=== PATIENT | female | born 1940 | race Caucasian/White ===

== ENCOUNTER 2022-04-14 14:09 | Outpatient (CLI) | payer MEDICARE, OTHER, SELFPAY ==
[2022-04-14 20:33] LABS: Chloride* 100 mmol/L (96-114)
[2022-04-14 20:34] LABS: Albumin* 4.6 g/dL (3.3-5.0); Potassium* 3.6 mmol/L (3.6-5.1); Sodium* 140 mmol/L (135-149)
[2022-04-14 20:36] LABS: Creatinine* 0.8 mg/dL (0.5-1.5); Estimated Glomerular Filt Rate 73 ml/min
[2022-04-14 20:37] LABS: Alanine Aminotransferase* 60 U/L (4-35); Alkaline Phosphatase* 94 U/L (40-150); Aspartate Amino Transferase* 57 U/L (12-35); Blood Urea Nitrogen* 26 mg/dL (7-30); Carbon Dioxide* 29 mmol/L (20-32); Glucose* 101 mg/dL (60-115); Total Protein* 7.7 g/dL (6.0-8.3)
[2022-04-14 20:56] LABS: Vitamin D 25 Hydroxy* 74 ng/mL (30-80)
== END 2022-04-14 14:10 | disposition home or self-care (01) ==
PROVIDERS: PCP Internal Medicine; Visit Provider Internal Medicine
DX: I10 Essential (primary) hypertension (principal); M85.80 Other specified disorders of bone density and structure, unspecified site; R73.03 Prediabetes; E78.5 Hyperlipidemia, unspecified; K21.9 Gastro-esophageal reflux disease without esophagitis; G57.01 Lesion of sciatic nerve, right lower limb
CPT/HCPCS: 80053; 82306

== ENCOUNTER 2022-04-18 12:50 | Outpatient (RCR) | payer MEDICARE, OTHER, SELFPAY ==
--- NOTE | 2022-04-18 14:36 | PT.OPEX ---
PT [place] [facility] PT [facility] Outpatient Eval Start: 04/18/22 07:46 Freq: Status: Active Protocol: Document 04/18/22 07:46 SPRING (Rec: 04/18/22 07:53 SPRING [id number]) E-Signed By Juli Malloy, PT Physical Therapy Outpatient Evaluation Insurance Information Recert Due Date 07/17/22 Insurance Name [employer],Medicare B Medical Diagnosis Piriformis syndrome R side lesion of sciatic nerve, R LE Treating Diagnosis pain limited ROM posture weakness Referring MD Dr. Paulino Subjective Subjective Marcia presents to PT with diagnosis of R sided piriformis syndrome and lesion of R sciatic nerve. Her pain started approx 3-4 weeks ago. Has not improved since onset . Is located in her R buttock. Can have some soreness in the back (midline). Rates her pain is almost always there and ranges between a 1-2 /10. Pain increases with walking and at time with sitting. Pain does increase the longer she walks. Pt tries to walk 1 -1.5 miles, 6/7 days. Her goal for therapy is pain reduction. Pain Comments 1-210 Date of Last Physician Visit 04/14/22 Current Work Status Retired Preferred Name Marcia Precautions Treatment Precautions/Contraindications Hx/o breast CA - 2 surgeries. Radiation, no chemo -- 2-3 urs ago. Arthritis - hands, fingers, knees. 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 Objective Range of Motion Trunk AROM - flexion: Mod limit; ext: severe limit; SB- R: mod+ limit, L: mild limit, rot- B: mod limit Hip PROM - B WFL with exception of R hip flexion: 100, IR- R: 30, L: 25, SLR - R : 50, L: 65 R knee: -5 deg (lacking extension) FABERS - B: negative FADIRS- R: neg, L: mild limitation in ROM, no pain. Strength LE MMT - WFL Palpation Severe spasm and tenderness noted with palpation of: R buttock including piriformis, G med, G max. Moderate spasms and tenderness of R QL and lumbar paraspinals. Hypomobility with spring testing along L3-L5, R SIJ. Balance & Gait Genu valgus noted with shortened and quick B step/ stride lengths. Hard impact with heel strike. Decreased trunk rotation. Posture Fair posture Flattened lumbar spine. Asymmetry at Iliac crest heights in standing and in supine - R elevated. Assessment Assessment/Impression 82 yo client presents with c/o R buttock pain that worsens with walking. Has a flattened lumbar spine and asymmetry at B iliac crests. Limited R knee extension noted (did have B TKAs). Severe spasms are noted in her R buttock including piriformis, G med, and G max. Hypomobility was present in R SIJ and lower lumbar segment's. Overall LE AROM and strength is WFL with exception of R SLR and L hip IR. Plan is to continue with further PT services including use of ther exs, MT, NMRE for symptom reduction and improvement with walking. Plan of Care Rehabilitation Potential Good Physical Therapy Goals Short-term goals to be completed in 4 weeks: 1. Pt will demonstrate ability to perform pelvic tilts in sitting, standing, and lying down to promote ability to maintain neutral spine in daily activities. 2. Pt will report ability to fitness walk with <2/10 LBP Long-term goals to be completed in 12 weeks: 1. Pt will be independent with HEP for improvement in her function. 2. Pt will report ability to perform all ADLS and fitness routine with 1/10 or less 3. 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 Coordination/Communication With Referral Source Treatment Plan/Direct Interventions Joint Mobilization,Manual Therapy,Neuromuscular Re-ed, Self-Care/Home Management, Therapeutic Activities, Therapeutic Exercises Frequency/Duration 2-6 visits over the next 12 weeks. Patient Will Be Discharged From Therapy Completion of LTG(s),Skills Plateau,Independent w/HEP, Independently Progressing Evaluation Billing Untimed Code Treatment Minutes 30 Complexity Moderate Certification Information Initial Certification Date 04/18/22 Ending Certification Date 07/17/22
== END 2022-07-23 17:21 | disposition home or self-care (01) ==
PROVIDERS: PCP Internal Medicine; Visit Provider Internal Medicine
DX: G57.01 Lesion of sciatic nerve, right lower limb (principal); Z51.89 Encounter for other specified aftercare
CPT/HCPCS: 97110; 97140; 97162

== ENCOUNTER 2022-08-12 15:48 | Outpatient (CLI) | payer MEDICARE, OTHER, SELFPAY | END 2022-08-12 15:49 | disposition home or self-care (01) | LOC: KYNREF 15:51 | PROVIDERS: PCP Internal Medicine; Visit Provider Nurse Practitioner Family | DX: N39.0 Urinary tract infection, site not specified (principal) | CPT/HCPCS: 87086; 87186 ==

== ENCOUNTER 2022-09-14 09:51 | Outpatient (CLI) | payer MEDICARE, OTHER, SELFPAY | END 2022-09-14 09:52 | disposition home or self-care (01) | LOC: NFLDUCREF 09-16 10:10 | PROVIDERS: PCP Internal Medicine; Visit Provider Family Medicine | DX: R30.0 Dysuria (principal); N39.0 Urinary tract infection, site not specified | CPT/HCPCS: 87086 ==

== ENCOUNTER 2023-06-08 15:04 | Outpatient (CLI) | payer MEDICARE, OTHER, SELFPAY ==
--- OUTSIDE RECORDS SUMMARY | 2023-06-08 15:11 | XMS_ITS | Continuity of Care Document ---
Author Name Unknown Organization [facility] Address [address] [place] [address] Phone Care Team Providers Care Extract Mixer Name Role Phone Carline KEY, Onofre Unavailable Unavailable Results Test Name Date and Time Measure Units Reference Range Abnormal Flag Status Commen ts Panel Description: CBC Final WBC 15:52:00 9.3 K/uL 3.5-10.8 Final Lymphocyte% 15:52:00 21.4 % 15.1-43.0 Final Mid% 15:52:00 5.6 % 1.0-18.0 Final Gran% 15:52:00 73.0 % 45.0-76.0 Final Lymphocyte # 15:52:00 2.0 K/uL 0.9-5.2 Final Mid # 15:52:00 0.5 K/uL 0.1-2.0 Final Gran # 15:52:00 6.8 K/uL 1.4-9.1 Final RBC 15:52:00 4.70 M/uL 3.80-5.20 Final Hemoglobin 15:52:00 13.9 g/dL 11.5-16.0 Final Hematocrit 15:52:00 40.7 % 36.0-49.0 Final MCV 15:52:00 87 fL 81-100 Final MCH 15:52:00 30 pg 27-35 Final MCHC 15:52:00 34.2 g/dL 31.0-37.5 Final MPV 15:52:00 11.0 fL 7.0-10.4 H Final Platelet Count 15:52:00 343 K/uL 130-400 Final Panel Description: NSAID Final AST 16:29:00 22 U/L 5-34 Final ALT 16:29:00 13 IU/L 5-35 Final BUN 16:29:00 24 mg/dL 10-37 Final Creatinine 16:29:00 0.8 mg/dL 0.5-1.3 Final B/C Ratio 16:29:00 30.0 Ratio Final Uric Acid 16:29:00 5.0 mg/dL 2.6-6.0 Final Alk Phos 16:29:00 88 U/L 30-103 Final Panel Description: CRP Final CRP 16:29:00 0.86 MG/DL 0.00-0.60 H Final Advance Directives Directive Yes / No Effective Date File Name No Information Encounters Encounter Description Practice Location Reason(s) For Visit Diagnoses Date Provider Providers Copied on Encounter [facility], [address], [place], [address], tel:[phone] No Information 3 Carline Parnell [facility] [address], [place], [address], . tel:[phone] Family History Family Member Type Diagnosis Age At Onset No Information Payers Payer name Insurance type Covered republican ID Authoriza tion(s) No Information Social History Type Description Quantity Date Captured Comments Sex Female Smoking Status No Information Chief Complaint And Reason For Visit No Information Reason For Referral Reason For Referral No Information History Of Present Illness Encounter Date Complaint History Of Prese nt Illness No Information Functional Status Date Functional Assessmen t No Information Instructions Date Instruction Additional Infor mation No Information Assessments Type Assessment Date No Information Patient Care Teams Name Effective Dates (start - stop) Status Members No Information
== END 2023-06-08 15:05 | disposition home or self-care (01) ==
PROVIDERS: PCP Internal Medicine; Visit Provider Internal Medicine
DX: E78.5 Hyperlipidemia, unspecified (principal); I10 Essential (primary) hypertension; R73.03 Prediabetes
CPT/HCPCS: 80053; 80061

== ENCOUNTER 2023-07-01 10:12 | Day surgery (SDC) | payer MEDICARE, OTHER, SELFPAY ==
[2023-07-01 10:28] VITALS: BMI 25.0
[2023-07-01 10:36] VITALS: BP 160/60; PULSE 90; RESP 20; TEMP 36.5; O2SAT 95
[2023-07-01] MEDS: LACTATED RINGERS 1000 ML 1,000 ML 100 ML IV (10:54)
[2023-07-01] MEDS: SODIUM CHLORIDE 0.9 % (FLUSH) 10 ML SYRINGE IVF (10:55)
[2023-07-01] MEDS: BUPIVACAINE 0.5 %/EPI 1:200K 30 ML INJECTION (11:35)
[2023-07-01] MEDS: TETRACAINE 0.5% OPHTH 2 DROP EYE-BOTH (11:35)
--- NOTE | 2023-07-01 11:52 | W.ANESCHARGE ---
Anesthesia Charges Start Date/Time Anesthesia Start Date: 07/01/23 Anesthesia Start Time: 11:29 Stop Date/Time Anesthesia Stop Date: 07/01/23 Anesthesia Stop Time: 12:44 Summary Extremes of Age - Over 70 or under 1: MDA
--- NOTE | 2023-07-01 12:28 | W.ANESCHARGE ---
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
--- NOTE | 2023-07-01 12:30 | P.ANES_ITS ---
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
--- NOTE | 2023-07-01 12:48 | W.PM.OPTPROC ---
Procedure Note Date of procedure: 07/01/23 Will [facility] bill your pro fee for this procedure?: Yes Procedure Description: SURGEON: Winifred Pires MD PREOPERATIVE DIAGNOSIS: Dermatochalasis, bilateral upper eyelids. POSTOPERATIVE DIAGNOSIS: Dermatochalasis, bilateral upper eyelids. NAME OF OPERATION: Bilateral upper eyelid blepharoplasty. ANESTHESIA: Local monitored anesthesia care. ESTIMATED BLOOD LOSS: Less than 2 cc. COMPLICATIONS: None. IMPLANTS: None. INDICATIONS: The patient is seen today for bilateral upper eyelid blepharoplasty. The patient complains of upper eyelids interfering with vision. I reviewed the visual marlow and facial photographs. Surgery was indicated for functional improvement of vision. The risks, benefits and alternatives were discussed pre-operatively. The risks included pain, infection, bleeding, poor cosmetic result, scarring, asymmetry, need for further treatment including surgery, inability to close lids, dry eyes, decreased vision, loss of vision and loss of eye. The benefits included improvement of symptoms. The alternative was observation and no surgery. All questions were answered to the patient's satisfaction, and the patient elected to proceed with the bilateral upper eyelid blepharoplasty. Informed consent was obtained. PROCEDURE: In a sitting position, the upper eyelid crease was marked with a marking pen, and the pinch technique was used to determine the amount of upper eyelid skin to be excised. A calipers was used to measure for symmetry and to confirm an appropriate amount of remaining skin. The patient was taken to the operating room. 4 cc of anesthetic was injected subcutaneously along the full extent of each upper eyelid. This anesthetic was made with 1:1 of 2% lidocaine with epinephrine and 0.5% bupivacaine. Both eyes were prepped and draped in the usual sterile ophthalmic fashion. The following was performed on both the right and left upper eyelid: A #15 blade was used to incise the skin. Bishops and Carlos scissors were used to excise the skin and orbicularis muscle. Handheld cautery was used to achieve hemostasis. The eyelids were examined for symmetry. The skin was closed with a running 6-0 nylon suture. Erythromycin ointment was applied to the wounds. The patient tolerated the procedure well. DISPOSITION: The patient was sent to the recovery room and discharged to home in stable condition. The patient was given my postoperative instructions handout. The patient was told to ice as directed. The patient will apply erythromycin ophthalmic ointment to the eyelids three times a day until the sutures are removed, then for another three days. The patient will follow up in one week for suture removal or sooner as needed. The patient was instructed to call me or go to the emergency department with any sudden change, including dramatic loss of vision, excessive bleeding, redness or discharge from the incisions, or severe pain in the eye.
[2023-07-01 12:49] VITALS: BP 114/72; PULSE 78; RESP 20; TEMP 36.8; O2SAT 95
[2023-07-01 13:00] VITALS: BP 133/70; PULSE 77; RESP 18; O2SAT 95
== END 2023-07-01 13:29 | disposition home or self-care (01) ==
PROVIDERS: PCP Internal Medicine; Visit Provider Ophthalmology
PROC: (CPT 15823; principal; 2023-07-01 10:15)
DX: H02.831 Dermatochalasis of right upper eyelid (principal); H02.834 Dermatochalasis of left upper eyelid; H53.8 Other visual disturbances
CPT/HCPCS: 15823; 00103; 99100; A9270; J2704; J3490; J7120

== ENCOUNTER 2023-07-26 08:35 | Outpatient (CLI) | payer MEDICARE, OTHER, SELFPAY ==
--- OUTSIDE RECORDS SUMMARY | 2023-07-27 11:15 | XMS_ITS | Continuity of Care Document ---
Author Name Unknown Organization [facility] Address [address] [place] [address] Phone Care Team Providers Care Senior Web Architect Name Role Phone Carline KEY, Onofre Unavailable [...] [facility], [address], [place], [address], tel:[phone] No Information 3 Carline Parnell [facility] [address], [place], [address], . tel:[phone] Family History Family Member Type Diagnosis Age At Onset No Information Payers Payer name Insurance type Covered constitution party ID Authoriza tion(s) No Information Social History [...]
== END 2023-07-26 08:36 | disposition home or self-care (01) ==
LOC: NFLDREF 07-27 11:12
PROVIDERS: PCP Internal Medicine; Referring Provider Internal Medicine; Visit Provider Nurse Practitioner Family
DX: R30.0 Dysuria (principal); N30.91 Cystitis, unspecified with hematuria
CPT/HCPCS: 87086; 87186

== ENCOUNTER 2023-07-31 11:23 | Outpatient (CLI) | payer MEDICARE, OTHER, SELFPAY ==
--- OUTSIDE RECORDS SUMMARY | 2023-07-31 11:25 | XMS_ITS | Continuity of Care Document ---
Author Name Unknown Organization [facility] Address [address] [place] [address] Phone Care Team Providers Care Monitor Car Operator Name Role Phone Carline KEY, Onofre Unavailable [...] [facility], [address], [place], [address], tel:[phone] No Information 3 Carline Parnell [facility] [address], [place], [address], . tel:[phone] Family History Family Member Type Diagnosis Age [...]
== END 2023-07-31 11:24 | disposition home or self-care (01) ==
PROVIDERS: PCP Internal Medicine; Visit Provider Family Medicine
DX: N39.0 Urinary tract infection, site not specified (principal)
CPT/HCPCS: 87086

== ENCOUNTER 2023-08-26 12:52 | Outpatient (CLI) | payer MEDICARE, OTHER, SELFPAY ==
--- OUTSIDE RECORDS SUMMARY | 2023-08-26 12:56 | XMS_ITS | Continuity of Care Document ---
Author Name Unknown Organization [facility] Address [address] [place] [address] Phone Care Team Providers Care Locomotive Observer Name Role Phone Carline KEY, Onofre Unavailable [...] [facility], [address], [place], [address], tel:[phone] No Information 3 Carline Parnell [facility] [address], [place], [address], . tel:[phone] Family History Family Member Type Diagnosis Age At Onset No Information Payers Payer name Insurance type Covered libertarian ID Authoriza tion(s) No Information Social History [...]
--- NOTE | 2023-08-26 13:00 | CRLHL7_ITS ---
For Patients: As a result of the Century Cures Act, medical imaging exams and procedure reports are released immediately into your electronic medical record. You may view this report before your referring provider. If you have questions, please contact your health care provider. DXA BONE MINERAL DENSITY STUDY, 08/26/2023 Current height (in): 67.0. Weight (lb): 150.0. Menopause age: 44. Ethnicity: White. 1. Have you had a previous hip or vertebral fracture? No. 2. Have you had any fractures during your adult life which did not result from significant trauma (e.g., auto accident)? No. 3. Did either of your parents have a hip fracture? No. 4. Do you smoke? No. 5. Have you ever taken Glucocorticoids? No. 6. Do you have rheumatoid arthritis? Yes. 7. Do you have secondary osteoporosis? No. 8. Do you drink 3 or more alcoholic drinks per day? No. 9. Are you being treated for osteoporosis? No. 10. Have you ever taken any of the following medications: Actonel, Evista, Fosamax, Miacalcin, Reclast, Boniva, Forteo, HRT (i.e. estrogen/hormone therapy), Protelos, Prolia, Vitamin D, Calcium, other ??? please specify. ANSWER: Yes, Vitamin D, Calcium. 11. Do you have any of the following medical conditions: Anorexia or bulimia, asthma or emphysema, end stage renal disease, hyperparathyroidism, any seizure disorders, cancer, inflammatory bowel diseases, hysterectomy, other ??? please specify. ANSWER: Yes, Cancer, Inflammatory bowel diseases, hysterectomy. 12. What was your maximum height (inches)? 67. 13. Do you perform weight bearing exercise regularly? No. 14. Do you regularly consume dairy products? Yes. 15. Do you drink caffeinated beverages? No. If female: 16. At what age did your period start? 15. 17. Are you premenopausal? No. 18. How many full term pregnancies have you had? 3. 19. Have you ever missed your period for more than 6 months in a row (not including or menopause)? No. TECHNIQUE: Bone mineral density study was performed using the [employer]. FINDINGS: The results of the study expressed as bone mineral density (BMD) are as follows: Lumbar spine L1 to L4: BMD: 0.892 g/cm2. T-score: -1.4. Z-score: 1.4. Neck Left: BMD: 0.631 g/cm2. T-score: -2.0. Z-score: 0.5. Right: BMD: 0.590 g/cm2. T-score: -2.3 . Z-score: 0.2. Total Left: BMD: 0.859 g/cm2. T-score: -0.7. Z-score: 1.6. Right: BMD: 0.809 g/cm2. T-score: -1.1 . Z-score: 1.2. IMPRESSION: Osteopenia. *Comparison exams done prior to 02/2020 were performed on different unit, [place]. COMPARISON: Compared with scan of 09/06/2015, the bone mineral density has decreased by 3.4 percent at the spine and increased by 2.0 percent at the hip. Eligio Ely M.D. Diagnostic Radiologist [email or web address] VELVET/corina JR/Dictated by: Eligio Ely MD @ 08/31/2023 6:35:00 AM (Electronically Signed)
== END 2023-08-26 12:53 | disposition home or self-care (01) ==
LOC: RAD 12:54
PROVIDERS: PCP Internal Medicine; Visit Provider Internal Medicine
DX: M85.88 Other specified disorders of bone density and structure, other site (principal)
CPT/HCPCS: 77080

== ENCOUNTER 2023-09-20 08:58 | Outpatient (CLI) | payer MEDICARE, OTHER, SELFPAY | END 2023-09-20 08:59 | disposition home or self-care (01) | LOC: NFLDREF 09-21 18:50 | PROVIDERS: PCP Internal Medicine; Referring Provider Internal Medicine; Visit Provider Nurse Practitioner | DX: R35.0 Frequency of micturition (principal); N30.01 Acute cystitis with hematuria; B37.9 Candidiasis, unspecified | CPT/HCPCS: 87086 ==

== ENCOUNTER 2024-01-05 10:37 | Outpatient (CLI) | payer MEDICARE, OTHER, SELFPAY ==
--- NOTE | 2024-01-05 12:14 | W.ANESCHARGE ---
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
--- NOTE | 2024-01-05 12:30 | W.ANESCHARGE ---
Anesthesia Charges Start Date/Time Anesthesia Start Date: 01/05/24 Anesthesia Start Time: 11:39 Stop Date/Time Anesthesia Stop Date: 01/05/24 Anesthesia Stop Time: 12:13 Summary Extremes of Age - Over 70 or under 1: MDA
== END 2024-01-05 10:38 | disposition home or self-care (01) ==
LOC: OP CLINIC 10:37
PROVIDERS: PCP Internal Medicine; Visit Provider Surgery
DX: K21.9 Gastro-esophageal reflux disease without esophagitis (principal); K31.89 Other diseases of stomach and duodenum; K31.7 Polyp of stomach and duodenum; K44.9 Diaphragmatic hernia without obstruction or gangrene
CPT/HCPCS: 00731; 43251; 88305; 99100; J2704

== ENCOUNTER 2024-02-25 09:13 | Emergency (ER) | payer MEDICARE, OTHER, SELFPAY ==
[2024-02-25 09:27] VITALS: BP 166/78; PULSE 89; RESP 16; TEMP 36.9; O2SAT 95; BMI 22.6
--- NOTE | 2024-02-25 11:00 | ED_ITS ---
HPI - Nausea/Vomiting/Diarrhea General Chief complaint: Diarrhea Stated complaint: Diarrhea Time Seen by Provider: 02/25/24 10:53 History of Present Illness HPI Narrative: This 83-year-old female comes in reporting diarrhea that began yesterday. She and her ate at a restaurant and both had some diarrhea a but she has had persistent diarrhea over the past day or more. She states that with drinking any kind of water or liquid it seems to push right through and cause diarrhea to occurred rather suddenly. She does not report any nausea or vomiting. She does not have any dysuria. She states that she did measure a temperature yesterday at 100.7 but nothing since then. She does not report any blood in the toilet. She does have some lightheadedness at times. She arrives here with normal vital signs. She has not had any recent travel or use of antibiotic medicines. Related Data Home Medications ?Medication ?Instructions ?Recorded ?Confirmed calcium carbonate (Calcium 600) 600 mg PO BID 04/14/22 12/31/23 cholecalciferol (vitamin D3) 25 25 mcg PO QDAY 08/14/22 12/31/23 mcg (1,000 unit) capsule clobetasol 0.05 % topical ointment 1 applic topical BID 09/20/23 12/31/23 bismuth subsalicylate 262 mg/15 mL 524 mg PO Q30-60M PRN 12/31/23 12/31/23 oral suspension (Pepto-Bismol) diphenhydramine 25 1 tab PO QHS PRN 12/31/23 12/31/23 mg-acetaminophen 500 mg tablet (Tylenol PM Extra Strength) famotidine 20 mg tablet (Pepcid AC 20 mg PO QDAY 12/31/23 12/31/23 Maximum Strength) Previous Rx's ?Medication ?Instructions ?Recorded hydrochlorothiazide 25 mg tablet 25 mg PO DAILY #90 tabs 06/08/23 losartan 25 mg tablet 25 mg PO QDAY #90 tabs 06/08/23 benzonatate 100 mg capsule 100 mg PO BID PRN cough #30 caps 08/10/23 omeprazole 20 mg tablet,delayed 20 mg PO BID #180 tabs 12/16/23 release alprazolam 0.5 mg tablet 0.25 mg (1/2 x 0.5 mg) PO QDAY PRN 12/31/23 anxiety #14 tabs diphenoxylate-atropine 2.5 1 tab PO DAILY #7 tabs 02/25/24 mg-0.025 mg tablet (Lomotil) Allergies Allergy/AdvReac Type Severity Reaction Status Date / Time nitrofurantoin Allergy Mild diarhea Verified 02/25/24 09:30 sulfamethoxazole Allergy Unknown Verified 02/25/24 09:30 [From Bactrim] trimethoprim [From Bactrim] Allergy Unknown Verified 02/25/24 09:30 lansoprazole Allergy Verified 02/25/24 09:30 oxycodone Allergy Verified 02/25/24 09:30 amoxicillin [From Augmentin] AdvReac Unknown Severe Verified 02/25/24 09:30 diarrhea clavulanic acid AdvReac Unknown Severe Verified 02/25/24 09:30 [From Augmentin] diarrhea cefdinir AdvReac Verified 02/25/24 09:30 Review of Systems Status of ROS: Reports: 10 or more systems reviewed and unremarkable except as noted in History and below Narrative: Constitutional: No fevers, no weight gain or loss. Eyes: No discharge. No vision changes. HENT: No congestion, no sore throat, no ear pain. Cardiovascular: No chest pain, no palpitations. Respiratory: No shortness of breath, no wheezes, no cough. Gastrointestinal: No abdominal pain, no vomiting. Diarrhea symptoms as described above. Genitourinary: No dysuria, no hematuria. Musculoskeletal: Normal range of motion. Skin: No rashes, no pruritis. Neurological: No dizziness, weakness, sensory change, speech change. Endo/Heme/Allergies: No bruising or bleeding. No polydipsia. Pysch: no suicidality, no anxiety, no insomnia. All other systems reviewed and are negative. [facility] Medical History (Updated 02/25/24 @ 12:03 by Khang Mayorga MD) History of breast cancer ?Z85.3 - Personal history of malignant neoplasm of breast (ICD-10) History of nephrolithiasis ?Z87.442 - Personal history of urinary calculi (ICD-10) Surgical History (Updated 12/31/23 @ 15:05 by Elaine Paulino MD) History of blepharoplasty ?Z98.890 - Other specified postprocedural states (ICD-10) History of melanoma ?Z85.820 - Personal history of malignant melanoma of skin (ICD-10) History of total bilateral knee replacement (2018) ?Z96.653 - Presence of artificial knee joint, bilateral (ICD-10) History of lumpectomy of both breasts (05/2015) ?Z98.890 - Other specified postprocedural states (ICD-10) History of hysterectomy ?Z90.710 - Acquired absence of both cervix and uterus (ICD-10) History of SCC (squamous cell carcinoma) of skin (04/2021) ?Z85.828 - Personal history of other malignant neoplasm of skin (ICD-10) History of appendectomy ?Z90.49 - Acquired absence of other specified parts of digestive tract (ICD-1 0) History of right cataract surgery (03/2013) ?Z98.41 - Cataract extraction status, right eye (ICD-10) History of carpal tunnel release of both wrists (2012) ?Z98.890 - Other specified postprocedural states (ICD-10) Social History (Updated 06/08/23 @ 16:46 by Deanna Russell ~ [facility]) What is your current living situation?: I presently have a place to live Problems where you live: no known problems In the past 12 months, utilities in danger of being shut off: no In past 12 months, lack of transportation kept you from medical appts, meetings, work, or getting things needed for daily living: no In the past 12 mos, have been you worried that your food would run out before you had money to buy more?: never true In the past 12 mos, the food you bought just didn't last and you didn't have money to buy more?: never true Smoking Status: Former smoker How often do you have a drink containing alcohol: monthly or less How often do you have six or more drinks on one occasion: Never AUDIT-C Alcohol total score: 1 Non-prescribed substance use: denies use How often does anyone, including family, friends and others, physically hurt you : never How often does anyone, including family, friends and others, insult or talk down to you: never How often does anyone, including family, friends and others, threaten you with harm: never How often does anyone, including family, friends and others, scream or curse at you: never Little interest or pleasure in doing things: not at all Feeling down, depressed, or hopeless: not at all Exam Narrative: Exam Narrative: Constitutional: Well-developed, well-nourished, no acute distress. HEENT: Normocephalic, atraumatic. Neck: Normal range of motion. Nontender. Supple. Heart: Regular. No murmurs. Normal rate. Intact distal pulses. Lungs: Clear to auscultation. No chest discomfort. No wheezes, rhonchi, or rales. Abdomen: Normal bowel sounds. Nontender. No rebound tenderness. Genitalia: Deferred. Back: No midline tenderness. Normal range of motion. Extremities: Normal range of motion. No injury. Skin: Intact. No rash. Warm. No erythema or pallor. Neurologic: No altered sensation. No weakness. Alert and oriented. Psychiatric: No suicidality. No anxiety or depression. No insomnia. Nursing notes and vitals signs are reviewed. Const: Vital Signs, click to edit/add: Vital Signs - 24 hr 02/25/24 09:27 Temperature 98.5 F Pulse Rate [Pulse Oximeter] 89 Respiratory Rate 16 Blood Pressure [Ri ght Upper Arm] 166/78 H Pulse Oximetry 95 Oxygen Delivery Me thod Room Air Course Vital Signs Vital signs: Initial Vital Signs Temperature 98.5 F 02/25/24 09:27 Temperature Source Temporal Artery Scan 02/25/24 09:27 Pulse Rate 89 02/25/24 09:27 Respiratory Rate 16 02/25/24 09:27 Blood Pressure 166/78 H 02/25/24 09:27 Blood Pressure Mean 107 H 02/25/24 09:27 Blood Pressure Position Sitting 02/25/24 09:27 Pulse Oximetry 95 02/25/24 09:27 Oxygen Delivery Method Room Air 02/25/24 09:27 Vital Signs Temperature 98.5 F 02/25/24 09:27 Pulse Rate 89 02/25/24 09:27 Respiratory Rate 16 02/25/24 09:27 Blood Pressure 166/78 H 02/25/24 09:27 Pulse Oximetry 95 02/25/24 09:27 Oxygen Delivery Method Room Air 02/25/24 09:27 Temperature 98.5 F 02/25/24 09:27 Pulse Rate 89 02/25/24 09:27 Respiratory Rate 16 02/25/24 09:27 Blood Pressure 166/78 H 02/25/24 09:27 Pulse Oximetry 95 02/25/24 09:27 Oxygen Delivery Method Room Air 02/25/24 09:27 Medications Administered Medications: Discontinued Medications Generic Name Dose Route Start Last Admin Trade Name Zane PRN Reason Stop Dose Admin Sodium Chloride 1,000 mls @ 1,000 mls/hr 02/25/24 11:00 02/25/24 11:15 0.9 % Sodium Chloride 1000 Ml IV 02/25/24 11:59 1,000 mls/hr .Q1H MASON Administration MDM - Nausea/Vomiting/Diarrhea MDM Narrative Medical decision making narrative: This patient reports some persistent diarrhea over the past day or so after taking some food that she states was very taste the but atypical for her. Her also has some diarrhea but this resolved. This patient arrives with normal vital signs. She does report some feelings of lightheadedness related to this. An IV was established where she received a L of normal saline. Labs returned with reassuring findings. Her electrolytes show no sign of abnormaliti es. She is encouraged use Imodium or Kaopectate as needed and directed for ongoing diarrhea. I did provide a few tablets of Lomotil if needed also. Lab Data Labs: Lab Results 02/25/24 Range/Units 11:15 WBC 7.28 (4.50-11.00) K/uL RBC 5.35 H (4.00-5.20) m/uL Hgb 16.1 H (12.0-16.0) gm/dL Hct 48.6 (33.0-51.0) % MCV 91 (80-100) fL MCH 30 (26-34) pg MCHC 33 (32-36) gm/dL RDW Coeff of Jhonathan 12.8 (11.5-15.5) % Plt Count 226 (140-440) K/uL Neut % (Auto) 72.1 H (42.0-72.0) % Lymph % (Auto) 17.0 L (20-44) % [place] % (Auto) 9.1 (0.0-11.0) % Eos % (Auto) 1.4 (0.0-7.0) % Baso % (Auto) 0.1 (0.0-3.0) % Neut # (Auto) 5.20 (1.7-7.0) K/uL Lymph # (Auto) 1.20 (0.90-2.90) K/uL [place] # (Auto) 0.70 (0.00-0.90) K/UL Eos # (Auto) 0.10 (0.00-0.50) K/uL Baso # (Auto) 0.01 (0.00-0.30) K/uL Abs Immat Gran (auto) 0.02 (0.00-0.30) K/uL Imm/Tot Granulo (auto) 0.3 % Sodium 142 (135-149) mmol/L Potassium 3.7 (3.6-5.1) mmol/L Chloride 107 (96-114) mmol/L Carbon Dioxide 26 (20-32) mmol/L Anion Gap 9 (7-15) mEq/L BUN 26 (7-30) mg/dL Creatinine 0.8 (0.5-1.5) mg/dL Estimated Creat Clear 39.20 Estimated GFR 73 ml/min Glucose 109 (60-115) mg/dL Calcium 9.4 (8.4-10.6) mg/dL Discharge Plan Discharge Clinical Impression: Gastroenteritis Patient Disposition: Home, Self-Care Condition: Stable Additional Instructions: Take frequent sips of fluids and increase diet as tolerated use [id number] and prescription medicines as needed and directed also. Follow up with MD return if worsening. Prescriptions: New diphenoxylate-atropine [Lomotil] 2.5-0.025 mg tablet 1 tab PO DAILY Qty: 7 0RF No Action cholecalciferol (vitamin D3) 25 mcg (1,000 unit) capsule 25 mcg PO QDAY losartan 25 mg tablet 25 mg PO QDAY Qty: 90 3RF hydrochlorothiazide 25 mg tablet 25 mg PO DAILY Qty: 90 3RF benzonatate 100 mg capsule 100 mg PO BID PRN (Reason: cough) Qty: 30 3RF calcium carbonate [Calcium 600] 600 mg calcium (1,500 mg) tablet 600 mg PO BID clobetasol 0.05 % ointment 1 applic topical BID diphenhydramine-acetaminophen [Tylenol PM Extra Strength] 25-500 mg tablet 1 tab PO QHS PRN bismuth subsalicylate [Pepto-Bismol] 262 mg/15 mL suspension 524 mg PO Q30-60M PRN Rx Instructions: do not exceed 8 doses in a 24 hour period famotidine [Pepcid AC Maximum Strength] 20 mg tablet 20 mg PO QDAY alprazolam 0.5 mg tablet 0.25 mg PO QDAY PRN (Reason: anxiety) Qty: 14 1RF omeprazole 20 mg tablet,delayed release (DR/EC) 20 mg PO BID Qty: 180 0RF Follow Up/Referrals: Elaine Paulino MD [Primary Care Provider] - Stand Alone Forms: [facility] Info Instructions
[2024-02-25] MEDS: 0.9 % SODIUM CHLORIDE 1000 ml 1,000 ML IV (11:15)
--- OUTSIDE RECORDS SUMMARY | 2024-02-25 11:25 | XMS_ITS | Referral Summary ---
Author Organization [facility] Address [address] [place] [id number] Care Team Providers Care Tariff Compiler Name Role Phone Elaine Paulino MD Primary Care Provider Allergies Active Allergy Reactions Criticality Noted Date Comments Amoxicillin Diarrhea 09/09/2019 Amoxicillin-Pot Clavulanate Diarrhea 08/22/2019 No Clinical Screening - See Comments Nausea and Vomiting 03/16/2020 Narcotic pain medications. Tramadol worked well. Medications Medication Sig Dispensed Refills Start Date End Date Status hydrochlorothiazide (HYDRODIURIL) 25 MG tablet Take 25 mg by mouth daily Active losartan (COZAAR) 25 MG tablet Take 25 mg by mouth daily Active omeprazole (PRILOSEC) [address] capsule Take 20 mg by mouth daily Active letrozole (FEMARA) 2.5 MG tablet Take 2.5 mg by mouth daily Active calcium carbonate 600 mg-vitamin D 400 units (CALTRATE) 600-400 MG-UNIT per tablet Take 1 tablet by mouth 2 times daily Active Cholecalciferol (VITAMIN D3 PO) Take 1,000 Units by mouth 2 times daily Active ALPRAZolam (XANAX) 0.25 MG tablet Take 0.25 mg by mouth as needed for anxiety (takes before flying) Active order for DMEIndications:Statu s post total right knee replacement Equipment being ordered: Walker Wheels ([id number]) and Walker ([id number]) Treatment Diagnosis: Impaired mobility and gait 1 each 09/13/2019 Active aspirin (ASA) 325 MG EC tabletIndications:VT E Prophylaxis Take 1 tablet (325 mg) by mouth daily 30 tablet 03/30/2020 Active hydrOXYzine (ATARAX) 10 MG tabletIndications:St atus post total left knee replacement Take 1 tablet (10 mg) by mouth every 6 hours as needed for other (adjuvant pain) 30 tablet 03/30/2020 Active ondansetron (ZOFRAN-ODT) 4 MG ODT tabIndications:Statu s post total left knee replacement Take 1 tablet (4 mg) by mouth every 6 hours as needed for nausea or vomiting 30 tablet 03/30/2020 Active senna-docusate (SENOKOT-S/PERICOLAC E) 8.6-50 MG tabletIndications:St atus post total left knee replacement Take 2 tablets by mouth 2 times daily 30 tablet 03/30/2020 Active traMADol (ULTRAM) 50 MG tabletIndications:St atus post total left knee replacement Take 1-2 tablets (50-100 mg) by mouth every 6 hours as needed for moderate to severe pain 30 tablet 03/30/2020 Active Active Problems Problem Noted Date Diagnosed Date Total knee replacement status 09/13/2019 Social History Tobacco Use Types Packs/Day Years Used Date Smoking Tobacco: Never Smokeless Tobacco: Never Alcohol Use Standard Drinks/Week Comments Yes 0 (1 standard drink = 0.6 oz pur e alcohol) socially Sex and Gender Information Value Date Recorded Sex Assigned at Not on file Gender Identity Not on file Sexual Orientation Not on file Last Filed Vital Signs Vital Sign Reading Time Taken Comments Blood Pressure 161/70 03/30/2020 3:50 PM CDT Pulse 76 03/29/2020 11:35 AM CDT Temperature 37.9 ??C (100.2 ??F) 03/30/2020 3:50 PM C DT Respiratory Rate 16 03/30/2020 4:45 PM CDT Oxygen Saturation 94% 03/30/2020 3:50 PM CDT Inhaled Oxygen Concentration - - Weight 60.8 kg (134 lb) 03/29/2020 7:06 AM CDT Height 170.2 cm (5' 7) 03/29/2020 7:06 AM CDT Body Mass Index 20.99 03/29/2020 7:06 AM CDT Plan of Treatment Not on file Medical Devices Implanted Type Area Artist Model Device Identifier Shelf Expiration Date Model / Serial / Lot Bone Cement Simplex W/Tobramycin [id number] Implanted:Qty: 1 on 09/13/2019 by Crystal Ortez MD at [facility] Cement, Bone Right: Knee [employer] 03/27/2021 [id number] / / [id number] Bone Cement Simplex Full Dose [id number] Implanted:Qty: 1 on 03/29/2020 by Crystal Ortez MD at [facility] Cement, Bone Left: Knee [employer] 11/25/2021 [id number] / / [id number] Patella Round Dome, 35mm Implanted:Qty: 1 on 09/13/2019 by Crystal Ortez MD at [facility] Total Joint Component /Insert Right: Knee Depuy 02/26/2024 96-0111 / / [id number] Imp Comp Tibtry Sgm 2 Kn Cocr -000 Implanted:Qty: 1 on 09/13/2019 by Crystal Ortez MD at [facility] Total Joint Component /Insert Right: Knee [employer] 06/27/2028 0 / / [id number] Femoral Posterior Stabilized Cemented, Size 2.5 Right Implanted:Qty: 1 on 09/13/2019 by Crystal Ortez MD at [facility] Total Joint Component /Insert Right: Knee Depuy 10/28/2028 0 / / [id number] Pfc Sigma Tibial Insert Fixed Bearing Stabilized 2, 8mm Implanted:Qty: 1 on 09/13/2019 by Crystal Ortez MD at [facility] Total Joint Component /Insert Right: Knee Depuy 01/25/2023 8 / / [id number] Imp Comp Fem Depuy Post Stab Sigma Sz 2.5 Lt 40 Implanted:Qty: 1 on 03/29/2020 by Crystal Ortez MD at [facility] Total Joint Component /Insert Left: Knee J 06/27/2029 0 / / [id number] Imp Comp Tibtry Sgm 2 Kn Cocr [id number] Implanted:Qty: 1 on 03/29/2020 by Crystal Ortez MD at [facility] Total Joint Component /Insert Left: Knee [employer] 08/27/2028 0 / / [id number] [employer] Sigma Tibial Insert Fixed Bearing Stabilized, 2, 10mm Implanted:Qty: 1 on 03/29/2020 by Crystal Ortez MD at [facility] Left: Knee Depuy 07/28/2021 0 / / [id number] Patella Round Dome, 35mm Implanted:Qty: 1 on 03/29/2020 by Crystal Ortez MD at [facility] Left: Knee Depuy 05/28/2024 96-0111 / / [id number] Advance Directives For more information, please contact: [phone] Documents on File Type Date Recorded Patient [employer]her Expl anation Advance Directives and Living Will 04/04/2020 10:47 AM Health Care Directiv e 03/23/2020 Healthcare Agents on File Name Relationship Healthcare Agent Amanda puente Communication Driss Welch Spouse Health Care Agent Sonu Welch Son [employer] te Health Care Agent Mateo Welch Son [employer] te Health Care Agent Care Teams Tariff Compiler Relationship Specialty Start Date End Date Helgen, Elaine, [place] [address] PCP - General Internal Medicine 09/13/19
--- OUTSIDE RECORDS SUMMARY | 2024-02-25 11:25 | XMS_ITS | Clinical Summary ---
Author Organization [facility] Address [address] [place] [address] Care Team Providers Care Hip Hop Dance Instructor Name Role Phone Elsewhere, Pcp Primary Care Provider Unavailabl e Source Comments Patient records contain information from all sites at [facility]. For routine questions regarding patient records, call [phone] during business hours, M-F 8:00 AM - 5:00 PM Central Time. Record requests for emergency care only can be directed to [phone] at any time.[facility] Allergies Active Allergy Reactions Criticality Noted Date Comments Amoxicillin Diarrhea Low 09/09/2019 Amoxicillin-Pot Clavulanate Diarrhea 08/22/20 19 Cefdinir GI intolerance 07/01/2023 Clavulanic Acid GI intolerance 07/01/2023 Lansoprazole Other (see comments) 08/12/2023 Nitrofurantoin GI intolerance Low 08/12/2023 Oxycodone GI intolerance Low 07/01/2023 Sulfacetamide Sodium GI intolerance 09/02/2022 Sulfamethoxazole GI intolerance 07/01/2023 Trimethoprim GI intolerance 07/01/2023 Medications Medication Sig Dispensed Refills Start Date End Date Status hydroCHLOROthiazide (HYDRODIURIL) 25 mg tablet Take 25 mg by mouth daily. 11/14/2020 Active losartan (COZAAR) 25 mg tablet Take 25 mg by mouth daily. 11/14/2020 Active ALPRAZolam (XANAX) 0.25 mg tablet Take 0.25 mg by mouth 2 (two) times a day as needed. Active calcium carbonate-vit D3-min 600 mg calcium- 400 unit tablet Take 1 tablet by mouth daily. Active omeprazole (PriLOSEC OTC) [address] tablet Take 20 mg by mouth every morning before breakfast. 06/08/2023 Active benzonatate (TESSALON PERLES) 100 mg capsule Take 100 mg by mouth every 4 (four) hours as needed for cough. 08/10/2023 Active diphenhydrAMINE-acet aminophen (TYLENOL PM) 25-500 mg per tablet Take 1 tablet by mouth at bedtime as needed for sleep. Active clobetasoL (TEMOVATE) 0.05 % ointment Apply 1 Application topically 2 (two) times a day. Apply to labia. 30 g 3 08/18/2023 Active acetaminophen (TYLENOL) 500 mg tablet 1 tablet. As needed Activ e Active Problems Problem Noted Date Diagnosed Date Lichen Sclerosus 09/17/2023 Prophylactic Use Aromatase Inhibitor 08/18/2023 PreDiabetes 08/18/2023 Other Specified Disorders Of Bone Density And Structure Unspecified Site 08/18/2023 Hypertension Essential Primary 08/18/2023 Hyperlipidemia 08/18/2023 Gastroesophageal Reflux Disease NOS 08/18/2023 Fear Of Flying 08/18/2023 Fatty Liver 08/18/2023 Estrogen Receptor Positive Status 08/18/2023 Diaphragmatic Hernia Without Obstruction Or Gang kevin 08/18/2023 Arthritis 01/17/2021 Irritable Bowel Syndrome Without Diarrhea 2020 Murmur Heart 01/17/2021 Overview: gr. 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 07/10/2015 Intraocular Lens Implant Status Post 05/05/2013 Amblyopia Right Eye 04/25/2013 Resolved Problems Problem Noted Date Diagnosed Date Resolved Date Cataract 07/13/2014 01/17/2021 Immunizations Name Administration Dates Next Due H1N1 All Forms 09/06/2009 Influenza (IM) Preservative Free 013,07/22/2012,08/04/2011,2009 Influenza TIV (IM) 08/04/2006 Influenza high dose QV(65 ye ars or older) (PF) 07/10/2023,07/16/2022,07/17/2021 Influenza, Seasonal, Injectable 08/04/20 06,08/14/2005,07/13/2004,2002 PCV13 04/26/2015 PPSV23 08/14/2010 RZV (SHINGRIX) 08/24/2020,06/05/2020 SARS-COV-2 (COVID-19) - MODE RNA BIVALENT(Discontinued) 06/20/2022 SARS-COV-2 (COVID-19) - MODERNA(Discontinued) 06/20/2022,11/28/2020,10/27/2020 Td (Adult), adsorbed 08/30/2019 influenza high dose (65 year s or older) (PF) 07/26/2019,08/04/2017,07/30/2015,2013 influenza vaccine quad (FLUZONE/FLUARIX) (6 months and older)(PF) 07/26/2019,08/03/2018,08/04/2017,2014,08/03/2014,07/26/2013,07/22/2012,1 10/04/2010,07/24/2010,09/06/2009, 006,08/14/2005,07/13/2004,08/05/2003 Social History Tobacco Use Types Packs/Day Years Used Date Smoking Tobacco: Former Cigarettes Q uit: 02/05/1961 Smokeless Tobacco: Never Tobacco Cessation:Counseling Given: Not Answered Overall Financial Resource Strain (CARDIA) Answe r Date Recorded How hard is it for you to pa y for the very basics like food, housing, medical care, and heating? Not hard at all 08/18/2023 Exercise Vital Sign Answer Date Recorde d On average, how many days pe r week do you engage in moderate to strenuous exercise (like a brisk walk)? 4 days Minutes of Exercise per Session Not on file 08/18/2023 Hunger Vital Sign Answer Date Recorded Within the past 12 months, y ou worried that your food would run out before you got the money to buy more. Never true 08/18/20 23 Within the past 12 months, t he food you bought just didn't last and you didn't have money to get more. Never true 08/18/2023 PRAPARE - Transportation Answer Date Re corded In the past 12 months, has l ack of transportation kept you from medical appointments or from getting medications? No 07/30 In the past 12 months, has l ack of transportation kept you from meetings, work, or from getting things needed for daily living? No 08/18/2023 Nutrition Answer Date Recorded Nutrition: EVOO Fat Source Unknown 08/18 On average, how many serving s of fruits and vegetables do you eat per day (serving size is equal to 1 cup or approximately the size of a tennis ball)? 0-2 08/18/2023 Dental Answer Date Recorded Dental: Regular Dentist Yes 08/18/20 Employment Answer Date Recorded Employment status Retired 08/18/2023 Housing Stability Answer Date Recorded What is your living situation today? I have a [facility] place to live 08/18/2023 Sex and Gender Information Value Date Recorded Sex Assigned at Female 08/18/2023 1:08 PM BUTTER GRADER Gender Identity Female 08/18/2023 1:08 PM BUTTER GRADER Sexual Orientation Straight 08/18/2023 1: 08 PM BUTTER GRADER Last Filed Vital Signs Vital Sign Reading Time Taken Comments Blood Pressure 161/80 02/05/2021 1:28 PM CDT Pulse 86 02/05/2021 1:28 PM CDT Temperature 37.4 ??C (99.3 ??F) 02/05/2021 12:22 PM C DT Respiratory Rate 17 02/05/2021 1:28 PM CDT Oxygen Saturation 96% 02/05/2021 1:28 PM CDT Inhaled Oxygen Concentration - - Weight 68.3 kg (150 lb 9.2 oz) 02/05/2021 12:22 PM CDT Height 168 cm (5' 6.14) 02/05/2021 12:22 PM CDT Body Mass Index 24.2 02/05/2021 12:22 PM CDT Plan of Treatment Health Maintenance Due Date Last Done Comments Creatinine Level (Kidney Function Test) 1940 Office Visit for Blood Pressure Check / Re-check 1940 Potassium Level 1940 Sodium Level 1940 DTaP,Tdap,and Td Vaccines (1 - Tdap) 08/31/2019 08/30/2019 Fasting Glucose for Diabetes Screening 03/30/2021 03/30/2020 COVID-19 Vaccine ( season) 2023 07/10/2023, 06/20/2022, 06/20/2022, Additional history exists Depression Screening (Annual PHQ-2) 09/28/2023 Fall Risk Screen (Annual) 09/28/2023 Pneumococcal vaccine (65+ years) Completed 04/26/2015, 08/14/2010 Zoster Vaccines Completed 08/24/2020, 06/05/2020 Influenza Vaccine Completed 07/10/2023, , 07/17/2021, Additional history exists HPV Vaccines Aged Out No longer eligi ble based on patient's age to complete this topic Medical Devices Implanted Type Area Land Department Head Device Identifier Shelf Expiration Date Model / Serial / Lot Lens Michael Ac 6.0 X 23.00 - [id number] Implanted:Qty: 1 on 05/04/2013 Ocular Lens Right: Other/Legacy - See Implant Description [employer] Description:Device Manufactu rer - Michael Surgical. Body Location - Right. Device Status Text - [id number]. Lens Tcn [id number] Bicnvx +24.0d - [id number] - [id number] Implanted:Qty: 1 on 02/05/2021 by Luis Miguel Issa M.D. at [facility] Ocular Lens Left: Eye [employer] (Previously KIERSTEN) 11/30/2024 [id number] / [id number] / Procedures Procedure Name Priority Date/Time Associated Diagnosis Comments EXTI GLUCOSE, RANDOM, S/P Routine 03/30/2020 7:08 AM CDT from Last 3 Months or Most Recently Relevant to Health Maintenance Care Teams Hip Hop Dance Instructor Relationship Specialty Start Date End Date Elsewhere, Pcp PCP - General Family Medicine 02/05/21
--- OUTSIDE RECORDS SUMMARY | 2024-02-25 11:25 | XMS_ITS | Continuity of Care Document ---
Author Organization [facility] Address [address] [place] [address] Phone Care Team Providers Care Pen And Pencil Repairer Name Role Phone Carline KEY, Onofre Unavailable [...] [facility], [address], [place], [address], tel:[phone] No Information 3 Carline Parnell [facility] [address], [place], [address], . tel:[phone] Family History Family Member Type Diagnosis Age At Onset No Information Payers Payer name Insurance type Covered green party ID Authoriza tion(s) No Information Social [...]
--- OUTSIDE RECORDS SUMMARY | 2024-02-25 11:25 | XMS_ITS | Clinical Summary ---
Author Organization [facility] Address [address] [place] [id number] Care Team Providers Care Cnc Machine Operator Name Role Phone Elaine Paulino MD Primary Care Provider [phone] Allergies Active Allergy Reactions Criticality Noted Date [...] Diagnosed Date Total knee replacement status 09/13/2019 Family History Medical History Relation Comments Breast Cancer Sister Relation Status Comments Sister Social History Tobacco Use Types Packs/Day Years [...] on file Medical Devices Implanted Type Area Lasting Room Machine Operator Device Identifier Shelf Expiration Date Model / Serial / Lot Bone Cement Simplex W/Tobramycin [id number] Implanted:Qty: 1 on 09/13/2019 by Crystal Ortez MD at [facility] Cement, Bone Right: Knee [employer] 03/27/2021 [id number] / / [id number] Bone Cement Simplex Full Dose [id number] Implanted:Qty: 1 on 03/29/2020 by Crystal Ortez MD at [facility] Cement, Bone Left: Knee [employer] 11/25/2021 [id number] / / [id number] Patella Round Dome, 35mm Implanted:Qty: 1 on 09/13/2019 by Crystal Ortez MD at [facility] Total Joint Component /Insert Right: Knee Depuy 02/26/2024 [id number] / / [id number] Imp Comp Tibtry Sgm 2 Kn Cocr [id number] Implanted:Qty: 1 on 09/13/2019 by Crystal Ortez MD at [facility] Total Joint Component /Insert Right: Knee [employer] 06/27/2028 0 / / [id number] Femoral Posterior Stabilized Cemented, Size 2.5 Right Implanted:Qty: 1 on 09/13/2019 by Crystal Ortez MD at [facility] Total Joint Component /Insert Right: Knee Depuy 10/28/2028 0 / / [id number] Pfc Sigma Tibial Insert Fixed Bearing Stabilized 2, 8mm Implanted:Qty: 1 on 09/13/2019 by Crystal Ortez MD at [facility] Total Joint Component /Insert Right: Knee Depuy 01/25/2023 8 / / [id number] Imp Comp Fem Depuy Post Stab Sigma Sz 2.5 Lt 40-250 Implanted:Qty: 1 on 03/29/2020 by Crystal Ortez MD at [facility] Total Joint Component /Insert Left: Knee J 06/27/2029 0 / / [id number] Imp Comp Tibtry Sgm 2 Kn Cocr [id number] Implanted:Qty: 1 on 03/29/2020 by Crystal Ortez MD at [facility] Total Joint Component /Insert Left: Knee [employer] 08/27/2028 0 / / [id number] P.[employer].C. Sigma Tibial Insert Fixed Bearing Stabilized, 2, 10mm Implanted:Qty: 1 on 03/29/2020 by Crystal Ortez MD at [facility] Left: Knee Depuy 07/28/2021 0 / / [id number] Patella Round Dome, 35mm Implanted:Qty: 1 on 03/29/2020 by Crystal Ortez MD at [facility] Left: Knee Depuy 05/28/2024 96-0111 / / [id number] Advance Directives For more information, please contact: [phone] Documents on File Type Date Recorded Patient Senior Credit Officer Expl anation Advance Directives and Living Will 04/04/2020 10:47 AM Health Care Directiv e 03/23/2020 Healthcare Agents on File Name Relationship Healthcare Agent Amanda puente Communication Driss Welch Spouse Health Care Agent Sonu Welch Son Co-First Alterna te Health Care Agent Mateo Welch Son Co-First Alterna te Health Care Agent Care Teams Cnc Machine Operator Relationship Specialty Start Date End [place] [address] PCP - General Internal Medicine 09/13/19
--- OUTSIDE RECORDS SUMMARY | 2024-02-25 11:25 | XMS_ITS | Encounter Summary ---
Author Organization [facility] Address [address] [place] [address] Care Team Providers Care Fine Arts Teacher Name Role Phone No Ref-Primary, Physician Primary Care Provider Elaine Paulino MD Primary Care Provider [phone] Encounter Details Date Type Department Care Team (Late st Contact Info) Description 07/27/2019 Orders Only [facility] [address] [place] [phone] Crystal Ortez MD [facility] [address] [place] [id number] Pre-operative laboratory examination (Primary Dx) Social History Tobacco Use Types Packs/Day Years Used Date Smoking Tobacco: Never Assessed Sex and Gender Information Value Date Recorded Sex Assigned at Not on file Gender Identity Not on file Sexual Orientation Not on file documented as of this encounter Plan of Treatment Not on file documented as of this encounter Results * Methicillin Resist/Sens S. aureus PCR (07/28/2019 12:10 PM CDT) Specimen Description Nares 07/28/2019 1:20 PM CDT [facility] Methicillin Resist/Sens S. aureus PCR Negative NEG^Negat hortencia 07/28/2019 5:55 PM CDT [facility] Comment: MRSA Negative: SA Negative ??MRSA and Staphylococcus aureus target DNA not detected, presumed negative for MRSA and SA colonization or the number of bacteria present may be below the limit of detection for the assay. FDA approved assay performed using Tr[employer] GeneXpert(R) real-time PCR. Nasal structure (body structure) 07/28/2019 12:10 PM CDT 07/28/2019 1:20 PM CDT Crystal Ortez MD LAB - MICRO GENERAL ORDERABLES Performing Organization Address City/State/RUST Co de Phone Number [facility] [address] [place], [place] [phone] [place] [address] [address] [id number] [phone] documented in this encounter Visit Diagnoses Diagnosis Pre-operative laboratory examination- Primary Pre-procedural laboratory examination documented in this encounter Care Teams Fine Arts Teacher Relationship Specialty Start Date End Date No Ref-Primary, Physician PCP - General 07/28/19 09/12/19 Elaine Paulino MD [facility] [address] [place] [address] PCP - General Internal Medicine 09/13/19 documented as of this encounter
--- OUTSIDE RECORDS SUMMARY | 2024-02-25 11:25 | XMS_ITS | Encounter Summary ---
Author Organization [facility] Address [address] [place] [address] Care Team Providers Care Pneumatic Jack Operator Name Role Phone Elsewhere, Pcp Primary Care Provider Unavailabl e Encounter Details Date Type Department Care Team (Late st Contact Info) Description 06/07/2013 Historical Ophthalmology [facility] Luis Miguel Issa M.D. [address] [place] [address] Social History Tobacco Use Types Packs/Day Years Used Date Smoking Tobacco: Never Assessed Sex and Gender Information Value Date Recorded Sex Assigned at Female 08/18/2023 1:08 PM CURING OVEN TENDER Gender Identity Female 08/18/2023 1:08 PM CURING OVEN TENDER Sexual Orientation Straight 08/18/2023 1: 08 PM CURING OVEN TENDER documented as of this encounter Progress Notes * Luis Miguel Issa M.D. - 06/07/2013 1:37 PM CDT Eye General CHIEF COMPLAINT S/P IOL right eye (may 04) HISTORY OF PRESENT ILLNESS Right now she is using the cosopt and the PF 2x day. She was having some issues(dizziness) with theketorolac and was tapered down off of that and has been done for 1 week now. IMPRESSION / REPORT / PLAN #1 s/p removal of retained lens fragment and secondary IOL insertion, right eye. For aphakic corneal edema Doing well.....less corneal edema Prednisolone acetate 1%, 1 drop 2x/day into operative eye for 1 week then 1x/day for 1 week, then stop. Timolol 0.5%/dorzolamide 2%, 1 drop 2x/day into operative eye. Follow-up with Dr. Pires. See me prn, or for CE/IOL OS. #2 Amblyopia, right eye Possibly 20/400 at best #3 Cataract, left eye Not visually significant. Plan: observe. DIAGNOSIS #1 s/p removal of retained lens fragment and secondary IOL insertion, right eye. #2 Amblyopia, right eye #3 Cataract, left eye CDM Reports - EYEGEN Id: [id number] Status: Fnl documented in this encounter Plan of Treatment Not on file documented as of this encounter Visit Diagnoses Not on filedocumented in this encounter Additional Health Concerns Infection Onset Date Last Indicated Resolved Time COVID19 Pending 02/01/2021 02/02/2021 02/03/2021 2 :17 PM CDT documented as of this encounter Care Teams Pneumatic Jack Operator Relationship Specialty Start Date End Date Elsewhere, Pcp PCP - General Family Medicine 02/05/21 documented as of this encounter
--- OUTSIDE RECORDS SUMMARY | 2024-02-25 11:25 | XMS_ITS | Clinical Summary ---
Author Organization [facility] Address [place], [place] [address] Care Team Providers Care Air Conditioning Unit Tester Name Role Phone Elaine Paulino MD Primary Care Provider [phone] Nadya Amador MD Unavailable Unavailable Allergies No known active allergies Medications Medication Sig Dispensed Refills Start Date End Date Status ASPIRIN 81 MG TAB, DELAYED RELEASE 0 03/22/2007 Active PRILOSEC 20 MG CAP 1 po daily 0 03/22/2007 Active hydrochlorothiazide (HCTZ) 25 mg tablet Take 25 mg by mouth once daily. Active losartan (COZAAR) 25 mg tablet Take 25 mg by mouth once daily. Active ALPRAZolam (XANAX) 0.5 mg tablet Take 0.5 mg by mouth at bedtime if needed. Active CALCIUM CARBONATE/VITAMIN D3 (ROBERTH-600 WITH VITAMIN D ORAL) Take 1 tablet by mouth once daily. Active prochlorperazine (COMPAZINE) 5 mg tablet Take 5 mg by mouth every 6 hours if needed for Nausea/Vomiting. Active letrozole (FEMARA) 2.5 mg tablet Take 2.5 mg by mouth once daily. Active METHYLCELLULOSE, WITH SUGAR, (CITRUCEL, SUCROSE, ORAL) Take by mouth. Active Active Problems Problem Noted Date Diagnosed Date Irritable bowel syndrome ARTHRITIS Undiagnosed cardiac murmurs Overview: gr. 10/03 Encounters Date Type Department Care Team Description 01/05/2024 Lab Requisition [facility] [phone] Norma Weaver MD from Last 3 Months Immunizations Name Administration Dates Next Due Influenza, IIV3 (Age >=3 years) 08/04/2006 Family History Medical History Relation Name Comments Cancer-prostate Father dx in his 80 's Heart Disease Father hx CABG Psychiatric illness Mother Alzheime r's Cancer Sister twin sister juan diego h non-Hodgkin's Lymphoma Cancer-breast Sister Cancer-colon No Family History Cancer-ovarian No Family History Relation Name Status Comments Father Maternal Grandfather Maternal Grandmother Mother Paternal Grandfather Paternal Grandmother Sister Son 1 Sterling Alive Son 2 Reji Alive Social History Tobacco Use Types Packs/Day Years Used Date Smoking Tobacco: Never Smokeless Tobacco: Never Comments:per H&P Alcohol Use Standard Drinks/Week Comments Yes 0 (1 standard drink = 0.6 oz pur e alcohol) socially Sex and Gender Information Value Date Recorded Sex Assigned at Not on file Gender Identity Not on file Sexual Orientation Not on file Obstetrics History Para Term AB IAB SAB Ectopic Multiple Livin g Live Births 3 2 Date Outcome GA Total Labor Labor/2nd/3rd Weight Sex Delivery Anes PTL Ludmila A1 A5 Name Cl in Para Para Last Filed Vital Signs Vital Sign Reading Time Taken Comments Blood Pressure 149/88 05/08/2016 9:55 AM CDT Pulse 76 05/08/2016 9:55 AM CDT Temperature 36.4 ??C (97.6 ??F) 05/08/2016 9:55 AM CD T Respiratory Rate 16 07/05/2015 10:12 AM CDT Oxygen Saturation 95% 05/08/2016 9:55 AM CDT Inhaled Oxygen Concentration - - Weight 68.9 kg (152 lb) 05/08/2016 9:55 AM CDT Height 170.2 cm (5' 7.01) 05/08/2016 9:55 AM CD T Body Mass Index 23.8 05/08/2016 9:55 AM CDT Plan of Treatment Health Maintenance Due Date Last Done Comments Tdap 1950 Depression screening for age 12+ 1951 BMI (ht and wt on same day) for age 18+ 1957 Tetanus booster 1959 Zoster (shingles) series for age 50+ (1 of 2) 1989 Medicare Wellness for age 65+ 2004 Pneumococcal series for age 65+ (1 of 1 - PCV) 2004 COVID-19 vaccine series ( season) 2023 01/14/2022, 07/27/2021 Influenza for age 65+ 05/29/2024 08/04/2006 DEXA/DXA scan for age 65+ Completed 2020, 08/18/2019, 08/10/2017, Additional history exists Procedures Procedure Name Priority Date/Time Associated Diagnosis Comments LAB TRACKING EVENT Routine 01/05/2024 12 :05 PM CDT PATH TISSUE EXAM Routine 01/05/2024 12:0 5 PM CDT XR DXA BONE DENSITY 2 SITES AXIAL Routine 07/10/2021 11:30 AM CDT 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 of central portion of left breast in female (HC) nursing home current use of aromatase inhibitor from Last 3 Months or Most Recently Relevant to Health Maintenance Results * LAB TRACKING EVENT (01/05/2024 12:05 PM CDT) Other (Other) Client Collect / Unknown 01/05/2024 12:05 PM CDT 01/05/2024 9:15 PM CDT Norma Weaver MD LAB BILL ONLY [facility] [address] [place] [address], * PATH TISSUE EXAM (01/05/2024 12:05 PM CDT) Case Report Pathology Report ?Case: [id number] ? Authorizing Provider: ??Norma Weaver MD ??Collected: ? 01/05/2024 1205 ? Ordering Location: ? [facility] ?Received: ?01/06/2024 0900 ? Pathologist: ? Melvin Jenkins MD ? Specimens: ?? A) - Pyloric Biopsy, Polyp ? B) - Stomach Biopsy ? C) - Gastric Biopsy ? D) - Distal Esophagus Biopsy ? E) - Esophageal Biopsy ? F) - Stomach, polyp ? 01/07/2024 10:39 AM [facility] ENTRAL LABORATORY Final Diagnosis A) STOMACH, PREPYLORIC, POLYP, BIOPSY: 1. Hyperplastic polyp 2. Negative for dysplasia and malignancy 3. Per the endoscopy report: ?? a. Polyp size(s): 10 mm ?? b. Resection: No removal (biopsy only) ?? c. Retrieval: Not specified 4. Background normal stomach, see part B B) STOMACH, BIOPSY: 1. Gastric antral and body mucosae with no diagnostic abnormalities 2. Negative for Helicobacter C) STOMACH, BODY, BIOPSY: 1. Normal gastric body mucosa 2. Negative for Helicobacter 3. Glandular changes consistent with proton pump inhibitor use present D) ESOPHAGUS, DISTAL, BIOPSY: 1. Normal esophageal squamous mucosa 2. Negative for reflux changes and eosinophilic esophagitis 3. Negative for columnar mucosa E) ESOPHAGUS, MID, BIOPSY: 1. Normal esophageal squamous mucosa 2. Negative for reflux changes and eosinophilic esophagitis 3. Negative for columnar mucosa F) STOMACH, POLYPS, POLYPECTOMIES: 1. Fundic gland polyps 2. Negative for dysplasia and malignancy 3. Negative for gastritis and Helicobacter organisms 01/07/2024 10:39 AM [facility] LAB[facility]ATORY Comment 01/07/2024 10:39 AM [facility] Clinical Information Ms. WELCH is a 83 y.o. with history of lobular carcinoma of the breast in 2015. Now has esophageal reflux symptoms that persist despite appropriate therapy which prompted upper GI endoscopy which showed a medium size hiatal hernia, multiple gastric polyps which were removed, and normal-appearing mucosae from which biopsies were obtained to assess for microscopic disease. 01/07/2024 10:39 AM [facility]AT[facility] Gross Description A) Received in formalin are 3 nelson mucosal fragments averaging 3 mm in greatest dimension, which are entirely submitted in one cassette. It is labeled with the patient's name and designated prepyloric biopsies of polyp. B) Received in formalin are 8 nelson mucosal fragments averaging 2 mm in greatest dimension, which are entirely submitted in one cassette. It is labeled with the patient's name and designated random stomach biopsies. C) Received in formalin are 4 nelson mucosal fragments averaging 3 mm in greatest dimension, which are entirely submitted in one cassette. It is labeled with the patient's name and designated gastric body biopsies. D) Received in formalin are 3 nelson mucosal fragments averaging 3 mm in greatest dimension, which are entirely submitted in one cassette. It is labeled with the patient's name and designated distal esophagus biopsies. E) Received in formalin are 3 nelson mucosal fragments averaging 2 mm in greatest dimension, which are entirely submitted in one cassette. It is labeled with the patient's name and designated mid esophagus BXS. F) Received in formalin are 2 nelson mucosal fragments averaging 2 mm in greatest dimension, which are entirely submitted in one cassette. It is labeled with the patient's name and designated stomach-body, gastric polyp. Ninoska Barrow 01/06/2024 10:11 AM 01/07/2024 10:39 AM CDT [facility] Microscopic Description The final diagnosis is based on microscopic examination of appropriate sections of all specimens. 01/07/2024 10:39 AM CDT [facility] Additional Information Interpreted at [facility], Central Laboratory - [address] [facility] [address], [place] [address] 01/07/2024 10:39 AM CDT [facility] Other SPECIMEN FROM STOMACH / Unknown 01/05/2024 12:05 PM CDT 01/06/2024 9:00 AM CDT Specimen (specimen) (Stomach Biopsy) 01/05/2024 12:05 PM CDT 01/06/2024 9:00 AM CDT Specimen (specimen) GASTRIC BIOPSY SPECIMEN / Unknown 01/05/2024 12:05 PM CDT 01/06/2024 9:00 AM CDT Specimen (specimen) (Distal Esophagus Biopsy) 01/05/2024 12:05 PM CDT 01/06/2024 9:00 AM CDT Specimen (specimen) (Esophageal Biopsy) 01/05/2024 12:05 PM CDT 01/06/2024 9:00 AM CDT Specimen (specimen) SPECIMEN FROM STOMACH / Unknown 01/05/2024 12:05 PM CDT 01/06/2024 9:00 AM CDT Norma Weaver MD PATHOLOGY/CYTOLO GY [facility] [address] [place] [address], * (ABNORMAL) XR DXA BONE DENSITY 2 SITES AXIAL (07/10/2021 11:30 AM CDT) Anatomical Region Laterality Modality Spine, HIPS, HIPL, HIPR Other Impressions 07/16/2021 1:14 PM CDT Osteopenia. RECOMMENDATIONS: The National Osteoporosis Foundation recommends pharmacologic treatment for patients with T-scores of -2.5 or less, patients with prior history of fragility fractures, or patients with 10-year probability of greater than 3% at hips or greater than 20% of suffering major osteoporotic fractures. Recommend continued optimization of calcium and vitamin D intake through dietary means and/or supplementation and regular exercise. It is noted there is a more recent DXA scan done at [facility] in 2019, unable to trend by machine. ??However, the values are consistent with last check showing minimal if any decline in the lumbar spine. ?? Repeat scan recommended in 2-3 years. Mariela Kirkland PA-C [facility] 07/16/2021 Narrative 07/16/2021 1:14 PM CDT For Patients: Results are automatically released to your [facility] account once available, in compliance with federal regulations. This means that you may see your results before your provider has had a chance to review them. Please allow 2-3 business days for your provider to comment on the results. XR DXA Bone Mineral Density (BMD) EXAM LOCATION: [address] [address] PATIENT NAME: ALY WELCH DATE OF : 1940 EXAM DATE: 07/10/2021 REQUESTING PROVIDER: Krystle Beach MD GENDER AT : female HEIGHT: 5' 7.01 (05/08/2016) WEIGHT: ??152 lb (05/08/2016) MENOPAUSAL STATUS: Postmenopausal RACE/ETHNICITY: White RISK FACTORS: Cancer Treatment and White Race CURRENT MEDICATION FOR BONE LOSS: NONE INDICATION: Follow-up of existing osteopenia COMPARISON DATE(S): 2004 DXA scans are compared to prior studies for a patient only when the two (or more) studies were performed on the same scanner. It is not possible to compare data generated on one scanner to data from another because there are not standards in DXA equipment. This applies even if the two scanners are made by the same rustic terrazzo setter. PROCEDURE: Dual-energy x-ray absorptiometry performed with routine technique. Reporting is completed in the form of a T-score. The T-score represents the standard deviation from peak bone mass based on young healthy adult. A Z-score is used for diagnosis in premenopausal women, and for men under the age of 50. FINDINGS: RESULT LUMBAR SPINE L1-L4 BMD: 1.020 g/cm2 T-Score: - 1.3 Z-Score: + 0.4 Change from prior in 2004: ??Increase 5.0%. RESULTS FEMUR Left femoral neck BMD: 0.792 g/cm2 T-Score: - 1.8 Z-Score: + 0.4 Change from prior in 2004: ??Increase 3.9%. Right femoral neck BMD: 0.737 g/cm2 T-Score: - 2.2 Z-Score: + 0.0 Change from prior in 2004: ??Decrease 10.3%. Left hip BMD: 0.884 g/cm2 T-Score: - 1.0 Z-Score: + 1.0 Change from prior in 2004: ??Decrease 3.0%. Right hip BMD: 0.797 g/cm2 T-Score: - 1.7 Z-Score: + 0.4 Change from prior in 2004: ??Decrease 7.6%. WHO criteria: Normal: T-score at or above -1 SD Osteopenia: T-score between -1.1 and -2.4 SD Osteoporosis: T-score at or below -2.5 SD FRAX RISK CALCULATION (USED FOR OSTEOPENIA ONLY): 10-year probability of major osteoporotic fracture: 17.2%. 10-year probability of hip fracture: 5.7%. Krystle Beach MD DEXA from Last 3 Months or Most Recently Relevant to Health Maintenance Advance Directives * Full Code (Latest Code Status on File) Date Activated Date Inactivated Comments 06/14/2015 1:17 PM 06/14/2015 7:50 PM * Full Code Date Activated Date Inactivated Comments 06/08/2015 10:36 AM 06/08/2015 8:31 PM Care Teams Air Conditioning Unit Tester Relationship Specialty Start Date End Date Elaine Paulino MD [address] [place] [address] PCP - General Internal Medicine 05/22/15 Nadya Amador MD [address] [place] [address] General Surgery Surgery - General 05/23/15
--- OUTSIDE RECORDS SUMMARY | 2024-02-25 11:25 | XMS_ITS | Referral Summary ---
Author Organization [facility] Address [address] [place] [address] Care Team Providers Care Kitchen Work Supervisor Name Role Phone Elsewhere, Pcp Primary Care Provider Unavailabl e Source Comments Patient records contain information from all sites at [facility]. For routine questions regarding patient records, call [phone] during business hours, M-F 8:00 AM - 5:00 PM Central Time. Record requests for emergency care only can be directed to [phone] at any time.[facility] Allergies Active Allergy Reactions Criticality Noted Date [...] Overview: Added automatically from request for surgery [id number] Arthroplasty Total Knee Replacement Status Post Bilateral [...] your living situation today? I have a [facility] place to live 08/18/2023 Sex and Gender Information Value Date Recorded Sex Assigned at Female 08/18/2023 1:08 PM LOCOMOTIVE SWITCH OPERATOR Gender Identity Female 08/18/2023 1:08 PM LOCOMOTIVE SWITCH OPERATOR Sexual Orientation Straight 08/18/2023 1: 08 PM LOCOMOTIVE SWITCH OPERATOR Last Filed Vital Signs Vital Sign Reading [...] 02/05/2021 12:22 PM CDT Plan of Treatment Not on file Medical Devices Implanted Type Area Dam Tender Device Identifier Shelf Expiration Date Model / Serial / Lot Lens Michael Ac 6.0 X 23.00 - [id number] Implanted:Qty: 1 on 05/04/2013 Ocular Lens Right: Other/Legacy - See Implant Description Neitui Description:Device Manufactu rer - [employer]. Body Location - Right. Device Status Text - [id number]. Lens Tcn Wut047 Bicnvx +24.0d - [id number] - [id number] Implanted:Qty: 1 on 02/05/2021 by Luis Miguel Issa M.D. at [facility] Ocular Lens Left: Eye [employer] (Previously KIERSTEN) 11/30/2024 [id number] / [id number] / Procedures Procedure Name Priority Date/Time Associated Diagnosis Comments EXTI GLUCOSE, RANDOM, S/P Routine 03/30/2020 7:08 AM CDT from Last 3 Months or Most Recently Relevant to Health Maintenance Care Teams Kitchen Work Supervisor Relationship Specialty Start Date End Date Elsewhere, Pcp PCP - General Family Medicine 02/05/21
--- OUTSIDE RECORDS SUMMARY | 2024-02-25 11:25 | XMS_ITS | Encounter Summary ---
Author Organization [facility] Address [address] [place] [address] Care Team Providers Care Slitter And Cutter Operator Name Role Phone Elsewhere, Pcp Primary Care Provider Unavailabl e Encounter Details Date Type Department Care Team (Late st Contact Info) Description 02/22/2015 Historical Ophthalmology [facility] Luis Miguel Issa M.D. [address] [place] [address] Social History Tobacco Use Types Packs/Day Years Used Date Smoking Tobacco: Never Assessed Sex and Gender Information Value Date Recorded Sex Assigned at Female 08/18/2023 1:08 PM LEATHER REPAIRER Gender Identity Female 08/18/2023 1:08 PM LEATHER REPAIRER Sexual Orientation Straight 08/18/2023 1: 08 PM LEATHER REPAIRER documented as of this encounter Progress Notes * Luis Miguel Issa M.D. - 02/22/2015 9:29 AM CDT Eye General CHIEF COMPLAINT recheck cataract left eye, pseudophakia right eye. HISTORY OF PRESENT ILLNESS Vision unchanged either eye, distance or near, since visit last fall, constant. Stopped timolol after last visit. Patient denies ocular pain. Occasional floaters. Occasional feeling of mild foreign body. IMPRESSION / REPORT / PLAN #1 Cataract, left eye Might have progressed slightly, though vision is still reasonable. Plan: will continue to observe, especially given #3. Recheck next year. #2 s/p secondary IOL insertion, right eye. 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 Still has mild sectoral corneal edema causing intermittent FB sensation. Discussed. #3 Amblyopia, right eye 20/400 at best #4 Ocular hypertension, right eye IOP and discs stable. DIAGNOSIS #1 Cataract, left eye #2 s/p secondary IOL insertion, right eye. #3 Amblyopia, right eye #4 Ocular hypertension, right eye CDM Reports - EYEGEN Id: [id number] Status: Fnl documented in this encounter Plan of Treatment Not on file documented as of this encounter Visit Diagnoses Not on filedocumented in this encounter Additional Health Concerns Infection Onset Date Last Indicated Resolved Time COVID19 Pending 02/01/2021 02/02/2021 02/03/2021 2 :17 PM CDT documented as of this encounter Care Teams Slitter And Cutter Operator Relationship Specialty Start Date End Date Elsewhere, Pcp PCP - General Family Medicine 02/05/21 documented as of this encounter
--- OUTSIDE RECORDS SUMMARY | 2024-02-25 11:25 | XMS_ITS | Encounter Summary ---
Author Organization [facility] Address [address] [place] [address] Care Team Providers Care Plow Mechanic Name Role Phone Elsewhere, Pcp Primary Care Provider Unavailabl e Encounter Details Date Type Department Care Team (Late st Contact Info) Description 07/13/2014 Historical Ophthalmology [facility] Luis Miguel Issa M.D. [address] [place] [address] Social History Tobacco Use Types Packs/Day Years Used Date Smoking Tobacco: Never Assessed Sex and Gender Information Value Date Recorded Sex Assigned at Female 08/18/2023 1:08 PM DOCKMASTER Gender Identity Female 08/18/2023 1:08 PM DOCKMASTER Sexual Orientation Straight 08/18/2023 1: 08 PM DOCKMASTER documented as of this encounter Progress Notes * Luis Miguel Issa M.D. - 07/13/2014 9:13 AM CDT Eye General CHIEF COMPLAINT recheck cataract left eye, pseudophakia right eye. HISTORY OF PRESENT ILLNESS Possible slight decreased in vison left eye over the past year. Vision better in the distance without glasses for the past few months. Patient denies ocular pain. History of floaters. EAA: She was told that she should come back a year to have the left eye checked for cataract. She had a complicated cataract surgery in the right eye and wants to avoid that for the right eye. She isnot having trouble with vision in the left eye. IMPRESSION / REPORT / PLAN #1 Cataract, left eye Not visually significant. Plan: observe, especially given #3. Recheck next summer. #2 s/p secondary IOL insertion, right eye. 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 #3 Amblyopia, right eye 20/400 at best #4 Ocular hypertension, right eye Is on timolol. IOP good today. Consider stopping and then checking IOP at 1 month....she will arrange with Dr. Pires. Letter. DIAGNOSIS #1 Cataract, left eye #2 s/p secondary IOL insertion, right eye. #3 Amblyopia, right eye #4 Ocular hypertension, right eye CDM Reports - EYEGEN Id: [id number] Status: Fnl documented in this encounter Plan of Treatment Not on file documented as of this encounter Visit Diagnoses Not on filedocumented in this encounter Additional Health Concerns Infection Onset Date Last Indicated Resolved Time COVID19 Pending 02/01/2021 02/02/2021 02/03/2021 2 :17 PM CDT documented as of this encounter Care Teams Plow Mechanic Relationship Specialty Start Date End Date Elsewhere, Pcp PCP - General Family Medicine 02/05/21 documented as of this encounter
--- OUTSIDE RECORDS SUMMARY | 2024-02-25 11:25 | XMS_ITS ---
Author Organization [facility] Address [address] [place] [address] Care Team Providers Care Cloth Shearer Name Role Phone Unavailable Unavailable Unavailable Surgery Details Not on file Complications Check Surgery Details section. Procedure Estimated Blood Loss Check Surgery Details section. Procedure Findings Check Surgery Details section. Procedure Specimens Taken Check Surgery Details section.
--- OUTSIDE RECORDS SUMMARY | 2024-02-25 11:26 | XMS_ITS | Encounter Summary ---
Author Organization [facility] Address [address] [place] [address] Care Team Providers Care Sap Bi Architect Name Role Phone Elsewhere, Pcp Primary Care Provider Unavailabl e Encounter Details Date Type Department Care Team (Late st Contact Info) Description 05/05/2013 Historical Ophthalmology [facility] Luis Miguel Issa M.D. [address] [place] [address] Social History Tobacco Use Types Packs/Day Years Used Date Smoking Tobacco: Never Assessed Sex and Gender Information Value Date Recorded Sex Assigned at Female 08/18/2023 1:08 PM STENCIL SPRAYER Gender Identity Female 08/18/2023 1:08 PM STENCIL SPRAYER Sexual Orientation Straight 08/18/2023 1: 08 PM STENCIL SPRAYER documented as of this encounter Progress Notes * Luis Miguel Issa M.D. - 05/05/2013 8:23 AM CDT Eye General CHIEF COMPLAINT s/p aspiration of lens fragment, IOL placement right eye. HISTORY OF PRESENT ILLNESS Patient denies ocular pain. Doing well. IMPRESSION / REPORT / PLAN #1 s/p removal of retained lens fragment and secondary IOL insertion, right eye. For aphakic corneal edema Doing well. Moxifloxacin 0.5%, 1 drop 4x/day into operative eye. Prednisolone acetate 1%, 1 drop 4x/day into operative eye. Timolol 0.5%/dorzolamide 2%, 1 drop 2x/day into operative eye. Wear shield at night and glasses during the day. , Call if decreased vision, increased photophobia,pain, discharge or increased redness occurs., Instruction pamphlet given, Care following cataract surgery ( [id number]) Follow-up in 1 month. #2 Amblyopia, right eye Possibly 20/400 at best #3 Cataract, left eye Not visually significant. Plan: observe. DIAGNOSIS #1 s/p removal of retained lens fragment and secondary IOL insertion, right eye. #2 Amblyopia, right eye #3 Cataract, left eye CDM Reports - EYEGEN Id: [id number] Status: Fnl documented in this encounter Plan of Treatment Not on file documented as of this encounter Visit Diagnoses Not on filedocumented in this encounter Additional Health Concerns Infection Onset Date Last Indicated Resolved Time COVID19 Pending 02/01/2021 02/02/2021 02/03/2021 2 :17 PM CDT documented as of this encounter Care Teams Sap Bi Architect Relationship Specialty Start Date End Date Elsewhere, Pcp PCP - General Family Medicine 02/05/21 documented as of this encounter
--- OUTSIDE RECORDS SUMMARY | 2024-02-25 11:26 | XMS_ITS | Encounter Summary ---
Author Organization [facility] Address [address] [place] [address] Care Team Providers Care Fish Processor Name Role Phone Elsewhere, Pcp Primary Care Provider Unavailabl e Encounter Details Date Type Department Care Team (Late st Contact Info) Description 04/27/2013 Historical Ophthalmology [facility] Luis Miguel Issa M.D. [address] [place] [id number] Social History Tobacco Use Types Packs/Day Years Used Date Smoking Tobacco: Never Assessed Sex and Gender Information Value Date Recorded Sex Assigned at Female 08/18/2023 1:08 PM DINKER Gender Identity Female 08/18/2023 1:08 PM DINKER Sexual Orientation Straight 08/18/2023 1: 08 PM DINKER documented as of this encounter Progress Notes * Luis Miguel Issa M.D. - 04/27/2013 12:37 PM CDT Eye Subsequent Visit HISTORY OF PRESENT ILLNESS Patient here for IOL measurements. CDM Reports - EYESV Id: [id number] Status: Fnl documented in this encounter Plan of Treatment Not on file documented as of this encounter Visit Diagnoses Not on filedocumented in this encounter Additional Health Concerns Infection Onset Date Last Indicated Resolved Time COVID19 Pending 02/01/2021 02/02/2021 02/03/2021 2 :17 PM CDT documented as of this encounter Care Teams Fish Processor Relationship Specialty Start Date End Date Elsewhere, Pcp PCP - General Family Medicine 02/05/21 documented as of this encounter
--- OUTSIDE RECORDS SUMMARY | 2024-02-25 11:26 | XMS_ITS | Encounter Summary ---
Author Organization [facility] Address [address] [place] [address] Care Team Providers Care Head Correction Officer Name Role Phone Elsewhere, Pcp Primary Care Provider Unavailabl e Encounter Details Date Type Department Care Team (Late st Contact Info) Description 04/25/2013 Historical Ophthalmology [facility]ST [facility] Luis Miguel Issa M.D. [address] [place] [address] Social History Tobacco Use Types Packs/Day Years Used Date Smoking Tobacco: Never Assessed Sex and Gender Information Value Date Recorded Sex Assigned at Female 08/18/2023 1:08 PM MERGERS AND ACQUISITIONS CONSULTANT Gender Identity Female 08/18/2023 1:08 PM MERGERS AND ACQUISITIONS CONSULTANT Sexual Orientation Straight 08/18/2023 1: 08 PM MERGERS AND ACQUISITIONS CONSULTANT documented as of this encounter Progress Notes * Luis Miguel Issa M.D. - 04/25/2013 12:32 PM CDT Eye General CHIEF COMPLAINT complications following cataract surgery HISTORY OF PRESENT ILLNESS Retained fragment following cataract surgery right eye. Vision not clear right eye since cataract surgery. History of amblyopia right eye. Patient denies ocular pain. Floaters and occasional flashinglights right eye since surgery. ENVIRONMENTAL COMMUNICATIONS SPECIALIST: Blurred vision right eye since cataract surgery, constant, severe. IMPRESSION / REPORT / PLAN Ultrasound acquired. 25 Apr 2013 right eye: aphakic, minimal vitreous opacities, retina attached. LS #1 Aphakic corneal edema, right eye With #2 Discussed situation Plan: Recommend removal of lens fragment with exploration of sulcus and capsule with possible sulcus pcIOL implantation, right eye Might need DSEK in future and she understands. Discussed risks, goals, alternatives, advance directives, and the necessity of other members of thehealthcare team participating in the procedure with the patient (or legal wholesale representative and otherspresent during the discussion). The patient understands. All questions answered and consent given. Get IOLs #2 Retained lens fragment, right eye See above #3 Amblyopia, right eye Possibly 20/400 at best #4 Cataract, left eye Not visually significant. Plan: observe. DIAGNOSIS #1 Aphakic corneal edema, right eye #2 Retained lens fragment, right eye #3 Amblyopia, right eye #4 Cataract, left eye CDM Reports - EYEGEN Id: [id number] Status: Fnl documented in this encounter Plan of Treatment Not on file documented as of this encounter Visit Diagnoses Not on filedocumented in this encounter Additional Health Concerns Infection Onset Date Last Indicated Resolved Time COVID19 Pending 02/01/2021 02/02/2021 02/03/2021 2 :17 PM CDT documented as of this encounter Care Teams Head Correction Officer Relationship Specialty Start Date End Date Elsewhere, Pcp PCP - General Family Medicine 02/05/21 documented as of this encounter
--- OUTSIDE RECORDS SUMMARY | 2024-02-25 11:26 | XMS_ITS | Encounter Summary ---
Author Organization [facility] Address [address] [place] [address] Care Team Providers Care Nanotechnician Name Role Phone Elsewhere, Pcp Primary Care Provider Unavailabl e Encounter Details Date Type Department Care Team (Late st Contact Info) Description 04/25/2013 Historical Ophthalmology RST OPH Rachelle Rose, C.O.A. Social History Tobacco Use Types Packs/Day Years Used Date Smoking Tobacco: Never Assessed Sex and Gender Information Value Date Recorded Sex Assigned at Female 08/18/2023 1:08 PM MILL FEEDER Gender Identity Female 08/18/2023 1:08 PM MILL FEEDER Sexual Orientation Straight 08/18/2023 1: 08 PM MILL FEEDER documented as of this encounter Progress Notes * Rachelle Rose, C.O.A. - 04/25/2013 2:08 PM CDT Eye Subsequent Visit HISTORY OF PRESENT ILLNESS Preop checklist: preop instructions given, glasses read, sent for IOL measurements, informed consent form given to patient and signed by patient. CDM Reports - EYESV Id: [id number] Status: Fnl documented in this encounter Plan of Treatment Not on file documented as of this encounter Visit Diagnoses Not on filedocumented in this encounter Additional Health Concerns Infection Onset Date Last Indicated Resolved Time COVID19 Pending 02/01/2021 02/02/2021 02/03/2021 2 :17 PM CDT documented as of this encounter Care Teams Nanotechnician Relationship Specialty Start Date End Date Elsewhere, Pcp PCP - General Family Medicine 02/05/21 documented as of this encounter
[2024-02-25 11:27] LABS: Basophils Absolute Auto 0.01 K/uL (0.00-0.30); Basophils Percent Auto 0.1 % (0.0-3.0); Eosinophils Percent Auto 1.4 % (0.0-7.0); Hematocrit 48.6 % (33.0-51.0); Hemoglobin* 16.1 gm/dL (12.0-16.0); Immature Granulocytes Abs Auto 0.02 K/uL (0.00-0.30); Immature Granulocytes Pct Auto 0.3 %; Mean Corpuscular HGB Conc 33 gm/dL (32-36); Mean Corpuscular Hemoglobin 30 pg (26-34); Mean Corpuscular Volume 91 fL (80-100); Monocytes Percent Auto 9.1 % (0.0-11.0); Neutrophils Percent Auto 72.1 % (42.0-72.0); Platelet Count* 226 K/uL (140-440); RDW Coefficient of Variation % 12.8 % (11.5-15.5); Red Blood Count 5.35 m/uL (4.00-5.20); White Blood Count* 7.28 K/uL (4.50-11.00)
[2024-02-25 11:28] LABS: Slide Review Reflex No
[2024-02-25 11:41] LABS: Chloride* 107 mmol/L (96-114); Potassium* 3.7 mmol/L (3.6-5.1); Sodium* 142 mmol/L (135-149)
[2024-02-25 11:44] LABS: Anion Gap 9 mEq/L (7-15); Blood Urea Nitrogen* 26 mg/dL (7-30); Carbon Dioxide* 26 mmol/L (20-32); Creatinine* 0.8 mg/dL (0.5-1.5); Estimated Glomerular Filt Rate 73 ml/min
[2024-02-25 11:45] LABS: Calcium* 9.4 mg/dL (8.4-10.6); Glucose* 109 mg/dL (60-115)
[2024-02-25 12:12] VITALS: BP 161/81; PULSE 76; RESP 16; O2SAT 95
== END 2024-02-25 12:18 | disposition home or self-care (01) ==
PROVIDERS: Emergency Provider Emergency Medicine Emergency Medical Services; PCP Internal Medicine
DX: K52.9 Noninfective gastroenteritis and colitis, unspecified (principal)
CPT/HCPCS: 36415; 80048; 85025; 99283; 99284; J7030

== ENCOUNTER 2024-03-05 12:13 | Emergency (ER) | payer MEDICARE, OTHER, SELFPAY ==
[2024-03-05 12:22] VITALS: BP 173/81; PULSE 79; RESP 18; TEMP 36.9; O2SAT 94; BMI 25.0
--- NOTE | 2024-03-05 12:31 | CRLHL7_ITS ---
For Patients: As a result of the Century Cures Act, medical imaging exams and procedure reports are released immediately into your electronic medical record. You may view this report before your referring provider. If you have questions, please contact your health care provider. INDICATION: Left lower quadrant pain bright red blood per rectum TECHNIQUE: CT abdomen and pelvis with and without contrast. 74 mL Isovue 370 COMPARISON: None. FINDINGS: Lower chest: Unremarkable. Liver: Cyst in the right hepatic dome too small to characterize low-attenuation lesion peripheral right liver. Fatty liver. Gallbladder and bile ducts: No stones or inflammation. No biliary dilatation. Pancreas: Unremarkable. No mass or inflammation. Spleen: Normal in size. No masses. Adrenal glands: Normal in size. No nodules. Kidneys: Nonobstructing left renal calculi. Mild hydronephrosis with a 1 centimeter proximal ureteral stone. Too small to characterize low-attenuation lesions right kidney. GI tract: Diverticulosis. No active hemorrhage is visualized. Vasculature: Abdominal aorta is normal in caliber. Lymph nodes: No lymphadenopathy. Peritoneum/Abdominal Wall: Unremarkable. No sign of mass or infiltration. No free air or significant free fluid. Pelvis: Unremarkable. No pelvic masses. Bones: Unremarkable for age. IMPRESSION: 1. No active hemorrhage visualized. Diverticulosis. No diverticulitis. 2. Left moderate hydronephrosis with a 1 centimeter proximal ureteral stone. Please note that all CT scans at this facility use dose modulation, iterative reconstruction, and/or weight-based dosing when appropriate to reduce radiation dose to as low as reasonably achievable. Dictated by Yanelis Dang MD @ 03/05/2024 2:18:15 PM (Electronically Signed)
--- NOTE | 2024-03-05 12:33 | ED.GENADULT ---
HPI - General Adult General Chief complaint: GI Bleed Stated complaint: Abdominal pain Time Seen by Provider: 03/05/24 12:26 Source: patient, RN notes reviewed and old records reviewed Mode of arrival: ambulatory Limitations: no limitations History of Present Illness HPI narrative: Patient is an 83-year-old here with her for evaluation of GI bleeding and left lower quadrant pain. She was here about 10 days ago with diarrhea which was nonbloody, she says she took a dose of an anti diarrheal and the diarrhea stopped, she has had normal bowel movements since then but the past 2 days has noted at least 2 episodes of feeling that she needed to have a bowel movement, and passing just clots and liquid blood. She has left lower quadrant pain which is mild to moderate. She has had some nausea but no vomiting. She has not had fevers. No chest pain, possibly a little bit short of breath. No lightheadedness or fainting. No history of GI bleeds. She is not anticoagulated. Remote history of appendectomy, breast cancer. Denies other abdominal surgeries. Does not smoke or drink. Related Data Home Medications ?Medication ?Instructions ?Recorded ?Confirmed calcium carbonate (Calcium 600) 600 mg PO BID 04/14/22 03/05/24 cholecalciferol (vitamin D3) 25 25 mcg PO QDAY 08/14/22 03/05/24 mcg (1,000 unit) capsule clobetasol 0.05 % topical ointment 1 applic topical BID 09/20/23 03/05/24 bismuth subsalicylate 262 mg/15 mL 524 mg PO Q30-60M PRN 12/31/23 03/05/24 oral suspension (Pepto-Bismol) diphenhydramine 25 1 tab PO QHS PRN 12/31/23 03/05/24 mg-acetaminophen 500 mg tablet (Tylenol PM Extra Strength) famotidine 20 mg tablet (Pepcid AC 20 mg PO QDAY 12/31/23 03/05/24 Maximum Strength) Previous Rx's ?Medication ?Instructions ?Recorded hydrochlorothiazide 25 mg tablet 25 mg PO DAILY #90 tabs 06/08/23 losartan 25 mg tablet 25 mg PO QDAY #90 tabs 06/08/23 benzonatate 100 mg capsule 100 mg PO BID PRN cough #30 caps 11/13/23 omeprazole 20 mg tablet,delayed 20 mg PO BID #180 tabs 12/16/23 release alprazolam 0.5 mg tablet 0.25 mg (1/2 x 0.5 mg) PO QDAY PRN 12/31/23 anxiety #14 tabs diphenoxylate-atropine 2.5 1 tab PO DAILY #7 tabs 02/25/24 mg-0.025 mg tablet (Lomotil) Allergies Allergy/AdvReac Type Severity Reaction Status Date / Time nitrofurantoin Allergy Mild diarhea Verified 03/05/24 13:32 sulfamethoxazole Allergy Unknown Verified 03/05/24 13:32 [From Bactrim] trimethoprim [From Bactrim] Allergy Unknown Verified 03/05/24 13:32 lansoprazole Allergy Verified 03/05/24 13:32 oxycodone Allergy Verified 03/05/24 13:32 amoxicillin [From Augmentin] AdvReac Unknown Severe Verified 03/05/24 13:32 diarrhea clavulanic acid AdvReac Unknown Severe Verified 03/05/24 13:32 [From Augmentin] diarrhea cefdinir AdvReac Verified 03/05/24 13:32 Review of Systems Status of ROS: Reports: 10 or more systems reviewed and unremarkable except as noted in History and below [facility] Medical History History of breast cancer ?Z85.3 - Personal history of malignant neoplasm of breast (ICD-10) History of nephrolithiasis ?Z87.442 - Personal history of urinary calculi (ICD-10) Surgical History History of blepharoplasty ?Z98.890 - Other specified postprocedural states (ICD-10) History of melanoma ?Z85.820 - Personal history of malignant melanoma of skin (ICD-10) History of total bilateral knee replacement (2018) ?Z96.653 - Presence of artificial knee joint, bilateral (ICD-10) History of lumpectomy of both breasts (05/2015) ?Z98.890 - Other specified postprocedural states (ICD-10) History of hysterectomy ?Z90.710 - Acquired absence of both cervix and uterus (ICD-10) History of SCC (squamous cell carcinoma) of skin (04/2021) ?Z85.828 - Personal history of other malignant neoplasm of skin (ICD-10) History of appendectomy ?Z90.49 - Acquired absence of other specified parts of digestive tract (ICD-10) History of right cataract surgery (03/2013) ?Z98.41 - Cataract extraction status, right eye (ICD-10) History of carpal tunnel release of both wrists (2012) ?Z98.890 - Other specified postprocedural states (ICD-10) Social History What is your current living situation?: I presently have a place to live Problems where you live: no known problems In the past 12 months, utilities in danger of being shut off: no In past 12 months, lack of transportation kept you from medical appts, meetings, work, or getting things needed for daily living: no In the past 12 mos, have been you worried that your food would run out before you had money to buy more?: never true In the past 12 mos, the food you bought just didn't last and you didn't have money to buy more?: never true Smoking Status: Former smoker Do you use any of these nicotine containing products: None How often do you have a drink containing alcohol: monthly or less How often do you have six or more drinks on one occasion: Never AUDIT-C Alcohol total score: 1 Non-prescribed substance use: denies use How often does anyone, including family, friends and others, physically hurt you: never How often does anyone, including family, friends and others, insult or talk down to you: never How often does anyone, including family, friends and others, threaten you with harm: never How often does anyone, including family, friends and others, scream or curse at you: never Little interest or pleasure in doing things: not at all Feeling down, depressed, or hopeless: not at all Exam Narrative: Exam Narrative: Vital signs as noted above. In general, an alert, well-appearing patient. Looks comfortable, breathing easily. Head: Normocephalic, atraumatic. Eyes: Pupils are equal reactive. Extraocular movements are full. Conjunctivae are normal. ENT: Mucous membranes are moist. Throat is normal. Neck: Supple without lymphadenopathy. Heart: Regular rate and rhythm. No murmur or rub. Lungs: Clear bilaterally. No increased work of breathing, crackles or wheezes. Abdomen: Soft and nondistended. Some left lower quadrant tenderness without rebound guarding or rigidity. Remainder the abdomen is nontender. Bowel sounds are present. Extremities: Well perfused. No edema. No calf tenderness. Pulses intact. Neurologic: Patient is alert and oriented to person and place. Speech is fluent. Face is symmetric. Moves all extremities equally. Affect: Normal. Skin: Warm and dry. Well perfused. Const: Vital Signs, click to edit/add: Vital Signs - 24 hr 03/05/24 12:22 Temperature 98.4 F Pulse Rate [Right Pulse Oximeter] 79 Respiratory Rate 18 Blood Pressure [Ri ght Upper Arm] 173/81 H Pulse Oximetry 94 Oxygen Delivery Me thod Room Air Documenting provider has reviewed patient's vital signs: yes Course Course ED Course: Up IV to be established. I have ordered a CT scan, GI bleed protocol, CBC, type and screen, other routine labs. Diagnostic considerations include diverticular bleeding or diverticulitis, hemorrhoidal bleeding, less likely upper GI bleeding such as peptic ulcer disease. Last colonoscopy she estimates was probably at age 69, no significant findings but of course malignancy is a possibility as well. Patient was stable without complaints, no further bleeding while here. She had a hemoglobin of 14.9, normal white blood cell count. Metabolic panel was normal, BUN of 25 creatinine 1.1. LFTs notable for mild elevations in her transaminases with an AST of 50 and an ALT of 52, CRP was less than 0.5. Point of care troponin was 0.01, EKG by my review showed a sinus rhythm, ventricular rate of 89, no acute ST segment changes, unremarkable T-waves. Point of care troponin was 0.01. She had a CT scan of the abdomen, GI bleed protocol, read as follows by Radiology:FINDINGS: Lower chest: Unremarkable. Liver: Cyst in the right hepatic dome too small to characterize low-attenuation lesion peripheral right liver. Fatty liver. Gallbladder and bile ducts: No stones or inflammation. No biliary dilatation. Pancreas: Unremarkable. No mass or inflammation. Spleen: Normal in size. No masses. Adrenal glands: Normal in size. No nodules. Kidneys: Nonobstructing left renal calculi. Mild hydronephrosis with a 1 centimeter proximal ureteral stone. Too small to characterize low-attenuation lesions right kidney. GI tract: Diverticulosis. No active hemorrhage is visualized. Vasculature: Abdominal aorta is normal in caliber. Lymph nodes: No lymphadenopathy. Peritoneum/Abdominal Wall: Unremarkable. No sign of mass or infiltration. No free air or significant free fluid. Pelvis: Unremarkable. No pelvic masses. Bones: Unremarkable for age. IMPRESSION: 1. No active hemorrhage visualized. Diverticulosis. No diverticulitis. 2. Left moderate hydronephrosis with a 1 centimeter proximal ureteral stone. Left ureteral stone was unsuspected, but likely is the source of her left-sided she pain. This is mild and well controlled at this time. Stone is large and will require instrumentation. With regard to the GI bleed, no obvious findings on CT, no further bleeding, normal hemoglobin and vital signs. Discussed options with her of staying in the hospital versus going home, she seen here on Thursday so likely would not get a colonoscopy tomorrow. She would prefer to go home. I think all things considered this is reasonable she has had a normal bowel movement since her episodes of bleeding. Discussed with her if she has with recurrent bouts of bleeding at home I would want her to come back. Otherwise, if stable, she can call clinic on Thursday to arrange for an outpatient colonoscopy. I gave her that phone number for Urology so that she can follow-up with them. Reasons to return discussed including severe uncontrolled pain, fever, chills, lightheadedness or fainting, vomiting, or recurrent bleeding. Vital Signs Vital signs: Initial Vital Signs Temperature 98.4 F 03/05/24 12:22 Temperature Source Temporal Artery Scan 03/05/24 12:22 Pulse Rate 79 03/05/24 12:22 Respiratory Rate 18 03/05/24 12:22 Blood Pressure 173/81 H 03/05/24 12:22 Blood Pressure Mean 111 H 03/05/24 12:22 Blood Pressure Position Sitting 03/05/24 12:22 Pulse Oximetry 94 03/05/24 12:22 Oxygen Delivery Method Room Air 03/05/24 12:22 Vital Signs Temperature 98.4 F 03/05/24 12:22 Pulse Rate 79 03/05/24 12:22 Respiratory Rate 18 03/05/24 12:22 Blood Pressure 173/81 H 03/05/24 12:22 Pulse Oximetry 94 03/05/24 12:22 Oxygen Delivery Method Room Air 03/05/24 12:22 Temperature 98.4 F 03/05/24 12:22 Pulse Rate 79 03/05/24 12:22 Respiratory Rate 18 03/05/24 12:22 Blood Pressure 173/81 H 03/05/24 12:22 Pulse Oximetry 94 03/05/24 12:22 Oxygen Delivery Method Room Air 03/05/24 12:22 Medical Decision Making Lab Data Labs: Lab Results 03/05/24 03/05/24 Range/Units 12:32 13:00 WBC 9.83 (4.50-11.00) K/uL RBC 4.99 (4.00-5.20) m/uL Hgb 14.9 (12.0-16.0) gm/dL Hct 45.4 (33.0-51.0) % MCV 91 (80-100) fL MCH 30 (26-34) pg MCHC 33 (32-36) gm/dL RDW Coeff of Jhonathan 12.7 (11.5-15.5) % Plt Count 240 (140-440) K/uL Neut % (Auto) 77.9 H (42.0-72.0) % Lymph % (Auto) 11.3 L (20-44) % [place] % (Auto) 8.1 (0.0-11.0) % Eos % (Auto) 1.8 (0.0-7.0) % Baso % (Auto) 0.3 (0.0-3.0) % Neut # (Auto) 7.70 H (1.7-7.0) K/uL Lymph # (Auto) 1.10 (0.90-2.90) K/uL [place] # (Auto) 0.80 (0.00-0.90) K/UL Eos # (Auto) 0.18 (0.00-0.50) K/uL Baso # (Auto) 0.03 (0.00-0.30) K/uL Abs Immat Gran (auto) 0.06 (0.00-0.30) K/uL Imm/Tot Granulo (auto) 0.6 % INR 0.89 L (0.91-1.10) Sodium 142 (135-149) mmol/L Potassium 3.9 (3.6-5.1) mmol/L Chloride 104 (96-114) mmol/L Carbon Dioxide 29 (20-32) mmol/L Anion Gap 9 (7-15) mEq/L BUN 25 (7-30) mg/dL Creatinine 1.1 (0.5-1.5) mg/dL Estimated Creat Clear 34.26 Estimated GFR 50 ml/min Glucose 121 H (60-115) mg/dL Lactate 1.4 (0.5-1.9) mmol/L Calcium 9.4 (8.4-10.6) mg/dL Magnesium 2.0 (1.5-2.6) mg/dL Total Bilirubin 0.8 (0.1-1.5) mg/dL Direct Bilirubin 0.5 (0.0-0.5) mg/dL AST 50 H (12-35) U/L ALT 52 H (4-35) U/L Alkaline Phosphatase 101 (40-150) U/L C-Reactive Protein < 0.5 L (0.5-1.0) mg/dL Total Protein 8.2 (6.0-8.3) g/dL Albumin 4.8 (3.3-5.0) g/dL POC Troponin I 0.01 (0.01-0.04) ng/ml Blood Type O Positive Antibody Screen NEGATIVE Discharge Plan Discharge Clinical Impression: BRBPR (bright red blood per rectum), Calculus of proximal left ureter Patient Disposition: Home, Self-Care Condition: Stable Instructions: Gastrointestinal Bleeding (ED), Ureteral Stones (ED) Additional Instructions: There are 2 issues today that will need to be followed up. 1) GI bleeding. Your hemoglobin is stable, and your CT scan does not show any obvious abnormalities as it pertains to GI bleeding. If you have persistent GI bleeding at home, you should come back to the emergency department. If things stabilize, please call Dr. Rooney saw office on Thursday, or use the portal, to arrange for outpatient colonoscopy. Phone number [phone]. 2) you have a 1 cm stone in the left ureter. This is causing a little bit of swelling of your left kidney, and I suspect is the source of your left side pain. This stone is too big to past without help, and you will need to follow-up with urology, to schedule. If at any time you have recurrent bleeding, severe uncontrolled pain, new symptoms such as fever, vomiting, chills, weakness, lightheadedness or fainting, return to the emergency department right away. Tylenol if needed for pain. Prescriptions: No Action cholecalciferol (vitamin D3) 25 mcg (1,000 unit) capsule 25 mcg PO QDAY losartan 25 mg tablet 25 mg PO QDAY Qty: 90 3RF hydrochlorothiazide 25 mg tablet 25 mg PO DAILY Qty: 90 3RF benzonatate 100 mg capsule 100 mg PO BID PRN (Reason: cough) Qty: 30 3RF calcium carbonate [Calcium 600] 600 mg calcium (1,500 mg) tablet 600 mg PO BID clobetasol 0.05 % ointment 1 applic topical BID diphenhydramine-acetaminophen [Tylenol PM Extra Strength] 25-500 mg tablet 1 tab PO QHS PRN bismuth subsalicylate [Pepto-Bismol] 262 mg/15 mL suspension 524 mg PO Q30-60M PRN Rx Instructions: do not exceed 8 doses in a 24 hour period famotidine [Pepcid AC Maximum Strength] 20 mg tablet 20 mg PO QDAY alprazolam 0.5 mg tablet 0.25 mg PO QDAY PRN (Reason: anxiety) Qty: 14 1RF diphenoxylate-atropine [Lomotil] 2.5-0.025 mg tablet 1 tab PO DAILY Qty: 7 0RF omeprazole 20 mg tablet,delayed release (DR/EC) 20 mg PO BID Qty: 180 0RF Follow Up/Referrals: Elaine Paulino MD [Primary Care Provider] - Stand Alone Forms: [facility] Info Instructions
--- OUTSIDE RECORDS SUMMARY | 2024-03-05 12:42 | XMS_ITS | Encounter Summary ---
Author Organization [facility] Address [address] [place] [address] Care Team Providers Care Librarian Specialist Name Role Phone Elsewhere, Pcp Primary Care Provider Unavailabl e Encounter Details Date Type Department Care Team (Late st Contact Info) Description 06/07/2013 Historical Ophthalmology RST OPH Luis Miguel Issa M.D. [address] [place] [address] Social History Tobacco Use Types Packs/Day Years Used Date Smoking Tobacco: Never Assessed Sex and Gender Information Value Date Recorded Sex Assigned at Female 08/18/2023 1:08 PM PUBLISHING AGENT Gender Identity Female 08/18/2023 1:08 PM PUBLISHING AGENT Sexual Orientation Straight 08/18/2023 1: 08 PM PUBLISHING AGENT documented as of this encounter Progress Notes [...] left eye CDM Reports - EYEGEN Id: [id number] Status: Fnl documented in this encounter Plan of Treatment Not on file documented as of this encounter Visit Diagnoses Not on filedocumented in this encounter Additional Health Concerns Infection Onset Date Last Indicated Resolved Time COVID19 Pending 02/01/2021 02/02/2021 02/03/2021 2 :17 PM CDT documented as of this encounter Care Teams Librarian Specialist Relationship Specialty Start Date End Date Elsewhere, Pcp PCP - General Family Medicine 02/05/21 documented as of this encounter
--- OUTSIDE RECORDS SUMMARY | 2024-03-05 12:42 | XMS_ITS | Clinical Summary ---
Author Organization [place] Address [address] [place] [address] Care Team Providers Care Distribution Center Administrator Name Role Phone Elaine Paulino MD Primary [...] on file Medical Devices Implanted Type Area Energy Auditor Device Identifier Shelf Expiration Date Model / Serial / Lot Bone Cement Simplex W/Tobramycin 6197-9-001 Implanted:Qty: 1 on 09/13/2019 by Crystal Ortez MD at [facility] Cement, Bone Right: Knee [employer] 03/27/2021 6197-9-001 / / [id number] Bone Cement Simplex Full Dose 6191-1-001 Implanted:Qty: 1 on 03/29/2020 by Crystal Ortez MD at [facility] Cement, Bone Left: Knee [employer] 11/25/2021 6191-1-001 / / [id number] Patella Round Dome, 35mm Implanted:Qty: 1 on 09/13/2019 by Crystal Ortez MD at [facility] Total Joint Component /Insert Right: Knee Depuy 02/26/2024 96-0111 / / [id number] Imp Comp Tibtry Sgm 2 Kn Cocr 1581-20-000 Implanted:Qty: 1 on 09/13/2019 by Crystal Ortez MD at [facility] Total Joint Component /Insert Right: Knee [employer]- 06/27/2028 0 / / [id number] Femoral Posterior Stabilized Cemented, Size 2.5 Right Implanted:Qty: 1 on 09/13/2019 by Crystal Ortez MD at [facility] Total Joint Component /Insert Right: Knee Depuy 10/28/2028 0 / / [id number] Pfc Sigma Tibial Insert Fixed Bearing Stabilized 2, 8mm Implanted:Qty: 1 on 09/13/2019 by Crystal Ortez MD at [facility] Total Joint Component /Insert Right: Knee Depuy 01/25/2023 8 / / [id number] Imp Comp Fem Depuy Post Stab Sigma Sz 2.5 Lt 40-250 Implanted:Qty: 1 on 03/29/2020 by Crystal Ortez MD at [facility] Total Joint Component /Insert Left: Knee J 06/27/2029 0 / / [id number] Imp Comp Tibtry Sgm 2 Kn Cocr 1581-20-000 Implanted:Qty: 1 on 03/29/2020 by Crystal Ortez MD at [facility] Total Joint Component /Insert Left: Knee [employer] 08/27/2028 0 / / [id number] P.F.C. Sigma Tibial Insert Fixed Bearing Stabilized, 2, 10mm Implanted:Qty: 1 on 03/29/2020 by Crystal Ortez MD at [facility] Left: Knee Depuy 07/28/2021 0 / / [id number] Patella Round Dome, 35mm Implanted:Qty: 1 on 03/29/2020 by Crystal Ortez MD at [facility] Left: Knee Depuy 05/28/2024 96-0111 / / [id number] Advance Directives For more information, please contact: [phone] Documents on File Type Date Recorded Patient Tactical Air Control Party Manager Expl anation Advance Directives and Living Will 04/04/2020 10:47 AM Health Care Directiv e 03/23/2020 Healthcare Agents on File Name Relationship Healthcare Agent Amanda puente Communication Driss Welch Spouse Health Care Agent Sonu Welch Son Co-First Alterna te Health Care Agent Mateo Welch Son Co-First Alterna te Health Care Agent Care Teams Distribution Center Administrator Relationship Specialty Start Date End [place] [address] PCP - General Internal Medicine 09/13/19
--- OUTSIDE RECORDS SUMMARY | 2024-03-05 12:42 | XMS_ITS | Encounter Summary ---
Author Organization [place] Address [address] [place] [address] Care Team Providers Care Nurse Transition Name Role Phone No Ref-Primary, Physician Primary Care Provider Elaine Paulino MD Primary Care Provider Encounter Details Date Type Department Care Team (Late st Contact Info) Description 07/27/2019 Orders Only [facility] [address] [place] [phone] Crystal Ortez MD [facility] [address] [place] [address] [phone] Pre-operative laboratory examination (Primary Dx) Social History [...] Specimen Description Nares 07/28/2019 1:20 PM CDT [facility] Methicillin Resist/Sens S. aureus PCR Negative NEG^Negat hortencia 07/28/2019 5:55 PM CDT [facility] Comment: MRSA Negative: SA Negative ??MRSA and Staphylococcus aureus target DNA not detected, presumed negative for MRSA and SA colonization or the number of bacteria present may be below the limit of detection for the assay. FDA approved assay performed using [employer] GeneXpert(R) real-time PCR. Nasal structure (body structure) 07/28/2019 12:10 PM CDT 07/28/2019 1:20 PM CDT Crystal Ortez MD LAB - MICRO GENERAL ORDERABLES Performing Organization Address City/State/[facility] Co de Phone Number [facility] [address] [place], [place] [address] [place] [address] [address] [id number] [phone] documented in this encounter Visit Diagnoses Diagnosis Pre-operative laboratory examination- Primary Pre-procedural laboratory examination documented in this encounter Care Teams Nurse Transition Relationship Specialty Start Date End Date No Ref-Primary, Physician PCP - General 07/28/19 09/12/19 Elaine Paulino MD [facility] [address] [place] [address] PCP - General Internal Medicine 09/13/19 documented as of this encounter
--- OUTSIDE RECORDS SUMMARY | 2024-03-05 12:42 | XMS_ITS | Encounter Summary ---
Author Organization [facility] Address [address] [place] [address] Care Team Providers Care Sales Enablement Manager Name Role Phone Elsewhere, Pcp Primary Care Provider Unavailabl e Encounter Details Date Type Department Care Team (Late st Contact Info) Description 04/25/2013 Historical Ophthalmology RST OPH Rachelle Rose, C.O.A. Social History Tobacco Use Types Packs/Day Years Used Date Smoking Tobacco: Never Assessed Sex and Gender Information Value Date Recorded Sex Assigned at Female 08/18/2023 1:08 PM SENIOR WEB APPLICATIONS DEVELOPER Gender Identity Female 08/18/2023 1:08 PM SENIOR WEB APPLICATIONS DEVELOPER Sexual Orientation Straight 08/18/2023 1: 08 PM SENIOR WEB APPLICATIONS DEVELOPER documented as of this encounter Progress Notes * Rachelle Rose, C.O.A. - 04/25/2013 2:08 PM CDT Eye Subsequent Visit HISTORY OF PRESENT ILLNESS Preop checklist: preop instructions given, glasses read, sent for IOL measurements, informed consent form given to patient and signed by patient. CDM Reports - EYESV Id: [id number] Status: Fnl documented in this encounter Plan of Treatment Not on file documented as of this encounter Visit Diagnoses Not on filedocumented in this encounter Additional Health Concerns Infection Onset Date Last Indicated Resolved Time COVID19 Pending 02/01/2021 02/02/2021 02/03/2021 2 :17 PM CDT documented as of this encounter Care Teams Sales Enablement Manager Relationship Specialty Start Date End Date Elsewhere, Pcp PCP - General Family Medicine 02/05/21 documented as of this encounter
--- OUTSIDE RECORDS SUMMARY | 2024-03-05 12:42 | XMS_ITS | Continuity of Care Document ---
Author Organization [facility] Address [address] [place] [address] Phone Care Team Providers Care Inspector Watch Parts Name Role Phone Carline KEY, Onofre Unavailable [...] [facility], [address], [place], [address], tel:[phone] No Information 3 Carline Parnell [facility] [address], [place], [address], . tel:[phone] Family History Family Member Type Diagnosis Age [...]
--- OUTSIDE RECORDS SUMMARY | 2024-03-05 12:42 | XMS_ITS | Encounter Summary ---
Author Organization [facility] Address [address] [place] [address] Care Team Providers Care Bilingual Patient Support Caseworker Name Role Phone Elsewhere, Pcp Primary Care Provider Unavailabl e Encounter Details Date Type Department Care Team (Late st Contact Info) Description 07/13/2014 Historical Ophthalmology RST OPH Luis Miguel Issa M.D. [address] [place] [address] Social History Tobacco Use Types Packs/Day Years Used Date Smoking Tobacco: Never Assessed Sex and Gender Information Value Date Recorded Sex Assigned at Female 08/18/2023 1:08 PM RN TRAVELING Gender Identity Female 08/18/2023 1:08 PM RN TRAVELING Sexual Orientation Straight 08/18/2023 1: 08 PM RN TRAVELING documented as of this encounter Progress Notes [...] right eye CDM Reports - EYEGEN Id: [id number] Status: Fnl documented in this encounter Plan of Treatment Not on file documented as of this encounter Visit Diagnoses Not on filedocumented in this encounter Additional Health Concerns Infection Onset Date Last Indicated Resolved Time COVID19 Pending 02/01/2021 02/02/2021 02/03/2021 2 :17 PM CDT documented as of this encounter Care Teams Bilingual Patient Support Caseworker Relationship Specialty Start Date End Date Elsewhere, Pcp PCP - General Family Medicine 02/05/21 documented as of this encounter
--- OUTSIDE RECORDS SUMMARY | 2024-03-05 12:42 | XMS_ITS | Encounter Summary ---
Author Organization [facility] Address [address] [place] [address] Care Team Providers Care Palliative Nurse Name Role Phone Elsewhere, Pcp Primary Care Provider Unavailabl e Encounter Details Date Type Department Care Team (Late st Contact Info) Description 05/05/2013 Historical Ophthalmology RST OPH Luis Miguel Issa M.D. [address] [place] [address] Social History Tobacco Use Types Packs/Day Years Used Date Smoking Tobacco: Never Assessed Sex and Gender Information Value Date Recorded Sex Assigned at Female 08/18/2023 1:08 PM STATE PATROL OFFICER Gender Identity Female 08/18/2023 1:08 PM STATE PATROL OFFICER Sexual Orientation Straight 08/18/2023 1: 08 PM STATE PATROL OFFICER documented as of this encounter Progress Notes * Lui sMiguel Issa M.D. - 05/05/2013 8:23 AM CDT [...] left eye CDM Reports - EYEGEN Id: [id number] Status: Fnl documented in this encounter Plan of Treatment Not on file documented as of this encounter Visit Diagnoses Not on filedocumented in this encounter Additional Health Concerns Infection Onset Date Last Indicated Resolved Time COVID19 Pending 02/01/2021 02/02/2021 02/03/2021 2 :17 PM CDT documented as of this encounter Care Teams Palliative Nurse Relationship Specialty Start Date End Date Elsewhere, Pcp PCP - General Family Medicine 02/05/21 documented as of this encounter
--- OUTSIDE RECORDS SUMMARY | 2024-03-05 12:42 | XMS_ITS | Clinical Summary ---
Author Organization [facility] Address [address] [place] [address] Care Team Providers Care Quality Engineering Manager Name Role Phone Elsewhere, Pcp Primary Care Provider Unavailabl e Source Comments Patient records contain information from all sites at [facility]. For routine questions regarding patient records, call [phone] during business hours, M-F 8:00 AM - 5:00 PM Central Time. 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 I have a [facility] place to live 08/18/2023 Sex and Gender Information Value Date Recorded Sex Assigned at Female 08/18/2023 1:08 PM DIESEL MOTOR MECHANIC Gender Identity Female 08/18/2023 1:08 PM DIESEL MOTOR MECHANIC Sexual Orientation Straight 08/18/2023 1: 08 PM DIESEL MOTOR MECHANIC Last Filed Vital Signs Vital Sign Reading [...] this topic Medical Devices Implanted Type Area Video Game Script Writer Device Identifier Shelf Expiration Date Model / Serial / Lot Lens Michael Ac 6.0 X 23.00 - [id number] Implanted:Qty: 1 on 05/04/2013 Ocular Lens Right: Other/Legacy - See Implant Description Michael Fuzmo Description:Device Manufactu rer - Michael [employer]. Body Location - Right. Device Status Text - [id number]. Lens Tcn [id number] Bicnvx +24.0d - [id number] - [id number] Implanted:Qty: 1 on 02/05/2021 by Luis Miguel Issa M.D. at [facility] Ocular Lens Left: Eye [employer] J Opt[employer] (Previously KIERSTEN) 11/30/2024 [id number] / [id number] / Procedures Procedure Name Priority Date/Time Associated Diagnosis Comments EXTI GLUCOSE, RANDOM, S/P Routine 03/30/2020 7:08 AM CDT from Last 3 Months or Most Recently Relevant to Health Maintenance Care Teams Quality Engineering Manager Relationship Specialty Start Date End Date Elsewhere, Pcp PCP - General Family Medicine 02/05/21
--- OUTSIDE RECORDS SUMMARY | 2024-03-05 12:42 | XMS_ITS ---
Author Organization [facility] Address [address] [place] [address] Care Team Providers Care Shaker Plate Operator Name Role Phone Unavailable Unavailable Unavailable Surgery Details Not on file Complications Check Surgery Details section. Procedure Estimated Blood Loss Check Surgery Details section. Procedure Findings Check Surgery Details section. Procedure Specimens Taken Check Surgery Details section.
--- OUTSIDE RECORDS SUMMARY | 2024-03-05 12:42 | XMS_ITS | Encounter Summary ---
Author Organization [facility] Address [address] [place] [address] Care Team Providers Care Pourer Name Role Phone Elsewhere, Pcp Primary Care Provider Unavailabl e Encounter Details Date Type Department Care Team (Late st Contact Info) Description 02/22/2015 Historical Ophthalmology RST OPH Luis Miguel Issa M.D. [address] [place] [address] Social History Tobacco Use Types Packs/Day Years Used Date Smoking Tobacco: Never Assessed Sex and Gender Information Value Date Recorded Sex Assigned at Female 08/18/2023 1:08 PM SCIENTIST/ENGINEER Gender Identity Female 08/18/2023 1:08 PM SCIENTIST/ENGINEER Sexual Orientation Straight 08/18/2023 1: 08 PM SCIENTIST/ENGINEER documented as of this encounter Progress Notes [...] right eye CDM Reports - EYEGEN Id: [id number] Status: Fnl documented in this encounter Plan of Treatment Not on file documented as of this encounter Visit Diagnoses Not on filedocumented in this encounter Additional Health Concerns Infection Onset Date Last Indicated Resolved Time COVID19 Pending 02/01/2021 02/02/2021 02/03/2021 2 :17 PM CDT documented as of this encounter Care Teams Pourer Relationship Specialty Start Date End Date Elsewhere, Pcp PCP - General Family Medicine 02/05/21 documented as of this encounter
--- OUTSIDE RECORDS SUMMARY | 2024-03-05 12:42 | XMS_ITS | Referral Summary ---
Author Organization [place] Address [address] [place] [address] Care Team Providers Care Senior Net Developer Name Role Phone Elaine Paulino MD Primary [...] on file Medical Devices Implanted Type Area Machine Preservative Filler Device Identifier Shelf Expiration Date Model / Serial / Lot Bone Cement Simplex W/Tobramycin 6197-9-001 Implanted:Qty: 1 on 09/13/2019 by Crystal Ortez MD at [facility] Cement, Bone Right: Knee [employer] 03/27/2021 6197-9-001 / / [id number] Bone Cement Simplex Full Dose 6191-1-001 Implanted:Qty: 1 on 03/29/2020 by Crystal Ortez MD at [facility] Cement, Bone Left: Knee [employer] 11/25/2021 6191-1-001 / / [id number] Patella Round Dome, 35mm Implanted:Qty: 1 on 09/13/2019 by Crystal Ortez MD at [facility] Total Joint Component /Insert Right: Knee Depuy 02/26/2024 96-0111 / / [id number] Imp Comp Tibtry Sgm 2 Kn Cocr -000 Implanted:Qty: 1 on 09/13/2019 by Crystal Ortez MD at [facility] Total Joint Component /Insert Right: Knee [employer]- 06/27/2028 0 / / [id number] Femoral Posterior Stabilized Cemented, Size 2.5 Right Implanted:Qty: 1 on 09/13/2019 by Crystal Ortez MD at [facility] Total Joint Component /Insert Right: Knee Depuy 10/28/2028 0 / / [id number] Pfc Sigma Tibial Insert Fixed Bearing Stabilized 2, 8mm Implanted:Qty: 1 on 09/13/2019 by Crystal Ortez MD at [facility] Total Joint Component /Insert Right: Knee Depuy 01/25/2023 8 / / [id number] Imp Comp Fem Depuy Post Stab Sigma Sz 2.5 Lt 40 Implanted:Qty: 1 on 03/29/2020 by Crystal Ortez MD at [facility] Total Joint Component /Insert Left: Knee J 06/27/2029 0 / / [id number] Imp Comp Tibtry Sgm 2 Kn Cocr 1581-20-000 Implanted:Qty: 1 on 03/29/2020 by Crystal Ortez MD at [facility] Total Joint Component /Insert Left: Knee [employer]- 08/27/2028 0 / / [id number] P.F.C. Sigma Tibial Insert Fixed Bearing Stabilized, 2, 10mm Implanted:Qty: 1 on 03/29/2020 by Crystal Ortez MD at [facility] Left: Knee Depuy 07/28/2021 0 / / [id number] Patella Round Dome, 35mm Implanted:Qty: 1 on 03/29/2020 by Crystal Ortez MD at [facility] Left: Knee Depuy 05/28/2024 96-0111 / / [id number] Advance Directives For more information, please contact: [phone] Documents on File Type Date Recorded Patient Animal Shelter Supervisor Expl anation Advance Directives and Living Will 04/04/2020 10:47 AM Health Care Directiv e 03/23/2020 Healthcare Agents on File Name Relationship Healthcare Agent Amanda puente Communication Driss Welch Spouse Health Care Agent Sonu Welch Son Co-First Alterna te Health Care Agent Mateo Welch Son Co-First Alterna te Health Care Agent Care Teams Senior Net Developer Relationship Specialty Start Date End Date Helgen, Elaine, [place] [address] PCP - General Internal Medicine 09/13/19
--- OUTSIDE RECORDS SUMMARY | 2024-03-05 12:42 | XMS_ITS | Encounter Summary ---
Author Organization [facility] Address [address] [place] [address] Care Team Providers Care Head Trimmer Name Role Phone Elsewhere, Pcp Primary Care Provider Unavailabl e Encounter Details Date Type Department Care Team (Late st Contact Info) Description 04/27/2013 Historical Ophthalmology RST OPH Luis Miguel Issa M.D. [address] [place] [phone] Social History Tobacco Use Types Packs/Day Years Used Date Smoking Tobacco: Never Assessed Sex and Gender Information Value Date Recorded Sex Assigned at Female 08/18/2023 1:08 PM MANAGER REPORTING Gender Identity Female 08/18/2023 1:08 PM MANAGER REPORTING Sexual Orientation Straight 08/18/2023 1: 08 PM MANAGER REPORTING documented as of this encounter Progress Notes * Luis Miguel Issa M.D. - 04/27/2013 12:37 PM CDT Eye Subsequent Visit HISTORY OF PRESENT ILLNESS Patient here for IOL measurements. CDM Reports - EYESV Id: [id number] Status: Fnl documented in this encounter Plan of Treatment Not on file documented as of this encounter Visit Diagnoses Not on filedocumented in this encounter Additional Health Concerns Infection Onset Date Last Indicated Resolved Time COVID19 Pending 02/01/2021 02/02/2021 02/03/2021 2 :17 PM CDT documented as of this encounter Care Teams Head Trimmer Relationship Specialty Start Date End Date Elsewhere, Pcp PCP - General Family Medicine 02/05/21 documented as of this encounter
--- OUTSIDE RECORDS SUMMARY | 2024-03-05 12:42 | XMS_ITS | Referral Summary ---
Author Organization [facility] Address [address] [place] [address] Care Team Providers Care Student Teaching Coordinator Name Role Phone Elsewhere, Pcp Primary Care Provider Unavailabl e Source Comments Patient records contain information from all sites at [facility]. For routine questions regarding patient records, call [phone] during business hours, M-F 8:00 AM - 5:00 PM Central Time. 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 I have a [facility] place to live 08/18/2023 Sex and Gender Information Value Date Recorded Sex Assigned at Female 08/18/2023 1:08 PM ADMINISTRATIVE OFFICE SPECIALIST Gender Identity Female 08/18/2023 1:08 PM ADMINISTRATIVE OFFICE SPECIALIST Sexual Orientation Straight 08/18/2023 1: 08 PM ADMINISTRATIVE OFFICE SPECIALIST Last Filed Vital Signs Vital Sign Reading [...] on file Medical Devices Implanted Type Area Authorization Rep Device Identifier Shelf Expiration Date Model / Serial / Lot Lens Michael Ac 6.0 X 23.00 - Kaur [id number] Implanted:Qty: 1 on 05/04/2013 Ocular Lens Right: Other/Legacy - See Implant Description [email or web address] Description:Device Manufactu rer - Michael [employer]. Body Location - Right. Device Status Text - [id number]. Lens Tcn [id number] Bicnvx +24.0d - [id number] - [id number] Implanted:Qty: 1 on 02/05/2021 by Luis Miguel Issa M.D. at [facility] Ocular Lens Left: Eye [employer] (Previously KIERSTEN) 11/30/2024 [id number] / [id number] / Procedures Procedure Name Priority Date/Time Associated Diagnosis Comments EXTI GLUCOSE, RANDOM, S/P Routine 03/30/2020 7:08 AM CDT from Last 3 Months or Most Recently Relevant to Health Maintenance Care Teams Student Teaching Coordinator Relationship Specialty Start Date End Date Elsewhere, Pcp PCP - General Family Medicine 02/05/21
--- OUTSIDE RECORDS SUMMARY | 2024-03-05 12:42 | XMS_ITS | Encounter Summary ---
Author Organization [facility] Address [address] [place] [address] Care Team Providers Care Boiler Erector Name Role Phone Elsewhere, Pcp Primary Care Provider Unavailabl e Encounter Details Date Type Department Care Team (Late st Contact Info) Description 04/25/2013 Historical Ophthalmology RST OPH Luis Miguel Issa M.D. [address] [place] [address] Social History Tobacco Use Types Packs/Day Years Used Date Smoking Tobacco: Never Assessed Sex and Gender Information Value Date Recorded Sex Assigned at Female 08/18/2023 1:08 PM CARDIOLOGY TECHNOLOGIST Gender Identity Female 08/18/2023 1:08 PM CARDIOLOGY TECHNOLOGIST Sexual Orientation Straight 08/18/2023 1: 08 PM CARDIOLOGY TECHNOLOGIST documented as of this encounter Progress Notes * Luis Miguel Issa M.D. - 04/25/2013 12:32 PM CDT Eye General CHIEF COMPLAINT complications following cataract surgery HISTORY OF PRESENT ILLNESS Retained fragment following cataract surgery right eye. Vision not clear right eye since cataract surgery. History of amblyopia right eye. Patient denies ocular pain. Floaters and occasional flashinglights right eye since surgery. PRINTED CIRCUIT BOARD PREASSEMBLER: Blurred vision right eye since cataract surgery, [...] the procedure with the patient (or legal factory representative and otherspresent during the discussion). The [...] left eye CDM Reports - EYEGEN Id: [id number] Status: Fnl documented in this encounter Plan of Treatment Not on file documented as of this encounter Visit Diagnoses Not on filedocumented in this encounter Additional Health Concerns Infection Onset Date Last Indicated Resolved Time COVID19 Pending 02/01/2021 02/02/2021 02/03/2021 2 :17 PM CDT documented as of this encounter Care Teams Boiler Erector Relationship Specialty Start Date End Date Elsewhere, Pcp PCP - General Family Medicine 02/05/21 documented as of this encounter
--- OUTSIDE RECORDS SUMMARY | 2024-03-05 12:42 | XMS_ITS | Clinical Summary ---
Author Organization [employer] [facility] [employer] [facility] Address [place], [place] [address] Care Team Providers Care Funeral Service Practitioner/Embalmer Name Role Phone Elaine Paulino MD Primary Care Provider [phone] Nadya Amador MD Unavailable Unavailable Allergies No [...] Department Care Team Description 01/05/2024 Lab Requisition [facility] [phone] Norma Weaver MD from Last 3 Months Immunizations Name Administration Dates Next Due Influenza, IIV3 (Age >=3 years) 08/04/2006 Family History Medical History Relation Name Comments Cancer-prostate Father dx in his 80 's Heart Disease Father hx CABG Psychiatric illness Mother Alzheimgerardo r's Cancer Sister twin sister juan diego [...] 3 2 Date Outcome GA Total Labor Labor//3rd Weight Sex Type Anes PTL Ludmila A1 A5 Name Clin Para Para Last Filed Vital Signs Vital [...] portion of left breast in female (HC) long term acute care registered nurse current use of aromatase inhibitor from Last 3 Months or Most Recently Relevant to Health Maintenance Results * LAB TRACKING EVENT (01/05/2024 12:05 PM CDT) Other (Other) Client Collect / Unknown 01/05/2024 12:05 PM CDT 01/05/2024 9:15 PM CDT Norma Weaver MD LAB BILL ONLY [facility] [address] [place] [id number], * PATH TISSUE EXAM (01/05/2024 12:05 PM CDT) Case Report Pathology Report ?Case: [id number] ? Authorizing Provider: ??Norma Weaver MD ??Collected: ? 01/05/2024 1205 ? Ordering Location: ? [facility] ?Received: ?01/06/2024 0900 ? Pathologist: ? Melvin Jenkins MD ? Specimens: ?? A) - Pyloric Biopsy, Polyp ? B) - Stomach Biopsy ? C) - Gastric Biopsy ? D) - Distal Esophagus Biopsy ? E) - Esophageal Biopsy ? F) - Stomach, polyp ? 01/07/2024 10:39 AM [facility] [employer] LABORATORY-C ENTRAL LABORATORY Final Diagnosis A) STOMACH, [...] organisms 01/07/2024 10:39 AM [facility] [employer] LABORATORY-C ENTRAL LABORATORY Comment 01/07/2024 10:39 AM [facility] Clinical Information Ms. WELCH is [...] disease. 01/07/2024 10:39 AM [facility] [employer] LABORATORY-C ENTRAL LABORATORY Gross Description A) Received [...] 01/06/2024 10:11 AM 01/07/2024 10:39 AM CDT [facility] Microscopic Description The final diagnosis is based on microscopic examination of appropriate sections of all specimens. 01/07/2024 10:39 AM CDT [facility] Additional Information Interpreted at [facility], Central Laboratory - [address] [place] [address] [address] 01/07/2024 10:39 AM CDT [facility]- ENTRAL LABORATORY Other SPECIMEN FROM STOMACH / Unknown [...] AM CDT Norma Weaver MD PATHOLOGY/CYTOLO GY [facility] LAB[facility]ORY [address] [place] [address], * (ABNORMAL) XR DXA BONE DENSITY 2 [...] a more recent DXA scan done at [facility] in 2019, unable to trend by machine. ??However, the values are consistent with last check showing minimal if any decline in the lumbar spine. ?? Repeat scan recommended in 2-3 years. Mariela Kirkland PA-C [facility] 07/16/2021 Narrative 07/16/2021 1:14 PM CDT For Patients: Results are automatically released to your [facility] ([facility]) account once available, in compliance with federal regulations. This means that you may see your results before your provider has had a chance to review them. Please allow 2-3 business days for your provider to comment on the results. XR DXA Bone Mineral Density (BMD) EXAM LOCATION: [address] [address] PATIENT NAME: ALY WELCH DATE OF : [...] two scanners are made by the same ship construction teacher. PROCEDURE: Dual-energy x-ray absorptiometry performed with routine [...] 10:36 AM 06/08/2015 8:31 PM Care Teams Funeral Service Practitioner/Embalmer Relationship Specialty Start Date End Date Elaine Paulino MD [address] [place] [address] PCP - General Internal Medicine 05/22/15 Nadya Amador MD [address] [place] [address] General Surgery Surgery - General 05/23/15
[2024-03-05 13:13] LABS: Lactate Sepsis w/Reflex* 1.4 mmol/L (0.5-1.9)
[2024-03-05 13:14] LABS: Basophils Absolute Auto 0.03 K/uL (0.00-0.30); Basophils Percent Auto 0.3 % (0.0-3.0); Eosinophils Absolute Auto 0.18 K/uL (0.00-0.50); Eosinophils Percent Auto 1.8 % (0.0-7.0); Hematocrit 45.4 % (33.0-51.0); Hemoglobin* 14.9 gm/dL (12.0-16.0); Immature Granulocytes Abs Auto 0.06 K/uL (0.00-0.30); Immature Granulocytes Pct Auto 0.6 %; Lymphocytes Percent Auto 11.3 % (20-44); Mean Corpuscular HGB Conc 33 gm/dL (32-36); Mean Corpuscular Hemoglobin 30 pg (26-34); Mean Corpuscular Volume 91 fL (80-100); Monocytes Percent Auto 8.1 % (0.0-11.0); Neutrophils Percent Auto 77.9 % (42.0-72.0); Platelet Count* 240 K/uL (140-440); RDW Coefficient of Variation % 12.7 % (11.5-15.5); Red Blood Count 4.99 m/uL (4.00-5.20); White Blood Count* 9.83 K/uL (4.50-11.00)
[2024-03-05 13:18] LABS: Slide Review Reflex No
[2024-03-05 13:26] LABS: Troponin, Point-of-Care* 0.01 ng/ml (0.01-0.04)
[2024-03-05 13:34] LABS: INR 0.89 (0.91-1.10); Prothrombin Time 12.6 Seconds
[2024-03-05 13:36] LABS: Albumin* 4.8 g/dL (3.3-5.0); Chloride* 104 mmol/L (96-114); Sodium* 142 mmol/L (135-149)
[2024-03-05 13:37] LABS: Potassium* 3.9 mmol/L (3.6-5.1)
[2024-03-05 13:39] LABS: Anion Gap 9 mEq/L (7-15); Carbon Dioxide* 29 mmol/L (20-32); Creatinine* 1.1 mg/dL (0.5-1.5); Est. Creatinine Clearance* 34.26; Estimated Glomerular Filt Rate 50 ml/min
[2024-03-05 13:40] LABS: Alanine Aminotransferase* 52 U/L (4-35); Alkaline Phosphatase* 101 U/L (40-150); Aspartate Amino Transferase* 50 U/L (12-35); Bilirubin Direct* 0.5 mg/dL (0.0-0.5); Bilirubin Total* 0.8 mg/dL (0.1-1.5); Blood Urea Nitrogen* 25 mg/dL (7-30); Calcium* 9.4 mg/dL (8.4-10.6); Glucose* 121 mg/dL (60-115); Total Protein* 8.2 g/dL (6.0-8.3)
[2024-03-05 13:48] LABS: C Reactive Protein* < 0.5 mg/dL (0.5-1.0)
== END 2024-03-05 14:57 | disposition home or self-care (01) ==
PROVIDERS: Emergency Provider Emergency Medicine; PCP Internal Medicine
DX: N20.1 Calculus of ureter (principal); K62.5 Hemorrhage of anus and rectum
CPT/HCPCS: 36415; 74174; 80048; 80076; 83605; 83735; 84484; 85025; 85610; 86140; 86850; 86900; 86901; 93005; 99284; 99285; Q9967

== ENCOUNTER 2024-03-10 07:51 | Outpatient (CLI) | payer MEDICARE, OTHER, SELFPAY ==
--- OUTSIDE RECORDS SUMMARY | 2024-03-10 07:53 | XMS_ITS | Referral Summary ---
Author Organization [facility] Address [address] [place] [address] Care Team Providers Care Ground Control Approach Technician Name Role Phone Elaine Paulino MD Primary Care Provider [phone] Allergies Active Allergy Reactions Criticality Noted Date [...] on file Medical Devices Implanted Type Area Spring Winder Device Identifier Shelf Expiration Date Model / Serial / Lot Bone Cement Simplex W/Tobramycin 6197-9-001 Implanted:Qty: 1 on 09/13/2019 by Crystal Ortez MD at [facility] Cement, Bone Right: Knee [employer] 03/27/2021 6197-9-001 / / [id number] Bone Cement Simplex Full Dose 6191-1-001 Implanted:Qty: 1 on 03/29/2020 by Crystal Ortez MD at [facility] Cement, Bone Left: Knee [employer] 11/25/2021 6191-1-001 / / [id number] Patella Round Dome, 35mm Implanted:Qty: 1 on 09/13/2019 by Crystal Ortez MD at [facility] Total Joint Component /Insert Right: Knee Depuy 02/26/2024 96-0111 / / [id number] Imp Comp Tibtry Sgm 2 Kn Cocr -000 Implanted:Qty: 1 on 09/13/2019 by Crystal Ortez MD at [facility] Total Joint Component /Insert Right: Knee [employer]- 06/27/2028 0 / / [id number] Femoral Posterior Stabilized Cemented, Size 2.5 Right Implanted:Qty: 1 on 09/13/2019 by Crystal Ortez MD at [facility] Total Joint Component /Insert Right: Knee Depuy 10/28/2028 0 / / [id number] Pfc Sigma Tibial Insert Fixed Bearing Stabilized 2, 8mm Implanted:Qty: 1 on 09/13/2019 by Crystal Ortez MD at [facility] Total Joint Component /Insert Right: Knee Depuy 01/25/2023 8 / / [id number] Imp Comp Fem Depuy Post Stab Sigma Sz 2.5 Lt 40 Implanted:Qty: 1 on 03/29/2020 by Crystal Ortez MD at [facility] Total Joint Component /Insert Left: Knee J 06/27/2029 0 / / [id number] Imp Comp Tibtry Sgm 2 Kn Cocr 1581-20-000 Implanted:Qty: 1 on 03/29/2020 by Crystal Ortez MD at [facility] Total Joint Component /Insert Left: Knee [employer] 08/27/2028 0 / / [id number] P.F.C. Sigma Tibial Insert Fixed Bearing Stabilized, 2, 10mm Implanted:Qty: 1 on 03/29/2020 by Crystal Ortez MD at [facility] Left: Knee Depuy 07/28/2021 0 / / [id number] Patella Round Dome, 35mm Implanted:Qty: 1 on 03/29/2020 by Crystal Ortez MD at [facility] Left: Knee Depuy 05/28/2024 96-0111 / / [id number] Advance Directives For more information, please contact: [phone] Documents on File Type Date Recorded Patient Sheet Ironworker Expl anation Advance Directives and Living Will 04/04/2020 10:47 AM Health Care Directiv e 03/23/2020 Healthcare Agents on File Name Relationship Healthcare Agent Amanda puente Communication Driss Welch Spouse Health Care Agent Sonu Welch Son Co-First Alterna te Health Care Agent Mateo Welch Son Co-First Alterna te Health Care Agent Care Teams Ground Control Approach Technician Relationship Specialty Start Date End Date Helgen, Elaine, [place] [address] PCP - General Internal Medicine 09/13/19
--- OUTSIDE RECORDS SUMMARY | 2024-03-10 07:53 | XMS_ITS | Clinical Summary ---
Author Organization [facility] Address [address] [place] [address] Care Team Providers Care Enroute Controller Name Role Phone Elsewhere, Pcp Primary Care Provider Unavailabl e Source Comments Patient records contain information from all sites at [facility]. For routine questions regarding patient records, call [phone] during business hours, M-F 8:00 AM - 5:00 PM Central Time. 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 I [facility] place to live 08/18/2023 Sex and Gender Information Value Date Recorded Sex Assigned at Female 08/18/2023 1:08 PM REAGENT TENDER HELPER Gender Identity Female 08/18/2023 1:08 PM REAGENT TENDER HELPER Sexual Orientation Straight 08/18/2023 1: 08 PM REAGENT TENDER HELPER Last Filed Vital Signs Vital Sign Reading [...] this topic Medical Devices Implanted Type Area Training Consultant Device Identifier Shelf Expiration Date Model / Serial / Lot Lens Michael Ac 6.0 X 23.00 - [id number] Implanted:Qty: 1 on 05/04/2013 Ocular Lens Right: Other/Legacy - See Implant Description Michael [employer] Description:Device Manufactu rer - Michael Surgical. Body Location - Right. Device Status Text - [id number]. Lens Tcn [id number] Bicnvx +24.0d - [id number] - [id number] Implanted:Qty: 1 on 02/05/2021 by Luis Miguel Issa M.D. at [facility] Ocular Lens Left: Eye [employer] (Previously KIERSTEN) 11/30/2024 [id number] / [id number] / Procedures Procedure Name Priority Date/Time Associated Diagnosis Comments EXTI GLUCOSE, RANDOM, S/P Routine 03/30/2020 7:08 AM CDT from Last 3 Months or Most Recently Relevant to Health Maintenance Care Teams Enroute Controller Relationship Specialty Start Date End Date Elsewhere, Pcp PCP - General Family Medicine 02/05/21
--- OUTSIDE RECORDS SUMMARY | 2024-03-10 07:53 | XMS_ITS | Encounter Summary ---
Author Organization [facility] Address [address] [place] [address] Care Team Providers Care Real Estate Coordinator Name Role Phone Elsewhere, Pcp Primary Care Provider Unavailabl e Encounter Details Date Type Department Care Team (Late st Contact Info) Description 02/22/2015 Historical Ophthalmology [facility] Luis Miguel Issa M.D. [address] [place] [address] Social History Tobacco Use Types Packs/Day Years Used Date Smoking Tobacco: Never Assessed Sex and Gender Information Value Date Recorded Sex Assigned at Female 08/18/2023 1:08 PM CHILI MAKER Gender Identity Female 08/18/2023 1:08 PM CHILI MAKER Sexual Orientation Straight 08/18/2023 1: 08 PM CHILI MAKER documented as of this encounter Progress Notes [...] right eye CDM Reports - EYEGEN Id: [id number] Status: Fnl documented in this encounter Plan of Treatment Not on file documented as of this encounter Visit Diagnoses Not on filedocumented in this encounter Additional Health Concerns Infection Onset Date Last Indicated Resolved Time COVID19 Pending 02/01/2021 02/02/2021 02/03/2021 2 :17 PM CDT documented as of this encounter Care Teams Real Estate Coordinator Relationship Specialty Start Date End Date Elsewhere, Pcp PCP - General Family Medicine 02/05/21 documented as of this encounter
--- OUTSIDE RECORDS SUMMARY | 2024-03-10 07:53 | XMS_ITS | Clinical Summary ---
Author Organization [facility] Address [address] [place] [address] Care Team Providers Care Individualized Education Plan Aide Name Role Phone Elaine Paluino MD Primary Care Provider Allergies Active Allergy [...] on file Medical Devices Implanted Type Area Server Cashier Device Identifier Shelf Expiration Date Model / Serial / Lot Bone Cement Simplex W/Tobramycin 6197-9-001 Implanted:Qty: 1 on 09/13/2019 by Crystal Ortez MD at [facility] Cement, Bone Right: Knee [employer] 03/27/2021 6197-9-001 / / [id number] Bone Cement Simplex Full Dose 6191-1-001 Implanted:Qty: 1 on 03/29/2020 by Crystal Ortez MD at [facility] Cement, Bone Left: Knee [employer] 11/25/2021 6191-1-001 / / [id number] Patella Round Dome, 35mm Implanted:Qty: 1 on 09/13/2019 by Crystal Ortez MD at [facility] Total Joint Component /Insert Right: Knee Depuy 02/26/2024 96-0111 / / [id number] Imp Comp Tibtry Sgm 2 Kn Cocr 1581-20-000 Implanted:Qty: 1 on 09/13/2019 by Crystal Ortez MD at [facility] Total Joint Component /Insert Right: Knee [employer]- 06/27/2028 0 / / [id number] Femoral Posterior Stabilized Cemented, Size 2.5 Right Implanted:Qty: 1 on 09/13/2019 by Crystal Ortez MD at [facility] Total Joint Component /Insert Right: Knee Depuy 10/28/2028 0 / / [id number] Pfc Sigma Tibial Insert Fixed Bearing Stabilized 2, 8mm Implanted:Qty: 1 on 09/13/2019 by Crystal Ortez MD at [facility] Total Joint Component /Insert Right: Knee Depuy 01/25/2023 8 / / [id number] Imp Comp Fem Depuy Post Stab Sigma Sz 2.5 Lt 40-250 Implanted:Qty: 1 on 03/29/2020 by Crystal Ortez MD at [facility] Total Joint Component /Insert Left: Knee J 06/27/2029 0 / / [id number] Imp Comp Tibtry Sgm 2 Kn Cocr 1581-20-000 Implanted:Qty: 1 on 03/29/2020 by Crystal Ortez MD at [facility] Total Joint Component /Insert Left: Knee [employer]- 08/27/2028 0 / / [id number] P.F.C. Sigma Tibial Insert Fixed Bearing Stabilized, 2, 10mm Implanted:Qty: 1 on 03/29/2020 by Crystal Ortez MD at [facility] Left: Knee Depuy 07/28/2021 0 / / [id number] Patella Round Dome, 35mm Implanted:Qty: 1 on 03/29/2020 by Crystal Ortez MD at [facility] Left: Knee Depuy 05/28/2024 96-0111 / / [id number] Advance Directives For more information, please contact: [phone] Documents on File Type Date Recorded Patient Director Social Service Expl anation Advance Directives and Living Will 04/04/2020 10:47 AM Health Care Directiv e 03/23/2020 Healthcare Agents on File Name Relationship Healthcare Agent Amanda puente Communication Driss Welch Spouse Health Care Agent Sonu Welch Son Co-First Alterna te Health Care Agent Mateo Welch Son Co-First Alterna te Health Care Agent Care Teams Individualized Education Plan Aide Relationship Specialty Start Date [place] [address] PCP - General Internal Medicine 09/13/19
--- OUTSIDE RECORDS SUMMARY | 2024-03-10 07:53 | XMS_ITS | Referral Summary ---
Author Organization [facility] Address [address] [place] [address] Care Team Providers Care Computer Science Instructor Name Role Phone Elsewhere, Pcp Primary Care Provider Unavailabl e Source Comments Patient records contain information from all sites at [facility]. For routine questions regarding patient records, call [phone] during business hours, M-F 8:00 AM - 5:00 PM Central Time. 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 I have a [facility] place to live 08/18/2023 Sex and Gender Information Value Date Recorded Sex Assigned at Female 08/18/2023 1:[address] RADIO INSTALLER Gender Identity Female 08/18/2023 1:[address] RADIO INSTALLER Sexual Orientation Straight 08/18/2023 1: [address] RADIO INSTALLER Last Filed Vital Signs Vital Sign Reading [...] on file Medical Devices Implanted Type Area Edge Beader Device Identifier Shelf Expiration Date Model / Serial / Lot Lens Michael Ac 6.0 X 23.00 - Kaur [id number] Implanted:Qty: 1 on 05/04/2013 Ocular Lens Right: Other/Legacy - See Implant Description [place] SPARK Description:Device Manufactu rer - Michael Surgical. Body Location - Right. Device Status Text - [id number]. Lens Tcn [id number] Bicnvx +24.0d - [id number] - [id number] Implanted:Qty: 1 on 02/05/2021 by Luis Miguel Issa M.D. at [facility] Ocular Lens Left: Eye [employer] (Previously KIERSTEN) 11/30/2024 [id number] / [id number] / Procedures Procedure Name Priority Date/Time Associated Diagnosis Comments EXTI GLUCOSE, RANDOM, S/P Routine 03/30/2020 7:08 AM CDT from Last 3 Months or Most Recently Relevant to Health Maintenance Care Teams Computer Science Instructor Relationship Specialty Start Date End Date Elsewhere, Pcp PCP - General Family Medicine 02/05/21
--- OUTSIDE RECORDS SUMMARY | 2024-03-10 07:53 | XMS_ITS ---
Author Organization [facility] Address [address] [place] [address] Care Team Providers Care Financial Recruiter Name Role Phone Unavailable Unavailable Unavailable Surgery Details Not on file Complications Check Surgery Details section. Procedure Estimated Blood Loss Check Surgery Details section. Procedure Findings Check Surgery Details section. Procedure Specimens Taken Check Surgery Details section.
--- OUTSIDE RECORDS SUMMARY | 2024-03-10 07:53 | XMS_ITS | Clinical Summary ---
Author Organization [employer] [facility] [employer] Address [place], [place] [address] Care Team Providers Care Uniform Designer Name Role Phone Elaine Paulino MD Primary Care Provider [phone] Nadya Amador MD Unavailable Unavailable Allergies No [...] Department Care Team Description 01/05/2024 Lab Requisition [facility] [phone] Norma Weaver MD from Last 3 Months [...] CDT Norma Weaver MD LAB BILL ONLY [facility] LABORATORY [address] [place] [id number], * PATH TISSUE EXAM (01/05/2024 12:05 PM CDT) Case Report Pathology Report ?Case: [id number] ? Authorizing Provider: ??Norma Weaver MD ??Collected: ? 01/05/2024 1205 ? Ordering Location: ? [facility] ?Received: ?01/06/2024 0900 ? Pathologist: ? Melvin Jenkins MD ? Specimens: ?? A) - Pyloric Biopsy, Polyp ? B) - Stomach Biopsy ? C) - Gastric Biopsy ? D) - Distal Esophagus Biopsy ? E) - Esophageal Biopsy ? F) - Stomach, polyp ? 01/07/2024 10:39 AM [facility] LABORATORY-C ENTRAL LABORATORY Final Diagnosis A) STOMACH, [...] and Helicobacter organisms 01/07/2024 10:39 AM [facility] LABORATORY-C ENTRAL LABORATORY Comment 01/07/2024 10:39 AM [facility] Clinical Information Ms. WELCH is [...] for microscopic disease. 01/07/2024 10:39 AM [facility] LABORAT[facility]-C ENTRAL LABORATORY Gross Description A) Received [...] 01/06/2024 10:11 AM 01/07/2024 10:39 AM CDT [facility] Microscopic Description The final diagnosis is based on microscopic examination of appropriate sections of all specimens. 01/07/2024 10:39 AM CDT [facility] Additional Information Interpreted at [facility], Central Laboratory - [address] [place] [address] [address] 01/07/2024 10:39 AM CDT [facility] ENTRAL LABORATORY Other SPECIMEN FROM STOMACH / [...] AM CDT Norma Weaver MD PATHOLOGY/CYTOLO GY [facility] [address] [place] [address], * (ABNORMAL) XR DXA BONE DENSITY 2 [...] a more recent DXA scan done at [facility] in 2019, unable to trend by machine. ??However, the values are consistent with last check showing minimal if any decline in the lumbar spine. ?? Repeat scan recommended in 2-3 years. Mariela Kirkland PA-C [facility] 07/16/2021 Narrative 07/16/2021 1:14 PM CDT For Patients: Results are automatically released to your [facility] ([facility]) account once available, in compliance with federal regulations. This means that you may see your results before your provider has had a chance to review them. Please allow 2-3 business days for your provider to comment on the results. XR DXA Bone Mineral Density (BMD) EXAM LOCATION: [address] [address] PATIENT NAME: ALY WELCH DATE OF : [...] two scanners are made by the same cook mayonnaise. PROCEDURE: Dual-energy x-ray absorptiometry performed with routine [...] 10:36 AM 06/08/2015 8:31 PM Care Teams Uniform Designer Relationship Specialty Start Date End Date Elaine Paulino MD [address] [place] [address] PCP - General Internal Medicine 05/22/15 Nadya Amador MD [address] [place] [address] General Surgery Surgery - General 05/23/15
--- OUTSIDE RECORDS SUMMARY | 2024-03-10 07:53 | XMS_ITS | Continuity of Care Document ---
Author Organization [facility] Address [address] [place] [address] Phone Care Team Providers Care Communications Field Technician Name Role Phone Carline KEY, Onofre Unavailable [...] [facility], [address], [place], [address], tel:[phone] No Information 3 Carline Parnell [facility] [address], [place], [address], . tel:[phone] Family History Family Member Type Diagnosis Age [...]
--- OUTSIDE RECORDS SUMMARY | 2024-03-10 07:53 | XMS_ITS | Encounter Summary ---
Author Organization [facility] Address [address] [place] [address] Care Team Providers Care Real Estate Closing Coordinator Name Role Phone No Ref-Primary, Physician Primary Care Provider Elaine Paulino MD Primary Care Provider [phone] Encounter Details Date Type Department Care Team (Late st Contact Info) Description 07/27/2019 Orders Only [facility] Laboratory [address] [place] [phone] Crystal Ortez MD [facility] [address] [place] [id number] Pre-operative laboratory examination (Primary Dx) Social History [...] Specimen Description Nares 07/28/2019 1:20 PM CDT [facility] Methicillin Resist/Sens S. aureus PCR Negative NEG^Negat hortencia 07/28/2019 5:55 PM CDT [facility] Comment: MRSA Negative: SA Negative ??MRSA and Staphylococcus aureus target DNA not detected, presumed negative for MRSA and SA colonization or the number of bacteria present may be below the limit of detection for the assay. FDA approved assay performed using [employer] GeneXpert(R) real-time PCR. Nasal structure (body structure) 07/28/2019 12:10 PM CDT 07/28/2019 1:20 PM CDT Crystal Ortez MD LAB - MICRO GENERAL ORDERABLES Performing Organization Address City/State/[facility] Co de Phone Number [facility] [address] [place], [place] [id number] [place] [address] [address] [place] [id number] [phone] documented in this encounter Visit Diagnoses Diagnosis Pre-operative laboratory examination- Primary Pre-procedural laboratory examination documented in this encounter Care Teams Real Estate Closing Coordinator Relationship Specialty Start Date End Date No Ref-Primary, Physician PCP - General 07/28/19 09/12/19 Elaine Paulino MD [facility] [address] [place] [address] PCP - General Internal Medicine 09/13/19 documented as of this encounter
--- OUTSIDE RECORDS SUMMARY | 2024-03-10 07:54 | XMS_ITS | Encounter Summary ---
Author Organization [facility] Address [address] [place] [address] Care Team Providers Care Kindergarten Tutor Name Role Phone Elsewhere, Pcp Primary Care Provider Unavailabl e Encounter Details Date Type Department Care Team (Late st Contact Info) Description 04/25/2013 Historical Ophthalmology RST OPH Luis Miguel Issa M.D. [address] [place] [address] Social History Tobacco Use Types Packs/Day Years Used Date Smoking Tobacco: Never Assessed Sex and Gender Information Value Date Recorded Sex Assigned at Female 08/18/2023 1:08 PM STEREO EQUIPMENT SALESPERSON Gender Identity Female 08/18/2023 1:08 PM STEREO EQUIPMENT SALESPERSON Sexual Orientation Straight 08/18/2023 1: 08 PM STEREO EQUIPMENT SALESPERSON documented as of this encounter Progress Notes * Luis Miguel Issa M.D. - 04/25/2013 12:32 PM CDT Eye General CHIEF COMPLAINT complications following cataract surgery HISTORY OF PRESENT ILLNESS Retained fragment following cataract surgery right eye. Vision not clear right eye since cataract surgery. History of amblyopia right eye. Patient denies ocular pain. Floaters and occasional flashinglights right eye since surgery. DUST COLLECTOR: Blurred vision right eye since cataract surgery, [...] the procedure with the patient (or legal member service representative and otherspresent during the discussion). The [...] left eye CDM Reports - EYEGEN Id: [id number] Status: Fnl documented in this encounter Plan of Treatment Not on file documented as of this encounter Visit Diagnoses Not on filedocumented in this encounter Additional Health Concerns Infection Onset Date Last Indicated Resolved Time COVID19 Pending 02/01/2021 02/02/2021 02/03/2021 2 :17 PM CDT documented as of this encounter Care Teams Kindergarten Tutor Relationship Specialty Start Date End Date Elsewhere, Pcp PCP - General Family Medicine 02/05/21 documented as of this encounter
--- OUTSIDE RECORDS SUMMARY | 2024-03-10 07:54 | XMS_ITS | Encounter Summary ---
Author Organization [facility] Address [address] [place] [address] Care Team Providers Care Nuclear Physics Teacher Name Role Phone Elsewhere, Pcp Primary Care Provider Unavailabl e Encounter Details Date Type Department Care Team (Late st Contact Info) Description 04/25/2013 Historical Ophthalmology RST OPH Rachelle Rose, C.O.A. Social History Tobacco Use Types Packs/Day Years Used Date Smoking Tobacco: Never Assessed Sex and Gender Information Value Date Recorded Sex Assigned at Female 08/18/2023 1:08 PM EDUCATION TRAINER Gender Identity Female 08/18/2023 1:08 PM EDUCATION TRAINER Sexual Orientation Straight 08/18/2023 1: 08 PM EDUCATION TRAINER documented as of this encounter Progress Notes * Rachelle Rose, C.O.A. - 04/25/2013 2:08 PM CDT Eye Subsequent Visit HISTORY OF PRESENT ILLNESS Preop checklist: preop instructions given, glasses read, sent for IOL measurements, informed consent form given to patient and signed by patient. CDM Reports - EYESV Id: [id number] Status: Fnl documented in this encounter Plan of Treatment Not on file documented as of this encounter Visit Diagnoses Not on filedocumented in this encounter Additional Health Concerns Infection Onset Date Last Indicated Resolved Time COVID19 Pending 02/01/2021 02/02/2021 02/03/2021 2 :17 PM CDT documented as of this encounter Care Teams Nuclear Physics Teacher Relationship Specialty Start Date End Date Elsewhere, Pcp PCP - General Family Medicine 02/05/21 documented as of this encounter
--- OUTSIDE RECORDS SUMMARY | 2024-03-10 07:54 | XMS_ITS | Encounter Summary ---
Author Organization [facility] Address [address] [place] [address] Care Team Providers Care Dialysis Tech Name Role Phone Elsewhere, Pcp Primary Care Provider Unavailabl e Encounter Details Date Type Department Care Team (Late st Contact Info) Description 06/07/2013 Historical Ophthalmology RST OPH Luis Miguel Issa M.D. [address] [place] [address] Social History Tobacco Use Types Packs/Day Years Used Date Smoking Tobacco: Never Assessed Sex and Gender Information Value Date Recorded Sex Assigned at Female 08/18/2023 1:08 PM PLANT WRAPPER Gender Identity Female 08/18/2023 1:08 PM PLANT WRAPPER Sexual Orientation Straight 08/18/2023 1: 08 PM PLANT WRAPPER documented as of this encounter Progress Notes [...] left eye CDM Reports - EYEGEN Id: [id number] Status: Fnl documented in this encounter Plan of Treatment Not on file documented as of this encounter Visit Diagnoses Not on filedocumented in this encounter Additional Health Concerns Infection Onset Date Last Indicated Resolved Time COVID19 Pending 02/01/2021 02/02/2021 02/03/2021 2 :17 PM CDT documented as of this encounter Care Teams Dialysis Tech Relationship Specialty Start Date End Date Elsewhere, Pcp PCP - General Family Medicine 02/05/21 documented as of this encounter
--- OUTSIDE RECORDS SUMMARY | 2024-03-10 07:54 | XMS_ITS | Encounter Summary ---
Author Organization [facility] Address [address] [place] [address] Care Team Providers Care Miscellaneous Machine Operator Name Role Phone Elsewhere, Pcp Primary Care Provider Unavailabl e Encounter Details Date Type Department Care Team (Late st Contact Info) Description 07/13/2014 Historical Ophthalmology RST OPH Luis Miguel Issa M.D. [address] [place] [address] Social History Tobacco Use Types Packs/Day Years Used Date Smoking Tobacco: Never Assessed Sex and Gender Information Value Date Recorded Sex Assigned at Female 08/18/2023 1:08 PM GAS CONTROLLER Gender Identity Female 08/18/2023 1:08 PM GAS CONTROLLER Sexual Orientation Straight 08/18/2023 1: 08 PM GAS CONTROLLER documented as of this encounter Progress Notes [...] right eye CDM Reports - EYEGEN Id: [id number] Status: Fnl documented in this encounter Plan of Treatment Not on file documented as of this encounter Visit Diagnoses Not on filedocumented in this encounter Additional Health Concerns Infection Onset Date Last Indicated Resolved Time COVID19 Pending 02/01/2021 02/02/2021 02/03/2021 2 :17 PM CDT documented as of this encounter Care Teams Miscellaneous Machine Operator Relationship Specialty Start Date End Date Elsewhere, Pcp PCP - General Family Medicine 02/05/21 documented as of this encounter
--- OUTSIDE RECORDS SUMMARY | 2024-03-10 07:54 | XMS_ITS | Encounter Summary ---
Author Organization [facility] Address [address] [place] [address] Care Team Providers Care Validation Specialist Name Role Phone Elsewhere, Pcp Primary Care Provider Unavailabl e Encounter Details Date Type Department Care Team (Late st Contact Info) Description 04/27/2013 Historical Ophthalmology RST OPH Luis Miguel Issa M.D. [address] [place] [phone] Social History Tobacco Use Types Packs/Day Years Used Date Smoking Tobacco: Never Assessed Sex and Gender Information Value Date Recorded Sex Assigned at Female 08/18/2023 1:08 PM SIDEROGRAPHER Gender Identity Female 08/18/2023 1:08 PM SIDEROGRAPHER Sexual Orientation Straight 08/18/2023 1: 08 PM SIDEROGRAPHER documented as of this encounter Progress Notes * Luis Miguel Issa M.D. - 04/27/2013 12:37 PM CDT Eye Subsequent Visit HISTORY OF PRESENT ILLNESS Patient here for IOL measurements. CDM Reports - EYESV Id: [id number] Status: Fnl documented in this encounter Plan of Treatment Not on file documented as of this encounter Visit Diagnoses Not on filedocumented in this encounter Additional Health Concerns Infection Onset Date Last Indicated Resolved Time COVID19 Pending 02/01/2021 02/02/2021 02/03/2021 2 :17 PM CDT documented as of this encounter Care Teams Validation Specialist Relationship Specialty Start Date End Date Elsewhere, Pcp PCP - General Family Medicine 02/05/21 documented as of this encounter
--- OUTSIDE RECORDS SUMMARY | 2024-03-10 07:54 | XMS_ITS | Encounter Summary ---
Author Organization [facility] Address [address] [place] [address] Care Team Providers Care Picture Framer Name Role Phone Elsewhere, Pcp Primary Care Provider Unavailabl e Encounter Details Date Type Department Care Team (Late st Contact Info) Description 05/05/2013 Historical Ophthalmology RST OPH Luis Miguel Issa M.D. [address] [place] [address] Social History Tobacco Use Types Packs/Day Years Used Date Smoking Tobacco: Never Assessed Sex and Gender Information Value Date Recorded Sex Assigned at Female 08/18/2023 1:08 PM TREE TRIMMING SUPERVISOR Gender Identity Female 08/18/2023 1:08 PM TREE TRIMMING SUPERVISOR Sexual Orientation Straight 08/18/2023 1: 08 PM TREE TRIMMING SUPERVISOR documented as of this encounter Progress Notes [...] left eye CDM Reports - EYEGEN Id: [id number] Status: Fnl documented in this encounter Plan of Treatment Not on file documented as of this encounter Visit Diagnoses Not on filedocumented in this encounter Additional Health Concerns Infection Onset Date Last Indicated Resolved Time COVID19 Pending 02/01/2021 02/02/2021 02/03/2021 2 :17 PM CDT documented as of this encounter Care Teams Picture Framer Relationship Specialty Start Date End Date Elsewhere, Pcp PCP - General Family Medicine 02/05/21 documented as of this encounter
--- NOTE | 2024-03-10 09:18 | W.ANESCHARGE ---
Anesthesia Charges Start Date/Time Anesthesia Start Date: 03/10/24 Anesthesia Start Time: 08:35 Stop Date/Time Anesthesia Stop Date: 03/10/24 Anesthesia Stop Time: 09:15
--- NOTE | 2024-03-10 09:50 | W.ANESCHARGE ---
Anesthesia Charges Start Date/Time Anesthesia Start Date: 03/10/24 Anesthesia Start Time: 08:35 Stop Date/Time Anesthesia Stop Date: 03/10/24 Anesthesia Stop Time: 09:15 Summary Extremes of Age - Over 70 or under 1: MDA
== END 2024-03-10 07:52 | disposition home or self-care (01) ==
LOC: OP CLINIC 07:52
PROVIDERS: PCP Internal Medicine; Visit Provider Surgery
DX: K62.5 Hemorrhage of anus and rectum (principal); K64.8 Other hemorrhoids; K63.5 Polyp of colon; K57.30 Diverticulosis of large intestine without perforation or abscess without bleeding
CPT/HCPCS: 00811; 45385; 88305; 99100; J2704

== ENCOUNTER 2024-05-02 13:52 | Outpatient (CLI) | payer MEDICARE, OTHER, SELFPAY ==
--- OUTSIDE RECORDS SUMMARY | 2024-05-02 13:59 | XMS_ITS | Continuity of Care Document ---
Author Organization [facility] Address [address] [place] [address] Care Team Providers Care Linoleum Floor Layer Name Role Phone ANAID GILMORE Primary Care Provider [phone] Assessment No assessment recorded. Plan of Treatment Reminders Order Date Submit Date Provider Last Modified By Organization Details Last Modified Time Details Appointments HOSPITAL 90 2023 03:30P M Reg burns MD Not available Not available Not available Lab urinalysi s, dipstick 2023 024 [email or web address] r2 [facility], [address], [place], [address], 04/05/2024 11:42:20 Referral None recorded. Procedures None recorded. Surgeries percutane ous nephrolit hotomy (SURG) 2023 024 [email or web address] 0 Not available 04/22/2024 11:58:31 percutane ous nephrosto my tube placement w/ intervent ional radiologi st (SURG) 2023 024 [email or web address] 0 Not available 04/22/2024 11:58:32 Imaging None recorded. Medication Orders None recorded. Patient TargetsNo targets recorded. Patient Instructions Encounter Date Encounter Id Patient Instructions Last Modified By Organization Details Last Modified Time 04/05/2024 [id number] We reviewed the available history, physical exam, lab and imaging findings from today's visit. The patient has nearly 3cm of left lower pole and left UPJ stone. Options for stone management include observation, symptom management, MET, and interventions such as ESWL, URS and PCNL. We discussed the goals, risks and limitations of each approach. She wishes to proceed with left PCNL. Not available 04/05/2024 11:45:11 Reason for Referral None Reported. Results Created Date Observation Date Name Description Value Unit Range Abnormal Flag LastModifiedBy Organization Detail LastModifiedTime 04/05/20 24 04/05/2024 urina lysis , dipst ick BLOOD Large (250 RBC/uL ) Not Available [facility] [address], [place], [address], 04/05/2024 10:59:18 04/05/20 24 04/05/2024 urina lysis , dipst ick BILIRUBIN Negati ve Not Available [facility] [address], [place], [address], 04/05/2024 10:59:18 04/05/20 24 04/05/2024 urina lysis , dipst ick UROBILINOGEN 0.2 mg/dL (Norm) Not Available [facility] [address], [place], [address], 04/05/2024 10:59:18 04/05/20 24 04/05/2024 urina lysis , dipst ick KETONES Negati ve Not Available [facility] [address], [place], [address], 04/05/2024 10:59:18 04/05/20 24 04/05/2024 urina lysis , dipst ick PROTEIN Negati ve Not Available [facility] [address], [place], [address], 04/05/2024 10:59:18 04/05/20 24 04/05/2024 urina lysis , dipst ick NITRITES Negati ve Not Available [facility] [address], [place], [address], 04/05/2024 10:59:18 04/05/20 24 04/05/2024 urina lysis , dipst ick GLUCOSE Negati ve Not Available [facility] [address], [place], [address], 04/05/2024 10:59:18 04/05/20 24 04/05/2024 urina lysis , dipst ick p.H. 5.5 Not Available [facility] [address], [place], [address], 04/05/2024 10:59:18 04/05/20 24 04/05/2024 urina lysis , dipst ick S.G. (Specific [place]) 1.020 Not Available [facility] [address], [place], [address], 04/05/2024 10:59:18 04/05/20 24 04/05/2024 urina lysis , dipst ick LEUKOCYTES Trace (10 WBC/uL ) Not Available [facility] [address], [place], [address], 04/05/2024 10:59:18 Result Notes None recorded. Problems Name Status Onset Date Resolution Date Notes Provider Name and Address Organization Details Recorded Time Ureteric stone Active 4 Deborah Holliday PA-C [address] [place] [address],[address], [address], [facility] 03/30/2024 18:05:03 Kidney stone Active 4 Deborah Holliday PA-C [address] [place] [address],[address] [place] [address], [address], [facility] 03/30/2024 18:05:08 Problem Notes None recorded. Procedures Surgical History Date Name Laterality Status Provider Name and Address Organization Details Recorded Time 5 excision of breast completed Bouchra bruce [facility] 03/30/2024 15:52:30 Imaging Results None recorded. Procedure Notes None recorded. Medical Equipment None Reported. Allergies Allergen ID Allergen Name Allergen Category Reaction Reaction Severity Criticality Documentation Date Start Date Code Code System Note Provider Name and Address Organization Details Recorded Time 734723 Augmentin medicatio n Not available Not available Not available 03/30/2024 37945 2 [facility] 15:48:34 468094 Substance with sulfonami de structure and antibacte rial mechanism of action (substanc e) medicatio n Not available Not available Not available 03/30/2024 28609 8003 [facility]ED [facility] 15:48:42 312040 oxycodone medicatio n Not available Not available Not available 03/30/2024 7804 [facility] 15:48:49 721196 cefdinir medicatio n Not available Not available Not available 03/30/2024 73489 [facility] 15:48:56 492680 lansopraz ole medicatio n Not available Not available Not available 03/30/2024 10827 [facility] 15:49:02 Medications Name Sig Start Date Stop Date Status Note LastModified by Organization Details LastModified Time fluconazole 150 mg tablet TAKE 1 TABLET BY MOUTH EVERY 3 DAYS FOR 2 DOSES. MAY REPEAT SECOND DOSE 72 HOURS AFTER FOR 1 DOSE IF SYMPTOMS PERSIST 03/30 completed Not Available Not Available Not Available diphenoxyla te-atropine 2.5 mg-0.025 mg tablet TAKE 1 TABLET BY MOUTH DAILY 03/30 completed Not Available Not Available Not Available ciprofloxac in 250 mg tablet TAKE 1 TABLET BY MOUTH TWICE DAILY 03/30 completed Not Available Not Available Not Available alprazolam 0.5 mg tablet TAKE 1/2 TABLET BY MOUTH DAILY NEEDED FOR ANXIETY 03/30 completed Not Available Not Available Not Available calcium 600 mg (as calcium carbonate 1,500 mg) tablet Take by oral route. active Not Available Not Available No t Available benzonatate 100 mg capsule TAKE 1 CAPSULE BY MOUTH TWICE DAILY NEEDED FOR COUGH 03/30 completed Not Available Not Available Not Available cephalexin 500 mg capsule TAKE 1 CAPSULE BY MOUTH TWICE DAILY FOR 5 DAYS 03/30 completed Not Available Not Available Not Available nitrofurant oin macrocrysta l 100 mg capsule TAKE 1 CAPSULE BY MOUTH TWICE DAILY FOR 5 DAYS 03/30 completed Not Available Not Available Not Available losartan 25 mg tablet TAKE 1 TABLET BY MOUTH EVERY DAY active Not Available Not Available No t Available omeprazole 20 mg capsule,del ayed release TAKE 1 CAPSULE BY MOUTH TWICE DAILY active Not Available Not Available No t Available hydrochloro thiazide 25 mg tablet TAKE 1 TABLET BY MOUTH DAILY active Not Available Not Available No t Available clobetasol 0.05 % topical ointment APPLY TOPICALLY TO LABIA TWICE DAILY 03/30 completed Not Available Not Available Not Available cefdinir 300 mg capsule TAKE ONE CAPSULE BY MOUTH TWICE DAILY UNTIL GONE 03/30 completed Not Available Not Available Not Available Vitamin D active Not Available Not Britt ilable Not Available Xanax active Not Available Not Availa ble Not Available Tylenol PM active Not Available Not Av ailable Not Available Gavilyte-C 240 gram-22.72 gram-6.72 gram-5.84 gram oral solution 240ML BY MOUTH EVERY 10 MINUTES UNTIL FECAL EFFLUENT IS CLEAR 03/30 completed Not Available Not Available Not Available Vitals Date Recorded Body height Body mass index (BMI) Body weight Provider Name and Address Organization Details Last Updated DateTime 04/05/2024 167.64 cm 24.2 kg/m2 80923.86 g Chanda Messina [facility] 04/05/2024 10:56:32 Social History Question Answer Notes LastModified by Organizat ion Details LastModified Time Tobacco Smoking Status Former Smoker Bouchra bruce [facility] 03/30/2024 15:51:31 What Is Your Level Of Alcohol Consumption? Occasional Information not available 03/30/2024 What Is Your Level Of Caffeine Consumption? None Information not available 03/30/2024 When Did You Quit Smoking? 16+yearsblossom delgado Information not available 03/30/2024 Race White [email or web address] Information not available 04/05/2024 Ethnicity Not / [email or web address] Information not available 04/05/2024 Preferred Language Setswana [email or web address] Information not available 04/05/2024 What Was The Date Of Your Most Recent Tobacco Screening? 04/05/2024 [email or web address] Information not available 04/05/2024 Sex: Unknown Functional Status None recorded. Mental Status None recorded. Family History Relationship Description Onset Age of this Age Resolved Age Notes Sister Family history of br east cancer Medical History Condition Response Sexually Transmitted Infection N Diabetes N Bleeding Disorder N High Blood Pressure Y Kidney Stones Y Cancer Y Lung Disease N Depression N High Cholesterol N GERD/Acid Reflux Y Heart Disease N Gynecological HistoryNo gynecological history recorded. Obstetrics History GPAL:G 0 P 0 0 0 0 Past Encounters Encounter ID Performer Location Encounter Start Date Encounter Closed Date Diagnosis/Indication Diagnosis SNOMED-CT Code [id number] Deborah Holliday PA-C [facility] [address] [id number] 03/30/2024 15:36:49 04/20/2024 09:56:50 Ureteric stone 87061474 Kidney stone [id number] Reg Garrett MD [facility] [address] [place] [id number] 04/05/2024 10:42:49 04/11/2024 20:43:04 Kidney stone 05092402 Health Concerns Section Related Observation LastModified by Organization Detai ls LastModified Time None Recorded Concern Status LastModified by Organization Details LastModified Time None Recorded Payers Encounter Date Sequence Insurance Name Policy Number Policy Alejo Covered Member ID Alejo Member ID Guarantor Name 04/05/2024 2 Xan[employer] [id number] Melanie Welch [id number] Melanie Welch 04/05/2024 1 MEDICARE [place]: [employer] Melanie A Welch [id number] 2 Melanie A Rebekah Notes Date Note Type Note Provider Name and Address Organization Details Recorded Time 04/05/2024 text/html HPI Notes: 84F (quite healthy and robust for age) presents for large volume left kidney stones, including a 1cm left UPJ stone, recently seen by urgent care and here in clinic with JERI ASTORGA). Pain is present but minimal, first time stone event. Denies fevers/chills/dys uria/nausea/vomit ing. CT scan Feb 2024 shows 1cm left UPJ stone, 3 additional stones in left lower pole all 6mm, thus nearly 3cm total worth of stone. Mild left hydro noted. Normal right kidney, no stones on right. Reg Garrett MD [address] [facility],[address], [place], [address], [facility] 04/05/2024 11:45:21 OBGyn Episode No OBEpisode recorded.
--- OUTSIDE RECORDS SUMMARY | 2024-05-02 14:00 | XMS_ITS | Clinical Summary ---
Author Organization [facility] Address [address] [place] [address] Care Team Providers Care Search Engine Optimization Specialist Name Role Phone Elsewhere, Pcp Primary Care Provider Unavailabl e Source Comments Patient records contain information from all sites at [facility]. For routine questions regarding patient records, call [phone] during business hours, M-F 8:00 AM - 5:00 PM Central Time. 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 [facility] 08/18/2023 Sex and Gender Information Value Date Recorded Sex Assigned at Female 08/18/2023 1:08 PM POLICE CAPTAIN Gender Identity Female 08/18/2023 1:08 PM POLICE CAPTAIN Sexual Orientation Straight 08/18/2023 1: 08 PM POLICE CAPTAIN Last Filed Vital Signs Vital Sign Reading [...] for Diabetes Screening 03/30/2021 03/30/2020 COVID-19 Vaccine (2022-24 season) 2023 07/10/2023, 06/20/2022, 06/20/2022, Additional history exists Depression Screening (Annual PHQ-2) 09/28/2023 Fall Risk Screen (Annual) 09/28/2023 Influenza Vaccine (#1) 2024 3, 07/16/2022, 07/17/2021, Additional history exists Pneumococcal vaccine (65+ years) Completed 04/26/2015, 08/14/2010 Zoster Vaccines Completed 08/24/2020, 06/05/2020 HPV Vaccines Aged Out No longer eligi ble based on patient's age to complete this topic Medical Devices Implanted Type Area Finisher Fib[employer]lass [employer] Device Identifier Shelf Expiration Date Model / Serial / Lot Lens Michael Ac 6.0 X 23.00 - [id number] Implanted:Qty: 1 on 05/04/2013 Ocular Lens Right: Other/Legacy - See Implant Description [email or web address] Description:Device Manufactu rer - [employer]. Body Location - Right. Device Status Text - [id number]. Lens Tcn [id number] Bicnvx +24.0d - [id number] - [id number] Implanted:Qty: 1 on 02/05/2021 by Luis Miguel Issa M.D. at [facility] Ocular Lens Left: Eye [employer] (Previously KIERSTEN) 11/30/2024 [id number] / [id number] / Care Teams Search Engine Optimization Specialist Relationship Specialty Start Date End Date Elsewhere, Pcp PCP - General Family Medicine 02/05/21
--- OUTSIDE RECORDS SUMMARY | 2024-05-02 14:00 | XMS_ITS | Encounter Summary ---
Author Organization [facility] Address [address] [place] [address] Care Team Providers Care Burr Picker Name Role Phone Elsewhere, Pcp Primary Care Provider Unavailabl e Encounter Details Date Type Department Care Team (Late st Contact Info) Description 04/25/2013 Historical Ophthalmology RST OPH Rachelle Rose, C.O.A. Social History Tobacco Use Types Packs/Day Years Used Date Smoking Tobacco: Never Assessed Sex and Gender Information Value Date Recorded Sex Assigned at Female 08/18/2023 1:08 PM DYED RAW STOCK BLOWER FEEDER Gender Identity Female 08/18/2023 1:08 PM DYED RAW STOCK BLOWER FEEDER Sexual Orientation Straight 08/18/2023 1: 08 PM DYED RAW STOCK BLOWER FEEDER documented as of this encounter Progress Notes * Rachelle Rose, C.O.A. - 04/25/2013 2:08 PM CDT Eye Subsequent Visit HISTORY OF PRESENT ILLNESS Preop checklist: preop instructions given, glasses read, sent for IOL measurements, informed consent form given to patient and signed by patient. CDM Reports - EYESV Id: [id number] Status: Fnl documented in this encounter Plan of Treatment Not on file documented as of this encounter Visit Diagnoses Not on filedocumented in this encounter Additional Health Concerns Infection Onset Date Last Indicated Resolved Time COVID19 Pending 02/01/2021 02/02/2021 02/03/2021 2 :17 PM CDT documented as of this encounter Care Teams Burr Picker Relationship Specialty Start Date End Date Elsewhere, Pcp PCP - General Family Medicine 02/05/21 documented as of this encounter
--- OUTSIDE RECORDS SUMMARY | 2024-05-02 14:00 | XMS_ITS | Encounter Summary ---
Author Organization [facility] Address [address] [place] [address] Care Team Providers Care Slitter Helper Name Role Phone Elsewhere, Pcp Primary Care Provider Unavailabl e Encounter Details Date Type Department Care Team (Late st Contact Info) Description 04/25/2013 Historical Ophthalmology RST OPH Luis Miguel Issa M.D. [address] [place] [address] Social History Tobacco Use Types Packs/Day Years Used Date Smoking Tobacco: Never Assessed Sex and Gender Information Value Date Recorded Sex Assigned at Female 08/18/2023 1:08 PM PERSONAL INJURY LAW SPECIALIST Gender Identity Female 08/18/2023 1:08 PM PERSONAL INJURY LAW SPECIALIST Sexual Orientation Straight 08/18/2023 1: 08 PM PERSONAL INJURY LAW SPECIALIST documented as of this encounter Progress Notes * Luis Miguel Issa M.D. - 04/25/2013 12:32 PM CDT Eye General CHIEF COMPLAINT complications following cataract surgery HISTORY OF PRESENT ILLNESS Retained fragment following cataract surgery right eye. Vision not clear right eye since cataract surgery. History of amblyopia right eye. Patient denies ocular pain. Floaters and occasional flashinglights right eye since surgery. CREPE MACHINE OPERATOR: Blurred vision right eye since cataract surgery, [...] the procedure with the patient (or legal special service representative and otherspresent during the discussion). [...] left eye CDM Reports - EYEGEN Id: [id number] Status: Fnl documented in this encounter Plan of Treatment Not on file documented as of this encounter Visit Diagnoses Not on filedocumented in this encounter Additional Health Concerns Infection Onset Date Last Indicated Resolved Time COVID19 Pending 02/01/2021 02/02/2021 02/03/2021 2 :17 PM CDT documented as of this encounter Care Teams Slitter Helper Relationship Specialty Start Date End Date Elsewhere, Pcp PCP - General Family Medicine 02/05/21 documented as of this encounter
--- OUTSIDE RECORDS SUMMARY | 2024-05-02 14:00 | XMS_ITS | Clinical Summary ---
Author Organization [employer] [facility] Address [place], [place] [address] Care Team Providers Care Screen Vent Binder Name Role Phone Elaine Paulino MD Primary Care Provider [phone] Nadya Amador MD Unavailable Unavailable Allergies No [...] Encounters Date Type Department Care Team Description 03/10/2024 Lab Requisition [facility] [phone] Nancie Leone MD from Last 3 Months Immunizations Name Administration Dates Next Due Influenza, IIV3 (Age >=3 years) 08/04/2006 Family History Medical History Relation Name Comments Cancer-prostate Father dx in his 80 's Heart Disease Father hx CABG Psychiatric illness Mother Alzheime r's Cancer Sister twin sister wit h non-Hodgkin's Lymphoma Cancer-breast Sister Cancer-colon No [...] Outcome GA Total Labor Labor/2nd/3rd Weight Sex Type Anes PTL Ludmila A1 [...] 05/08/2016 9:55 AM CDT Plan of Treatment Upcoming Encounters Date Type Department Care Team (Latest Contact Info) Description 05/11/2024 11:00 AM CDT Appointment [facility] [address] [place] [address] 05/11/2024 3:46 PM CDT Hospital Encounter [facility] [address] [place] [address] Reg Garrett MD [address] [place] [address] 05/11/2024 3:46 PM CDT - 05/11/2024 6:17 PM CDT Surgery [facility] [address] [place] [address] Reg Garrett MD [address] [place] [address] PERCUTANEOUS NEPHROLITHOTOMY Scheduled Procedures Name Priority Associated Diagnoses Date/Ti me REMOVAL PERCUTANEOUS KIDNEY STONE Elective KIDNEY STONE 05/11/2024 3:46 PM CDT Health Maintenance Due Date Last Done Comments Tdap 1950 Depression screening for age 12+ 1951 BMI (ht and wt on same day) for age 18+ 1957 Tetanus booster 1959 Zoster (shingles) series for age 50+ (1 of 2) 1989 Medicare Wellness for age 65+ 2004 Pneumococcal series for age 65+ (1 of 1 - PCV) 2004 COVID-19 vaccine series (2022-24 season) 2023 07/10/2023, 01/14/2022, 07/27/2021 Influenza for age 65+ 05/29/2024 08/04/2006 DEXA/DXA scan for age 65+ Completed 2020, 08/18/2019, 08/10/2017, Additional history exists Procedures Procedure Name Priority Date/Time Associated Diagnosis Comments LAB TRACKING EVENT Routine 03/10/2024 9: 00 AM CDT PATH TISSUE EXAM Routine 03/10/2024 8:24 AM CDT XR DXA BONE DENSITY 2 SITES AXIAL Routine 07/10/2021 11:30 AM CDT 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 of central portion of left breast in female (HC) senior living current use of aromatase inhibitor from Last 3 Months or Most Recently Relevant to Health Maintenance Results * LAB TRACKING EVENT (03/10/2024 9:00 AM CDT) Other (Other) Client Collect / Unknown 03/10/2024 9:00 AM CDT 03/10/2024 10:16 PM CDT Nancie Leone MD LAB BILL ONLY [facility] [address] [place] [address], * PATH TISSUE EXAM (03/10/2024 8:24 AM CDT) Case Report Pathology Report ?Case: [id number] ? Authorizing Provider: ??Nancie Leone MD ?Collected: ? 03/10/2024 0824 ? Ordering Location: ? [facility] ?Received: ?03/11/2024 1120 ? Pathologist: ? Gavino Vela MD ? Specimen: ?Colon Biopsy ? 2024 11:36 AM CDT [facility] Final Diagnosis A) COLON, CECUM, POLYPECTOMY: 1. Tubular adenoma 2. Negative for high grade dysplasia 3. Per the colonoscopy report: ?? a. Polyp size: 2 mm ?? b. Resection: Complete ?? c. Retrieval: Complete 2024 11:36 AM CDT [facility] [employer] [facility] Clinical Information Rectal bleeding Colonoscopy findings: Nonbleeding internal hemorrhoids. Cecal polyp. Diverticulosis in the descending and sigmoid colon. 2024 11:36 AM CDT [facility] [employer] [facility] Gross Description A) Received in formalin are 2 nelson mucosal fragments averaging 3 mm in greatest dimension, which are entirely submitted in one cassette. It is labeled with the patient's name and designated colon-cecum polyp. Oliva Ye Parker 03/11/2024 1:22 PM 2024 11:36 AM CDT [facility] Microscopic Description The final diagnosis is based on microscopic examination of appropriate sections of all specimens. 2024 11:36 AM CDT [facility] [employer] [facility] Additional Information Interpreted at [facility] [employer] [facility] - [address] [place] [address]. [place] [address] 2024 11:36 AM CDT [facility] Other (Colon Biopsy) 03/10/2024 8:24 AM CDT 03/11/2024 11:20 AM CDT Nancie Leone MD PATHOLOGY/CYTOLOGY [facility] [address] [place] [address], * (ABNORMAL) XR DXA BONE DENSITY 2 [...] a more recent DXA scan done at [facility] in 2019, unable to trend by machine. ??However, the values are consistent with last check showing minimal if any decline in the lumbar spine. ?? Repeat scan recommended in 2-3 years. Mariela Kirkland PA-C [facility] 07/16/2021 Narrative 07/16/2021 1:14 PM CDT For Patients: Results are automatically released to your [facility] ([facility]) account once available, in compliance with federal regulations. This means that you may see your results before your provider has had a chance to review them. Please allow 2-3 business days for your provider to comment on the results. XR DXA Bone Mineral Density (BMD) EXAM LOCATION: [address] [address] PATIENT NAME: MELANIE WELCH DATE OF : 1940 EXAM DATE: [...] two scanners are made by the same welfare service aide. PROCEDURE: Dual-energy x-ray absorptiometry performed with routine [...] 10:36 AM 06/08/2015 8:31 PM Care Teams Screen Vent Binder Relationship Specialty Start Date End Date Elaine Paulino MD [address] [place] [address] PCP - General Internal Medicine 05/22/15 Nadya Amador MD [address] [place] [address] General Surgery Surgery - General 05/23/15
--- OUTSIDE RECORDS SUMMARY | 2024-05-02 14:00 | XMS_ITS | Continuity of Care Document ---
Author Organization [facility] Address [address] [place] [address] Phone Care Team Providers Care Elementary Assistant Teacher Name Role Phone Carline KEY, Onofre Unavailable [...] [facility], [address], [place], [address], tel:[phone] No Information 3 Carline Parnell [facility] [address], [place], [address], . tel:[phone] Family History Family Member Type Diagnosis Age [...]
--- OUTSIDE RECORDS SUMMARY | 2024-05-02 14:00 | XMS_ITS | Clinical Summary ---
Author Organization [facility] Address [address] [place] [address] Care Team Providers Care Timber Feller Name Role Phone Elaine Paulino MD Primary Care Provider [phone] Allergies Active Allergy Reactions Criticality Noted Date [...] on file Medical Devices Implanted Type Area Head Scorer Device Identifier Shelf Expiration Date Model / Serial / Lot Bone Cement Simplex W/Tobramycin 6197-9-001 Implanted:Qty: 1 on 09/13/2019 by Crystal Ortez MD at [facility] Cement, Bone Right: Knee [employer] 03/27/2021 6197-9-001 / / [id number] Bone Cement Simplex Full Dose 6191-1-001 Implanted:Qty: 1 on 03/29/2020 by Crystal Ortez MD at [facility] Cement, Bone Left: Knee [employer] 11/25/2021 6191-1-001 / / [id number] Patella Round Dome, 35mm Implanted:Qty: 1 on 09/13/2019 by Crystal Ortez MD at [facility] Total Joint Component /Insert Right: Knee Depuy 02/26/2024 96-0111 / / [id number] Imp Comp Tibtry Sgm 2 Kn Cocr 1581-20-000 Implanted:Qty: 1 on 09/13/2019 by Crystal Ortez MD at [facility] Total Joint Component /Insert Right: Knee [employer] 06/27/2028 0 / / [id number] Femoral Posterior Stabilized Cemented, Size 2.5 Right Implanted:Qty: 1 on 09/13/2019 by Crystal Ortez MD at [facility] Total Joint Component /Insert Right: Knee Depuy 10/28/2028 0 / / [id number] Pfc Sigma Tibial Insert Fixed Bearing Stabilized 2, 8mm Implanted:Qty: 1 on 09/13/2019 by Crystal Ortez MD at [facility] Total Joint Component /Insert Right: Knee Depuy 01/25/2023 8 / / [id number] Imp Comp Fem Depuy Post Stab Sigma Sz 2.5 Lt 40-250 Implanted:Qty: 1 on 03/29/2020 by Crystal Ortez MD at [facility] Total Joint Component /Insert Left: Knee J 06/27/2029 0 / / [id number] Imp Comp Tibtry Sgm 2 Kn Cocr 1581-20-000 Implanted:Qty: 1 on 03/29/2020 by Crystal Ortez MD at [facility] Total Joint Component /Insert Left: Knee [employer] 08/27/2028 0 / / [id number] P.F.C. Sigma Tibial Insert Fixed Bearing Stabilized, 2, 10mm Implanted:Qty: 1 on 03/29/2020 by Crystal Ortez MD at [facility] Left: Knee Depuy 07/28/2021 0 / / [id number] Patella Round Dome, 35mm Implanted:Qty: 1 on 03/29/2020 by Crystal Ortez MD at [facility] Left: Knee Depuy 05/28/2024 96-0111 / / [id number] Advance Directives For more information, please contact: [phone] Documents on File Type Date Recorded Patient Medical Radiation Therapist Expl anation Advance Directives and Living Will 04/04/2020 10:47 AM Health Care Directiv e 03/23/2020 Healthcare Agents on File Name Relationship Healthcare Agent Amanda puente Communication Driss Welch Spouse Health Care Agent Sonu Welch Son Co-First Alterna te Health Care Agent Mateo Welch Son Co-First Alterna te Health Care Agent Care Teams Timber Feller Relationship Specialty Start Date End Date [place] [address] PCP - General Internal Medicine 09/13/19
--- OUTSIDE RECORDS SUMMARY | 2024-05-02 14:00 | XMS_ITS | Encounter Summary ---
Author Organization [facility] Address [address] [place] [address] Care Team Providers Care Business Services Officer Name Role Phone Elsewhere, Pcp Primary Care Provider Unavailabl e Encounter Details Date Type Department Care Team (Late st Contact Info) Description 04/27/2013 Historical Ophthalmology RST OPH Luis Miguel Issa M.D. [address] [place] [id number] Social History Tobacco Use Types Packs/Day Years Used Date Smoking Tobacco: Never Assessed Sex and Gender Information Value Date Recorded Sex Assigned at Female 08/18/2023 1:08 PM FIELD CROP FARM WORKER Gender Identity Female 08/18/2023 1:08 PM FIELD CROP FARM WORKER Sexual Orientation Straight 08/18/2023 1: 08 PM FIELD CROP FARM WORKER documented as of this encounter Progress Notes * Luis Miguel Issa M.D. - 04/27/2013 12:37 PM CDT Eye Subsequent Visit HISTORY OF PRESENT ILLNESS Patient here for IOL measurements. CDM Reports - EYESV Id: [id number] Status: Fnl documented in this encounter Plan of Treatment Not on file documented as of this encounter Visit Diagnoses Not on filedocumented in this encounter Additional Health Concerns Infection Onset Date Last Indicated Resolved Time COVID19 Pending 02/01/2021 02/02/2021 02/03/2021 2 :17 PM CDT documented as of this encounter Care Teams Business Services Officer Relationship Specialty Start Date End Date Elsewhere, Pcp PCP - General Family Medicine 02/05/21 documented as of this encounter
--- OUTSIDE RECORDS SUMMARY | 2024-05-02 14:00 | XMS_ITS | Encounter Summary ---
Author Organization [facility] Address [address] [place] [address] Care Team Providers Care International Trade Teacher Name Role Phone Elsewhere, Pcp Primary Care Provider Unavailabl e Encounter Details Date Type Department Care Team (Late st Contact Info) Description 02/22/2015 Historical Ophthalmology RST OPH Luis Miguel Issa M.D. [address] [place] [address] Social History Tobacco Use Types Packs/Day Years Used Date Smoking Tobacco: Never Assessed Sex and Gender Information Value Date Recorded Sex Assigned at Female 08/18/2023 1:08 PM EQUIPMENT SUPERINTENDENT Gender Identity Female 08/18/2023 1:08 PM EQUIPMENT SUPERINTENDENT Sexual Orientation Straight 08/18/2023 1: 08 PM EQUIPMENT SUPERINTENDENT documented as of this encounter Progress Notes [...] right eye CDM Reports - EYEGEN Id: [id number] Status: Fnl documented in this encounter Plan of Treatment Not on file documented as of this encounter Visit Diagnoses Not on filedocumented in this encounter Additional Health Concerns Infection Onset Date Last Indicated Resolved Time COVID19 Pending 02/01/2021 02/02/2021 02/03/2021 2 :17 PM CDT documented as of this encounter Care Teams International Trade Teacher Relationship Specialty Start Date End Date Elsewhere, Pcp PCP - General Family Medicine 02/05/21 documented as of this encounter
--- OUTSIDE RECORDS SUMMARY | 2024-05-02 14:00 | XMS_ITS | Encounter Summary ---
Author Organization [facility] Address [address] [place] [address] Care Team Providers Care Airport Skilled Maintenance Supervisor Name Role Phone Elsewhere, Pcp Primary Care Provider Unavailabl e Encounter Details Date Type Department Care Team (Late st Contact Info) Description 06/07/2013 Historical Ophthalmology RST OPH Luis Miguel Issa M.D. [address] [place] [address] Social History Tobacco Use Types Packs/Day Years Used Date Smoking Tobacco: Never Assessed Sex and Gender Information Value Date Recorded Sex Assigned at Female 08/18/2023 1:08 PM DRUM SEALER Gender Identity Female 08/18/2023 1:08 PM DRUM SEALER Sexual Orientation Straight 08/18/2023 1: 08 PM DRUM SEALER documented as of this encounter Progress Notes [...] left eye CDM Reports - EYEGEN Id: [id number] Status: Fnl documented in this encounter Plan of Treatment Not on file documented as of this encounter Visit Diagnoses Not on filedocumented in this encounter Additional Health Concerns Infection Onset Date Last Indicated Resolved Time COVID19 Pending 02/01/2021 02/02/2021 02/03/2021 2 :17 PM CDT documented as of this encounter Care Teams Airport Skilled Maintenance Supervisor Relationship Specialty Start Date End Date Elsewhere, Pcp PCP - General Family Medicine 02/05/21 documented as of this encounter
--- OUTSIDE RECORDS SUMMARY | 2024-05-02 14:00 | XMS_ITS ---
Author Organization [facility] Address [address] [place] [address] Care Team Providers Care Record Clerk Salesperson Name Role Phone Unavailable Unavailable Unavailable Surgery Details Not on file Complications Check Surgery Details section. Procedure Estimated Blood Loss Check Surgery Details section. Procedure Findings Check Surgery Details section. Procedure Specimens Taken Check Surgery Details section.
--- OUTSIDE RECORDS SUMMARY | 2024-05-02 14:00 | XMS_ITS | Encounter Summary ---
Author Organization [facility] Address [address] [place] [address] Care Team Providers Care Kst Operator Name Role Phone No Ref-Primary, Physician Primary Care Provider Elaine Paulino MD Primary Care Provider Encounter Details Date Type Department Care Team (Late st Contact Info) Description 07/27/2019 Orders Only [facility] [address] [place] [phone] Crystal Ortez MD [facility] [address] [place] [phone] Pre-operative laboratory examination (Primary Dx) Social History [...] Specimen Description Nares 07/28/2019 1:20 PM CDT [facility] Methicillin Resist/Sens S. aureus PCR Negative NEG^Negat hortencia 07/28/2019 5:55 PM CDT [facility] Comment: MRSA Negative: SA Negative ??MRSA and Staphylococcus aureus target DNA not detected, presumed negative for MRSA and SA colonization or the number of bacteria present may be below the limit of detection for the assay. FDA approved assay performed using [employer] GeneXpert(R) real-time PCR. Nasal structure (body structure) 07/28/2019 12:10 PM CDT 07/28/2019 1:20 PM CDT Crystal Ortez MD LAB - MICRO GENERAL ORDERABLES Performing Organization Address City/State/[facility] Co de Phone Number [facility] [address] [place], [place] [phone] [place] [address] [address] [id number] [phone] documented in this encounter Visit Diagnoses Diagnosis Pre-operative laboratory examination- Primary Pre-procedural laboratory examination documented in this encounter Care Teams Kst Operator Relationship Specialty Start Date End Date No Ref-Primary, Physician PCP - General 07/28/19 09/12/19 Elaine Paulino MD [facility] [address] [place] [address] PCP - General Internal Medicine 09/13/19 documented as of this encounter
--- OUTSIDE RECORDS SUMMARY | 2024-05-02 14:00 | XMS_ITS | Referral Summary ---
Author Organization [facility] Address [address] [place] [address] Care Team Providers Care Geometry Professor Name Role Phone Elaine Paulino MD Primary [...] on file Medical Devices Implanted Type Area Manager Forms Device Identifier Shelf Expiration Date Model / Serial / Lot Bone Cement Simplex W/Tobramycin 6197-9-001 Implanted:Qty: 1 on 09/13/2019 by Crystal Ortez MD at [facility] Cement, Bone Right: Knee [employer] 03/27/2021 6197-9-001 / / [id number] Bone Cement Simplex Full Dose 6191-1-001 Implanted:Qty: 1 on 03/29/2020 by Crystal Ortez MD at [facility] Cement, Bone Left: Knee [employer] 11/25/2021 6191-1-001 / / [id number] Patella Round Dome, 35mm Implanted:Qty: 1 on 09/13/2019 by Crystal Ortez MD at [facility] Total Joint Component /Insert Right: Knee Depuy 02/26/2024 96-0111 / / [id number] Imp Comp Tibtry Sgm 2 Kn Cocr -000 Implanted:Qty: 1 on 09/13/2019 by Crystal Ortez MD at [facility] Total Joint Component /Insert Right: Knee [employer] 06/27/2028 0 / / [id number] Femoral Posterior Stabilized Cemented, Size 2.5 Right Implanted:Qty: 1 on 09/13/2019 by Crystal Ortez MD at [facility] Total Joint Component /Insert Right: Knee Depuy 10/28/2028 0 / / [id number] Pfc Sigma Tibial Insert Fixed Bearing Stabilized 2, 8mm Implanted:Qty: 1 on 09/13/2019 by Crystal Ortez MD at [facility] Total Joint Component /Insert Right: Knee Depuy 01/25/2023 8 / / [id number] Imp Comp Fem Depuy Post Stab Sigma Sz 2.5 Lt 40 Implanted:Qty: 1 on 03/29/2020 by Crystal Ortez MD at [facility] Total Joint Component /Insert Left: Knee J 06/27/2029 0 / / [id number] Imp Comp Tibtry Sgm 2 Kn Cocr 1581-20-000 Implanted:Qty: 1 on 03/29/2020 by Crystal Ortez MD at [facility] Total Joint Component /Insert Left: Knee [employer] 08/27/2028 0 / / [id number] P.F.C. Sigma Tibial Insert Fixed Bearing Stabilized, 2, 10mm Implanted:Qty: 1 on 03/29/2020 by Crystal Ortez MD at [facility] Left: Knee Depuy 07/28/2021 0 / / [id number] Patella Round Dome, 35mm Implanted:Qty: 1 on 03/29/2020 by Crystal Ortez MD at [facility] Left: Knee Depuy 05/28/2024 96-0111 / / [id number] Advance Directives For more information, please contact: [phone] Documents on File Type Date Recorded Patient Newspaper Deliverer Expl anation Advance Directives and Living Will 04/04/2020 10:47 AM Health Care Directiv e 03/23/2020 Healthcare Agents on File Name Relationship Healthcare Agent Amanda puente Communication Driss Welch Spouse Health Care Agent Sonu Welch Son Co-First Alterna te Health Care Agent Mateo Welch Son Co-First Alterna te Health Care Agent Care Teams Geometry Professor Relationship Specialty Start Date End Date Helgen, Elaine, [place] [address] PCP - General Internal Medicine 09/13/19
--- OUTSIDE RECORDS SUMMARY | 2024-05-02 14:00 | XMS_ITS | Referral Summary ---
Author Organization [facility] Address [address] [place] [address] Care Team Providers Care Fisher Trammel Net Name Role Phone Elsewhere, Pcp Primary Care Provider Unavailabl e Source Comments Patient records contain information from all sites at [facility]. For routine questions regarding patient records, call [phone] during business hours, M-F 8:00 AM - 5:00 PM Central Time. Record requests for emergency care only can be directed to [phone] at any time.[facility] Allergies Active Allergy Reactions Criticality [...] (01/17/2021): Added automatically from request for surgery [id number] Arthroplasty Total Knee Replacement Status Post Bilateral [...] Sex Assigned at Female 08/18/2023 1:08 PM DEPARTMENT COORDINATOR Gender Identity Female 08/18/2023 1:08 PM DEPARTMENT COORDINATOR Sexual Orientation Straight 08/18/2023 1: 08 PM DEPARTMENT COORDINATOR Last Filed Vital Signs Vital Sign Reading [...] on file Medical Devices Implanted Type Area Computer Language Coder Device Identifier Shelf Expiration Date Model / Serial / Lot Lens Michael Ac 6.0 X 23.00 - Kaur [id number] Implanted:Qty: 1 on 05/04/2013 Ocular Lens Right: Other/Legacy - See Implant Description [employer] Description:Device Manufactu rer - [employer]. Body Location - Right. Device Status Text - [id number]. Lens Tcn [id number] Bicnvx +24.0d - [id number] - [id number] Implanted:Qty: 1 on 02/05/2021 by Luis Miguel Issa M.D. at [facility] Ocular Lens Left: Eye [employer] (Previously KIERSTEN) 11/30/2024 [id number] / [id number] / Care Teams Fisher Trammel Net Relationship Specialty Start Date End Date Elsewhere, Pcp PCP - General Family Medicine 02/05/21
--- OUTSIDE RECORDS SUMMARY | 2024-05-02 14:00 | XMS_ITS | Encounter Summary ---
Author Organization [facility] Address [address] [place] [address] Care Team Providers Care Indian Nanny Name Role Phone Elsewhere, Pcp Primary Care Provider Unavailabl e Encounter Details Date Type Department Care Team (Late st Contact Info) Description 05/05/2013 Historical Ophthalmology RST OPH Luis Miguel Issa M.D. [address] [place] [address] Social History Tobacco Use Types Packs/Day Years Used Date Smoking Tobacco: Never Assessed Sex and Gender Information Value Date Recorded Sex Assigned at Female 08/18/2023 1:08 PM COOLER DELIVERER Gender Identity Female 08/18/2023 1:08 PM COOLER DELIVERER Sexual Orientation Straight 08/18/2023 1: 08 PM COOLER DELIVERER documented as of this encounter Progress Notes [...] left eye CDM Reports - EYEGEN Id: [id number] Status: Fnl documented in this encounter Plan of Treatment Not on file documented as of this encounter Visit Diagnoses Not on filedocumented in this encounter Additional Health Concerns Infection Onset Date Last Indicated Resolved Time COVID19 Pending 02/01/2021 02/02/2021 02/03/2021 2 :17 PM CDT documented as of this encounter Care Teams Indian Nanny Relationship Specialty Start Date End Date Elsewhere, Pcp PCP - General Family Medicine 02/05/21 documented as of this encounter
--- OUTSIDE RECORDS SUMMARY | 2024-05-02 14:00 | XMS_ITS | Encounter Summary ---
Author Organization [facility] Address [address] [place] [address] Care Team Providers Care Case Reviewer Name Role Phone Elsewhere, Pcp Primary Care Provider Unavailabl e Encounter Details Date Type Department Care Team (Late st Contact Info) Description 07/13/2014 Historical Ophthalmology RST OPH Luis Miguel Issa M.D. [address] [place] [address] Social History Tobacco Use Types Packs/Day Years Used Date Smoking Tobacco: Never Assessed Sex and Gender Information Value Date Recorded Sex Assigned at Female 08/18/2023 1:08 PM POULTRY INSPECTOR Gender Identity Female 08/18/2023 1:08 PM POULTRY INSPECTOR Sexual Orientation Straight 08/18/2023 1: 08 PM POULTRY INSPECTOR documented as of this encounter Progress Notes [...] right eye CDM Reports - EYEGEN Id: [id number] Status: Fnl documented in this encounter Plan of Treatment Not on file documented as of this encounter Visit Diagnoses Not on filedocumented in this encounter Additional Health Concerns Infection Onset Date Last Indicated Resolved Time COVID19 Pending 02/01/2021 02/02/2021 02/03/2021 2 :17 PM CDT documented as of this encounter Care Teams Case Reviewer Relationship Specialty Start Date End Date Elsewhere, Pcp PCP - General Family Medicine 02/05/21 documented as of this encounter
== END 2024-05-02 13:53 | disposition home or self-care (01) ==
LOC: NFLDREF 13:57
PROVIDERS: PCP Internal Medicine; Visit Provider Internal Medicine
DX: I10 Essential (primary) hypertension (principal)
CPT/HCPCS: 80048

== ENCOUNTER 2024-05-26 16:00 | Outpatient (CLI) | payer MEDICARE, OTHER, SELFPAY ==
--- OUTSIDE RECORDS SUMMARY | 2024-05-28 23:58 | XMS_ITS | Encounter Summary ---
Author Organization [facility] Address [address] [place] [address] Care Team Providers Care Seam Steamer Name Role Phone Elsewhere, Pcp Primary Care Provider Unavailabl e Encounter Details Date Type Department Care Team (Late st Contact Info) Description 05/05/2013 Historical Ophthalmology RST OPH Luis Miguel Issa M.D. [address] [place] [address] Social History Tobacco Use Types Packs/Day Years Used Date Smoking Tobacco: Never Assessed Sex and Gender Information Value Date Recorded Sex Assigned at Female 08/18/2023 1:08 PM CLINICAL ALLERGIST Gender Identity Female 08/18/2023 1:08 PM CLINICAL ALLERGIST Sexual Orientation Straight 08/18/2023 1: 08 PM CLINICAL ALLERGIST documented as of this encounter Progress Notes [...] left eye CDM Reports - EYEGEN Id: [id number] Status: Fnl documented in this encounter Plan of Treatment Not on file documented as of this encounter Visit Diagnoses Not on filedocumented in this encounter Additional Health Concerns Infection Onset Date Last Indicated Resolved Time COVID19 Pending 02/01/2021 02/02/2021 02/03/2021 2 :17 PM CDT documented as of this encounter Care Teams Seam Steamer Relationship Specialty Start Date End Date Elsewhere, Pcp PCP - General Family Medicine 02/05/21 documented as of this encounter
--- OUTSIDE RECORDS SUMMARY | 2024-05-28 23:58 | XMS_ITS | Clinical Summary ---
Author Organization [facility] Address [address] [place] [address] Care Team Providers Care Street Light Servicer Supervisor Name Role Phone Elaine Paulino MD Primary [...] on file Medical Devices Implanted Type Area Alarm Security Or Surveillance Monitor Device Identifier Shelf Expiration Date Model / Serial / Lot Bone Cement Simplex W/Tobramycin 6197-9-001 Implanted:Qty: 1 on 09/13/2019 by Crystal Ortez MD at [facility] Cement, Bone Right: Knee [employer] 03/27/2021 6197-9-001 / / [id number] Bone Cement Simplex Full Dose 6191-1-001 Implanted:Qty: 1 on 03/29/2020 by Crystal Ortez MD at [facility] Cement, Bone Left: Knee [employer] 11/25/2021 6191-1-001 / / [id number] Patella Round Dome, 35mm Implanted:Qty: 1 on 09/13/2019 by Crystal Ortez MD at [facility] Total Joint Component /Insert Right: Knee Depuy 02/26/2024 96-0111 / / [id number] Imp Comp Tibtry Sgm 2 Kn Cocr 1581-20-000 Implanted:Qty: 1 on 09/13/2019 by Crysatl Ortez MD at [facility] Total Joint Component /Insert Right: Knee [employer]- 06/27/2028 0 / / [id number] Femoral Posterior Stabilized Cemented, Size 2.5 Right Implanted:Qty: 1 on 09/13/2019 by Crystal Ortez MD at [facility] Total Joint Component /Insert Right: Knee Depuy 10/28/2028 0 / / [id number] Pfc Sigma Tibial Insert Fixed Bearing Stabilized 2, 8mm Implanted:Qty: 1 on 09/13/2019 by Crystal Ortez MD at [facility] Total Joint Component /Insert Right: Knee Depuy 01/25/2023 8 / / [id number] Imp Comp Fem Depuy Post Stab Sigma Sz 2.5 Lt 40-250 Implanted:Qty: 1 on 03/29/2020 by Crystal Ortez MD at [facility] Total Joint Component /Insert Left: Knee J 06/27/2029 0 / / [id number] Imp Comp Tibtry Sgm 2 Kn Cocr 1581-20-000 Implanted:Qty: 1 on 03/29/2020 by Crystal Ortez MD at [facility] Total Joint Component /Insert Left: Knee [employer]- 08/27/2028 0 / / [id number] P.F.C. Sigma Tibial Insert Fixed Bearing Stabilized, 2, 10mm Implanted:Qty: 1 on 03/29/2020 by Crystal Ortez MD at [facility] Left: Knee Depuy 07/28/2021 0 / / [id number] Patella Round Dome, 35mm Implanted:Qty: 1 on 03/29/2020 by Crystal Ortez MD at [facility] Left: Knee Depuy 05/28/2024 96-0111 / / [id number] Advance Directives For more information, please contact: [phone] Documents on File Type Date Recorded Patient Networking Administrator Expl anation Advance Directives and Living Will 04/04/2020 10:47 AM Health Care Directiv e 03/23/2020 Healthcare Agents on File Name Relationship Healthcare Agent Amanda puente Communication Driss Welch Spouse Health Care Agent Sonu Welch Son Co-First Alterna te Health Care Agent Mateo Welch Son Co-First Alterna te Health Care Agent Care Teams Street Light Servicer Supervisor Relationship Specialty Start Date [place] [address] PCP - General Internal Medicine 09/13/19
--- OUTSIDE RECORDS SUMMARY | 2024-05-28 23:58 | XMS_ITS ---
Author Organization [facility] Address [address] [place] [address] Care Team Providers Care Senior Solutions Workflow Consultant Name Role Phone Unavailable Unavailable Unavailable Surgery Details Not on file Complications Check Surgery Details section. Procedure Estimated Blood Loss Check Surgery Details section. Procedure Findings Check Surgery Details section. Procedure Specimens Taken Check Surgery Details section.
--- OUTSIDE RECORDS SUMMARY | 2024-05-28 23:58 | XMS_ITS | Continuity of Care Document ---
Author Organization [facility] Address [address] [place] [address] Care Team Providers Care Home And School Visitor Name Role Phone ANAID GILMORE Primary Care Provider Assessment No assessment recorded. Plan of Treatment Reminders Order Date Submit Date Provider Last Modified By Organization Details Last Modified Time Details Appointments POST OP 10 2023 01:50P M Not available Not available Not available Lab urinalysi s, dipstick 2023 024 soverholse r2 [facility], [address], [place], [address], 04/05/2024 11:42:20 Referral None recorded. Procedures None [...] By Organization Details Last Modified Time 04/05/2024 [id number] We reviewed the available history, physical exam, [...] Name Description Value Unit Range Abnormal Flag Note LastModifiedBy Organization Detail LastModifiedTime 04/05/20 24 04/05/2024 urina lysis , dipst ick BLOOD Large (250 RBC/uL ) Not Available [facility] [address], [place], [address], 04/05/2024 10:59:18 04/05/20 24 04/05/2024 urina lysis , dipst ick BILIRUBIN Negati ve Not Available [facility] [address], [place], [address], 04/05/2024 10:59:18 04/05/20 24 04/05/2024 urina lysis , dipst ick UROBILINOGEN 0.2 mg/dL (Norm) Not Available [facility] [address], [place], [address], 04/05/2024 10:59:18 04/05/20 24 04/05/2024 urina lysis , dipst ick KETONES Negati ve Not Available [facility] [address], [place], [address], 04/05/2024 10:59:18 04/05/20 24 04/05/2024 urina lysis , dipst ick PROTEIN Negati ve Not Available [facility] [address], [place], [address], 04/05/2024 10:59:18 04/05/20 24 04/05/2024 urina lysis , dipst ick NITRITES Negati ve Not Available [facility] [address], [place], [address], 04/05/2024 10:59:18 04/05/20 24 04/05/2024 urina lysis , dipst ick GLUCOSE Negati ve Not Available [facility] [address], [place], [address], 04/05/2024 10:59:18 04/05/20 24 04/05/2024 urina lysis , dipst ick p.H. 5.5 Not Available [facility] [address], [place], [address], 04/05/2024 10:59:18 04/05/20 24 04/05/2024 urina lysis , dipst ick S.G. (Specific [place]) 1.020 Not Available [facility] [address], [place], [address], 04/05/2024 10:59:18 04/05/20 24 04/05/2024 urina lysis , dipst ick LEUKOCYTES Trace (10 WBC/uL ) Not Available [facility] [address], [place], [address], 04/05/2024 10:59:18 05/11/20 24 05/11/2024 fluor oscop y (PROC ) No observ ation record ed. [facility] [address], [place], [address], 05/11/2024 16:41:15 05/12/20 24 05/12/2024 XR, urogr am, retro grade No observ ation record ed. [email or web address] [facility] [address], [place], [address], 05/13/2024 14:57:45 05/12/20 24 05/11/2024 imagi ng/di agnos tic resul t No observ ation record ed. [email or web address] [facility] [address], [place], [address], 05/13/2024 14:57:29 Result Notes None recorded. Problems Name Problem SNOMED Code Status Onset Date Resolution Date Notes Provider Name and Address Organization Details Recorded Time Ureteric stone 94865181 Active 024 Deborah Holliday PA-C [address] [place] [address],[address] [place] [address], [address] , [facility] 4 18:05:03 Kidney stone 17767260 Active 024 Deborah Holliday PA-C [address] [place] [address],[address], [address] , [facility] 4 18:05:08 Problem Notes None recorded. Procedures Surgical History Date Name Laterality Status Provider Name and Address Organization Details Recorded Time 5 [facility]30[facility] 15:52:30 Imaging Results None recorded. Procedure Notes None recorded. Medical Equipment None Reported. Allergies Allergen ID Allergen Name Allergen Category Reaction Reaction Severity Criticality Documentation Date Start Date Code Code System Note Provider Name and Address Organization Details Recorded Time 970279 Augmentin medicatio n Not available Not available Not available 03/30/2024 53031 2 RxNorm [facility] 4 15:48:34 149063 Substance with sulfonami de structure and antibacte rial mechanism of action (substanc e) medicatio n Not available Not available Not available 03/30/2024 32969 8003 SNOMED Bouchra bruce [facility] 4 15:48:42 458365 oxycodone medicatio n Not available Not available Not available 03/30/2024 7804 RxNorm [facility] 4 15:48:49 010360 cefdinir medicatio n Not available Not available Not available 03/30/2024 41426 RxNorm [facility] 4 15:48:56 527333 lansopraz ole medicatio n Not available Not available Not available 03/30/2024 57768 RxNorm Bouchra bruce [facility] 4 15:49:02 Medications Name Sig Start Date [...] Updated DateTime 04/05/2024 167.64 cm 24.2 kg/m2 16707.86 g Chanda Messina [facility] 04/05/2024 10:56:32 Social History Question Answer Notes LastModified by Organizat ion Details LastModified Time Tobacco Smoking Status Former Smoker Bouchra bruce [facility] 03/30/2024 15:51:31 What Is Your Level Of Alcohol Consumption? Occasional Information not available 03/30/2024 What Is Your Level Of Caffeine Consumption? None Information not available 03/30/2024 When Did You Quit Smoking? 15+yearssinpeyton delgado Information not available 03/30/2024 Race White Information not available 04/05/2024 Ethnicity Not / [email or web address] Information not available 04/05/2024 Preferred Language Maltese [email or web address] Information not available 04/05/2024 What Was The Date Of Your Most Recent Tobacco Screening? 04/05/2024 [email or web address] Information not available 04/05/2024 Sex: Unknown Functional Status None recorded. Mental Status None recorded. Family History Relationship Description Onset Age of this Age Resolved Age Notes Sister Family history of br east cancer Medical History Condition Response Sexually Transmitted Infection N Diabetes N Bleeding Disorder N High Blood Pressure Y Kidney Stones Y Cancer Y Depression N Lung Disease N High Cholesterol N GERD/Acid Reflux Y Heart Disease N Gynecological HistoryNo gynecological history recorded. Obstetrics History GPAL:G 0 P 0 0 0 0 Past Encounters Encounter ID Performer Location Encounter Start Date Encounter Closed Date Diagnosis/Indication Diagnosis SNOMED-CT Code Diagnosis ICD10 Code [id number] [facility] [address] [place] [address] 03/30/2024 15:36:49 04/20/2024 09:56:50 Ureteric stone 73620583 N20.1 Kidney stone 10739150 N2 0.0 [id number] Reg Garrett MD [facility] [address] [place] [address] 04/05/2024 10:42:49 04/11/2024 20:43:04 Kidney stone 41723184 N20.0 Health Concerns Section Related Observation LastModified by Organization Detai ls LastModified Time None Recorded Concern Status LastModified by Organization Details LastModified Time None Recorded Payers Encounter Date Sequence Insurance Name Policy Number Policy Alejo Covered Member ID Alejo Member ID Guarantor Name 04/05/2024 2 [facility] [id number] Melanie Velazquez Welch [id number] Melanie Velazquez Welch 04/05/2024 1 MEDICARE [place]: [employer] SERVICES [facility] Melanie Velazquez Welch [id number] 2 Melanie A Welch Notes Date Note Type Note Provider Name [...] stones on right. Reg Garrett MD [address], [place], [address], [facility] 04/05/2024 11:45:21 OBGyn Episode No OBEpisode recorded.
--- OUTSIDE RECORDS SUMMARY | 2024-05-28 23:58 | XMS_ITS | Referral Summary ---
Author Organization [facility] Address [address] [place] [address] Care Team Providers Care Board Saw Runner Name Role Phone Elaine Paulino MD Primary [...] on file Medical Devices Implanted Type Area Drop Press Hand Device Identifier Shelf Expiration Date Model / Serial / Lot Bone Cement Simplex W/Tobramycin 6197-9-001 Implanted:Qty: 1 on 09/13/2019 by Crystal Ortez MD at [facility] Cement, Bone Right: Knee [employer] 03/27/2021 6197-9-001 / / [id number] Bone Cement Simplex Full Dose 6191-1-001 Implanted:Qty: 1 on 03/29/2020 by Crystal Ortez MD at [facility] Cement, Bone Left: Knee [employer] 11/25/2021 6191-1-001 / / [id number] Patella Round Dome, 35mm Implanted:Qty: 1 on 09/13/2019 by Crystal Ortez MD at [facility] Total Joint Component /Insert Right: Knee Depuy 02/26/2024 96-0111 / / [id number] Imp Comp Tibtry Sgm 2 Kn Cocr -000 Implanted:Qty: 1 on 09/13/2019 by Crystal Ortez MD at [facility] Total Joint Component /Insert Right: Knee [employer]- 06/27/2028 0 / / [id number] Femoral Posterior Stabilized Cemented, Size 2.5 Right Implanted:Qty: 1 on 09/13/2019 by Crystal Ortez MD at [facility] Total Joint Component /Insert Right: Knee Depuy 10/28/2028 0 / / [id number] Pfc Sigma Tibial Insert Fixed Bearing Stabilized 2, 8mm Implanted:Qty: 1 on 09/13/2019 by Crystal Ortez MD at [facility] Total Joint Component /Insert Right: Knee Depuy 01/25/2023 8 / / [id number] Imp Comp Fem Depuy Post Stab Sigma Sz 2.5 Lt 40 Implanted:Qty: 1 on 03/29/2020 by Crystal Ortez MD at [facility] Total Joint Component /Insert Left: Knee J 06/27/2029 0 / / [id number] Imp Comp Tibtry Sgm 2 Kn Cocr 1581-20-000 Implanted:Qty: 1 on 03/29/2020 by Crystal Ortez MD at [facility] Total Joint Component /Insert Left: Knee [employer] 08/27/2028 0 / / [id number] P.F.C. Sigma Tibial Insert Fixed Bearing Stabilized, 2, 10mm Implanted:Qty: 1 on 03/29/2020 by Crystal Ortez MD at [facility] Left: Knee Depuy 07/28/2021 0 / / [id number] Patella Round Dome, 35mm Implanted:Qty: 1 on 03/29/2020 by Crystal Ortez MD at [facility] Left: Knee Depuy 05/28/2024 96-0111 / / [id number] Advance Directives For more information, please contact: [phone] Documents on File Type Date Recorded Patient Truck Loader Expl anation Advance Directives and Living Will 04/04/2020 10:47 AM Health Care Directiv e 03/23/2020 Healthcare Agents on File Name Relationship Healthcare Agent Amanda puente Communication Driss Welch Spouse Health Care Agent Sonu Welch Son Co-First Alterna te Health Care Agent Mateo Welch Son Co-First Alterna te Health Care Agent Care Teams Board Saw Runner Relationship Specialty Start Date End Date Helgen, Elaine, [place] [address] PCP - General Internal Medicine 09/13/19
--- OUTSIDE RECORDS SUMMARY | 2024-05-28 23:58 | XMS_ITS | Encounter Summary ---
Author Organization [facility] Address [address] [place] [address] Care Team Providers Care Concession Attendant Name Role Phone No Ref-Primary, Physician Primary Care Provider Elaine Paulino MD Primary Care Provider Encounter Details Date Type Department Care Team (Late st Contact Info) Description 07/27/2019 Orders Only [facility] [address] [place] [phone] Crystal Ortez MD [facility] [address] [place] [phone] Pre-operative laboratory examination (Primary Dx) Social History [...] Specimen Description Nares 07/28/2019 1:20 PM CDT [facility] Methicillin Resist/Sens S. aureus PCR Negative NEG^Negat hortencia 07/28/2019 5:55 PM CDT [facility] Comment: MRSA Negative: SA Negative ??MRSA and Staphylococcus aureus target DNA not detected, presumed negative for MRSA and SA colonization or the number of bacteria present may be below the limit of detection for the assay. FDA approved assay performed using [employer] GeneXpert(R) real-time PCR. Nasal structure (body structure) 07/28/2019 12:10 PM CDT 07/28/2019 1:20 PM CDT Crystal Ortez MD LAB - MICRO GENERAL ORDERABLES Performing Organization Address City/State/[facility] Co de Phone Number [facility] [address] [place], [place] [phone] [place] [address] [address] [id number] [phone] documented in this encounter Visit Diagnoses Diagnosis Pre-operative laboratory examination- Primary Pre-procedural laboratory examination documented in this encounter Care Teams Concession Attendant Relationship Specialty Start Date End Date No Ref-Primary, Physician PCP - General 07/28/19 09/12/19 Elaine Paulino MD [facility] [address] [place] [address] PCP - General Internal Medicine 09/13/19 documented as of this encounter
--- OUTSIDE RECORDS SUMMARY | 2024-05-28 23:58 | XMS_ITS | Continuity of Care Document ---
Author Organization [facility], [facility] Address [address] [place] [address] Care Team Providers Care County Manager Name Role Phone VIJAYA GILMOREHERINE Primary Care Provider Assessment Encounter Date Assessment Date Assessment LastModified by Organization Details LastModified Time 03/30/2024 03/30/2024 84F with 1 cm left ureteral stone and left renal stones. Discussed medical expulsive therapy versus surgical intervention and their respective risks/complicati ons including but not limited to post-procedure pain or stent pain, infection/UTI/se psis, hematuria, anesthesia reaction, injury to adjacent structures, and possible need for additional/stage d procedure. We discussed unlikely to spontaneously pass 1 cm ureteral stone. Given her age and overall left sided stone burden, would like her to have a visit with one of the surgeons first prior to surgery to finalize surgical plan. 1. Left ureteral stone - reviewed outside CT scan, labs, ED notes - anticipate stone of this size and location unlikely to pass spontaneously and likely to require surgical intervention - we briefly reviewed URS/HLL surgery today including possible risks, though defer to MD on final surgical plan - continue PRN pain meds - return precautions for ER discussed-- worsening pain, fever/chills, N/V, other concerns - given stone size and overall stone burden, ideally would have her see one of the surgeons next week to discuss surgical plan in greater detail; may need staged procedure 2. Left renal stones - hopefully be addressed at same time as above, but may require staged procedure [email or web address] Not available 03/30/2024 18:06:44 Plan of Treatment Reminders Order Date Submit Date Provider Last Modified By Organization Details Last Modified Time Details Appointments POST OP 10 2023 01:50P M Not available Not available Not available Lab urinalysi s, dipstick 2023 07 024 [email or web address] [facility], [address], [place], [address], 03/30/2024 18:06:47 Referral None recorded. Procedures None recorded. Surgeries None recorded. Imaging None recorded. Medication Orders None recorded. Patient TargetsNo targets recorded. Patient InstructionsNo instructions recorded. Reason for Referral None Reported. Results Created Date Observation Date Name Description Value Unit Range Abnormal Flag Note LastModifiedBy Organization Detail LastModifiedTime 03/30/20 24 03/30/2024 urina lysis , dipst ick p.H. 5.5 Not Available [facility] [address], [place], [address], 03/30/2024 15:45:10 03/30/20 24 03/30/2024 urina lysis , dipst ick S.G. (Specific [place]) 1.020 Not Available [facility] [address], [place], [address], 03/30/2024 15:45:10 03/30/20 24 03/30/2024 urina lysis , dipst ick LEUKOCYTES Trace (10 WBC/uL ) Not Available [facility] [address], [place], [address], 03/30/2024 15:45:10 05/11/20 24 05/11/2024 fluor oscop y (PROC ) No observ ation record ed. [facility] [address], [place], [address], 05/11/2024 16:41:15 05/12/20 24 05/12/2024 XR, urogr am, retro grade No observ ation record ed. [email or web address] [facility] [address], [place], [address], 05/13/2024 14:57:45 0805/11/2024 imagi ng/di agnos tic resul t No observ ation record ed. [email or web address] [facility] [address], [place], [address], 05/13/2024 14:57:29 Result Notes None recorded. Problems Name Problem SNOMED Code Status Onset Date Resolution Date Notes Provider Name and Address Organization Details Recorded Time Ureteric stone 42801240 Active 024 Deborah Holliday PA-C [address] [place] [address],[address], [address] , [facility] 4 18:05:03 Kidney stone 97521316 Active 024 Deborah Holliday PA-C [address] [place] [address],[address], [address] , [facility] 4 18:05:08 Problem Notes None recorded. Procedures Surgical History Date Name Laterality Status Provider Name and Address Organization Details Recorded Time 5 excision of breast completed Bouchra bruce [facility] 03/30/2024 15:52:30 Imaging Results None recorded. Procedure Notes None recorded. Medical Equipment None Reported. Allergies Allergen ID Allergen Name Allergen Category Reaction Reaction Severity Criticality Documentation Date Start Date Code Code System Note Provider Name and Address Organization Details Recorded Time 200197 Augmentin medicatio n Not available Not available Not available 03/30/2024 90299 2 RxNorm Bouchramadison bruce [facility] 4 15:48:34 560804 Substance with sulfonami de structure and antibacte rial mechanism of action (substanc e) medicatio n Not available Not available Not available 03/30/2024 67356 8003 SNOMED Bouchra bruce [facility] 4 15:48:42 540956 oxycodone medicatio n Not available Not available Not available 03/30/2024 7804 RxNorm Bouchra bruce [facility] 4 15:48:49 026679 cefdinir medicatio n Not available Not available Not available 03/30/2024 22158 RxNorm Bouchra bruce [facility] 4 15:48:56 963999 lansoprapaola limon medicatio n Not available Not available Not available 03/30/2024 85256 RxNorm Bouchra bruce [facility] 4 15:49:02 Medications Name Sig Start Date [...] Available Not Available Vitals Date Recorded Body weight Body mass index (BMI) Body height Provider Name and Address Organization Details Last Updated DateTime 03/30/2024 36250.86 g 24.2 kg/m2 167.64 cm Bouchra Lentz [facility] 03/30/2024 15:47:49 Social History Question Answer Notes LastModified by Organizat ion Details LastModified Time Tobacco Smoking Status Former Smoker Bouchra Lentz teo [facility] 03/30/2024 15:51:31 What Is Your Level Of Alcohol Consumption? Occasional Information not available 03/30/2024 What Is Your Level Of Caffeine Consumption? None Information not available 03/30/2024 When Did You Quit Smoking? 15+yearssinpeyton delgado Information not available 03/30/2024 Race White Information not available 04/05/2024 Ethnicity Not / [email or web address] Information not available 04/05/2024 Preferred Language Estonian [email or web address] Information not available 04/05/2024 What Was The Date Of Your Most Recent Tobacco Screening? 04/05/2024 [email or web address] Information not available 04/05/2024 Sex: Unknown Functional Status None recorded. Mental Status None recorded. Family History Relationship Description Onset Age of this Age Resolved Age Notes Sister Family history of br east cancer Medical History Condition Response High Blood Pressure Y Kidney Stones Y Depression N Lung Disease N GERD/Acid Reflux Y Diabetes N Sexually Transmitted Infection N Bleeding Disorder N Cancer Y High Cholesterol N Heart Disease N Gynecological HistoryNo gynecological history recorded. Obstetrics History GPAL:G 0 P 0 0 0 0 Past Encounters Encounter ID Performer Location Encounter Start Date Encounter Closed Date Diagnosis/Indication Diagnosis SNOMED-CT Code Diagnosis ICD10 Code [id number] J[facility] [address] [place] [address] 03/30/2024 15:36:49 04/20/2024 09:56:50 Ureteric stone 69981127 N20.1 Kidney stone 77316455 N2 0.0 Health Concerns Section Related Observation LastModified by Organization Detai ls LastModified Time None Recorded Concern Status LastModified by Organization Details LastModified Time None Recorded Payers Encounter Date Sequence Insurance Name Policy Number Policy Alejo Covered Member ID Alejo Member ID Guarantor Name 03/30/2024 2 [id number] Melanie Welch [id number] Melanie Welch 03/30/2024 1 MEDICARE [place]: [employer] [facility] Melanie Welch [id number] Melanie Welch Notes Date Note Type Note Provider Name and Address Organization Details Recorded Time 03/30/2024 text/html HPI Notes: 84F with left ureteral stone and left renal stones. Here with Driss who also provides some of the history. Seen at [place] on 03/05 for left abdominal pain. CT demonstrated 1 cm proximal left ureteral stone and 3 additional left lower pole renal stones. Today, she reports occasional left abdominal ache but denies severe abdominal or flank pain. Uses OTC pain medication rarely. Denies dysuria, gross hematuria, fever, or chills. Reports she had stones in the past and required stone surgery (possibly at [place]?), but states this was 25 years ago. Labs: Imaging: (reviewed in [facility]) 03/05/24 CT A/P: 1 cm proximal left ureteral stone; additional 3 left lower pole renal stones up to 6-7 mm in size; no right renal stones PMH: PSH: Deborah Holliday PA-C [address] [place] [address],[address], [place], [address], [facility] 03/30/2024 18:06:56 OBGyn Episode No OBEpisode recorded.
--- OUTSIDE RECORDS SUMMARY | 2024-05-28 23:58 | XMS_ITS | Clinical Summary ---
Author Organization [employer] Address [place], [place] [address] Care Team Providers Care Order Entry Clerk Name Role Phone Elaine Paulino MD Primary Care Provider [phone] Nadya Amador MD Unavailable Unavailable Allergies Active Allergy Reactions Criticality Noted Date Comments Amoxicillin Diarrhea 05/10/2024 Amoxicillin-Pot Clavulanate Diarrhea 05/10/20 24 Sulfamethoxazole-Trimethoprim *Unknown 2023 Cefdinir *Unknown 05/10/2024 Clavulanic Acid Diarrhea 05/10/2024 From Augmentin Lansoprazole *Unknown 05/10/2024 Nitrofurantoin Diarrhea 05/10/2024 Oxycodone *Unknown 05/10/2024 Sulfamethoxazole *Unknown 05/10/2024 Trimethoprim *Unknown 05/10/2024 Medications Medication Sig Dispensed Refills Start Date End Date Status hydrochlorothiazi de (HCTZ) 25 mg tablet Take 25 mg by mouth once daily. Active losartan (COZAAR) 25 mg tablet Take 25 mg by mouth once daily. Active ALPRAZolam (XANAX) 0.5 mg tablet Take 0.25 mg by mouth once daily if needed. Active CALCIUM CARBONATE/VITAMIN D3 (ROBERTH-600 WITH VITAMIN D ORAL) Take 1 tablet by mouth once daily. Active benzonatate (TESSALON) 100 mg capsule Take 100 mg by mouth 2 times daily if needed for Cough. Active bismuth subsalicylate 524 mg/30 mL sppk Take by mouth. Pepto-Bismol Active cholecalciferol (Vitamin D) 1,000 unit capsule Take 1,000 units by mouth once daily. Active clobetasol (TEMOVATE) 0.05 % cream Apply topically to affected area(s) 2 times daily if needed. Active diphenhydrAMINE-a cetaminophen 25-500 mg (Tylenol PM Extra Strength) 25-500 mg tablet Take 1 Tablet by mouth at bedtime if needed. Max acetaminophen dose: 4000mg in 24 hrs. Active famotidine (Pepcid AC Maximum Strength) 20 mg tablet Take 20 mg by mouth once daily if needed. Active omeprazole (PRILOSEC) 20 mg Delayed-Release capsule Take 20 mg by mouth two times daily before meals. Active acetaminophen (TYLENOL ORAL) Take by mouth. As needed Active docusate (COLACE) 100 mg capsuleIndication s:Calculus of kidney Take 1 Capsule (100 mg) by mouth 2 times daily if needed for Constipation. 30 Capsule 4 Active oxyCODONE (ROXICODONE) 5 mg immediate release tabletIndications :Calculus of kidney Take 2 Tablets (10 mg) by mouth every 6 hours if needed for Pain. 10 Tablet 4 Active ASPIRIN 81 MG TAB, DELAYED RELEASE 0 7 05/11/20 24 Discontinued( Pharmacist change per medication history (E-cancel not sent)) PRILOSEC 20 MG CAP 1 po daily 0 7 05/11/20 24 Discontinued( Pharmacist change per medication history (E-cancel not sent)) prochlorperazine (COMPAZINE) 5 mg tablet Take 5 mg by mouth every 6 hours if needed for Nausea/Vomiting. 05/11/20 24 Discontinued( Pharmacist change per medication history (E-cancel not sent)) letrozole (FEMARA) 2.5 mg tablet Take 2.5 mg by mouth once daily. 05/11/20 24 Discontinued( Pharmacist change per medication history (E-cancel not sent)) METHYLCELLULOSE, WITH SUGAR, (CITRUCEL, SUCROSE, ORAL) Take by mouth. 05/11/20 24 Discontinued( Pharmacist change per medication history (E-cancel not sent)) diphenoxylate-atr opine, 2.5-0.025 mg, (LOMOTIL) 2.5-0.025 mg tablet Take 1 Tablet by mouth once daily if needed for Diarrhea. 05/11/20 24 Discontinued( Pharmacist change per medication history (E-cancel not sent)) ciprofloxacin (CIPRO) 500 mg tabletIndications :Complicated UTI (urinary tract infection) Take 1 Tablet (500 mg) by mouth two times daily before meals for 5 days. 10 Tablet 4 05/27/20 24 Active Problems Problem Noted Date Diagnosed Date Kidney stone on left side 05/25/2024 Irritable bowel syndrome ARTHRITIS Undiagnosed cardiac murmurs Overview: gr. 10/03 Encounters Date Type Department Care Team Description 05/22/2024 1:05 PM CDT Office Visit [facility] [address] [place] [phone] Katie Greenwood NP Urinary Problem (Frequency and irritation) 05/22/2024 Travel 05/12/2024 11:26 AM CDT Anesthesia Event [facility] [address] [place] [address] Danial Gaytan MD Shea, Caroline Victoria, CRNA 05/12/2024 11:07 AM CDT - 05/12/2024 12:10 PM CDT Surgery [facility] [address] [place] [address] Reg Garrett MD CYSTOSCOPY, LEFT STENT REPOSITIONING, LEFT NEPHROSTOMY TUBE REMOVAL left ureteroscopy 05/11/2024 3:50 PM CDT Anesthesia Event [facility] [address] [place] [address] Krystle Helm MD Milshteyn, Mark L, MD 05/11/2024 2:56 PM CDT - 05/11/2024 5:27 PM CDT Surgery [facility] [address] [place] [address] Reg Garrett MD LEFT PERCUTANEOUS NEPHROLITHOTOMY AND URETEROSCOPY WITH LASER 05/11/2024 10:58 AM CDT - 05/12/2024 6:15 PM CDT Hospital Encounter [facility] [address] [place] [address] Reg Garrett MD Calculus of kidney Discharge Disposition: Home Self Care 05/10/2024 Travel 03/10/2024 Lab Requisition [facility] [phone] Nancie Leone MD from Last 3 Months [...] Years Used Date Smoking Tobacco: Former Cigarettes Smokeless Tobacco: Never Tobacco Cessation:Counseling Given: Not Answered Comments:Smoked a few years in college only Alcohol Use Standard Drinks/Week Comments Yes 0 (1 standard drink = 0.6 oz pur e alcohol) 2-3 drinks/week Sex and Gender Information Value Date Recorded [...] Sign Reading Time Taken Comments Blood Pressure 138/68 05/22/2024 1:55 PM CDT Pulse 78 05/22/2024 1:13 PM CDT Temperature 36.9 ??C (98.4 ??F) 05/22/2024 1:13 PM CD T Respiratory Rate 16 05/22/2024 1:13 PM CDT Oxygen Saturation 96% 05/22/2024 1:13 PM CDT Inhaled Oxygen Concentration - - Weight 67.9 kg (149 lb 11.2 oz) 05/22/2024 1:13 PM CDT Height 165.1 cm (5' 5) 05/11/2024 12:0 6 PM CDT Body Mass Index 24.91 05/11/2024 12:06 PM CDT Plan of Treatment Health Maintenance [...] Completed 2020, 08/18/2019, 08/10/2017, Additional history exists Medical Devices Implanted Type Area Superintendent Local Device Identifier Shelf Expiration Date Model / Serial / Lot Stent Uret [id number] Contour - [id number] Implanted:Qty: 1 on 05/11/2024 by Reg Garrett MD at [facility] Left: Ureter [facility] 12/13/2026 [id number] / / [id number] Procedures Procedure Name Priority Date/Time Associated Diagnosis Comments URINALYSIS MICROSCOPIC STAT 05/22/2024 1:05 PM CDT Urinary tract infection symptoms URINE CULTURE STAT 05/22/2024 1:05 PM CDT Urinary tract infection symptoms UA W/ SEDIMENT EXAM REFLEXED PER CRITERIA STAT 05/22/2024 1:05 PM CDT Urinary tract infection symptoms XR RETROGRADE PYELOGRAM W/WO KUB Routine 05/12/2024 12:18 PM CDT SUPRAGLOTTIC-LMA Routine 05/12/2024 11:5 1 AM CDT CYSTOSCOPY URETEROSCOPY Class D Urgent 05/12/2024 11:09 AM CDT CBC W PLT NO DIFF Early AM 05/12/2024 5:0 8 AM CDT BASIC METABOLIC PANEL Early AM 05/12/2024 5:08 AM CDT XR C-ARM GREATER 1 HR Routine 05/11/2024 7:25 PM CDT STONE ANALYSIS Today 05/11/2024 6:11 PM CDT ENDOTRACHEAL TUBE Routine 05/11/2024 4:2 1 PM CDT ENDOTRACHEAL TUBE Routine 05/11/2024 4:2 1 PM CDT URETEROSCOPY LASER Elective 05/11/2024 3: 34 PM CDT LEFT KIDNEY STONE Case Notes C-ARM, TUBE IS BEING PLACED IN RADIOLOGY AT 11:00 ON 05/11.DARIAN PATEL NOTIFIED ON 05/11/2024 VIA EMAIL REMOVAL PERCUTANEOUS KIDNEY STONE Elective 05/11/2024 3:34 PM CDT LEFT KIDNEY STONE Case Notes C-ARM, TUBE IS BEING PLACED IN RADIOLOGY AT 11:00 ON 05/11.DARIAN PATEL NOTIFIED ON 05/11/2024 VIA EMAIL IR NEPHROSTOMY TUBE LEFT Routine 05/11/2024 2:04 PM CDT Calculus of kidney TYPE & SCREEN Today 05/11/2024 12:34 PM CDT CREATININE STAT 05/11/2024 12:34 PM CDT PROTIME-INR STAT 05/11/2024 12:34 PM CDT PLATELET COUNT STAT 05/11/2024 12:34 PM CDT HEMOGLOBIN STAT 05/11/2024 12:34 PM CDT SCAN-CARDIAC STRIP 05/11/2024 12 :00 AM CDT SCAN-CARDIAC STRIP 05/11/2024 12 :00 AM CDT SCAN CORRESP-EKG RESULTS 05/03/2024 11:54 AM CDT SCAN CORRESP-LABORATORY RESULTS 05/03/2024 11:54 AM CDT LAB TRACKING EVENT Routine 03/10/2024 9: 00 AM CDT PATH TISSUE EXAM Routine 03/10/2024 8:24 AM CDT XR DXA BONE DENSITY 2 SITES AXIAL Routine 07/10/2021 11:30 AM CDT 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 of central portion of left 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 from Last 3 Months or Most Recently Relevant to Health Maintenance Results * (ABNORMAL) URINALYSIS MICROSCOPIC (05/22/2024 1:05 PM CDT) RBC 26-50(A) 0-2, None Seen /HPF 05/22/2024 1:26 PM CDT [facility] WBC 6-10(A) 0-2, 3-5, None Seen /HPF 05/22/2024 1:26 PM CDT [facility] BACTERIA Few None Seen, Rare, Few Bacteria/H PF 05/22/2024 1:26 PM CDT [facility] EPITHELIAL CELLS Few None Seen, Few Epi/HPF 05/22/2024 1:26 PM CDT [facility] Urine URINE SPECIMEN / Unknown Non-Blood / Unknown 05/22/2024 1:05 PM CDT 05/22/2024 1:13 PM CDT Elizabeth Koch NP URINE [facility] [address] [place] [address] * URINE CULTURE [92914.2] (05/22/2024 1:05 PM CDT) CULTURE <10,000 CFU/mL multiple organisms 05/24/2024 11:22 AM CDT [facility] Urine URINE SPECIMEN / Unknown Non-Blood / Unknown 05/22/2024 1:05 PM CDT 05/22/2024 1:13 PM CDT Elizabeth Koch NP MICROBIOLOGY [facility] [address] [place] [address], * (ABNORMAL) UA W/ SEDIMENT EXAM REFLEXED PER CRITERIA (UA w/ reflex micro if positive) [96288.2] (05/22/2024 1:05 PM CDT) COLOR Yellow Yellow Color 05/22/2024 1:24 PM CDT [facility] CLARITY Clear Clear Clarity 05/22/2024 1:24 PM T [facility] SPECIFIC GRAVITY,URINE 1.015 1.010, 1.015, 1.020, 1.025 05/22/2024 1:24 PM [facility] PH,URINE 6.5 6.0, 7.0, 8.0, 5.5, 6.5, 7.5, 8.5 05/22/2024 1:24 PM [facility] UROBILINOGEN, QUALITATIVE Normal Normal EU/dl 05/22/2024 1:24 PM [facility] PROTEIN, URINE Trace(A) Negative mg/dL 05/22/2024 1:24 PM [facility] GLUCOSE, URINE Negative Negative mg/dL 05/22/2024 1:24 PM [facility] KETONES,URINE Negative Negative mg/dL 05/22/2024 1:24 PM [facility] BILIRUBIN,URI NE Negative Negative 05/22/2024 1:24 PM [facility] OCCULT BLOOD,URINE Large(A) Negative 05/22/2024 1:24 PM [facility] NITRITE Negative Negative 05/22/2024 1:24 PM [facility] LEUKOCYTE ESTERASE Moderate(A) Negative 05/22/2024 1:24 PM [facility] Urine URINE SPECIMEN / Unknown Non-Blood / Unknown 05/22/2024 1:05 PM CDT 05/22/2024 1:13 PM CDT Elizabeth Koch [employer] URINE [facility] [address] [place] [address] * XR RETROGRADE PYELOGRAM W/WO KUB (05/12/2024 12:18 PM CDT) Anatomical Region Laterality Modality KIDNEYS, Abdomen Digital Radiogr aphy Narrative 05/12/2024 11:35 AM CDT 12 seconds fluoroscopy time was provided. ??See operative/procedure report for further information. Reg Garrett MD GENERAL IM AGING * HCHG MASK PR5 (05/12/2024 11:51 AM CDT) Narrative Caprice Stroud CRNA - 05/12/2024 11:51 AM CDT Caprice Stroud CRNA ? 05/12/2024 11:51 AM Procedure: Supraglottic Patient location during procedure: OR Supraglottic Airway Properties Mask Ventilation: not attempted Type: unique Tube Size: 4 Insertion Attempts: 1 Placement Verification: CO2 detection Assessment Assessment: atraumatic and dentition unchanged Danial Gaytan MD ANESTHESIA PX NOTE ORDERABLES * (ABNORMAL) CBC with Platelets No Differential (05/12/2024 5:08 AM CDT) WHITE BLOOD COUNT 11.0 4.5 - 11.0 thou/cu mm 05/12/2024 6:22 AM CDT [facility] RED BLOOD COUNT 4.44 4.00 - 5.20 mil/cu mm 05/12/2024 6:22 AM CDT [facility] HEMOGLOBIN 13.5 12.0 - 16.0 g/dL 05/12/2024 6:22 AM CDT [facility] HEMATOCRIT 40.8 33.0 - 51.0 % 05/12/2024 6:22 AM CDT [facility] MCV 92 80 - 100 fL 05/12/2024 6:22 AM CDT [facility] MCH 30.4 26.0 - 34.0 pg 05/12/2024 6:22 AM CDT [facility] MCHC 33.1 32.0 - 36.0 g/dL 05/12/2024 6:22 AM CDT [facility] RDW 12.9 11.5 - 15.5 % 05/12/2024 6:22 AM CDT [facility] PLATELET COUNT 222 140 - 440 thou/cu mm 05/12/2024 6:22 AM CDT [facility] MPV 11.4(H) 6.5 - 11.0 fL 05/12/2024 6:22 AM CDT [facility] NRBC 0.0 % 05/12/2024 6:22 AM CDT [facility] ABS NRBC 0.0 thou /cu mm 05/12/2024 6:22 AM CDT [facility] Blood BLOOD SPECIMEN / Unknown Venipuncture / Unknown 05/12/2024 5:08 AM CDT 05/12/2024 6:17 AM CDT Reg Garrett MD HEMATOLOGY [facility] [address] [place] [address], * (ABNORMAL) Basic Metabolic Panel (05/12/2024 5:08 AM CDT) SODIUM 142 136 - 145 mmol/L 05/12/2024 6:52 AM CDT [facility] POTASSIUM 4.2 3.5 - 5.1 mmol/L 05/12/2024 6:52 AM CDT [facility] CHLORIDE 104 98 - 107 mmol/L 05/12/2024 6:52 AM CDT [facility] CO2,TOTAL 27 22 - 29 mmol/L 05/12/2024 6:52 AM CDT [facility] ANION GAP 11 5 - 18 05/12/2024 6:52 AM T [facility] GLUCOSE 134(H) 70 - 99 mg/dL 05/12/2024 6:52 AM CDT [facility] CALCIUM 8.7(L) 8.8 - 10.2 mg/dL 05/12/2024 6:52 AM CDT [facility] BUN 23 8 - 23 mg/dL 05/12/2024 6:52 AM CDT [facility] CREATININE 0.97(H) 0.50 - 0.90 mg/dL 05/12/2024 6:52 AM CDT [facility] BUN/CREAT RATIO 24(H) 10 - 20 6:52 AM CDT [facility] eGFR 57(L) >90 mL/min/1.7 3m2 05/12/2024 6:52 AM CDT [facility] Comment:As of 2021, eG FR is calculated by the CKD-EPI creatinine equation without race adjustment. ??eGFR can be influenced by muscle mass, exercise, and diet. ??The reported eGFR is an estimation only and is only applicable if the renal function is stable. Blood BLOOD SPECIMEN / Unknown Venipuncture / Unknown 05/12/2024 5:08 AM CDT 05/12/2024 6:23 AM CDT Reg Garrett MD [facility] [address] [place] [id number], [place] * XR C-ARM GREATER 1 HR (05/11/2024 7:25 PM CDT) Anatomical Region Laterality Modality Other Narrative 05/11/2024 4:05 PM CDT 1 minute 49 seconds fluoroscopy time was provided. ??See operative/procedure report for further information. Reg Garrett MD FLUOROSCOP Y * STONE ANALYSIS (05/11/2024 6:11 PM CDT) Source Comment 05/21/2024 3:08 PM T [facility] Comment:Not provided Color Nelson 05/21/2024 3:08 PM T [facility] ([facility]) Size 4x3 mm 05/21/2024 3:08 PM [facility] ([facility]) Comment: Multiple pieces received. ??Dimensions of the largest piece reported. Weight 21 mg 05/21/2024 3:08 PM T [facility]) Composition Comment 05/21/2024 3:08 PM [facility] Comment:Percentage (Represen ts the % composition) Calcium Oxalate Monoh 60 % 05/21/2024 3:08 PM T [facility]) Calcium Oxalate Dihyd 40 % 05/21/2024 3:08 PM T [facility]) Comment Comment 05/21/2024 3:08 PM [facility] Comment: Calculus received wet. Wet calculi must be dried before analysis, which delays reporting of results. Leaving calculi wet (such as water, saline, blood, urine) may lead to changes in composition. Photo Comment 05/21/2024 3:08 PM T [facility] Comment:Photograph will foll ow under a separate cover Comment: Comment 05/21/2024 3:08 PM [facility] ([facility]) Comment: Physician questions regarding Calculi Analysis contact [facility] at: [phone]. Please note: Comment 05/21/2024 3:08 PM T [facility] ([facility]) Comment: Calculi report will follow via computer, mail or clinical case manager delivery. Disclaimer: Comment 05/21/2024 3:08 PM T [facility] Comment: This test was developed and its performance characteristics determined by [employer]. ??It has not been cleared or approved by the Food and Drug Administration. Calculi (stone) (Left Ureter Stone) Non-Blood / Unknown 05/11/2024 6:11 PM CDT 05/12/2024 9:43 AM CDT Narrative [facility] - 05/21/2024 3:08 PM CDT Performed at: ??[address] ??[id number] Casting Tester: Paris Miramontes PhD, Phone: ??[phone] Reg Garrett MD SEND OUTS [facility] ([facility]) [address] [place] [address], * HCHG TUBE PR1, HCHG STYLET PR1 (05/11/2024 4:21 PM CDT) Narrative Nancy Temple CRNA - 05/11/2024 4:21 PM CDT Nancy Temple CRNA ? 05/11/2024 ??4:22 PM Procedure: ETT Patient location during procedure: OR ETT Properties Mask Ventilation: easy Final Technique: direct laryngoscopy Type: straight Location: oral Cuffed: yes Tube Size: 7.0 mm Stylet: yes Laryngoscope Blade: Giles Blade Size: 2 Cormack-Lehane Grade View: 1 Insertion Attempts: 1 Placement Verification: auscultation, end tidal CO2, symmetrical chest wall movement and cuff palpation Assessment: dentition unchanged, atraumatic and pharynx clear Secured at: 22 Measured From: lips Bite Block: soft Difficulty: 0 (not difficult) Krystle Helm MD ANESTHESIA PX NOT E ORDERABLES * IR NEPHROSTOMY TUBE LEFT (05/11/2024 2:04 PM CDT) Anatomical Region Laterality Modality KIDNEY L X-Ray Angiograph y, Other Narrative 05/11/2024 2:54 PM CDT Procedure: 1. Percutaneous left nephrostomy access under sonographic and fluoroscopic guidance. 2. Antegrade nephrostogram. Indication: Hydronephrosis due to an obstructing renal calculi in the ureter. Comparison: N/A Interventionalist: Ward Randall MD Fluoroscopy time: 6 minutes. Reference air kerma: 112 mGy. Contrast: 30 mL Estimated Blood Loss: <10 mL Medications: midazolam 1.5 mg IV, fentanyl 75 mcg IV, Rocephin 1 gm IV, 1% lidocaine 10 mL subcutaneous. Sedation: Moderate Conscious sedation: 30 minutes of intraservice time. The sedation was supervised by myself and the patient's vital signs were actively monitored by an independent registered nurse. Complications: None immediate. Technique: The procedure, risks, and alternative therapies were discussed in detail, and written informed consent was obtained. A time out was performed to verify correct patient and procedure. ??Moderate sedation was administered as above. The patient's pulse oximetry, EKG, and blood pressure were monitored by the interventional radiology nurse at all times. The left flank was prepped and draped in the usual sterile fashion. All elements of maximum sterile barrier technique were used. Initial ultrasound scanning demonstrated a dilated left collecting system. ??Under ultrasound guidance, a posterior calyx was targeted and an 22 gauge trocar needle was advanced into the collecting system. An ultrasound image was saved and sent to PACS. ?? Appropriate position within the collecting system was confirmed with the reflux of urine. The access was dilated with an AccuStick set and an guidewire was advanced and ultimately positioned in the urinary bladder. We then placed an 8F long sheath and positioned it in the distal ureter which was past the renal stone in the mid ureter. ??Repeat contrast injection confirmed satisfactory positioning of her sheath which is to be used as best for the second portion of of this procedure to be performed in the operating room under the care of the urologist. ??The sheath was then sutured to the skin. The patient tolerated the procedure well without immediate post procedural complication. Findings: Initial diagnostic ultrasound demonstrated moderate hydronephrosis of the left kidney. Antegrade nephrostogram confirmed multiple filling defects within a lower pole calyx as well as a larger filling defect within the mid ureter. After successfully traversing the obstruction within the mid ureter repeat antegrade nephrostogram demonstrated satisfactory draining into the urinary bladder. Impression: Successful percutaneous left kidney antegrade nephrostogram with placement of a 8 Sudanese sheath with tip position distal to the obstruction within the mid ureter. Please contact me with any questions. Ward Randall MD Vascular & Interventional Radiology [facility] [phone] [email or web address] Reg Garrett MD IR * TYPE & SCREEN (05/11/2024 12:34 PM CDT) ABORH O Rh Positive 05/11/2024 1:52 PM CDT [facility] BLOOD BANK ANTIBODY SCREEN Negative Negative 05/11/2024 1:52 PM CDT [facility] B[facility]OD B[facility] SPECIMEN EXPIRATION DATE/TIME 05/14/24 23:59 05/11/2024 1:52 PM CDT [facility] Blood BLOOD SPECIMEN / Unknown Venipuncture / Unknown 05/11/2024 12:34 PM CDT 05/11/2024 12:56 PM CDT [facility] BANK [address] [place] [address], * (ABNORMAL) Platelet Count (05/11/2024 12:34 PM CDT) PLATELET COUNT 239 140 - 440 thou/cu mm 05/11/2024 1:[address] [facility] MPV 11.2(H) 6.5 - 11.0 fL 05/11/2024 1:[address] [facility] [employer] Blood BLOOD SPECIMEN / Unknown Venipuncture / Unknown 05/11/2024 12:34 PM CDT 05/11/2024 12:56 PM CDT Danial Velazquez MD HEMATOLOGY [facility] [address] [place] [address], * Hemoglobin (05/11/2024 12:34 PM CDT) HEMOGLOBIN 14.3 12.0 - 16.0 g/dL 05/11/2024 1:10 PM CDT [facility] MCV 91 80 - 100 fL 05/11/2024 1:10 PM CDT [facility] Blood BLOOD SPECIMEN / Unknown Venipuncture / Unknown 05/11/2024 12:34 PM CDT 05/11/2024 12:56 PM CDT Danial Velazquez MD HEMATOLOGY Performing Organization Address City/[facility] Co de Phone Number [facility] [address] [place] [address], * (ABNORMAL) Creatinine (05/11/2024 12:34 PM CDT) eGFR 70(L) >90 mL/min/1.7 3m2 05/11/2024 1:22 PM CDT [facility] Comment:As of 2021, eG FR is calculated by the CKD-EPI creatinine equation without race adjustment. ??eGFR can be influenced by muscle mass, exercise, and diet. ??The reported eGFR is an estimation only and is only applicable if the renal function is stable. CREATININE 0.82 0.50 - 0.90 mg/dL 05/11/2024 1:22 PM CDT [facility] Blood BLOOD SPECIMEN / Unknown Venipuncture / Unknown 05/11/2024 12:34 PM CDT 05/11/2024 12:56 PM CDT Danial Velazquez MD CHEMISTRY Performing Organization Address City/[facility]/ZIP Co de Phone Number [facility] [address] [place] [address] [id number], [place] * Protime-INR (05/11/2024 12:34 PM CDT) INR 1.1 <1.3 05/11/2024 1:10 PM CDT [facility] PROTIME 12.2 10.3 - 12.3 sec 05/11/2024 1:10 PM CDT [facility] Blood BLOOD SPECIMEN / Unknown Venipuncture / Unknown 05/11/2024 12:34 PM CDT 05/11/2024 12:56 PM CDT Narrative [facility] - 05/11/2024 1:10 PM CDT ?Therapeutic Range 2.0-3.0 for most anticoagulated patients 2.5-3.5 or 4.0 for high risk patients The INR is only used for patients on stable oral anticoagulant therapy. It makes no significant contribution to the diagnosis or treatment of patients whose Protime is prolonged for other reasons. INR results are increased when heparin levels exceed 1.0 U/mL, which corresponds to an aPTT >125 seconds if the patient is on UFH. Danial Velazquez MD HEMATOLOGY [facility] [address] [place] [address] * SCAN-CARDIAC STRIP (05/11/2024 12:00 AM CDT) Narrative 05/11/2024 12:00 AM CDT Ordered by an unspecified provider. Other Clinical Staff OTHER * SCAN-CARDIAC STRIP (05/11/2024 12:00 AM CDT) Narrative 05/11/2024 12:00 AM CDT Ordered by an unspecified provider. Other Clinical Staff OTHER * SCAN CORRESP-LABORATORY RESULTS (05/03/2024 11:54 AM CDT) Narrative 05/03/2024 11:54 AM CDT Ordered by an unspecified provider. Other Clinical Staff OTHER * SCAN CORRESP-EKG RESULTS (05/03/2024 11:54 AM CDT) Narrative 05/03/2024 11:54 AM CDT Ordered by an unspecified provider. Other Clinical Staff OTHER * LAB TRACKING EVENT (03/10/2024 9:00 AM CDT) Other (Other) Client Collect / Unknown 03/10/2024 9:00 AM CDT 03/10/2024 10:16 PM CDT Nancie Leone MD LAB BILL ONLY [facility] [address] [place] [address], * PATH TISSUE EXAM (03/10/2024 8:24 AM CDT) Case Report Pathology Report ?Case: [id number] ? Authorizing Provider: ??Nancie Leone MD ?Collected: ? 03/10/2024 0824 ? Ordering Location: ? [facility] ?Received: ?03/11/2024 1120 ? Pathologist: ? Gavino Vela MD ? Specimen: ?Colon Biopsy ? 2024 11:36 AM CDT [facility] Final Diagnosis A) COLON, CECUM, POLYPECTOMY: 1. Tubular adenoma 2. Negative for high grade dysplasia 3. Per the colonoscopy report: ?? a. Polyp size: 2 mm ?? b. Resection: Complete ?? c. Retrieval: Complete 2024 11:36 AM CDT [facility] Clinical Information Rectal bleeding Colonoscopy findings: Nonbleeding internal hemorrhoids. Cecal polyp. Diverticulosis in the descending and sigmoid colon. 2024 11:36 AM CDT [facility] ENTRAL LABORATORY Gross Description A) Received in formalin are 2 nelson mucosal fragments averaging 3 mm in greatest dimension, which are entirely submitted in one cassette. It is labeled with the patient's name and designated colon-cecum polyp. Oliva Belcher Elena 03/11/2024 1:22 PM 2024 11:36 AM CDT [facility] Microscopic Description The final diagnosis is based on microscopic examination of appropriate sections of all specimens. 2024 11:36 AM CDT [facility] Additional Information Interpreted at [email or web address] - [address] [place] [address] 20[address] 11:[address] [facility] Other (Colon Biopsy) 03/10/2024 8:24 AM CDT 03/11/2024 11:20 AM CDT Nancie Leone MD PATHOLOGY/CYTOLOGY [facility] [address] [place] [address], * (ABNORMAL) XR DXA BONE DENSITY 2 [...] a more recent DXA scan done at [facility] in 2019, unable to trend by machine. ??However, the values are consistent with last check showing minimal if any decline in the lumbar spine. ?? Repeat scan recommended in 2-3 years. Mariela Kirkland PA-C [facility] 07/16/2021 Narrative 07/16/2021 1:14 PM CDT For Patients: Results are automatically released to your [facility] account once available, in compliance with federal regulations. This means that you may see your results before your provider has had a chance to review them. Please allow 2-3 business days for your provider to comment on the results. XR DXA Bone Mineral Density (BMD) EXAM LOCATION: [address] [address] PATIENT NAME: MELANIE WELCH DATE OF : [...] two scanners are made by the same hog pusher. PROCEDURE: Dual-energy x-ray absorptiometry performed with routine [...] on File) Date Activated Date Inactivated Comments 05/11/2024 11:44 AM 05/12/2024 8:21 PM Question Answer Comments Code Status Discussion: Unable to Assess Preferences, Provider to review later * Full Code Date Activated Date Inactivated Comments 06/14/2015 1:17 PM 06/14/2015 7:50 PM * Full Code Date Activated Date Inactivated Comments 06/08/2015 10:36 AM 06/08/2015 8:31 PM Care Teams Order Entry Clerk Relationship Specialty Start Date End Date Elaine Paulino MD [address] [place] [address] PCP - General Internal Medicine 05/22/15 Nadya Amador MD [address] [place] [address] General Surgery Surgery - General 05/23/15
--- OUTSIDE RECORDS SUMMARY | 2024-05-28 23:58 | XMS_ITS | Clinical Summary ---
Author Organization [facility] Address [address] [place] [address] Care Team Providers Care Window Framer Name Role Phone Elsewhere, Pcp Primary Care Provider Unavailabl e Source Comments Patient records contain information from all sites at [facility]. For routine questions regarding patient records, call [phone] during business hours, M-F 8:00 AM - 5:00 PM Central Time. 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 I [facility] to live 08/18/2023 Sex and Gender Information Value Date Recorded Sex Assigned at Female 08/18/2023 1:08 PM SHIPPER AND RECEIVING Gender Identity Female 08/18/2023 1:08 PM SHIPPER AND RECEIVING Sexual Orientation Straight 08/18/2023 1: 08 PM SHIPPER AND RECEIVING Last Filed Vital Signs Vital Sign Reading [...] this topic Medical Devices Implanted Type Area Photographic Printer Device Identifier Shelf Expiration Date Model / Serial / Lot Lens Michael Ac 6.0 X 23.00 - [id number] Implanted:Qty: 1 on 05/04/2013 Ocular Lens Right: Other/Legacy - See Implant Description [employer] Description:Device Manufactu rer - [employer]. Body Location - Right. Device Status Text - [id number]. Lens Tcn [id number] Bicnvx +24.0d - [id number] - [id number] Implanted:Qty: 1 on 02/05/2021 by Luis Miguel Issa M.D. at [facility] Ocular Lens Left: Eye [employer] (Previously KIERSTEN) 11/30/2024 [id number] / [id number] / Care Teams Window Framer Relationship Specialty Start Date End Date Elsewhere, Pcp PCP - General Family Medicine 02/05/21
--- OUTSIDE RECORDS SUMMARY | 2024-05-28 23:58 | XMS_ITS | Encounter Summary ---
Author Organization [facility] Address [address] [place] [address] Care Team Providers Care Bedspread Folder Name Role Phone Elsewhere, Pcp Primary Care Provider Unavailabl e Encounter Details Date Type Department Care Team (Late st Contact Info) Description 07/13/2014 Historical Ophthalmology RST OPH Luis Miguel Issa M.D. [address] [place] [address] Social History Tobacco Use Types Packs/Day Years Used Date Smoking Tobacco: Never Assessed Sex and Gender Information Value Date Recorded Sex Assigned at Female 08/18/2023 1:08 PM DRAWING SUPERVISOR Gender Identity Female 08/18/2023 1:08 PM DRAWING SUPERVISOR Sexual Orientation Straight 08/18/2023 1: 08 PM DRAWING SUPERVISOR documented as of this encounter Progress [...] right eye CDM Reports - EYEGEN Id: [id number] Status: Fnl documented in this encounter Plan of Treatment Not on file documented as of this encounter Visit Diagnoses Not on filedocumented in this encounter Additional Health Concerns Infection Onset Date Last Indicated Resolved Time COVID19 Pending 02/01/2021 02/02/2021 02/03/2021 2 :17 PM CDT documented as of this encounter Care Teams Bedspread Folder Relationship Specialty Start Date End Date Elsewhere, Pcp PCP - General Family Medicine 02/05/21 documented as of this encounter
--- OUTSIDE RECORDS SUMMARY | 2024-05-28 23:58 | XMS_ITS | Continuity of Care Document ---
Author Organization [facility] Address [address] [place]ki JOSLYN [address] Phone Care Team Providers Care Caustic Purification Operator Name Role Phone Carline KEY, Onofre [...] [facility], [address], [place], [address], tel:[phone] No Information 3 Carline Parnell [facility] [address], [place], [address], . tel:[phone] Family History Family Member Type Diagnosis Age [...]
--- OUTSIDE RECORDS SUMMARY | 2024-05-28 23:58 | XMS_ITS | Data Portability ---
Author Organization [place] [facility] Address [address] [place] [address] Care Team Providers Care Scrubber System Attendant Name Role Phone DEIRDRE ANAID Primary Care Provider [phone] Assessment Encounter Date Assessment Date Assessment LastModified [...] as above, but may require staged procedure [email or web address] Not available 03/30/2024 18:06:44 Plan of Treatment Reminders Order Date Submit Date Provider Last Modified By Organization Details Last Modified Time Details Appointments POST OP 10 2023 01:50P M Not available Not available Not available Lab urinalysi s, dipstick 2023 024 [email or web address] [facility], [address], [place], [address], 03/30/2024 18:06:47 urinalysi s, dipstick 2023 024 [email or web address] [facility], [address], [place], [address], 04/05/2024 11:42:20 Referral None recorded. Procedures None [...] By Organization Details Last Modified Time 04/05/2024 [id number] We reviewed the available history, physical exam, [...] Abnormal Flag Note LastModifiedBy Organization Detail LastModifiedTime 03/30/2003/30/2024 urina lysis , dipst ick p.H. 5.5 Not Available [facility] [address], [place], [address], 03/30/2024 15:45:10 07/03/20 24 03/30/2024 urina lysis , dipst ick S.G. (Specific Dixie) 1.020 Not Available [facility] [address], [place], [address], 03/30/2024 15:45:10 03/30/20 24 03/30/2024 urina lysis , dipst ick LEUKOCYTES Trace (10 WBC/uL ) Not Available [facility] [address], [place], [address], 03/30/2024 15:45:10 04/05/20 24 04/05/2024 urina lysis , dipst ick BLOOD Large (250 RBC/uL ) Not Available [facility] [address], [place], [address], 04/05/2024 10:59:18 04/05/20 24 04/05/2024 urina lysis , dipst ick BILIRUBIN Negati ve Not Available [facility] [address], [place], [address], 04/05/2024 10:59:18 04/05/20 24 04/05/2024 urina lysis , dipst ick UROBILINOGEN 0.2 mg/dL (Norm) Not Available [facility] [address], [place], [address], 04/05/2024 10:59:18 04/05/20 24 04/05/2024 urina lysis , dipst ick KETONES Negati ve Not Available [facility] [address], [place], [address], 04/05/2024 10:59:18 04/05/20 24 04/05/2024 urina lysis , dipst ick PROTEIN Negati ve Not Available [facility] [address], [place], [address], 04/05/2024 10:59:18 04/05/20 24 04/05/2024 urina lysis , dipst ick NITRITES Negati ve Not Available [facility] [address], [place], [address], 04/05/2024 10:59:18 04/05/20 24 04/05/2024 urina lysis , dipst ick GLUCOSE Negati ve Not Available [facility] [address], [place], [address], 04/05/2024 10:59:18 04/05/20 24 04/05/2024 urina lysis , dipst ick p.H. 5.5 Not Available [facility] [address], [place], [address], 04/05/2024 10:59:18 04/05/20 24 04/05/2024 urina lysis , dipst ick S.G. (Specific Dixie) 1.020 Not Available [facility] [address], [place], [address], 04/05/2024 10:59:18 04/05/20 24 04/05/2024 urina lysis , dipst ick LEUKOCYTES Trace (10 WBC/uL ) Not Available [facility] [address], [place], [address], 04/05/2024 10:59:18 05/11/20 24 05/11/2024 fluor oscop y (PROC ) No observ ation record ed. [facility] [address], [place], [address], 05/11/2024 16:41:15 05/12/20 24 05/12/2024 XR, urogr am, retro grade No observ ation record ed. [email or web address] [facility] [address], [place], [address], 05/13/2024 14:57:45 05/12/20 24 05/11/2024 imagi ng/di agnos tic resul t No observ ation record ed. [email or web address] [facility] [address] [place], [address], 05/13/2024 14:57:29 Result Notes None recorded. Problems Name Problem SNOMED Code Status Onset Date Resolution Date Notes Provider Name and Address Organization Details Recorded Time Ureteric stone 29280710 Active 024 Deborah Holliday PA-C [address] [place] [address],[facility] [address], [place], [address] , [facility] 4 18:05:03 Kidney stone 56876485 Active 024 Deborah Holliday PA-C [address] [place] [address],[facility] [address], [place], [address] , [facility] 4 18:05:08 Problem Notes None recorded. Procedures Surgical History Date Name Laterality Status Provider Name and Address Organization Details Recorded Time [facility] of breast [facility] 03/30/2024 15:52:30 Imaging Results Imaging Date Name Status LastModified by Organiz ation Details LastModified Time 05/11/2024 fluoroscopy (PROC) completed [facility] [address] [place], [address], 05/11/2024 16:41:15 05/12/2024 XR, urogram, retrograde completed [email or web address] [facility] [address] [place], [address], 05/13/2024 14:57:45 05/11/2024 imaging/diagnos tic result completed [email or web address] [facility] [address] [place], [address], 05/13/2024 14:57:29 Procedure Notes None recorded. Medical Equipment None Reported. Allergies Allergen ID Allergen Name Allergen Category Reaction Reaction Severity Criticality Documentation Date Start Date Code Code System Note Provider Name and Address Organization Details Recorded Time 536884 Augmentin medicatio n Not available Not available Not available 03/30/2024 28814 2 RxNorm [facility] 4 15:48:34 141919 Substance with sulfonami de structure and antibacte rial mechanism of action (substanc e) medicatio n Not available Not available Not available 03/30/2024 08520 8003 SNOMED [facility] 4 15:48:42 485024 oxycodone medicatio n Not available Not available Not available 03/30/2024 7804 RxNorm [facility] 4 15:48:49 881919 cefdinir medicatio n Not available Not available Not available 03/30/2024 82492 RxNorm [facility] 4 15:48:56 352375 lansopraz ole medicatio n Not available Not available Not available 03/30/2024 60271 [facility] 4 15:49:02 Medications Name Sig Start [...] Address Organization Details Last Updated DateTime 03/30/2024 01142.86 g 24.2 kg/m2 167.64 cm Bouchra Lentz [facility] 03/30/2024 15:47:49 Date Recorded Body height Body mass index (BMI) Body weight Provider Name and Address Organization Details Last Updated DateTime 04/05/2024 167.64 cm 24.2 kg/m2 06773.86 g Chanda Messina [facility] 04/05/2024 10:56:32 Social History Question Answer Notes LastModified by Organizat ion Details LastModified Time Tobacco Smoking Status Former [facility] 03/30/2024 15:51:31 What Is Your Level Of Alcohol Consumption? Occasional Information not available 03/30/2024 What Is Your Level Of Caffeine Consumption? None Information not available 03/30/2024 When Did You Quit Smoking? 16+yearsblossom delgado Information not available 03/30/2024 Race White [email or web address] Information not available 04/05/2024 Ethnicity Not / [email or web address] Information not available 04/05/2024 Preferred Language Turkish [email or web address] Information not available 04/05/2024 What Was The Date Of Your Most Recent Tobacco Screening? 04/05/2024 [email or web address] Information not available 04/05/2024 Sex: Unknown Functional [...] Diagnosis/Indication Diagnosis SNOMED-CT Code Diagnosis ICD10 Code 324361 Deborah Holliday PA-C [facility] [address] [place] [address] 03/30/2024 15:36:49 04/20/2024 09:56:50 Ureteric stone 84880282 N20.1 Kidney stone 15874144 N2 0.0 015225 Reg Garrett MD [facility] [address] [place] [address] 04/05/2024 10:42:49 04/11/2024 20:43:04 Kidney stone 06517296 N20.0 Health Concerns Section Related Observation LastModified by Organization Detai ls LastModified Time None Recorded Concern Status LastModified by Organization Details LastModified Time None Recorded Advance Directives Directive None Recorded Payers Encounter Date Sequence Insurance Name Policy Number Policy Alejo Covered Member ID Alejo Member ID Guarantor Name 03/30/2024 2 mPura [id number] Melanie A Welch [id number] Melanie A Welch 03/30/2024 1 [place] [employer] [facility] Melanie A Welch [id number] Melanie A Welch 04/05/2024 2 mPura [id number] Melanie A Welch [id number] Melanie A Welch 04/05/2024 1 [place] [employer] [facility] Melanie A Welch [id number] 2 Melanie A Welch Notes Date Note Type Note Provider Name and Address Organization Details Recorded Time 03/30/2024 text/html HPI Notes: 84F with left ureteral stone and left renal stones. Here with Driss who also provides some of the history. Seen at [facility] on 03/05 for left abdominal pain. CT demonstrated 1 cm proximal left ureteral stone and 3 additional left lower pole renal stones. Today, she reports occasional left abdominal ache but denies severe abdominal or flank pain. Uses OTC pain medication rarely. Denies dysuria, gross hematuria, fever, or chills. Reports she had stones in the past and required stone surgery (possibly at [facility]?), but states this was 25 years ago. Labs: Imaging: (reviewed in [facility]) 03/05/24 CT A/P: 1 cm proximal left ureteral stone; additional 3 left lower pole renal stones up to 6-7 mm in size; no right renal stones PMH: PSH: Deborah Holliday PA-C [address], [place], [address], [facility] 03/30/2024 18:06:56 04/05/2024 text/html HPI Notes: 84F (quite healthy and robust for age) presents for large volume left kidney stones, including a 1cm left UPJ stone, recently seen by urgent care and here in clinic with JERI ASTORGA). Pain is present but minimal, first time stone event. Denies fevers/chills/dysu pat/nausea/vomitin g. CT scan Feb 2024 shows 1cm left UPJ stone, 3 additional stones in left lower pole all 6mm, thus nearly 3cm total worth of stone. Mild left hydro noted. Normal right kidney, no stones on right. Reg Garrett MD [address], [place], [address], [facility] 04/05/2024 11:45:21 OBGyn Episode No OBEpisode recorded.
--- OUTSIDE RECORDS SUMMARY | 2024-05-28 23:58 | XMS_ITS | Encounter Summary ---
Author Organization [facility] Address [address] [place] [address] Care Team Providers Care Clerical Assigner Name Role Phone Elsewhere, Pcp Primary Care Provider Unavailabl e Encounter Details Date Type Department Care Team (Late st Contact Info) Description 02/22/2015 Historical Ophthalmology RST OPH Luis Miguel Issa M.D. [address] [place] [address] Social History Tobacco Use Types Packs/Day Years Used Date Smoking Tobacco: Never Assessed Sex and Gender Information Value Date Recorded Sex Assigned at Female 08/18/2023 1:08 PM QUILL COLLECTOR Gender Identity Female 08/18/2023 1:08 PM QUILL COLLECTOR Sexual Orientation Straight 08/18/2023 1: 08 PM QUILL COLLECTOR documented as of this encounter Progress Notes [...] right eye CDM Reports - EYEGEN Id: [id number] Status: Fnl documented in this encounter Plan of Treatment Not on file documented as of this encounter Visit Diagnoses Not on filedocumented in this encounter Additional Health Concerns Infection Onset Date Last Indicated Resolved Time COVID19 Pending 02/01/2021 02/02/2021 02/03/2021 2 :17 PM CDT documented as of this encounter Care Teams Clerical Assigner Relationship Specialty Start Date End Date Elsewhere, Pcp PCP - General Family Medicine 02/05/21 documented as of this encounter
--- OUTSIDE RECORDS SUMMARY | 2024-05-28 23:58 | XMS_ITS | Referral Summary ---
Author Organization [facility] Address [address] [place] [address] Care Team Providers Care Shipping And Receiving Supervisor Name Role Phone Elsewhere, Pcp Primary Care Provider Unavailabl e Source Comments Patient records contain information from all sites at [facility]. For routine questions regarding patient records, call [phone] during business hours, M-F 8:00 AM - 5:00 PM Central Time. 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 [facility] live 08/18/2023 Sex and Gender Information Value Date Recorded Sex Assigned at Female 08/18/2023 1:08 PM MECHANICAL SYSTEMS DESIGNER Gender Identity Female 08/18/2023 1:08 PM MECHANICAL SYSTEMS DESIGNER Sexual Orientation Straight 08/18/2023 1: 08 PM MECHANICAL SYSTEMS DESIGNER Last Filed Vital Signs Vital Sign Reading [...] on file Medical Devices Implanted Type Area Sales Support Technician Device Identifier Shelf Expiration Date Model / Serial / Lot Lens Michael Ac 6.0 X 23.00 - [id number] [id number] Implanted:Qty: 1 on 05/04/2013 Ocular Lens Right: Other/Legacy - See Implant Description [employer] Description:Device Manufactu rer - [employer]. Body Location - Right. Device Status Text - [id number]. Lens Tcn [id number] Bicnvx +24.0d - [id number] - [id number] Implanted:Qty: 1 on 02/05/2021 by Luis Miguel Issa M.D. at [facility] Ocular Lens Left: Eye [employer] (Previously KIERSTEN) 11/30/2024 [id number] / [id number] / Care Teams Shipping And Receiving Supervisor Relationship Specialty Start Date End Date Elsewhere, Pcp PCP - General Family Medicine 02/05/21
--- OUTSIDE RECORDS SUMMARY | 2024-05-28 23:58 | XMS_ITS | Encounter Summary ---
Author Organization [facility] Address [address] [place] [address] Care Team Providers Care Irrigation Teacher Name Role Phone Elsewhere, Pcp Primary Care Provider Unavailabl e Encounter Details Date Type Department Care Team (Late st Contact Info) Description 06/07/2013 Historical Ophthalmology RST OPH Luis Miguel Issa M.D. [address] [place] [address] Social History Tobacco Use Types Packs/Day Years Used Date Smoking Tobacco: Never Assessed Sex and Gender Information Value Date Recorded Sex Assigned at Female 08/18/2023 1:08 PM AUDIT MGR Gender Identity Female 08/18/2023 1:08 PM AUDIT MGR Sexual Orientation Straight 08/18/2023 1: 08 PM AUDIT MGR documented as of this encounter Progress Notes [...] left eye CDM Reports - EYEGEN Id: [id number] Status: Fnl documented in this encounter Plan of Treatment Not on file documented as of this encounter Visit Diagnoses Not on filedocumented in this encounter Additional Health Concerns Infection Onset Date Last Indicated Resolved Time COVID19 Pending 02/01/2021 02/02/2021 02/03/2021 2 :17 PM CDT documented as of this encounter Care Teams Irrigation Teacher Relationship Specialty Start Date End Date Elsewhere, Pcp PCP - General Family Medicine 02/05/21 documented as of this encounter
--- OUTSIDE RECORDS SUMMARY | 2024-05-28 23:59 | XMS_ITS | Encounter Summary ---
Author Organization [facility] Address [address] [place] [address] Care Team Providers Care Senior Recruitment Consultant Name Role Phone Elsewhere, Pcp Primary Care Provider Unavailabl e Encounter Details Date Type Department Care Team (Late st Contact Info) Description 04/25/2013 Historical Ophthalmology RST OPH Luis Miguel Issa M.D. [address] [place] [address] Social History Tobacco Use Types Packs/Day Years Used Date Smoking Tobacco: Never Assessed Sex and Gender Information Value Date Recorded Sex Assigned at Female 08/18/2023 1:08 PM SUPERVISOR ADVERTISING DISPATCH CLERKS Gender Identity Female 08/18/2023 1:08 PM SUPERVISOR ADVERTISING DISPATCH CLERKS Sexual Orientation Straight 08/18/2023 1: 08 PM SUPERVISOR ADVERTISING DISPATCH CLERKS documented as of this encounter Progress Notes * Luis Miguel Issa M.D. - 04/25/2013 12:32 PM CDT Eye General CHIEF COMPLAINT complications following cataract surgery HISTORY OF PRESENT ILLNESS Retained fragment following cataract surgery right eye. Vision not clear right eye since cataract surgery. History of amblyopia right eye. Patient denies ocular pain. Floaters and occasional flashinglights right eye since surgery. BIOINFORMATICS DEVELOPER: Blurred vision right eye since cataract surgery, [...] the procedure with the patient (or legal telephone sales representative and otherspresent during the discussion). The [...] left eye CDM Reports - EYEGEN Id: [id number] Status: Fnl documented in this encounter Plan of Treatment Not on file documented as of this encounter Visit Diagnoses Not on filedocumented in this encounter Additional Health Concerns Infection Onset Date Last Indicated Resolved Time COVID19 Pending 02/01/2021 02/02/2021 02/03/2021 2 :17 PM CDT documented as of this encounter Care Teams Senior Recruitment Consultant Relationship Specialty Start Date End Date Elsewhere, Pcp PCP - General Family Medicine 02/05/21 documented as of this encounter
--- OUTSIDE RECORDS SUMMARY | 2024-05-28 23:59 | XMS_ITS | Encounter Summary ---
Author Organization [facility] Address [address] [place] [address] Care Team Providers Care Stone Banker Name Role Phone Elsewhere, Pcp Primary Care Provider Unavailabl e Encounter Details Date Type Department Care Team (Late st Contact Info) Description 04/25/2013 Historical Ophthalmology RST OPH Rachelle Rose, C.O.A. Social History Tobacco Use Types Packs/Day Years Used Date Smoking Tobacco: Never Assessed Sex and Gender Information Value Date Recorded Sex Assigned at Female 08/18/2023 1:08 PM SENIOR REPORT DEVELOPER Gender Identity Female 08/18/2023 1:08 PM SENIOR REPORT DEVELOPER Sexual Orientation Straight 08/18/2023 1: 08 PM SENIOR REPORT DEVELOPER documented as of this encounter Progress Notes * Rachelle Rose, C.O.A. - 04/25/2013 2:08 PM CDT Eye Subsequent Visit HISTORY OF PRESENT ILLNESS Preop checklist: preop instructions given, glasses read, sent for IOL measurements, informed consent form given to patient and signed by patient. CDM Reports - EYESV Id: [id number] Status: Fnl documented in this encounter Plan of Treatment Not on file documented as of this encounter Visit Diagnoses Not on filedocumented in this encounter Additional Health Concerns Infection Onset Date Last Indicated Resolved Time COVID19 Pending 02/01/2021 02/02/2021 02/03/2021 2 :17 PM CDT documented as of this encounter Care Teams Stone Banker Relationship Specialty Start Date End Date Elsewhere, Pcp PCP - General Family Medicine 02/05/21 documented as of this encounter
--- OUTSIDE RECORDS SUMMARY | 2024-05-28 23:59 | XMS_ITS | Encounter Summary ---
Author Organization [facility] Address [address] [place] [address] Care Team Providers Care Pricing Lead Name Role Phone Elsewhere, Pcp Primary Care Provider Unavailabl e Encounter Details Date Type Department Care Team (Late st Contact Info) Description 04/27/2013 Historical Ophthalmology RST OPH Luis Miguel Issa M.D. [address] [place] [address] Social History Tobacco Use Types Packs/Day Years Used Date Smoking Tobacco: Never Assessed Sex and Gender Information Value Date Recorded Sex Assigned at Female 08/18/2023 1:08 PM BOX TURNER Gender Identity Female 08/18/2023 1:08 PM BOX TURNER Sexual Orientation Straight 08/18/2023 1: 08 PM BOX TURNER documented as of this encounter Progress Notes * Luis Miguel Issa M.D. - 04/27/2013 12:37 PM CDT Eye Subsequent Visit HISTORY OF PRESENT ILLNESS Patient here for IOL measurements. CDM Reports - EYESV Id: [id number] Status: Fnl documented in this encounter Plan of Treatment Not on file documented as of this encounter Visit Diagnoses Not on filedocumented in this encounter Additional Health Concerns Infection Onset Date Last Indicated Resolved Time COVID19 Pending 02/01/2021 02/02/2021 02/03/2021 2 :17 PM CDT documented as of this encounter Care Teams Pricing Lead Relationship Specialty Start Date End Date Elsewhere, Pcp PCP - General Family Medicine 02/05/21 documented as of this encounter
== END 2024-05-26 16:01 | disposition home or self-care (01) ==
LOC: NFLDREF 05-28 23:56
PROVIDERS: PCP Internal Medicine; Referring Provider Internal Medicine; Visit Provider Internal Medicine
DX: R35.0 Frequency of micturition (principal)
CPT/HCPCS: 87086

== ENCOUNTER 2024-06-09 15:55 | Outpatient (CLI) | payer MEDICARE, OTHER, SELFPAY ==
--- OUTSIDE RECORDS SUMMARY | 2024-06-14 06:24 | XMS_ITS | Continuity of Care Document ---
Author Organization [facility] Address [address] [facility] [place] [address] Care Team Providers Care Motion Picture Set Up Worker Name Role Phone VIJAYA GILMOREHERINE Primary Care Provider [phone] Assessment Encounter Date Assessment Date Assessment LastModified [...] as above, but may require staged procedure [email or web address] Not available 03/30/2024 18:06:44 Plan of Treatment Reminders Order Date Submit Date Provider Last Modified By Organization Details Last Modified Time Details Appointments POST OP 10 2023 01:50P M Not available Not available Not available Lab urinalysi s, dipstick 2023 07 024 [email or web address] [facility], [address], [place], [address], 03/30/2024 18:06:47 Referral None recorded. Procedures None [...] Not Available [facility] [address], [place], [address], 03/30/2024 15:45:10 03/30/20 24 03/30/2024 urina lysis , dipst ick S.G. (Specific [place]) 1.020 Not Available [facility] [address], [place], [address], 03/30/2024 15:45:10 03/30/20 24 03/30/2024 urina lysis , dipst ick LEUKOCYTES Trace (10 WBC/uL ) Not Available [facility] [address], [place], [address], 03/30/2024 15:45:10 05/11/20 24 05/11/2024 fluor oscop y (PROC ) No observ ation record ed. [facility] [address], [place], [address], 05/11/2024 16:41:15 05/12/20 24 05/12/2024 XR, urogr am, retro grade No observ ation record ed. [email or web address] [facility] [address], [place], [address], 05/13/2024 14:57:45 0805/11/2024 imagi ng/di agnos tic resul t No observ ation record ed. [email or web address] [facility] [address], [place], [address], 05/13/2024 14:57:29 Result Notes None recorded. Problems Name Problem SNOMED Code Status Onset Date Resolution Date Notes Provider Name and Address Organization Details Recorded Time Ureteric stone 45292876 Active 024 Deborah Holliday PA-C [address] [place] [address],[address], [address] , [facility] 4 18:05:03 Kidney stone 39482929 Active 024 Deborah Holliday PA-C [address] [place] [address],[address], [address] , [facility] 4 18:05:08 Problem Notes None recorded. Procedures Surgical History Date Name Laterality Status Provider Name and Address Organization Details Recorded Time 5 excision of breast completed Bouchra Lentz [facility] 03/30/2024 15:52:30 Imaging Results None recorded. Procedure Notes None recorded. Medical Equipment None Reported. Allergies Allergen ID Allergen Name Allergen Category Reaction Reaction Severity Criticality Documentation Date Start Date Code Code System Note Provider Name and Address Organization Details Recorded Time 474242 Augmentin medicatio n Not available Not available Not available 03/30/2024 22754 2 RxNorm Bouchramadison bruce [facility] 4 15:48:34 419073 Substance with sulfonami de structure and antibacte rial mechanism of action (substanc e) medicatio n Not available Not available Not available 03/30/2024 94418 8003 SNOMED [facility] 4 15:48:42 740023 oxycodone medicatio n Not available Not available Not available 03/30/2024 7804 RxNorm Bouchra Lentz te[facility] 4 15:48:49 283256 cefdinir medicatio n Not available Not available Not available 03/30/2024 25203 RxNorm Bouchramadison bruce [facility] 4 15:48:56 690422 lansoprapaola limon medicatio n Not available Not available Not available 03/30/2024 25472 RxNorm Bouchra bruce[place], [place] [facility] 4 15:49:02 Medications Name [...] Address Organization Details Last Updated DateTime 03/30/2024 44518.86 g 24.2 kg/m2 167.64 cm Bouchramadison Lentz [facility] 03/30/2024 15:47:49 Social History Question Answer Notes LastModified by Organizat ion Details LastModified Time Tobacco Smoking Status Former Smoker Bouchra Lentz [facility] 03/30/2024 15:51:31 What Is Your Level Of Alcohol Consumption? Occasional Information not available 03/30/2024 What Is Your Level Of Caffeine Consumption? None Information not available 03/30/2024 When Did You Quit Smoking? 16+yearssincela sandy Information not available 03/30/2024 Race White [email or web address] Information not available 04/05/2024 Ethnicity Not / [email or web address] Information not available 04/05/2024 Preferred Language Citizen Of [place] [email or web address] Information not available 04/05/2024 What Was The Date Of Your Most Recent Tobacco Screening? 04/05/2024 [email or web address] Information not available 04/05/2024 Sex: Unknown Functional Status None recorded. Mental Status None recorded. Family History Relationship Description Onset Age of this Age Resolved Age Notes LastModified by Organization Details LastModified Time Sister Family history of breast cancer Not available 2023 15:50:46 Medical History Condition Response High Blood Pressure Y Kidney Stones Y Depression N Lung Disease N GERD/Acid Reflux Y Sexually Transmitted Infection N Cancer Y High Cholesterol N Diabetes N Bleeding Disorder N Heart Disease N Gynecological HistoryNo gynecological history recorded. Obstetrics History GPAL:G 0 P 0 0 0 0 Past Encounters Encounter ID Performer Location Encounter Start Date Encounter Closed Date Diagnosis/Indication Diagnosis SNOMED-CT Code Diagnosis ICD10 Code [id number] Deborah Holliday PA-C [facility] [address] [place] [address] 03/30/2024 15:36:49 04/20/2024 09:56:50 Ureteric stone 25990426 N20.1 Kidney stone 20869676 N2 0.0 Health Concerns Section Related Observation LastModified by Organization Detai ls LastModified Time None Recorded Concern Status LastModified by Organization Details LastModified Time None Recorded Payers Encounter Date Sequence Insurance Name Policy Number Policy Alejo Covered Member ID Alejo Member ID Guarantor Name 03/30/2024 2 [id number] Melanie A Welch [id number] Melanie A Welch 03/30/2024 1 MEDICARE [place]: [employer] [facility] Melanie A Welch [id number] 2 Melanie A Welch Notes Date Note Type Note Provider Name and Address Organization Details Recorded Time 03/30/2024 text/html HPI Notes: 84F with left ureteral stone and left renal stones. Here with Driss who also provides some of the history. Seen at [facility] on 03/05 for left abdominal pain. CT demonstrated 1 cm proximal left ureteral stone and 3 additional left lower pole renal stones. Today, she reports occasional left abdominal ache but denies severe abdominal or flank pain. Uses OTC pain medication rarely. Denies dysuria, gross hematuria, fever, or chills. Reports she had stones in the past and required stone surgery (possibly at [place]?), but states this was 25 years ago. Labs: Imaging: (reviewed in [facility]) 03/05/24 CT A/P: 1 cm proximal left ureteral stone; additional 3 left lower pole renal stones up to 6-7 mm in size; no right renal stones PMH: PSH: Deborah Holliday PA-C [address] [place] [address],[address], [place], [address], [facility] 03/30/2024 18:06:56 OBGyn Episode No OBEpisode recorded.
--- OUTSIDE RECORDS SUMMARY | 2024-06-14 06:24 | XMS_ITS | Data Portability ---
Author Organization [place] [facility] Address [address] [place] [address] Care Team Providers Care Whizzer Name Role Phone MASON ANAID Primary Care Provider [phone] Assessment Encounter Date Assessment Date Assessment LastModified [...] as above, but may require staged procedure [email or web address] Not available 03/30/2024 18:06:44 Plan of Treatment Reminders Order Date Submit Date Provider Last Modified By Organization Details Last Modified Time Details Appointments POST OP 10 2023 01:50P M Not available Not available Not available Lab urinalysi s, dipstick 2023 024 [email or web address] [facility], [address], [place], [address], 03/30/2024 18:06:47 urinalysi s, dipstick 2023 024 [email or web address] [facility], [address], [place], [address], 04/05/2024 11:42:20 Referral None recorded. Procedures None [...] By Organization Details Last Modified Time 04/05/2024 [id number] We reviewed the available history, physical exam, [...] Not Available [facility] [address], [place], [address], 03/30/2024 15:45:10 07/03/20 24 03/30/2024 urina lysis , dipst ick S.G. (Specific [place]) 1.020 Not Available [facility] [address], [place], [address], 03/30/2024 15:45:10 03/30/20 24 03/30/2024 urina lysis , dipst ick LEUKOCYTES Trace (10 WBC/uL ) Not Available [facility] [address], [place], [address], 03/30/2024 15:45:10 04/05/20 24 04/05/2024 urina lysis , dipst ick BLOOD Large (250 RBC/uL ) Not Available [facility] [address], [place], [address], 04/05/2024 10:59:18 04/05/20 24 04/05/2024 urina lysis , dipst ick BILIRUBIN Negati ve Not Available [facility] [address], [place], [address], 04/05/2024 10:59:18 04/05/20 24 04/05/2024 urina lysis , dipst ick UROBILINOGEN 0.2 mg/dL (Norm) Not Available [facility] [address], [place], [address], 04/05/2024 10:59:18 04/05/20 24 04/05/2024 urina lysis , dipst ick KETONES Negati ve Not Available [facility] [address], [place], [address], 04/05/2024 10:59:18 04/05/20 24 04/05/2024 urina lysis , dipst ick PROTEIN Negati ve Not Available [facility] [address], [place], [address], 04/05/2024 10:59:18 04/05/20 24 04/05/2024 urina lysis , dipst ick NITRITES Negati ve Not Available [facility] [address], [place], [address], 04/05/2024 10:59:18 04/05/20 24 04/05/2024 urina lysis , dipst ick GLUCOSE Negati ve Not Available [facility] [address], [place], [address], 04/05/2024 10:59:18 04/05/20 24 04/05/2024 urina lysis , dipst ick p.H. 5.5 Not Available [facility] [address], [place], [address], 04/05/2024 10:59:18 04/05/20 24 04/05/2024 urina lysis , dipst ick S.G. (Specific [place]) 1.020 Not Available [facility] [address], [place], [address], 04/05/2024 10:59:18 04/05/20 24 04/05/2024 urina lysis , dipst ick LEUKOCYTES Trace (10 WBC/uL ) Not Available [facility] [address], [place], [address], 04/05/2024 10:59:18 05/11/20 24 05/11/2024 fluor oscop y (PROC ) No observ ation record ed. [facility] [address], [place], [address], 05/11/2024 16:41:15 05/12/20 24 05/12/2024 XR, urogr am, retro grade No observ ation record ed. [email or web address] [facility] [address], [place], [address], 05/13/2024 14:57:45 05/12/20 24 05/11/2024 imagi ng/di agnos tic resul t No observ ation record ed. [email or web address] [facility] [address] [place], [address], 05/13/2024 14:57:29 Result Notes None recorded. Problems Name Problem SNOMED Code Status Onset Date Resolution Date Notes Provider Name and Address Organization Details Recorded Time Ureteric stone 64528044 Active 024 Deborah Holliday PA-C [address] [place] [address],[address], [address] , [facility] 4 18:05:03 Kidney stone 71921170 Active 024 Deborah Holliday PA-C [address] [place] [address],[facility] [address], [place], [address] , [facility] 4 18:05:08 Problem Notes None recorded. Procedures Surgical History Date Name Laterality Status Provider Name and Address Organization Details Recorded Time 5 excision of breast completed Bouchra Lentz [facility] 03/30/2024 15:52:30 Imaging Results Imaging Date Name Status LastModified by Organiz ation Details LastModified Time 05/11/2024 fluoroscopy (PROC) completed [facility] [address] [place] [address] [place], [address], 05/11/2024 16:41:15 05/12/2024 XR, urogram, retrograde completed [email or web address] [facility] [address] [place] [address] [place], [address], 05/13/2024 14:57:45 05/11/2024 imaging/diagnos tic result completed [email or web address] [place] [address] [place], [address], 05/13/2024 14:57:29 Procedure Notes None recorded. Medical Equipment None Reported. Allergies Allergen ID Allergen Name Allergen Category Reaction Reaction Severity Criticality Documentation Date Start Date Code Code System Note Provider Name and Address Organization Details Recorded Time 402544 Augmentin medicatio n Not available Not available Not available 03/30/2024 82026 2 RxNorm Bouchra bruce, [facility] 4 15:48:34 929505 Substance with sulfonami de structure and antibacte rial mechanism of action (substanc e) medicatio n Not available Not available Not available 03/30/2024 26653 8003 [facility]ED [facility] 4 15:48:42 345591 oxycodone medicatio n Not available Not available Not available 03/30/2024 7804 RxNorm [facility] 4 15:48:49 381400 cefdinir medicatio n Not available Not available Not available 03/30/2024 12367 RxNorm [facility] 4 15:48:56 732134 lansopraz ole medicatio n Not available Not available Not available 03/30/2024 00518 [facility] 4 15:49:02 Medications Name Sig [...] Address Organization Details Last Updated DateTime 03/30/2024 48354.86 g 24.2 kg/m2 167.64 cm Bouchra Lentz [facility] 03/30/2024 15:47:49 Date Recorded Body height Body mass index (BMI) Body weight Provider Name and Address Organization Details Last Updated DateTime 04/05/2024 167.64 cm 24.2 kg/m2 92384.86 g Chanda Messina [facility] 04/05/2024 10:56:32 Social History Question Answer Notes LastModified by Organizat ion Details LastModified Time Tobacco Smoking Status [facility] 03/30/2024 15:51:31 What Is Your Level Of Alcohol Consumption? Occasional Information not available 03/30/2024 What Is Your Level Of Caffeine Consumption? None Information not available 03/30/2024 When Did You Quit Smoking? 16+yearsblossom delgado Information not available 03/30/2024 Race White [email or web address] Information not available 04/05/2024 Ethnicity Not / Information not available 04/05/2024 Preferred Language Arabic [email or web address] Information not available 04/05/2024 What Was The Date Of Your Most Recent Tobacco Screening? 04/05/2024 [email or web address] Information not available 04/05/2024 Sex: Unknown Functional Status None recorded. Mental Status None recorded. Family History Relationship Description Onset Age of this Age Resolved Age Notes LastModified by Organization Details LastModified Time Sister Family history of breast cancer Not available 2023 15:50:46 Medical History Condition Response Sexually Transmitted Infection [...] Diagnosis/Indication Diagnosis SNOMED-CT Code Diagnosis ICD10 Code [id number] Deborah Holliday PA-C [facility] [address] [place] [address] 03/30/2024 15:36:49 04/20/2024 09:56:50 Ureteric stone 08676323 N20.1 Kidney stone 45631912 N2 0.0 [id number] Reg Garrett MD [facility] [address] [place] [address] 04/05/2024 10:42:49 04/11/2024 20:43:04 Kidney stone 67603595 N20.0 Health Concerns Section Related Observation LastModified by Organization Detai ls LastModified Time None Recorded Concern Status LastModified by Organization Details LastModified Time None Recorded Advance Directives Directive None Recorded Payers Encounter Date Sequence Insurance Name Policy Number Policy Alejo Covered Member ID Alejo Member ID Guarantor Name 03/30/2024 2 [employer] [id number] Melanie A Welch [id number] Melanie A Welch 03/30/2024 1 MEDICARE [facility]: [email or web address] [facility] Melanie A Welch [id number] 2 Melanie A Welch 04/05/2024 2 [employer] [id number] Melanie A Welch [id number] Melanie A Welch 04/05/2024 1 [place] [email or web address] [facility] Melanie Welch [id number] 2 Melanie Welch Notes Date Note Type Note Provider Name and Address Organization Details Recorded Time 03/30/2024 text/html HPI Notes: 84F with left ureteral stone and left renal stones. Here with Driss who also provides some of the history. Seen at [facility] on 03/05 for left abdominal pain. CT demonstrated 1 cm proximal left ureteral stone and 3 additional left lower pole renal stones. Today, she reports occasional left abdominal ache but denies severe abdominal or flank pain. Uses OTC pain medication rarely. Denies dysuria, gross hematuria, fever, or chills. Reports she had stones in the past and required stone surgery (possibly at [place]?), but states this was 25 years ago. Labs: Imaging: (reviewed in [facility]) 03/05/24 CT A/P: 1 cm proximal left ureteral stone; additional 3 left lower pole renal stones up to 6-7 mm in size; no right renal stones PMH: PSH: Deborah Holliday PA-C [address], [place], [address], [facility] 03/30/2024 18:06:56 04/05/2024 text/html HPI Notes: [...] on right. Reg Garrett MD [address], [place], [address], [facility] 04/05/2024 11:45:21 OBGyn Episode No OBEpisode recorded.
--- OUTSIDE RECORDS SUMMARY | 2024-06-14 06:24 | XMS_ITS | Continuity of Care Document ---
Author Organization [facility], [facility] Address [address] [place] [address] Care Team Providers Care Stencil Cutter Machine Name Role Phone ANAID GILMORE Primary Care Provider Assessment No assessment recorded. Plan of Treatment Reminders Order Date Submit Date Provider Last Modified By Organization Details Last Modified Time Details Appointments POST OP 10 2023 01:50P M Not available Not available Not available Lab urinalysi s, dipstick 2023 024 [email or web address] [email or web address] [facility], [address], [place], [address], 04/05/2024 11:42:20 Referral None recorded. Procedures None [...] By Organization Details Last Modified Time 04/05/2024 [id number] We reviewed the available history, physical exam, [...] Not Available [facility] [address], [place], [address], 04/05/2024 10:59:18 04/05/20 24 04/05/2024 urina lysis , dipst ick BILIRUBIN Negati ve Not Available [facility] [address], [place], [address], 04/05/2024 10:59:18 04/05/20 24 04/05/2024 urina lysis , dipst ick UROBILINOGEN 0.2 mg/dL (Norm) Not Available [facility] [address], [place], [address], 04/05/2024 10:59:18 04/05/20 24 04/05/2024 urina lysis , dipst ick KETONES Negati ve Not Available [facility] [address], [place], [address], 04/05/2024 10:59:18 04/05/20 24 04/05/2024 urina lysis , dipst ick PROTEIN Negati ve Not Available [facility] [address], [place], [address], 04/05/2024 10:59:18 04/05/20 24 04/05/2024 urina lysis , dipst ick NITRITES Negati ve Not Available [facility] [address], [place], [address], 04/05/2024 10:59:18 04/05/20 24 04/05/2024 urina lysis , dipst ick GLUCOSE Negati ve Not Available [facility] [address], [place], [address], 04/05/2024 10:59:18 04/05/20 24 04/05/2024 urina lysis , dipst ick p.H. 5.5 Not Available [facility] [address], [place], [address], 04/05/2024 10:59:18 04/05/20 24 04/05/2024 urina lysis , dipst ick S.G. (Specific Hitchcock) 1.020 Not Available [facility] [address], [place], [address], 04/05/2024 10:59:18 04/05/20 24 04/05/2024 urina lysis , dipst ick LEUKOCYTES Trace (10 WBC/uL ) Not Available [facility] [address], [place], [address], 04/05/2024 10:59:18 05/11/20 24 05/11/2024 fluor oscop y (PROC ) No observ ation record ed. [facility] [address], [place], [address], 05/11/2024 16:41:15 05/12/20 24 05/12/2024 XR, urogr am, retro grade No observ ation record ed. [email or web address] [facility] [address], [place], [address], 05/13/2024 14:57:45 05/12/20 24 05/11/2024 imagi ng/di agnos tic resul t No observ ation record ed. [email or web address] [facility] [address], [place], [address], 05/13/2024 14:57:29 Result Notes None recorded. Problems Name Problem SNOMED Code Status Onset Date Resolution Date Notes Provider Name and Address Organization Details Recorded Time Ureteric stone 41837834 Active 024 Deborah Holliday PA-C [address] [place] [address],[address], [address] , [facility] 4 18:05:03 Kidney stone 85992488 Active 024 Deborah Holliday PA-C [address] [place] [address],[address], [place], [address] , [facility] 4 18:05:08 Problem Notes None recorded. Procedures Surgical History Date Name Laterality Status Provider Name and Address Organization Details Recorded Time 5 excision of breast completed Bouchra Lentz [facility] 03/30/2024 15:52:30 Imaging Results None recorded. Procedure Notes None recorded. Medical Equipment None Reported. Allergies Allergen ID Allergen Name Allergen Category Reaction Reaction Severity Criticality Documentation Date Start Date Code Code System Note Provider Name and Address Organization Details Recorded Time 927874 Augmentin medicatio n Not available Not available Not available 03/30/2024 48655 2 [facility] 15:48[facility]34 691214 Substance with sulfonami de structure and antibacte rial mechanism of action (substanc e) medicatio n Not available Not available Not available 03/30/2024 39810 8003 [facility] 4 15:48:42 378913 oxycodone medicatio n Not available Not available Not available 03/30/2024 7804 [facility] 4 15:48:49 086753 cefdinir medicatio n Not available Not available Not available 03/30/2024 42324 RxNorm [address] [facility] 4 15:48:56 011342 lansopraz ole medicatio n Not available Not available Not available 03/30/[address] [facility] 4 15:49:02 Medications Name Sig Start Date [...] Updated DateTime 04/05/2024 167.64 cm 24.2 kg/m2 14337.86 g Chanda Messina [facility] 04/05/2024 10:56:32 Social History Question Answer Notes LastModified by Organizat ion Details LastModified Time Tobacco Smoking Status Former Smoker Bouchra rbuce [facility] 03/30/2024 15:51:31 What Is Your Level Of Alcohol Consumption? Occasional Information not available 03/30/2024 What Is Your Level Of Caffeine Consumption? None Information not available 03/30/2024 When Did You Quit Smoking? 15+yearssinpeyton delgado Information not available 03/30/2024 Race White [email or web address] Information not available 04/05/2024 Ethnicity Not / [email or web address] Information not available 04/05/2024 Preferred Language Portuguese [email or web address] Information not available 04/05/2024 What Was The Date Of Your Most Recent Tobacco Screening? 04/05/2024 [email or web address] Information not available 04/05/2024 Sex: Unknown Functional Status None recorded. Mental Status None recorded. Family History Relationship Description Onset Age of this Age Resolved Age Notes LastModified by Organization Details LastModified Time Sister Family history of breast cancer [email or web address] Not available 2023 15:50:46 Medical History Condition [...] Diagnosis/Indication Diagnosis SNOMED-CT Code Diagnosis ICD10 Code [id number] Deborah Holliday PA-C [facility] [address] [place] [address] 03/30/2024 15:36:49 04/20/2024 09:56:50 Ureteric stone 56127386 N20.1 Kidney stone 34964673 N2 0.0 [id number] Reg Garrett MD [facility] [address] [place] [address] 04/05/2024 10:42:49 04/11/2024 20:43:04 Kidney stone 05121458 N20.0 Health Concerns Section Related Observation LastModified by Organization Detai ls LastModified Time None Recorded Concern Status LastModified by Organization Details LastModified Time None Recorded Payers Encounter Date Sequence Insurance Name Policy Number Policy Alejo Covered Member ID Alejo Member ID Guarantor Name 04/05/2024 2 [employer] [id number] Melanie A Welch [id number] Melanie A Welch 04/05/2024 1 MEDICARE [place] [facility] Melanie A Welch [id number] Melanie A Welch Notes Date Note Type Note Provider Name and Address Organization Details Recorded Time 04/05/2024 text/html HPI Notes: 84F (quite healthy and robust for age) presents for large volume left kidney stones, including a 1cm left UPJ stone, recently seen by urgent care and here in clinic with JERI (TC). Pain is present but minimal, first time stone event. Denies fevers/chills/dys uria/nausea/vomit ing. CT scan Feb 2024 shows 1cm left UPJ stone, 3 additional stones in left lower pole all 6mm, thus nearly 3cm total worth of stone. Mild left hydro noted. Normal right kidney, no stones on right. Reg Garrett MD [address] [facility],[address], [place], [address], [facility] 04/05/2024 11:45:21 OBGyn Episode No OBEpisode recorded.
--- OUTSIDE RECORDS SUMMARY | 2024-06-14 06:25 | XMS_ITS | Clinical Summary ---
Author Organization [employer] [facility] Address [place], [place] [address] Care Team Providers Care Dog License Officer Supervisor Name Role Phone Elaine Paulino MD Primary Care Provider [phone] Nadya Amador MD Unavailable Unavailable Allergies Active Allergy Reactions Criticality Noted Date Comments Amoxicillin Diarrhea 05/10/2024 Amoxicillin-Pot Clavulanate Diarrhea 05/10/20 24 Sulfamethoxazole-Trimethoprim *Unknown 2023 Cefdinir *Unknown 05/10/2024 Clavulanic Acid Diarrhea 05/10/2024 From Augmentin Lansoprazole *Unknown 05/10/2024 Nitrofurantoin Diarrhea 05/10/2024 Oxycodone *Unknown 05/10/2024 Sulfamethoxazole *Unknown 05/10/2024 Trimethoprim *Unknown 05/10/2024 Medications Medication Sig Dispensed Refills Start Date End Date Status hydrochlorothiazide (HCTZ) 25 mg tablet Take 25 [...] area(s) 2 times daily if needed. Active diphenhydrAMINE-viviana taminophen 25-500 mg (Tylenol PM Extra Strength) 25-500 [...] As needed Active docusate (COLACE) 100 mg capsuleIndications: Calculus of kidney Take 1 Capsule (100 mg) by mouth 2 times daily if needed for Constipation. 30 Capsule 05/12/2024 Active oxyCODONE (ROXICODONE) 5 mg immediate release tabletIndications:C alculus of kidney Take 2 Tablets (10 mg) by mouth every 6 hours if needed for Pain. 10 Tablet 05/12/2024 Active ciprofloxacin (CIPRO) 500 mg tabletIndications:C omplicated UTI (urinary tract infection) Take 1 Tablet (500 mg) by mouth two times daily before meals for 5 days. 10 Tablet 05/22/2024 Active Problems Problem Noted Date Diagnosed Date Kidney stone on left side 05/25/2024 Irritable bowel syndrome ARTHRITIS Undiagnosed cardiac murmurs Overview (03/22/2007): gr. 10/03 Encounters Date Type Department Care Team Description 05/22/2024 1:05 PM CDT Office Visit [facility] [address] [place] [address] Katie Greenwood NP Urinary Problem (Frequency and irritation) 05/22/2024 Travel 05/12/2024 11:26 AM CDT Anesthesia Event [facility] [address] [place], [place] [id number] Danial Gaytan MD Shea, Caroline Victoria, NADIA 05/12/2024 11:07 AM CDT - 05/12/2024 12:10 PM CDT Surgery [facility] [address] [place] [address] Reg Garrett MD CYSTOSCOPY, LEFT STENT REPOSITIONING, LEFT NEPHROSTOMY TUBE REMOVAL left ureteroscopy 05/11/2024 3:50 PM CDT Anesthesia Event [facility] [address] [place] [address] Krystle Helm MD Milshteyn, Mark L, MD 05/11/2024 2:56 PM CDT - 05/11/2024 5:27 PM CDT Surgery [facility] [address] [place] [address] Reg Garrett MD LEFT PERCUTANEOUS NEPHROLITHOTOMY AND URETEROSCOPY WITH LASER 05/11/2024 10:58 AM CDT - 05/12/2024 6:15 PM CDT Hospital Encounter [facility] [address] [place] [address] eRg Garrett MD Calculus of kidney Discharge Disposition: Home Self Care 05/10/2024 Travel from Last 3 Months Immunizations Name Administration [...] for age 50+ (1 of 2) 1989 RSV vaccine for adults or (1 - 1-dose 60+ series) 1999 Medicare Wellness for age 65+ 2004 Pneumococcal series for age 65+ (1 of 1 - PCV) 2004 COVID-19 vaccine series ( - season) 2024 07/10/2023, 01/14/2022, 07/27/2021 Influenza for age 65+ 05/29/2024 08/04/2006 DEXA/DXA scan for age 65+ Completed 2020, 08/18/2019, 08/10/2017, Additional history exists Medical Devices Implanted Type Area Microbiology Teacher Device Identifier Shelf Expiration Date Model / Serial / Lot Stent Uret [id number] Contour - [id number] Implanted:Qty: 1 on 05/11/2024 by Reg Garrett MD at [facility] Left: Ureter [facility] 12/13/2026 [id number] / / [id number] Procedures Procedure Name Priority Date/Time Associated Diagnosis [...] SCAN CORRESP-LABORATORY RESULTS 05/03/2024 11:54 AM CDT XR DXA BONE DENSITY 2 SITES AXIAL Routine 07/10/2021 11:30 AM CDT 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 of central portion of left breast in female (HC) 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 current use of aromatase inhibitor from Last 3 Months or Most Recently Relevant to Health Maintenance Results * (ABNORMAL) URINALYSIS MICROSCOPIC (05/22/2024 1:05 PM CDT) RBC 26-50(A) 0-2, None Seen /HPF 05/22/2024 1:26 PM CDT [facility] WBC 6-10(A) 0-2, 3-5, None Seen /HPF 05/22/2024 1:26 PM CDT [facility] BACTERIA Few None Seen, Rare, Few Bacteria/H PF 05/22/2024 1:26 PM CDT [facility] EPITHELIAL CELLS Few None Seen, Few Epi/HPF 05/22/2024 1:26 PM CDT [facility] Urine URINE SPECIMEN / Unknown Non-Blood / Unknown 05/22/2024 1:05 PM CDT 05/22/2024 1:13 PM CDT Elizabeth Koch SALAD COUNTER ATTENDANT URINE [facility] [address] [place] [address] * URINE CULTURE [13588.2] (05/22/2024 1:05 PM CDT) CULTURE <10,000 CFU/mL multiple organisms 05/24/2024 11:22 AM CDT [facility] Urine URINE SPECIMEN / Unknown Non-Blood / Unknown 05/22/2024 1:05 PM CDT 05/22/2024 1:13 PM CDT Elizabeth Koch NP MICROBIOLOGY Performing Organization Address City/[facility]/ZIP Co de Phone Number [facility] [address] [place] [address], * (ABNORMAL) UA W/ SEDIMENT EXAM REFLEXED PER CRITERIA (UA w/ reflex micro if positive) [04956.2] (05/22/2024 1:05 PM CDT) COLOR Yellow Yellow Color 05/22/2024 1:24 PM T [facility] CLARITY Clear Clear Clarity 05/22/2024 1:24 PM T [facility] SPECIFIC GRAVITY,URINE 1.015 1.010, 1.015, 1.020, 1.025 05/22/2024 1:24 PM [facility] PH,URINE 6.5 6.0, 7.0, 8.0, 5.5, 6.5, 7.5, 8.5 05/22/2024 1:24 PM [facility] UROBILINOGEN, QUALITATIVE Normal Normal EU/dl 05/22/2024 1:24 PM [facility] PROTEIN, URINE Trace(A) Negative mg/dL 05/22/2024 1:24 PM [facility] GLUCOSE, URINE Negative Negative mg/dL 05/22/2024 1:24 PM [facility] KETONES,URINE Negative Negative mg/dL 05/22/2024 1:24 PM CDT [facility] BILIRUBIN,URI NE Negative Negative 05/22/2024 1:24 PM CDT [facility] OCCULT BLOOD,URINE Large(A) Negative 05/22/2024 1:24 PM CDT [facility] NITRITE Negative Negative 05/22/2024 1:24 PM CDT [facility] LEUKOCYTE ESTERASE Moderate(A) Negative 05/22/2024 1:24 PM CDT [facility] Urine URINE SPECIMEN / Unknown Non-Blood / Unknown 05/22/2024 1:05 PM CDT 05/22/2024 1:13 PM CDT Elizabeth Koch SALAD COUNTER ATTENDANT URINE [facility] [address] [place] [address] * XR RETROGRADE PYELOGRAM W/WO [...] 11.0 thou/cu mm 05/12/2024 6:22 AM CDT [facility] RED BLOOD COUNT 4.44 4.00 - 5.20 mil/cu mm 05/12/2024 6:22 AM CDT [facility] HEMOGLOBIN 13.5 12.0 - 16.0 g/dL 05/12/2024 6:22 AM T [facility] HEMATOCRIT 40.8 33.0 - 51.0 % 05/12/2024 6:22 AM CDT [facility] MCV 92 80 - 100 fL 05/12/2024 6:22 AM T [facility] MCH 30.4 26.0 - 34.0 pg 05/12/2024 6:22 AM T [facility] MCHC 33.1 32.0 - 36.0 g/dL 05/12/2024 6:22 AM T [facility] RDW 12.9 11.5 - 15.5 % 05/12/2024 6:22 AM CDT [facility] PLATELET COUNT 222 140 - 440 thou/cu mm 05/12/2024 6:22 AM T [facility] MPV 11.4(H) 6.5 - 11.0 fL 05/12/2024 6:22 AM [facility] NRBC 0.0 % 05/12/2024 6:22 AM T [facility] ABS NRBC 0.0 thou /cu mm 05/12/2024 6:22 AM T [facility] Blood BLOOD SPECIMEN / Unknown Venipuncture / Unknown 05/12/2024 5:08 AM CDT 05/12/2024 6:17 AM CDT Reg Garrett MD HEMATOLOGY [facility] [address] [place] [address], [place] * (ABNORMAL) Basic Metabolic Panel (05/12/2024 5:08 AM CDT) SODIUM 142 136 - 145 mmol/L 05/12/2024 6:52 AM CDT [facility] POTASSIUM 4.2 3.5 - 5.1 mmol/L 05/12/2024 6:52 AM T [facility] CHLORIDE 104 98 - 107 mmol/L 05/12/2024 6:52 AM T [facility] CO2,TOTAL 27 22 - 29 mmol/L 05/12/2024 6:52 AM T [facility] ANION GAP 11 5 - 18 05/12/2024 6:52 AM T [facility] GLUCOSE 134(H) 70 - 99 mg/dL 05/12/2024 6:52 AM T [facility] CALCIUM 8.7(L) 8.8 - 10.2 mg/dL 05/12/2024 6:52 AM T [facility] BUN 23 8 - 23 mg/dL 05/12/2024 6:52 AM T [facility] CREATININE 0.97(H) 0.50 - 0.90 mg/dL 05/12/2024 6:52 AM T [facility] BUN/CREAT RATIO 24(H) 10 - 20 6:52 AM T [facility] eGFR 57(L) >90 mL/min/1.7 3m2 05/12/2024 6:52 AM T [facility] Comment:As of 2021, eG FR [...] 6:23 AM CDT Reg Garrett MD CHEMISTRY [facility] [address] [place] [address], [place] * XR C-ARM GREATER 1 HR (05/11/2024 7:25 PM CDT) Anatomical Region Laterality Modality Other Narrative 05/11/2024 4:05 PM CDT 1 minute 49 seconds fluoroscopy time was provided. ??See operative/procedure report for further information. Reg Garrett MD FLUOROSCOP Y * STONE ANALYSIS (05/11/2024 6:11 PM CDT) Source Comment 05/21/2024 3:08 PM CDT [facility] Comment:Not provided Color Bah 05/21/2024 3:08 PM CDT [facility] Size 4x3 mm 05/21/2024 3:08 PM CDT [facility] ([facility]) Comment: Multiple pieces received. ??Dimensions of the largest piece reported. Weight 21 mg 05/21/2024 3:08 PM CDT [facility] Composition Comment 05/21/2024 3:08 PM CDT [facility] ([facility] Comment:Percentage (Represen ts the % composition) Calcium Oxalate Monoh 60 % 05/21/2024 3:08 PM CDT [facility] Calcium Oxalate Dihyd 40 % 05/21/2024 3:08 PM CDT [facility] Comment Comment 05/21/2024 3:08 PM T [facility] ([facility]) Comment: Calculus received wet. Wet calculi must be dried before analysis, which delays reporting of results. Leaving calculi wet (such as water, saline, blood, urine) may lead to changes in composition. Photo Comment 05/21/2024 3:08 PM CDT [facility] ([facility]) Comment:Photograph will foll ow under a separate cover Comment: Comment 05/21/2024 3:08 PM CDT [facility] ([facility]) Comment: Physician questions regarding Calculi Analysis contact [facility] at: [phone]. Please note: Comment 05/21/2024 3:08 PM CDT [facility] ([facility]) Comment: Calculi report will follow via computer, mail or can vacuum tester delivery. Disclaimer: Comment 05/21/2024 3:08 PM CDT [facility] ([facility]) Comment: This test was developed and its performance characteristics determined by [facility]. ??It has not been cleared or approved by the Food and Drug Administration. Calculi (stone) (Left Ureter Stone) Non-Blood / Unknown 05/11/2024 6:11 PM CDT 05/12/2024 9:43 AM CDT Narrative [facility] ([facility]) - 05/21/2024 3:08 PM CDT Performed at: ??[address] ??[id number] Buildings And Grounds Superintendent: Paris Miramontes PhD, Phone: ??[phone] Reg Garrett MD SEND OUTS [facility] ([facility]) [address] [place] [address], * HCHG TUBE PR1, HCHG STYLET PR1 [...] antegrade nephrostogram with placement of a 8 Honduran sheath with tip position distal to the obstruction within the mid ureter. Please contact me with any questions. Ward Randall MD Vascular & Interventional Radiology [facility] [phone] [email or web address] Reg Garrett MD IR * TYPE & SCREEN (05/11/2024 12:34 PM CDT) ABORH O Rh Positive 05/11/2024 1:52 PM CDT [facility] B[facility]OD BANK ANTIBODY SCREEN Negative Negative 05/11/2024 1:52 PM CDT [facility] B[facility] SPECIMEN EXPIRATION DATE/TIME 05/14/24 23:59 05/11/2024 1:52 PM CDT [facility] Blood BLOOD SPECIMEN / Unknown Venipuncture / Unknown 05/11/2024 12:34 PM CDT 05/11/2024 12:56 PM CDT [facility] [address] [place] [address], * (ABNORMAL) Platelet Count (05/11/2024 12:34 PM CDT) [facility] PLATELET COUNT 239 140 - 440 thou/cu mm 05/11/2024 1:10 PM CDT [facility] MPV 11.2(H) 6.5 - 11.0 fL 05/11/2024 1:10 PM CDT [facility] Blood BLOOD SPECIMEN / Unknown Venipuncture / Unknown 05/11/2024 12:34 PM CDT 05/11/2024 12:56 PM CDT Danial Velazquez MD HEMATOLOGY [facility] [address] [place] [address], * Hemoglobin (05/11/2024 12:34 PM CDT) [facility] HEMOGLOBIN 14.3 12.0 - 16.0 g/dL 05/11/2024 1:10 PM CDT [facility] MCV 91 80 - 100 fL 05/11/2024 1:10 PM CDT [facility] Blood BLOOD SPECIMEN / Unknown Venipuncture / Unknown 05/11/2024 12:34 PM CDT 05/11/2024 12:56 PM CDT Danial Velazquez MD HEMATOLOGY [facility] [address] [place] [address], * (ABNORMAL) Creatinine (05/11/2024 12:34 PM CDT) Pathologist [facility] eGFR 70(L) >90 mL/min/1.7 3m2 05/11/2024 1:22 PM CDT [facility] Comment:As of 2021, eG FR is calculated by the CKD-EPI creatinine equation without race adjustment. ??eGFR can be influenced by muscle mass, exercise, and diet. ??The reported eGFR is an estimation only and is only applicable if the renal function is stable. CREATININE 0.82 0.50 - 0.90 mg/dL 05/11/2024 1:22 PM CDT [facility] Blood BLOOD SPECIMEN / Unknown Venipuncture / Unknown 05/11/2024 12:34 PM CDT 05/11/2024 12:56 PM CDT Danial Velazquez MD CHEMISTRY Performing Organization Address City/[facility] Co de Phone Number [facility] [address] [place] [address], * Protime-INR (05/11/2024 12:34 PM CDT) INR 1.1 <1.3 05/11/2024 1:10 PM CDT [facility] PROTIME 12.2 10.3 - 12.3 sec 05/11/2024 1:10 PM CDT [facility] Blood BLOOD SPECIMEN / Unknown Venipuncture / Unknown 05/11/2024 12:34 PM CDT 05/11/2024 12:56 PM CDT Narrative [facility] - 05/11/2024 1:10 PM CDT ?Therapeutic [...] is on UFH. Danial Velazquez MD HEMATOLOGY Performing Organization Address City/[facility] Co de Phone Number [facility] [address] [place] [address], * SCAN-CARDIAC STRIP (05/11/2024 12:00 AM CDT) [...] unspecified provider. Other Clinical Staff OTHER * (ABNORMAL) XR DXA BONE DENSITY 2 [...] a more recent DXA scan done at [facility] in 2019, unable to trend by machine. ??However, the values are consistent with last check showing minimal if any decline in the lumbar spine. ?? Repeat scan recommended in 2-3 years. Mariela Kirkland PA-C [facility] 07/16/2021 Narrative 07/16/2021 1:14 PM CDT For Patients: Results are automatically released to your [employer] account once available, in compliance with federal regulations. This means that you may see your results before your provider has had a chance to review them. Please allow 2-3 business days for your provider to comment on the results. XR DXA Bone Mineral Density (BMD) EXAM LOCATION: [address] [id number] PATIENT NAME: MELANEI WELCH DATE OF : 1940 EXAM DATE: [...] two scanners are made by the same galley cook. PROCEDURE: Dual-energy x-ray absorptiometry performed with routine [...] 10:36 AM 06/08/2015 8:31 PM Care Teams Dog License Officer Supervisor Relationship Specialty Start Date End Date Elaine Paulino MD [address] [place] [address] PCP - General Internal Medicine 05/22/15 Nadya Amador MD [address] [place] [address] General Surgery Surgery - General 05/23/15
--- OUTSIDE RECORDS SUMMARY | 2024-06-14 06:25 | XMS_ITS | Clinical Summary ---
Author Organization [facility] Address [address] [place] [address] Care Team Providers Care Contract Coordinator Name Role Phone Elaine Paulino MD Primary [...] file Medical Devices Implanted Type Area Manager Group Home Device Identifier Shelf Expiration Date Model / Serial / Lot Bone Cement Simplex W/Tobramycin [id number] Implanted:Qty: 1 on 09/13/2019 by Crystal Ortez MD at [facility] Cement, Bone Right: Knee [employer] 03/27/2021 [id number] / / [id number] Bone Cement Simplex Full Dose [id number] Implanted:Qty: 1 on 03/29/2020 by Crystal Ortez MD at [facility] Cement, Bone Left: Knee [employer] 11/25/2021 [id number] / / [id number] Patella Round Dome, 35mm Implanted:Qty: 1 on 09/13/2019 by Crystal Ortez MD at [facility] Total Joint Component /Insert Right: Knee Depuy 02/26/2024 [id number] / / [id number] Imp Comp Tibtry Sgm 2 Kn Cocr [id number] Implanted:Qty: 1 on 09/13/2019 by Crystal Ortez MD at [facility] Total Joint Component /Insert Right: Knee [employer] 06/27/2028 0 / / [id number] Femoral Posterior Stabilized Cemented, Size 2.5 Right Implanted:Qty: 1 on 09/13/2019 by Crystal Ortez MD at [facility] Total Joint Component /Insert Right: Knee Depuy 10/28/2028 0 / / [id number] [id number] Sigma Tibial Insert Fixed Bearing Stabilized 2, 8mm Implanted:Qty: 1 on 09/13/2019 by Crystal Ortez MD at [facility] Total Joint Component /Insert Right: Knee Depuy 01/25/2023 8 / / [id number] Imp Comp Fem Depuy Post Stab Sigma Sz 2.5 Lt 40-250 Implanted:Qty: 1 on 03/29/2020 by Crystal Ortez MD at [facility] Total Joint Component /Insert Left: Knee J 06/27/2029 0 / / [id number] Imp Comp Tibtry Sgm 2 Kn Cocr [id number] Implanted:Qty: 1 on 03/29/2020 by Crystal Ortez MD at [facility] Total Joint Component /Insert Left: Knee [employer] 08/27/2028 0 / / [id number] P.F.C. Sigma Tibial Insert Fixed Bearing Stabilized, 2, 10mm Implanted:Qty: 1 on 03/29/2020 by Crystal Ortez MD at [facility] Left: Knee Depuy 07/28/2021 0 / / [id number] Patella Round Dome, 35mm Implanted:Qty: 1 on 03/29/2020 by Crystal Ortez MD at [facility] Left: Knee Depuy 05/28/2024 [id number] / / [id number] Advance Directives For more information, please contact: [phone] Documents on File Type Date Recorded Patient English Instructor Expl anation Advance Directives and Living Will 04/04/2020 10:47 AM Health Care Directiv e 03/23/2020 Healthcare Agents on File Name Relationship Healthcare Agent Amanda puente Communication Driss Welch Spouse Health Care Agent Sonu Welch Son Co-First Alterna te Health Care Agent Mateo Welch Son Co-First Alterna te Health Care Agent Care Teams Contract Coordinator Relationship Specialty Start Date [place] [address] PCP - General Internal Medicine 09/13/19
--- OUTSIDE RECORDS SUMMARY | 2024-06-14 06:25 | XMS_ITS | Clinical Summary ---
Author Organization [facility] Address [address] [place] [address] Care Team Providers Care Gin Inspector Name Role Phone Elsewhere, Pcp Primary Care Provider Unavailabl e Source Comments Patient records contain information from all sites at [facility]. For routine questions regarding patient records, call [phone] during business hours, M-F 8:00 AM - 5:00 PM Central Time. 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 Resolved Problems Problem Noted Date Diagnosed Date Resolved Date Cataract 07/13/2014 01/17/2021 Immunizations Name Administration Dates Next Due H1N1 All Forms 09/06/2009 Influenza TIV (IM) 08/04/2006 Influenza high dose QV(65 ye ars or older) (PF) 07/10/2023,07/16/2022,07/17/2021 Influenza, Seasonal, Injectable 08/04/20 06,08/14/2005,07/13/2004, 003 PCV13 04/26/2015 PPSV23 08/14/2010 RZV (SHINGRIX) 08/24/2020,06/05/2020 SARS-COV-2 (COVID-19) - MODE RNA BIVALENT(Discontinued) 06/20/2022 SARS-COV-2 (COVID-19) - MODERNA(Discontinued) 06/20/2022,11/28/2020,10/27/2020 Td (Adult), adsorbed 08/30/2019 influenza trivalent high dos e (HD)(PF) 07/26/2019,08/04/2017,07/30/2015, 014 influenza trivalent vaccine (6 months and older)(PF) 07/26/2013,07/22/2012,08/04/2011, 010 influenza vaccine quad (FLUZONE/FLUARIX) (6 months and older)(PF) 07/26/2019,08/03/2018,08/04/2017, 015,08/03/2014,07/26/2013,07/22/2012,03/2011,07/24/2010,09/06/2009,08/04/2006 ,08/14/2005,07/13/2004,08/05/2003 Social History Tobacco Use Types Packs/Day Years [...] your living situation today? I have a [facility] place to live 08/18/2023 Sex and Gender Information Value Date Recorded Sex Assigned at Female 08/18/2023 1:08 PM VENTILATED RIB FITTER Gender Identity Female 08/18/2023 1:08 PM VENTILATED RIB FITTER Sexual Orientation Straight 08/18/2023 1: 08 PM VENTILATED RIB FITTER Last Filed Vital Signs Vital Sign Reading [...] Fasting Glucose for Diabetes Screening 03/30/2021 03/30/2020 Depression Screening (Annual PHQ-2) 09/28/2023 Fall Risk Screen (Annual) 09/28/2023 COVID-19 Vaccine (24 season) 2024 07/10/2023, 06/20/2022, 06/20/2022, Additional history exists Influenza Vaccine (#1) 2024 , 07/16/2022, 07/17/2021, Additional history exists Pneumococcal vaccine (65+ years) Completed 04/26/2015, 08/14/2010 Zoster Vaccines Completed 08/24/2020, 06/05/2020 HPV Vaccines Aged Out No longer eligi ble based on patient's age to complete this topic Medical Devices Implanted Type Area Cold Roll Packer Sheet Iron Device Identifier Shelf Expiration Date Model / Serial / Lot Lens Michael Ac 6.0 X 23.00 - Kaur [id number] Implanted:Qty: 1 on 05/04/2013 Ocular Lens Right: Other/Legacy - See Implant Description [employer] Description:Device Manufactu rer - [employer]. Body Location - Right. Device Status Text - [id number]. Lens Tcn [id number] +24.0d - [id number] - [id number] Implanted:Qty: 1 on 02/05/2021 by Luis Miguel Issa M.D. at [facility] Ocular Lens Left: Eye [employer] (Previously KIERSTEN) 11/30/2024 [id number] / [id number] / Care Teams Gin Inspector Relationship Specialty Start Date End Date Elsewhere, Pcp PCP - General Family Medicine 02/05/21
--- OUTSIDE RECORDS SUMMARY | 2024-06-14 06:25 | XMS_ITS | Encounter Summary ---
Author Organization [facility] Address [address] [place] [address] Care Team Providers Care Surveillance Sensor Operator Name Role Phone No Ref-Primary, Physician Primary Care Provider Elaine Paulino MD Primary Care Provider [phone] Encounter Details Date Type Department Care Team (Late st Contact Info) Description 07/27/2019 Orders Only [facility] [address] [place] [phone] Crystal Ortez MD [facility] [address] [place] [address] [id number] Pre-operative laboratory examination (Primary Dx) Social History [...] Specimen Description Nares 07/28/2019 1:20 PM CDT [facility] Methicillin Resist/Sens S. aureus PCR Negative NEG^Negat hortencia 07/28/2019 5:55 PM CDT [facility] Comment: MRSA Negative: SA Negative ??MRSA and Staphylococcus aureus target DNA not detected, presumed negative for MRSA and SA colonization or the number of bacteria present may be below the limit of detection for the assay. FDA approved assay performed using [employer] GeneXpert(R) real-time PCR. Nasal structure (body structure) 07/28/2019 12:10 PM CDT 07/28/2019 1:20 PM CDT Crystal Ortez MD LAB - MICRO GENERAL ORDERABLES Performing Organization Address City/State/[facility] Co de Phone Number [facility] [address] [place], [place] [id number] [place] [address] [address] [id number] [phone] documented in this encounter Visit Diagnoses Diagnosis Pre-operative laboratory examination- Primary Pre-procedural laboratory examination documented in this encounter Care Teams Surveillance Sensor Operator Relationship Specialty Start Date End Date No Ref-Primary, Physician PCP - General 07/28/19 09/12/19 Elaine Paulino MD [facility] [address] [place] [address] PCP - General Internal Medicine 09/13/19 documented as of this encounter
--- OUTSIDE RECORDS SUMMARY | 2024-06-14 06:25 | XMS_ITS ---
Author Organization [facility] Address [address] [place] [address] Care Team Providers Care Sports Team Manager Name Role Phone Unavailable Unavailable Unavailable Surgery Details Not on file Complications Check Surgery Details section. Procedure Estimated Blood Loss Check Surgery Details section. Procedure Findings Check Surgery Details section. Procedure Specimens Taken Check Surgery Details section.
--- OUTSIDE RECORDS SUMMARY | 2024-06-14 06:25 | XMS_ITS | Encounter Summary ---
Author Organization [facility] Address [address] [place] [address] Care Team Providers Care Field Merchandiser Name Role Phone Elsewhere, Pcp Primary Care Provider Unavailabl e Encounter Details Date Type Department Care Team (Late st Contact Info) Description 02/22/2015 Historical Ophthalmology [facility] Luis Miguel Issa M.D. [address] [place] [address] Social History Tobacco Use Types Packs/Day Years Used Date Smoking Tobacco: Never Assessed Sex and Gender Information Value Date Recorded Sex Assigned at Female 08/18/2023 1:08 PM EDUCATION FACULTY MEMBER Gender Identity Female 08/18/2023 1:08 PM EDUCATION FACULTY MEMBER Sexual Orientation Straight 08/18/2023 1: 08 PM EDUCATION FACULTY MEMBER documented as of this encounter Progress Notes [...] right eye CDM Reports - EYEGEN Id: [id number] Status: Fnl documented in this encounter Plan of Treatment Not on file documented as of this encounter Visit Diagnoses Not on filedocumented in this encounter Additional Health Concerns Infection Onset Date Last Indicated Resolved Time COVID19 Pending 02/01/2021 02/02/2021 02/03/2021 2 :17 PM CDT documented as of this encounter Care Teams Field Merchandiser Relationship Specialty Start Date End Date Elsewhere, Pcp PCP - General Family Medicine 02/05/21 documented as of this encounter
--- OUTSIDE RECORDS SUMMARY | 2024-06-14 06:25 | XMS_ITS | Continuity of Care Document ---
Author Organization [facility] Address [address] [place] [address] Phone Care Team Providers Care Collections Associate Name Role Phone Carline KEY, Onofre Unavailable [...] [facility], [address], [place], [address], tel:[phone] No Information 3 Carline Parnell [facility] [address], [place], [address], . tel:[phone] Family History Family Member Type Diagnosis Age At Onset No Information Payers Payer name Insurance type Covered alliance party ID Authoriza tion(s) No Information Social [...]
--- OUTSIDE RECORDS SUMMARY | 2024-06-14 06:25 | XMS_ITS | Encounter Summary ---
Author Organization [facility] Address [address] [place] [address] Care Team Providers Care Maintenance Data Analyst Name Role Phone Elsewhere, Pcp Primary Care Provider Unavailabl e Encounter Details Date Type Department Care Team (Late st Contact Info) Description 06/07/2013 Historical Ophthalmology [facility] Luis Miguel Issa M.D. [address] [place] [address] Social History Tobacco Use Types Packs/Day Years Used Date Smoking Tobacco: Never Assessed Sex and Gender Information Value Date Recorded Sex Assigned at Female 08/18/2023 1:08 PM BUILDING SERVICES SUPERVISOR Gender Identity Female 08/18/2023 1:08 PM BUILDING SERVICES SUPERVISOR Sexual Orientation Straight 08/18/2023 1: 08 PM BUILDING SERVICES SUPERVISOR documented as of this encounter Progress [...] left eye CDM Reports - EYEGEN Id: [id number] Status: Fnl documented in this encounter Plan of Treatment Not on file documented as of this encounter Visit Diagnoses Not on filedocumented in this encounter Additional Health Concerns Infection Onset Date Last Indicated Resolved Time COVID19 Pending 02/01/2021 02/02/2021 02/03/2021 2 :17 PM CDT documented as of this encounter Care Teams Maintenance Data Analyst Relationship Specialty Start Date End Date Elsewhere, Pcp PCP - General Family Medicine 02/05/21 documented as of this encounter
--- OUTSIDE RECORDS SUMMARY | 2024-06-14 06:25 | XMS_ITS | Encounter Summary ---
Author Organization [facility] Address [address] [place] [address] Care Team Providers Care Industrial Relations Commissioner Name Role Phone Elsewhere, Pcp Primary Care Provider Unavailabl e Encounter Details Date Type Department Care Team (Late st Contact Info) Description 04/27/2013 Historical Ophthalmology [facility] Luis Miguel Issa M.D. [address] [place] [phone] Social History Tobacco Use Types Packs/Day Years Used Date Smoking Tobacco: Never Assessed Sex and Gender Information Value Date Recorded Sex Assigned at Female 08/18/2023 1:08 PM DIESEL TRUCK MECHANIC Gender Identity Female 08/18/2023 1:08 PM DIESEL TRUCK MECHANIC Sexual Orientation Straight 08/18/2023 1: 08 PM DIESEL TRUCK MECHANIC documented as of this encounter Progress Notes * Luis Miguel Issa M.D. - 04/27/2013 12:37 PM CDT Eye Subsequent Visit HISTORY OF PRESENT ILLNESS Patient here for IOL measurements. CDM Reports - EYESV Id: [id number] Status: Fnl documented in this encounter Plan of Treatment Not on file documented as of this encounter Visit Diagnoses Not on filedocumented in this encounter Additional Health Concerns Infection Onset Date Last Indicated Resolved Time COVID19 Pending 02/01/2021 02/02/2021 02/03/2021 2 :17 PM CDT documented as of this encounter Care Teams Industrial Relations Commissioner Relationship Specialty Start Date End Date Elsewhere, Pcp PCP - General Family Medicine 02/05/21 documented as of this encounter
--- OUTSIDE RECORDS SUMMARY | 2024-06-14 06:25 | XMS_ITS | Referral Summary ---
Author Organization [facility] Address [address] [place] [address] Care Team Providers Care All Source Intelligence Technician Name Role Phone Elsewhere, Pcp Primary Care Provider Unavailabl e Source Comments Patient records contain information from all sites at [facility]. For routine questions regarding patient records, call [phone] during business hours, M-F 8:00 AM - 5:00 PM Central Time. Record requests for emergency care only can be directed to [phone] at any time.[facility] Allergies Active Allergy Reactions Criticality Noted Date [...] (01/17/2021): Added automatically from request for surgery [id number] Arthroplasty Total Knee Replacement Status Post Bilateral [...] your living situation today? [facility] have a [facility] place to live 08/18/2023 Sex and Gender Information Value Date Recorded Sex Assigned at Female 08/18/2023 1:08 PM STOCK HANGER Gender Identity Female 08/18/2023 1:08 PM STOCK HANGER Sexual Orientation Straight 08/18/2023 1: 08 PM STOCK HANGER Last Filed Vital Signs Vital Sign Reading [...] on file Medical Devices Implanted Type Area Topography Technician Device Identifier Shelf Expiration Date Model / Serial / Lot Lens Michael Ac 6.0 X 23.00 - [id number] Implanted:Qty: 1 on 05/04/2013 Ocular Lens Right: Other/Legacy - See Implant Description [employer] Description:Device Manufactu rer - [employer]. Body Location - Right. Device Status Text - [id number]. Lens Tcn [id number] Bicnvx +24.0d - [id number] - [id number] Implanted:Qty: 1 on 02/05/2021 by Luis Miguel Issa M.D. at [facility] Ocular Lens Left: Eye [employer] (Previously KIERSTEN) 11/30/2024 [id number] / [id number] / Care Teams All Source Intelligence Technician Relationship Specialty Start Date End Date Elsewhere, Pcp PCP - General Family Medicine 02/05/21
--- OUTSIDE RECORDS SUMMARY | 2024-06-14 06:25 | XMS_ITS | Encounter Summary ---
Author Organization [facility] Address [address] [place] [address] Care Team Providers Care Data Communications Engineer Name Role Phone Elsewhere, Pcp Primary Care Provider Unavailabl e Encounter Details Date Type Department Care Team (Late st Contact Info) Description 04/25/2013 Historical Ophthalmology [facility] Luis Miguel Issa M.D. [address] [place] [address] Social History Tobacco Use Types Packs/Day Years Used Date Smoking Tobacco: Never Assessed Sex and Gender Information Value Date Recorded Sex Assigned at Female 08/18/2023 1:08 PM RETORT LOADER Gender Identity Female 08/18/2023 1:08 PM RETORT LOADER Sexual Orientation Straight 08/18/2023 1: 08 PM RETORT LOADER documented as of this encounter Progress Notes * Luis Miguel Issa M.D. - 04/25/2013 12:32 PM CDT Eye General CHIEF COMPLAINT complications following cataract surgery HISTORY OF PRESENT ILLNESS Retained fragment following cataract surgery right eye. Vision not clear right eye since cataract surgery. History of amblyopia right eye. Patient denies ocular pain. Floaters and occasional flashinglights right eye since surgery. PASTE PLANT SUPERVISOR: Blurred vision right eye since cataract surgery, [...] the procedure with the patient (or legal contact representative and otherspresent during the discussion). The [...] left eye CDM Reports - EYEGEN Id: [id number] Status: Fnl documented in this encounter Plan of Treatment Not on file documented as of this encounter Visit Diagnoses Not on filedocumented in this encounter Additional Health Concerns Infection Onset Date Last Indicated Resolved Time COVID19 Pending 02/01/2021 02/02/2021 02/03/2021 2 :17 PM CDT documented as of this encounter Care Teams Data Communications Engineer Relationship Specialty Start Date End Date Elsewhere, Pcp PCP - General Family Medicine 02/05/21 documented as of this encounter
--- OUTSIDE RECORDS SUMMARY | 2024-06-14 06:25 | XMS_ITS | Encounter Summary ---
Author Organization [facility] Address [address] [place] [address] Care Team Providers Care Patient Registration Supervisor Name Role Phone Elsewhere, Pcp Primary Care Provider Unavailabl e Encounter Details Date Type Department Care Team (Late st Contact Info) Description 04/25/2013 Historical Ophthalmology [facility] Rachelle Rose, C.O.A. Social History Tobacco Use Types Packs/Day Years Used Date Smoking Tobacco: Never Assessed Sex and Gender Information Value Date Recorded Sex Assigned at Female 08/18/2023 1:08 PM BONER MEAT Gender Identity Female 08/18/2023 1:08 PM BONER MEAT Sexual Orientation Straight 08/18/2023 1: 08 PM BONER MEAT documented as of this encounter Progress Notes * Rachelle Rose, C.O.A. - 04/25/2013 2:08 PM CDT Eye Subsequent Visit HISTORY OF PRESENT ILLNESS Preop checklist: preop instructions given, glasses read, sent for IOL measurements, informed consent form given to patient and signed by patient. CDM Reports - EYESV Id: [id number] Status: Fnl documented in this encounter Plan of Treatment Not on file documented as of this encounter Visit Diagnoses Not on filedocumented in this encounter Additional Health Concerns Infection Onset Date Last Indicated Resolved Time COVID19 Pending 02/01/2021 02/02/2021 02/03/2021 2 :17 PM CDT documented as of this encounter Care Teams Patient Registration Supervisor Relationship Specialty Start Date End Date Elsewhere, Pcp PCP - General Family Medicine 02/05/21 documented as of this encounter
--- OUTSIDE RECORDS SUMMARY | 2024-06-14 06:25 | XMS_ITS | Encounter Summary ---
Author Organization [facility] Address [address] [place] [address] Care Team Providers Care Director Clinical Pharmacology Name Role Phone Elsewhere, Pcp Primary Care Provider Unavailabl e Encounter Details Date Type Department Care Team (Late st Contact Info) Description 07/13/2014 Historical Ophthalmology [facility] Luis Miguel Issa M.D. [address] [place] [address] Social History Tobacco Use Types Packs/Day Years Used Date Smoking Tobacco: Never Assessed Sex and Gender Information Value Date Recorded Sex Assigned at Female 08/18/2023 1:08 PM RAMP BOSS Gender Identity Female 08/18/2023 1:08 PM RAMP BOSS Sexual Orientation Straight 08/18/2023 1: 08 PM RAMP BOSS documented as of this encounter Progress Notes [...] right eye CDM Reports - EYEGEN Id: [id number] Status: Fnl documented in this encounter Plan of Treatment Not on file documented as of this encounter Visit Diagnoses Not on filedocumented in this encounter Additional Health Concerns Infection Onset Date Last Indicated Resolved Time COVID19 Pending 02/01/2021 02/02/2021 02/03/2021 2 :17 PM CDT documented as of this encounter Care Teams Director Clinical Pharmacology Relationship Specialty Start Date End Date Elsewhere, Pcp PCP - General Family Medicine 02/05/21 documented as of this encounter
--- OUTSIDE RECORDS SUMMARY | 2024-06-14 06:25 | XMS_ITS | Referral Summary ---
Author Organization [facility] Address [address] [place] [address] Care Team Providers Care Drug And Alcohol Treatment Specialist Name Role Phone Elaine Paulino MD Primary [...] on file Medical Devices Implanted Type Area Order Checker Packer Processer Device Identifier Shelf Expiration Date Model / Serial / Lot Bone Cement Simplex W/Tobramycin [id number] Implanted:Qty: 1 on 09/13/2019 by Crystal Ortez MD at [facility] Cement, Bone Right: Knee [employer] 03/27/2021 [id number] / / [id number] Bone Cement Simplex Full Dose [id number] Implanted:Qty: 1 on 03/29/2020 by Crystal Ortez MD at [facility] Cement, Bone Left: Knee [employer] 11/25/2021 [id number] / / [id number] Patella Round Dome, 35mm Implanted:Qty: 1 on 09/13/2019 by Crystal Ortez MD at [facility] Total Joint Component /Insert Right: Knee Depuy 02/26/2024 96-0111 / / [id number] Imp Comp Tibtry Sgm 2 Kn Cocr -000 Implanted:Qty: 1 on 09/13/2019 by Crystal Ortez MD at [facility] Total Joint Component /Insert Right: Knee [employer]- 06/27/2028 0 / / [id number] Femoral Posterior Stabilized Cemented, Size 2.5 Right Implanted:Qty: 1 on 09/13/2019 by Crystal Ortez MD at [facility] Total Joint Component /Insert Right: Knee Depuy 10/28/2028 0 / / [id number] Pfc Sigma Tibial Insert Fixed Bearing Stabilized 2, 8mm Implanted:Qty: 1 on 09/13/2019 by Crystal Ortez MD at [facility] Total Joint Component /Insert Right: Knee Depuy 01/25/2023 8 / / [id number] Imp Comp Fem Depuy Post Stab Sigma Sz 2.5 Lt 40 Implanted:Qty: 1 on 03/29/2020 by Crystal Ortez MD at [facility] Total Joint Component /Insert Left: Knee J 06/27/2029 0 / / [id number] Imp Comp Tibtry Sgm 2 Kn Cocr [id number] Implanted:Qty: 1 on 03/29/2020 by rCystal Ortez MD at [facility] Total Joint Component /Insert Left: Knee [employer] 08/27/2028 0 / / [id number] P.F.C. Sigma Tibial Insert Fixed Bearing Stabilized, 2, 10mm Implanted:Qty: 1 on 03/29/2020 by Crystal Ortez MD at [facility] Left: Knee Depuy 07/28/2021 0 / / [id number] Patella Round Dome, 35mm Implanted:Qty: 1 on 03/29/2020 by Crystal Ortez MD at [facility] Left: Knee Depuy 05/28/2024 96-0111 / / [id number] Advance Directives For more information, please contact: [phone] Documents on File Type Date Recorded Patient Outside Salesman Expl anation Advance Directives and Living Will 04/04/2020 10:47 AM Health Care Directiv e 03/23/2020 Healthcare Agents on File Name Relationship Healthcare Agent Amanda puente Communication Driss Welch Spouse Health Care Agent Sonu Welch Son Co-First Alterna te Health Care Agent Mateo Welch Son Co-First Alterna te Health Care Agent Care Teams Drug And Alcohol Treatment Specialist Relationship Specialty Start Date End Date Helgen, Elaine, [place] [address] PCP - General Internal Medicine 09/13/19
--- OUTSIDE RECORDS SUMMARY | 2024-06-14 06:25 | XMS_ITS | Encounter Summary ---
Author Organization [facility] Address [address] [place] [address] Care Team Providers Care Linen Sorter Name Role Phone Elsewhere, Pcp Primary Care Provider Unavailabl e Encounter Details Date Type Department Care Team (Late st Contact Info) Description 05/05/2013 Historical Ophthalmology [facility] Luis Miguel Issa M.D. [address] [place] [address] Social History Tobacco Use Types Packs/Day Years Used Date Smoking Tobacco: Never Assessed Sex and Gender Information Value Date Recorded Sex Assigned at Female 08/18/2023 1:08 PM PROJECT DEVELOPMENT ENGINEER Gender Identity Female 08/18/2023 1:08 PM PROJECT DEVELOPMENT ENGINEER Sexual Orientation Straight 08/18/2023 1: 08 PM PROJECT DEVELOPMENT ENGINEER documented as of this encounter Progress Notes [...] left eye CDM Reports - EYEGEN Id: [id number] Status: Fnl documented in this encounter Plan of Treatment Not on file documented as of this encounter Visit Diagnoses Not on filedocumented in this encounter Additional Health Concerns Infection Onset Date Last Indicated Resolved Time COVID19 Pending 02/01/2021 02/02/2021 02/03/2021 2 :17 PM CDT documented as of this encounter Care Teams Linen Sorter Relationship Specialty Start Date End Date Elsewhere, Pcp PCP - General Family Medicine 02/05/21 documented as of this encounter
== END 2024-06-09 15:56 | disposition home or self-care (01) ==
LOC: NFLDREF 06-14 06:22
PROVIDERS: PCP Internal Medicine; Referring Provider Internal Medicine; Visit Provider Registered Nurse
DX: R30.0 Dysuria (principal)
CPT/HCPCS: 87086

== ENCOUNTER 2024-08-31 12:46 | Outpatient (CLI) | payer MEDICARE, OTHER, SELFPAY ==
--- OUTSIDE RECORDS SUMMARY | 2024-08-31 12:49 | XMS_ITS | Continuity of Care Document ---
Author Organization [place] [facility] Address [address] [facility] [address] [place] [address] Care Team Providers Care Erisa Attorney Name Role Phone VIJAYA GILMOREHERINE Primary Care Provider Assessment No assessment recorded. Plan of Treatment Reminders Order Date Submit Date Provider Last Modified By Organization Details Last Modified Time Details Appointments ESTABLISH ED 10 2024 11:30A M Reg burns MD Not available Not available Not available Lab None recorded. Referral None recorded. Procedures None recorded. Surgeries None recorded. Imaging None recorded. Medication Orders None recorded. Patient TargetsNo targets recorded. Patient Instructions Encounter Date Encounter Id Patient Instructions Last Modified By Organization Details Last Modified Time 08/11/2024 [id number] Reviewed imaging - I recommend observation and recheck of KUB or CT January 2025. We also reviewed the fundamentals of calcium oxalate stone prevention today, which apply in the patient's case as well. More water, less salt, adding citrate in the diet, ensuring multi-vitamin use is timed with large meals, and watching for high oxalate loads in their diets are all beneficial to (most) stone formers. With me in January 2025. Not available 08/11/2024 13:38:44 Reason for Referral None Reported. Results Created Date Observation Date Name Description Value Unit Range Abnormal Flag Note LastModifiedBy Organization Detail LastModifiedTime 08/04/20 24 08/03/2024 ayleen RUSSELL No observ ation record ed. NICKIE [facility] [address], [place], [address], 08/09/2024 13:53:50 Result Notes None recorded. Problems Name Problem SNOMED Code Status Onset Date Resolution Date Notes Provider Name and Address Organization Details Recorded Time Ureteric stone 40645323 Active 024 Deborah Holliday PA-C [address] [place] [address],[address], [address] , [facility] 4 18:05:03 Kidney stone 59369847 Active 024 Deborah Holliday PA-C [address] [place] [address],[address] , [facility] 4 18:05:08 Problem Notes None recorded. Procedures Surgical History Date Name Laterality Status Provider Name and Address Organization Details Recorded Time 4 CECIL Stent Removal completed Reg Garrett MD [address] [place] [address], [address], [facility] 06/21/2024 15:28:45 5 excision of breast completed Bouchra Lentz [facility] 03/30/2024 15:52:30 Imaging Results None recorded. Procedure Notes None recorded. Medical Equipment None Reported. Allergies Allergen ID Allergen Name Allergen Category Reaction Reaction Severity Criticality Documentation Date Start Date Code Code System Note Provider Name and Address Organization Details Recorded Time 727044 Augmentin medicatio n Not available Not available Not available 03/30/2024 20339 2 [facility] 4 15:48:34 318779 Substance with sulfonami de structure and antibacte rial mechanism of action (substanc e) medicatio n Not available Not available Not available 03/30/2024 43857 8003 SNOMED [facility] 4 15:48:42 258903 oxycodone medicatio n Not available Not available Not available 03/30/2024 7804 RxNorm Bouchra Lentz te[facility] 4 15:48:49 805704 cefdinir medicatio n Not available Not available Not available 03/30/2024 09222 RxNorm Bouchra Lentz teo [facility] 4 15:48:56 237047 lansopraz ole medicatio n Not available Not available Not available 03/30/2024 40515 RxNorm Bouchra Lentz [facility] 4 15:49:02 Medications Name Sig Start [...] TAKE 1 TABLET BY MOUTH TWICE DAILY 08/11 completed Not Available Not Available Not Available ciprofloxac in 500 mg tablet TAKE ONE TABLET BY MOUTH TWICE A DAY FOR 5 DAYS; TAKE BEFORE MEALS 08/11 completed Not Available Not Available Not Available alprazolam 0.5 mg tablet TAKE 1/2 TABLET BY MOUTH EVERY DAY NEEDED FOR ANXIETY active Not Available Not Available No t Available calcium 600 mg (as calcium carbonate [...] completed Not Available Not Available Not Available oxycodone 5 mg tablet active Not Available Not Available No t Available Vitamin D active Not Available Not [...] and Address Organization Details Last Updated DateTime 08/11/2024 167.64 cm 24.2 kg/m2 [address]177.[address] [facility] 08/11/2024 12:29:52 Social History Question Answer Notes LastModified by Organizat ion Details LastModified Time Tobacco Smoking Status Former Smoker Bouchra bruce [facility] 03/30/2024 15:51:31 What Is Your Level Of Alcohol Consumption? Occasional Information not available 03/30/2024 What Is Your Level Of Caffeine Consumption? None Information not available 03/30/2024 When Did You Quit Smoking? 15+yearssinpeyton delgado Information not available 03/30/2024 Race White [email or web address] Information not available 04/05/2024 Ethnicity Not / [email or web address] Information not available 04/05/2024 Preferred Language Frisian [email or web address] Information not available 04/05/2024 What Was The Date Of Your Most Recent Tobacco Screening? 08/11/2024 [email or web address] Information not available 08/11/2024 Sex: Unknown Functional Status None recorded. Mental [...] Diagnosis/Indication Diagnosis SNOMED-CT Code Diagnosis ICD10 Code [id number] Reg Garrett MD [facility] [address] [facility] [address] [facility] [address] [place] [address] 08/11/2024 12:26:06 08/15/2024 16:05:21 Kidney stone 78297401 N20.0 Health Concerns Section Related Observation LastModified by Organization Detai ls LastModified Time None Recorded Concern Status LastModified by Organization Details LastModified Time None Recorded Payers Encounter Date Sequence Insurance Name Policy Number Policy Alejo Covered Member ID Alejo Member ID Guarantor Name 08/11/2024 2 [employer] [id number] Melanie A Welch [id number] Melanie A Welch 08/11/2024 1 MEDICARE [place] [employer] Melanie A Welch [id number] 2 Melanie A Welch Notes Date Note Type Note Provider Name and Address Organization Details Recorded Time 08/11/2024 text/html 84F presents for kidney stone follow up. She is s/p left PCNL Apr 2024 approximately of 3 cm of stone treated, including an obstructing ureteral stone, stent since removed. Has done well since. No complaints, well healed up. Stone type calcium oxalate. Renal US showed well healed, 4mm debris, vs stone, vs intraparenchymal calcification in interpolar calyx. Reg Garrett MD [address] [facility],[address], [place], [address], [facility] 08/11/2024 13:38:55 OBGyn Episode No OBEpisode recorded.
--- OUTSIDE RECORDS SUMMARY | 2024-08-31 12:49 | XMS_ITS | Data Portability ---
Author Organization [place] [facility], [facility] Address [address] [place] [address] Care Team Providers Care Senior Strategy Analyst Name Role Phone DEIRDRE ANAID Primary Care Provider Assessment Encounter Date Assessment [...] as above, but may require staged procedure [email or web address] Not available 03/30/2024 18:06:44 Plan of Treatment Reminders Order Date Submit Date Provider Last Modified By Organization Details Last Modified Time Details Appointments ESTABLISH ED 10 2024 11:30A M Reg burns MD Not available Not available Not available Lab urinalysi s, dipstick 2023 024 [email or web address] [facility], [address], [place], [address], 03/30/2024 18:06:47 urinalysi s, dipstick 2023 024 [email or web address] [facility], [address], [place], [address], 04/05/2024 11:42:20 Referral None recorded. Procedures None recorded. Surgeries percutane ous nephrolit hotomy (SURG) 2023 024 [email or web address] 0 Not available 04/22/2024 11:58:31 percutane ous nephrosto my tube placement w/ intervent ional radiologi st (SURG) 2023 024 [email or web address] 0 Not available 04/22/2024 11:58:32 Imaging US, kidney - Please call pt to schedule; Needed in July 20242023 024 alem Cid [facility], [address] [facility], [place], [address], 07/28/2024 16:50:53 Medication Orders None recorded. Patient TargetsNo targets recorded. Patient Instructions Encounter Date Encounter Id Patient Instructions Last Modified By Organization Details Last Modified Time 04/05/2024 [id number] We reviewed the available history, physical exam, [...] with left PCNL. Not available 04/05/2024 11:45:11 06/21/2024 [id number] Stent removed, tolerated well, renal US in 6-8 weeks, can telemed results if that works for Marcia. Not available 06/21/2024 15:30:29 08/11/2024 [id number] Reviewed imaging - I recommend observation and [...] Not Available [facility] [address], [place], [address], 03/30/2024 15:45:10 03/30/20 24 03/30/2024 urina lysis , dipst ick S.G. (Specific [place]) 1.020 Not Available [facility] [address], [place], [address], 03/30/2024 15:45:10 03/30/20 24 03/30/2024 urina lysis , dipst ick LEUKOCYTES Trace (10 WBC/uL ) Not Available [facility] [address], [place], [address], 03/30/2024 15:45:10 04/05/20 24 04/05/2024 urina lysis , dipst ick BLOOD Large (250 RBC/uL ) Not Available [facility] [address], [place], [address], 04/05/2024 10:59:18 04/05/20 24 04/05/2024 urina lysis , dipst ick BILIRUBIN Negati ve Not Available [facility] [address], [place], [address], 04/05/2024 10:59:18 04/05/20 24 04/05/2024 urina lysis , dipst ick UROBILINOGEN 0.2 mg/dL (Norm) Not Available [facility] [address], [place], [address], 04/05/2024 10:59:18 04/05/20 24 04/05/2024 urina lysis , dipst ick KETONES Negati ve Not Available [facility] [address], [place], [address], 04/05/2024 10:59:18 04/05/20 24 04/05/2024 urina lysis , dipst ick PROTEIN Negati ve Not Available [facility] [address], [place], [address], 04/05/2024 10:59:18 04/05/20 24 04/05/2024 urina lysis , dipst ick NITRITES Negati ve Not Available [facility] [address], [place], [address], 04/05/2024 10:59:18 04/05/20 24 04/05/2024 urina lysis , dipst ick GLUCOSE Negati ve Not Available [facility] [address], [place], [address], 04/05/2024 10:59:18 04/05/20 24 04/05/2024 urina lysis , dipst ick p.H. 5.5 Not Available [facility] [address], [place], [address], 04/05/2024 10:59:18 04/05/20 24 04/05/2024 urina lysis , dipst ick S.G. (Specific [place]) 1.020 Not Available [facility] [address], [place], [address], 04/05/2024 10:59:18 04/05/20 24 04/05/2024 urina lysis , dipst ick LEUKOCYTES Trace (10 WBC/uL ) Not Available [facility] [address], [place], [address], 04/05/2024 10:59:18 05/11/20 24 05/11/2024 fluor oscop y (PROC ) No observ ation record ed. [address], [place], [address], 06/21/2024 15:27:42 05/12/20 24 05/12/2024 XR, urogr am, retro grade No observ ation record ed. [facility] [address], [place], [address], 06/21/2024 15:27:41 05/12/20 24 05/11/2024 imagi ng/di agnos tic resul t No observ ation record ed. [facility] [address], [place], [address], 06/21/2024 15:27:42 08/04/20 24 08/03/2024 US, kidne y No observ ation record ed. NICKIE [facility] [address] [facility], [place], [address], 08/09/2024 13:53:50 Result Notes None recorded. Problems Name Problem SNOMED Code Status Onset Date Resolution Date Notes Provider Name and Address Organization Details Recorded Time Ureteric stone 07919116 Active 024 Deborah Holliday PA-C [address] [place] [address],[address], [place], [address] , [place] [facility] 18:05:03 Kidney stone 85279876 Active 024 Deborah Holliday PA-C [address] [place] [address],[address], [place], [address] , [place] [facility] 4 18:05:08 Problem Notes None recorded. Procedures Surgical History Date Name Laterality Status Provider Name and Address Organization Details Recorded Time 4 CECIL Stent Removal completed Reg Garrett MD [address] [facility],[address], [place], [address], [place] [facility] 06/21/2024 15:28:45 5 excision of breast completed Bouchra Lentz [facility] 03/30/2024 15:52:30 Imaging Results Imaging Date Name Status LastModified by Organiz ation Details LastModified Time 05/11/2024 fluor[facility] (PROC) [email or web address] [address] [place], [address], 06/21/2024 15:27:42 05/12/2024 XR, urogram, retrograde completed [facility] [address] [place], [address], 06/21/2024 15:27:41 05/11/2024 imaging/diagnos tic result completed [facility] [address] [place] [address] [place], [address], 06/21/2024 15:27:42 08/03/2024 US, kidney completed [facility] [address] [facility], [place], [address], 08/09/2024 13:53:50 Procedure Notes None recorded. Medical Equipment None Reported. Allergies Allergen ID Allergen Name Allergen Category Reaction Reaction Severity Criticality Documentation Date Start Date Code Code System Note Provider Name and Address Organization Details Recorded Time 093521 Augmentin medicatio n Not available Not available Not available 03/30/2024 43184 2 RxNorm Bouchra bruce [facility] 15:48:34 999552 Substance with sulfonami de structure and antibacte rial mechanism of action (substanc e) medicatio n Not available Not available Not available 03/30/2024 75108 8003 SNOMED Bouchra bruce [facility] 4 15:48:42 007726 oxycodone medicatio n Not available Not available Not available 03/30/2024 7804 RxNorm Bouchra bruce [facility] 4 15:48:49 447784 cefdinir medicatio n Not available Not available Not available 03/30/2024 64332 RxNorm Bouchra bruce [facility] 4 15:48:56 596225 lansopraz ole medicatio n Not available Not available Not available 03/30/2024 98454 RxNorm Bouchra bruce [facility] 4 15:49:02 Medications Name Sig Start [...] Address Organization Details Last Updated DateTime 03/30/2024 24469.86 g 24.2 kg/m2 167.64 cm Bouchra Lentz [facility] 03/30/2024 15:47:49 Date Recorded Body height Body mass index (BMI) Body weight Provider Name and Address Organization Details Last Updated DateTime 04/05/2024 167.64 cm 24.2 kg/m2 69634.86 g Chanda Messina [facility] 04/05/2024 10:56:32 Date Recorded Body height Body mass index (BMI) Body weight Provider Name and Address Organization Details Last Updated DateTime 06/21/2024 167.64 cm 24.2 kg/m2 06026.86 g Reg Garrett MD [address] [facility],[address], [place], [address], [facility] 06/21/2024 14:55:50 Date Recorded Body height Body mass index (BMI) Body weight Provider Name and Address Organization Details Last Updated DateTime 08/11/2024 167.64 cm 24.2 kg/m2 32632.86 g Amanda Turcios [facility] 08/11/2024 12:29:52 Social History Question Answer Notes LastModified by Organizat ion Details LastModified Time Tobacco Smoking Status Former Smoker [facility] 03/30/2024 15:51:31 What Is Your Level Of Alcohol Consumption? Occasional Information not available 03/30/2024 What Is Your Level Of Caffeine Consumption? None Information not available 03/30/2024 When Did You Quit Smoking? 16+yearssinpeyton delgado Information not available 03/30/2024 Race White [email or web address] Information not available 04/05/2024 Ethnicity Not / [email or web address] Information not available 04/05/2024 Preferred Language Scottish [email or web address] Information not available 04/05/2024 What Was The Date Of Your Most Recent Tobacco Screening? 08/11/2024 [email or web address] Information not available 08/11/2024 Sex: Unknown Functional Status None recorded. Mental Status None recorded. Family History Relationship Description Onset Age of this Age Resolved Age Notes LastModified by Organization Details LastModified Time Sister Family history of breast cancer [email or web address] Not available 2023 15:50:46 Medical History Condition Response Diabetes N Sexually Transmitted Infection N Bleeding Disorder N High Blood Pressure Y Kidney Stones Y Cancer Y Lung Disease N Depression N High Cholesterol N GERD/Acid Reflux Y Heart Disease N Gynecological HistoryNo gynecological history recorded. Obstetrics History GPAL:G 0 P 0 0 0 0 Past Encounters Encounter ID Performer Location Encounter Start Date Encounter Closed Date Diagnosis/Indication Diagnosis SNOMED-CT Code Diagnosis ICD10 Code [id number] Deborah Holliday PA-C [facility] [address] [place] [address] 03/30/2024 15:36:49 04/20/2024 09:56:50 Ureteric stone 37501761 N20.1 Kidney stone 48053672 N2 0.0 [id number] Reg Garrett MD [facility] [address] [place] [address] 04/05/2024 10:42:49 04/11/2024 20:43:04 Kidney stone 29360791 N20.0 [id number] MD STEFF [facility] [address] [place] [address] 06/21/2024 14:30:24 06/22/2024 14:10:11 Kidney stone 51109233 N20.0 [id number] Reg Garrett MD [facility] [address] [facility] [address] [place] [address] 08/11/2024 12:26:06 08/15/2024 16:05:21 Kidney stone 77806165 N20.0 Health Concerns Section Related Observation LastModified by Organization Detai ls LastModified Time None Recorded Concern Status LastModified by Organization Details LastModified Time None Recorded Advance Directives Directive None Recorded Payers Encounter Date Sequence Insurance Name Policy Number Policy Alejo Covered Member ID Alejo Member ID Guarantor Name 03/30/2024 2 [employer] [id number] Melanie A Welch [id number] Melanie A Welch 03/30/2024 1 [place] [employer] [facility] Melanie A Welch [id number] 2 Melanie A Welch 04/05/2024 2 [employer] [id number] Melanie A Welch [id number] Melanie A Welch 04/05/2024 1 [place] [employer] Melanie A Welch [id number] 2 Melanie A Welch 06/21/2024 2 [employer] [id number] Melanie A Welch [id number] Melanie A Welch 06/21/2024 1 [place] [employer] Melanie A Welch [id number] 2 Melanie A Welch 08/11/2024 2 [employer] [id number] Melanie A Welch [id number] Melanie A Welch 08/11/2024 1 [place] [employer] Melanie A Welch [id number] 2 Melanie A Welch Notes Date Note Type Note Provider Name and Address Organization Details Recorded Time 03/30/2024 text/html 84F with left ur eteral stone and left renal stones. Here with Driss who also provides some of the history. Seen at [facility] on 03/05 for left abdominal pain. CT demonstrated 1 cm proximal left ureteral stone and 3 additional left lower pole renal stones. Today, she reports occasional left abdominal ache but denies severe abdominal or flank pain. Uses OTC pain medication rarely. Denies dysuria, gross hematuria, fever, or chills. Reports she had stones in the past and required stone surgery (possibly at [facility]?), but states this was 25 years ago. Labs: Imaging: (reviewed in [facility])03/05/24 CT A/P: 1 cm proximal left ureteral stone; additional 3 left lower pole renal stones up to 6-7 mm in size; no right renal stones PMH:PSH: Deborah Holliday PA-C [address] [place] [address],[address], [place], [address], [facility] 03/30/2024 18:06:56 04/05/2024 text/html 84F (quite healt hy and robust for age) presents for large volume left kidney stones, including a 1cm left UPJ stone, recently seen by urgent care and here in clinic with JERI ASTORGA). Pain is present but minimal, first time stone event. Denies fevers/chills/dysuria/ nausea/vomiting. CT scan Feb 2024 shows 1cm left UPJ stone, 3 additional stones in left lower pole all 6mm, thus nearly 3cm total worth of stone. Mild left hydro noted. Normal right kidney, no stones on right. Reg Garrett MD [address] [place] [address],[address], [place], [address], [facility] 04/05/2024 11:45:21 06/21/2024 text/html 84F presents for kidney stone follow up. She is s/p left PCNL Apr 2024, stent removed, replaced with stent, presents today for stent removal. Has done well since. Reg Garrett MD [address] [place] [address],[address], [place], [address], [facility] 06/21/2024 15:30:41 08/11/2024 text/html 84F presents for kidney stone follow up. She is s/p left PCNL Apr 2024 approximately of 3 cm of stone treated, including an obstructing ureteral stone, stent since removed. Has done well since. No complaints, well healed up. Stone type calcium oxalate. Renal US showed well healed, 4mm debris, vs stone, vs intraparenchymal calcification in interpolar calyx. Reg Garrett MD [address] [place] [address],[address], [place], [address], [facility] 08/11/2024 13:38:55 OBGyn Episode No OBEpisode recorded.
--- OUTSIDE RECORDS SUMMARY | 2024-08-31 12:49 | XMS_ITS | Continuity of Care Document ---
Author Organization [facility] Address [address] [place] [address] Care Team Providers Care Automobile Designer Name Role Phone ANAID GILMORE Primary Care Provider [phone] Assessment No assessment recorded. Plan of Treatment Reminders Order Date Submit Date Provider Last Modified By Organization Details Last Modified Time Details Appointments ESTABLISH ED 10 2024 11:30A M Reg burns MD Not available Not available Not available Lab None recorded. Referral None recorded. Procedures None recorded. Surgeries None recorded. Imaging US, kidney - Please call pt to schedule; Needed in July 20242023 024 [facility] [address], [place], [address], 07/28/2024 16:50:53 Medication Orders None recorded. Patient TargetsNo targets recorded. Patient Instructions Encounter Date Encounter Id Patient Instructions Last Modified By Organization Details Last Modified Time 06/21/2024 [id number] Stent removed, tolerated well, renal US in 6-8 weeks, can telemed results if that works for Judy. [email or web address] Not available 06/21/2024 15:30:29 Reason for Referral None Reported. Results Created Date Observation Date Name Description Value Unit Range Abnormal Flag Note LastModifiedBy Organization Detail LastModifiedTime 08/04/2008/03/2024 US lamontnando lubin No observ ation record ed. NICKIE Jose [facility] [address], [place], [address], 08/09/2024 13:53:50 Result Notes None recorded. Problems Name Problem SNOMED Code Status Onset Date Resolution Date Notes Provider Name and Address Organization Details Recorded Time Ureteric stone 60654489 Active 024 Deborah Holliday PA-C [address] [place] [address],[address], [address] , [facility] 4 18:05:03 Kidney stone 89031161 Active 024 Deborah Holliday PA-C [address] [place] [address],[facility] [address] [address] , [facility] 4 18:05:08 Problem Notes None recorded. Procedures Surgical History Date Name Laterality Status Provider Name and Address Organization Details Recorded Time 4 CECIL Stent Removal completed Reg Garrett MD [address] [place] [address],[place] [address] [place] [address] 06/21/2024 15:28:45 5 excision of breast completed Bouchra Lentz [facility] 03/30/2024 15:52:30 Imaging Results None recorded. Procedure Notes None recorded. Medical Equipment None Reported. Allergies Allergen ID Allergen Name Allergen Category Reaction Reaction Severity Criticality Documentation Date Start Date Code Code System Note Provider Name and Address Organization Details Recorded Time 692400 Augmentin medicatio n Not available Not available Not available 03/30/2024 77743 2 [facility] 4 15:48:34 715502 Substance with sulfonami de structure and antibacte rial mechanism of action (substanc e) medicatio n Not available Not available Not available 03/30/2024 34314 8003 SNOMED Bouchra bruce [facility] 4 15:48:42 265252 oxycodone medicatio n Not available Not available Not available 03/30/2024 7804 RxNorm Bouchra bruce [facility] 4 15:48:49 387021 cefdinir medicatio n Not available Not available Not available 03/30/2024 22940 RxNorm Bouchra bruce [facility] 4 15:48:56 309123 lansopraz ole medicatio n Not available Not available Not available 03/30/2024 94382 RxNorm Bouchra Lentz [place], [place] - [facility] 4 15:49:02 Medications Name Sig Start [...] Updated DateTime 06/21/2024 167.64 cm 24.2 kg/m2 84025.86 g Reg Garrett MD [address] [facility] [address], [place], [address] 06/21/2024 14:55:50 Social History Question Answer Notes LastModified by Organizat ion Details LastModified Time Tobacco Smoking Status Former Sm[facility] 03/30/2024 15:51:31 What Is Your Level Of Alcohol Consumption? Occasional Information not available 03/30/2024 What Is Your Level Of Caffeine Consumption? None Information not available 03/30/2024 When Did You Quit Smoking? 15+yearssinpeyton delgado Information not available 03/30/2024 Race White [email or web address] Information not available 04/05/2024 Ethnicity Not / [email or web address] Information not available 04/05/2024 Preferred Language Vietnamese [email or web address] Information not available 04/05/2024 What Was The [...] Diagnosis/Indication Diagnosis SNOMED-CT Code Diagnosis ICD10 Code [id number] Reg Garrett MD [facility] [address] [place] [address] 06/21/2024 14:30:24 06/22/2024 14:10:11 Kidney stone 42769284 N20.0 Health Concerns Section Related Observation LastModified by Organization Detai ls LastModified Time None Recorded Concern Status LastModified by Organization Details LastModified Time None Recorded Payers Encounter Date Sequence Insurance Name Policy Number Policy Alejo Covered Member ID Alejo Member ID Guarantor Name 06/21/2024 [address] [place] [id number] Melanie A Welch [id number] Melanie A Welch 06/21/2024 1 [place]ICARE [place] [employer] [facility] Melanie A Welch [id number] Melanie A Welch Notes Date Note Type Note Provider Name and Address Organization Details Recorded Time 06/21/2024 text/html 84F presents for kidney stone follow up. She is s/p left PCNL Apr 2024, stent removed, replaced with stent, presents today for stent removal. Has done well since. Reg Garrett MD [address] [facility],[address], [place], [address], [facility] 06/21/2024 15:30:41 OBGyn Episode No OBEpisode recorded.
--- OUTSIDE RECORDS SUMMARY | 2024-08-31 12:49 | XMS_ITS | Encounter Summary ---
Author Organization [place] Address [address] [place] [address] Care Team Providers Care Sand And Gravel Plant Operator Name Role Phone No Ref-Primary, Physician Primary Care Provider Elaine Paulino MD Primary Care Provider Encounter Details Date Type Department Care Team (Late st Contact Info) Description 07/27/2019 [facility] [address] [place] [phone] Crystal Ortez MD [facility] [address] [place] [address] [id number] Pre-operative laboratory examination (Primary Dx) Social History Tobacco Use Types Packs/Day Years Used Date Smoking Tobacco: Never Assessed Comments Unknown Sex and Gender Information Value Date Recorded Sex Assigned at Not on file 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 aureus PCR (07/28/2019 12:10 PM CDT) Specimen Description Nares 07/28/2019 1:20 PM CDT [facility] Methicillin Resist/Sens S. aureus PCR Negative NEG^Negat hortencia 07/28/2019 5:55 PM CDT [facility] Comment: MRSA Negative: SA Negative MRSA and Staphylococcus aureus target DNA not detected, presumed negative for MRSA and SA colonization or the number of bacteria present may be below the limit of detection for the assay. FDA approved assay performed using DCM[employer] GeneXpert(R) real-time PCR. Nasal structure (body structure) 07/28/2019 12:10 PM CDT 07/28/2019 1:20 PM CDT us Crystal Ortez MD LAB - MICRO GENERAL ORDERABL ES Final Result [facility] [address] [place], [place] [id number] [place] [address] [address] [place] [id number] [phone] documented in this encounter Visit Diagnoses Diagnosis Pre-operative laboratory examination- Primary Pre-procedural laboratory examination documented in this encounter Care Teams Sand And Gravel Plant Operator Relationship Specialty Start Date End Date No Ref-Primary, Physician PCP - General 07/28/19 09/12/19 Elaine Paulino MD [facility] [place] [address] PCP - General Internal Medicine 09/13/19 documented as of this encounter
--- OUTSIDE RECORDS SUMMARY | 2024-08-31 12:49 | XMS_ITS | Referral Summary ---
Author Organization [place] Address [address] [place] [address] Care Team Providers Care Dragline Operator Name Role Phone Elaine Paulino MD Primary Care Provider Allergies Active Allergy Reactions Criticality Noted Date Comments Amoxicillin Diarrhea 09/09/2019 Amoxicillin-Pot Clavulanate Diarrhea 08/22/2019 No Clinical Screening - See Comments Nausea and Vomiting 03/16/2020 Narcotic pain medications. Tramadol worked well. Medications hydrochlorothiaz veronica (HYDRODIURIL) 25 MG tablet Take 25 mg [...] anxiety (takes before flying) Active order for DMEIndications:S tatus post total right knee replacement Equipment being ordered: Walker Wheels (E0155) and Walker (E0135) Treatment Diagnosis: Impaired mobility and gait 1 each 9 Active aspirin (ASA) 325 MG EC tabletIndication s:VTE Prophylaxis Take 1 tablet (325 mg) by mouth daily 30 tablet 0 Active hydrOXYzine (ATARAX) 10 MG tabletIndication s:Status post total left knee replacement Take 1 tablet (10 mg) by mouth every 6 hours as needed for other (adjuvant pain) 30 tablet 0 Active ondansetron (ZOFRAN-ODT) 4 MG ODT tabIndications:S tatus post total left knee replacement Take 1 tablet (4 mg) by mouth every 6 hours as needed for nausea or vomiting 30 tablet 0 Active senna-docusate (SENOKOT-S/PERIC OLACE) 8.6-50 MG tabletIndication s:Status post total left knee replacement Take 2 tablets by mouth 2 times daily 30 tablet 0 Active traMADol (ULTRAM) 50 MG tabletIndication s:Status post total left knee replacement Take 1-2 tablets (50-100 mg) by mouth every 6 hours as needed for moderate to severe pain 30 tablet 0 Active Active Problems Problem Noted Date Diagnosed Date Total knee replacement status 09/13/2019 Social History Tobacco Use Types Packs/Day Years Used Date Smoking Tobacco: Never Smokeless Tobacco: Never Alcohol Use Standard Drinks/Week Comments Yes 0 (1 standard drink = 0.6 oz pur e alcohol) socially Comments No Sex and Gender Information Value Date Recorded Sex Assigned at Not on file Legal Sex Female 4:47 AM PHARMACY SERVICES DIRECTOR Gender Identity Not on file Sexual Orientation Not on file Last Filed Vital Signs Vital Sign Reading Time Taken Comments Blood Pressure 161/70 03/30/2020 3:50 PM CDT Pulse 76 03/29/2020 11:35 AM CDT Temperature 37.9 C (100.2 F) 03/30/2020 3:50 PM CDT Respiratory Rate 16 03/30/2020 4:45 PM CDT Oxygen Saturation 94% 03/30/2020 3:50 PM CDT Inhaled Oxygen Concentration - - Weight 60.8 kg (134 lb) 03/29/2020 7:06 AM CDT Height 170.2 cm (5' 7) 03/29/2020 7:06 AM CDT Body Mass Index 20.99 03/29/2020 7:06 AM CDT Plan of Treatment Not on file Medical Devices Implanted Type Area Fish Net Stringer Device Identifier Shelf Expiration Date Model / Serial / Lot Bone Cement Simplex W/Tobramycin 6197-9-001 Implanted:Qty: 1 on 09/13/2019 by Crystal Ortez MD at [facility] Cement, Bone Right: Knee [employer] 03/27/2021 6197-9-001 / / [id number] Bone Cement Simplex Full Dose 6191-1-001 Implanted:Qty: 1 on 03/29/2020 by Crystal Ortez MD at [facility] Cement, Bone Left: Knee [employer] 11/25/2021 6191-1-001 / / [id number] Patella Round Dome, 35mm Implanted:Qty: 1 on 09/13/2019 by Crystal Ortez MD at [facility] Total Joint Component /Insert Right: Knee Depuy 02/26/2024 96-0111 / / [id number] Imp Comp Tibtry Sgm 2 Kn Cocr 158-20-000 Implanted:Qty: 1 on 09/13/2019 by Crystal Ortez MD at [facility] Total Joint Component /Insert Right: Knee [employer]- 06/27/2028 0 / / [id number] Femoral Posterior Stabilized Cemented, Size 2.5 Right Implanted:Qty: 1 on 09/13/2019 by Crystal Ortez MD at [facility] Total Joint Component /Insert Right: Knee Depuy 10/28/2028 0 / / [id number] Pfc Sigma Tibial Insert Fixed Bearing Stabilized 2, 8mm Implanted:Qty: 1 on 09/13/2019 by Crystal Ortez MD at [facility] Total Joint Component /Insert Right: Knee Depuy 01/25/2023 8 / / [id number] Imp Comp Fem Depuy Post Stab Sigma Sz 2.5 Lt Implanted:Qty: 1 on 03/29/2020 by Crystal Ortez MD at [facility] Total Joint Component /Insert Left: Knee J 06/27/2029 0 / / [id number] Imp Comp Tibtry Sgm 2 Kn Cocr 1581-20-000 Implanted:Qty: 1 on 03/29/2020 by Crystal Ortez MD at [facility] Total Joint Component /Insert Left: Knee [employer] 08/27/2028 0 / / [id number] P.F.C. Sigma Tibial Insert Fixed Bearing Stabilized, 2, 10mm Implanted:Qty: 1 on 03/29/2020 by Crystal Ortez MD at [facility] Left: Knee Depuy 07/28/2021 0 / / [id number] Patella Round Dome, 35mm Implanted:Qty: 1 on 03/29/2020 by Crystal Ortez MD at [facility] Left: Knee Depuy 05/28/2024 -0111 / / [id number] Insurance [facility] Advance Directives For more information, please contact: [phone] Documents on File Type Date Recorded Patient Flame Annealing Machine Operator Expl anation Advance Directives and Living Will 04/04/2020 10:47 AM Health Care Directiv e 03/23/2020 Healthcare Agents on File Name Relationship Healthcare Agent Daohi p Communication Driss Welch Spouse Health Care Agent Sonu Welch Son Co-[employer] Alterna te Health Care Agent Mateo Welch Son Co-First Alterna te Health Care Agent Care Teams Dragline Operator Relationship Specialty Start Date End Date Elaine Paulino MD [facility] [place] [address] PCP - General Internal Medicine 09/13/19
--- OUTSIDE RECORDS SUMMARY | 2024-08-31 12:49 | XMS_ITS | Clinical Summary ---
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 ASSISTANT Gender Identity Not on file Sexual Orientation [...] on file Medical Devices Implanted Type Area Vacuum Applicator Operator Device Identifier Shelf Expiration Date Model / Serial / Lot Bone Cement Simplex W/Tobramycin 6197-9-001 Implanted:Qty: 1 on 09/13/2019 by Crystal Ortez MD at [facility] Cement, Bone Right: Knee [employer] 03/27/2021 6197-9-001 / / [id number] Bone Cement Simplex Full Dose 6191-1-001 Implanted:Qty: 1 on 03/29/2020 by Crystal Ortez MD at [facility] Cement, Bone Left: Knee [employer] 11/25/2021 6191-1-001 / / [id number] Patella Round Dome, 35mm Implanted:Qty: 1 on 09/13/2019 by Crystal Ortez MD at [facility] Total Joint Component /Insert Right: Knee Depuy 02/26/2024 96-0111 / / [id number] Imp Comp Tibtry Sgm 2 Kn Cocr 1581-20-000 Implanted:Qty: 1 on 09/13/2019 by Crystal Ortez MD at [facility] Total Joint Component /Insert Right: Knee [employer] 06/27/20281580 0 / / [id number] Femoral Posterior Stabilized Cemented, Size 2.5 Right Implanted:Qty: 1 on 09/13/2019 by Crystal Ortez MD at [facility] Total Joint Component /Insert Right: Knee Depuy 10/28/20281959 0 / / [id number] Pfc Sigma Tibial Insert Fixed Bearing Stabilized 2, 8mm Implanted:Qty: 1 on 09/13/2019 by Crystal Ortez MD at [facility] Total Joint Component /Insert Right: Knee Depuy 01/25/20231580 8 / / [id number] Imp Comp Fem Depuy Post Stab Sigma Sz 2.5 Lt [id number] Implanted:Qty: 1 on 03/29/2020 by Crystal Ortez MD at [facility] Total Joint Component /Insert Left: Knee J 06/27/2029 0 / / [id number] Imp Comp Tibtry Sgm 2 Kn Cocr 1581-20-000 Implanted:Qty: 1 on 03/29/2020 by Crystal Ortez MD at [facility] Total Joint Component /Insert Left: Knee [employer] 08/27/2028 0 / / [id number] P.F.C. Sigma Tibial Insert Fixed Bearing Stabilized, 2, 10mm Implanted:Qty: 1 on 03/29/2020 by Crystal Ortez MD at [facility] Left: Knee Depuy 07/28/2021 0 / / [id number] Patella Round Dome, 35mm Implanted:Qty: 1 on 03/29/2020 by Crystal Ortez MD at [facility] Left: Knee Depuy 05/28/2024 96-0111 / / [id number] Insurance MEDICARE [facility] Advance Directives For more information, please contact: [phone] Documents on File Type Date Recorded Patient Director Athletic Expl anation Advance Directives and Living Will 04/04/2020 10:47 AM Health Care Directiv e 03/23/2020 Healthcare Agents on File Name Relationship Healthcare Agent Relationshi p Communication Driss Welch Spouse Health Care Agent Sonu Welch Son Co-First Alterna te Health Care Agent Mateo Welch Son Co-First Alterna te Health Care Agent Care Teams Customer Support Coordinator Relationship Specialty Start Date End Date Elaine Paulino [place] [facility] [place] [place] [address] PCP - General Internal Medicine 09/13/19
--- OUTSIDE RECORDS SUMMARY | 2024-08-31 12:49 | XMS_ITS | Clinical Summary ---
Author Organization [facility] Address [place], [place] [address] Care Team Providers Care Learning Program Manager Name Role Phone Elaine Paulino MD Primary Care Provider [phone] Nadya Amador MD Unavailable Unavailable Allergies Active [...] needed for Pain. 10 Tablet 05/12/2024 Active Active Problems Problem Noted Date Diagnosed Date Kidney stone on left side 05/25/2024 Irritable bowel syndrome ARTHRITIS Undiagnosed cardiac murmurs Overview (03/22/2007): gr. 10/03 Encounters Date Type Department Care Team Description 08/03/2024 10:30 AM TELE TECH Ancillary Procedure [facility] [address] [place] [address] 08/03/2024 Travel 07/26/2024 Transcribe Orders [facility] [address] [address] Reg Garrett MD 07/25/2024 Transcribe Orders [facility] [address] [address] Reg Garrett MD 07/14/2024 Transcribe Orders [facility] [address] [address] Reg Garrett MD from Last 3 Months Immunizations Name [...] 78 05/22/2024 1:13 PM CDT Temperature 36.9 C (98.4 F) 05/22/2024 1:13 PM CDT Respiratory Rate 16 05/22/2024 1:13 PM CDT [...] 65+ (1 of 1 - PCV) 2004 RSV vaccine for adults or (1 - 1-dose 75+ series) 2014 COVID-19 vaccine series ( season) 2024 07/10/2023, 01/14/2022, 07/27/2021 Influenza for age 65+ 05/29/2024 08/04/2006 DEXA/DXA scan for age 65+ Completed 2020, 08/18/2019, 08/10/2017, Additional history exists Medical Devices Implanted Type Area Hydrography Teacher Device Identifier Shelf Expiration Date Model / Serial / Lot Stent Uret [id number] Contour - [id number] Implanted:Qty: 1 on 05/11/2024 by Reg Garrett MD at [facility] Left: Ureter [facility] 12/13/2026 [id number] / / [id number] Procedures Procedure Name Priority Date/Time Associated Diagnosis Comments US RENAL AND BLADDER COMPLETE Routine 08/03/2024 10:41 AM TELE TECH Calculus of kidney XR DXA BONE DENSITY 2 SITES AXIAL Routine 07/10/2021 11:30 AM CDT 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 of central portion of left breast in female (HC) skilled nursing current use of aromatase inhibitor from Last 3 Months or Most Recently Relevant to Health Maintenance Results * US RENAL AND BLADDER COMPLETE (08/03/2024 10:41 AM TELE TECH) Anatomical Region Laterality Modality Abdomen, AORTA, KIDNEYS Ultrasou nd 08/04/2024 7:5 0 AM TELE TECH Impressions 08/04/2024 7:50 AM TELE TECH Nonobstructing left mid-lower pole nephrolithiasis. Otherwise, normal ultrasound examination of the kidneys. Dictated by Mini Issa MD @ 08/04/2024 7:50:33 AM (Electronically Signed) Narrative 08/04/2024 7:50 AM TELE TECH For Patients: As a result of the Cures Act, medical imaging exams and procedure reports are released immediately into your electronic medical record. You may view this report before your referring provider. If you have questions, please contact your health care provider. INDICATION: Calculus of right kidney. TECHNIQUE: Ultrasound renal and bladder complete. Riley-scale and color Doppler sonographic images were acquired of the kidneys and urinary bladder. COMPARISON: None. FINDINGS: Right kidney: 12.0 x 4.1 x 4.7 cm. Right renal cortex measures 1.4 cm. Normal echotexture and cortex. No suspicious masses, stones, or hydronephrosis. Left kidney: 10.0 x 4.5 x 4.2 cm. Left renal cortex measures 1.4 cm normal echotexture and cortex. No hydronephrosis. There is mid-lower pole calculus measuring 6 x 6 x 4 millimeter. Of bilateral Preserved vascularity kidneys. Bladder: Incomplete distention of the urinary bladder with prevoid bladder volume of 29 cc. No suspicious wall thickening. Bilateral urinary jets are present. Procedure Note Mini Issa MD - 08/04/2024 For Patients: As a result of the Cures Act, medical imagingexams and procedure reports are released immediately into your electronicmedical record. You may view this report before your referring provider.If you have questions, please contact your health care provider. INDICATION: Calculus of right kidney. TECHNIQUE: Ultrasound renal and bladder complete. Riley-scale and color Dopplersonographic images were acquired of the kidneys and urinary bladder. COMPARISON: None. FINDINGS: Right kidney: 12.0 x 4.1 x 4.7 cm. Right renal cortex measures 1.4 cm.Normal echotexture and cortex. No suspicious masses, stones, orhydronephrosis. Left kidney: 10.0 x 4.5 x 4.2 cm. Left renal cortex measures 1.4 cm normalechotexture and cortex. No hydronephrosis. There is mid-lower polecalculus measuring 6 x 6 x 4 millimeter. Of bilateral Preserved vascularity kidneys. Bladder: Incomplete distention of the urinary bladder with prevoid bladdervolume of 29 cc. No suspicious wall thickening. Bilateral urinary jets arepresent. IMPRESSION: Nonobstructing left mid-lower pole nephrolithiasis. Otherwise, normal ultrasound examination of the kidneys. Dictated by Mini Issa MD @ 08/04/2024 7:50:33 AM (Electronically Signed) Reg Garrett MD US * (ABNORMAL) XR DXA BONE DENSITY 2 [...] a more recent DXA scan done at [facility] in 2019, unable to trend by machine. However, the values are consistent with last check showing minimal if any decline in the lumbar spine. Repeat scan recommended in 2-3 years. Mariela Kirkland PA-C [facility] 07/16/2021 Narrative 07/16/2021 1:14 PM CDT For Patients: Results are automatically released to your [employer] account once available, in compliance with federal regulations. This means that you may see your results before your provider has had a chance to review them. Please allow 2-3 business days for your provider to comment on the results. XR DXA Bone Mineral Density (BMD) EXAM LOCATION: [address] [address] PATIENT NAME: MELANIE WELCH DATE OF : 1940 EXAM DATE: 07/10/2021 REQUESTING PROVIDER: Krystle Beach MD GENDER AT : female HEIGHT: 5' 7.01 (05/08/2016) WEIGHT: 152 lb (05/08/2016) MENOPAUSAL STATUS: Postmenopausal RACE/ETHNICITY: White [...] two scanners are made by the same wildlife manager. PROCEDURE: Dual-energy x-ray absorptiometry performed with routine [...] + 0.4 Change from prior in 2004: Increase 5.0%. RESULTS FEMUR Left femoral neck BMD: 0.792 g/cm2 T-Score: - 1.8 Z-Score: + 0.4 Change from prior in 2004: Increase 3.9%. Right femoral neck BMD: 0.737 g/cm2 T-Score: - 2.2 Z-Score: + 0.0 Change from prior in 2004: Decrease 10.3%. Left hip BMD: 0.884 g/cm2 T-Score: - 1.0 Z-Score: + 1.0 Change from prior in 2004: Decrease 3.0%. Right hip BMD: 0.797 g/cm2 T-Score: - 1.7 Z-Score: + 0.4 Change from prior in 2004: Decrease 7.6%. WHO criteria: Normal: T-score at or [...] 10:36 AM 06/08/2015 8:31 PM Care Teams Learning Program Manager Relationship Specialty Start Date End Date Elaine Paulino MD [address] [place] [address] PCP - General Internal Medicine 05/22/15 Nadya Amador MD [address] [place] [address] General Surgery Surgery - General 05/23/15
--- OUTSIDE RECORDS SUMMARY | 2024-08-31 12:49 | XMS_ITS | Continuity of Care Document ---
Author Organization [facility] Address [address] [facility] [address] [place]ki JOSLYN [address] Phone Care Team Providers Care Highway Maintenance Supervisor Name Role Phone Carlien KEY, Onofre Unavailable Unavailable Results Test Name [...] [facility], [address], [place], [address], tel:[phone] No Information 3 Carline Parnell [facility] [address], [place], [address], . tel:[phone] Family History Family Member Type Diagnosis Age [...]
--- OUTSIDE RECORDS SUMMARY | 2024-08-31 12:50 | XMS_ITS | Encounter Summary ---
Author Organization [facility] Address [address] [place] [address] Care Team Providers Care Surgical Technician Name Role Phone Elsewhere, Pcp Primary Care Provider Unavailabl e Encounter Details Date Type Department Care Team (Late st Contact Info) Description 04/25/2013 Historical Ophthalmology RST OPH Rachelle Rose, C.O.A. Social History Tobacco Use Types Packs/Day Years Used Date Smoking Tobacco: Never Assessed Comments Unknown Sex and Gender Information Value Date Recorded Sex Assigned at Female 08/18/2023 1:08 PM HURRICANE TRACKER Legal Sex Female 5:46 PM HURRICANE TRACKER Gender Identity Female 08/18/2023 1:08 PM HURRICANE TRACKER Sexual Orientation Straight 08/18/2023 1: 08 PM HURRICANE TRACKER documented as of this encounter Progress Notes * Rachelle Rose, C.O.A. - 04/25/2013 2:08 PM CDT Eye Subsequent Visit HISTORY OF PRESENT ILLNESS Preop checklist: preop instructions given, glasses read, sent for IOL measurements, informed consent form given to patient and signed by patient. CDM Reports - EYESV Id: [id number] Status: Fnl documented in this encounter Plan of Treatment Not on file documented as of this encounter Visit Diagnoses Not on filedocumented in this encounter Additional Health Concerns Infection Onset Date Last Indicated Resolved Time COVID19 Pending 02/01/2021 02/02/2021 02/03/2021 2 :17 PM CDT documented as of this encounter Care Teams Surgical Technician Relationship Specialty Start Date End Date Elsewhere, Pcp PCP - General Family Medicine 02/05/21 documented as of this encounter
--- OUTSIDE RECORDS SUMMARY | 2024-08-31 12:50 | XMS_ITS | Encounter Summary ---
Author Organization [facility] Address [address] [place] [address] Care Team Providers Care Hammerer Tab Name Role Phone Elsewhere, Pcp Primary Care Provider Unavailabl e Encounter Details Date Type Department Care Team (Late st Contact Info) Description 07/13/2014 Historical Ophthalmology RST OPH Luis Miguel Issa M.D. [address] [place] [address] Social History Tobacco Use Types Packs/Day Years Used Date Smoking Tobacco: Never Assessed Comments Unknown Sex and Gender Information Value Date Recorded Sex Assigned at Female 08/18/2023 1:08 PM SEAFOOD HARVESTER Legal Sex Female 5:46 PM SEAFOOD HARVESTER Gender Identity Female 08/18/2023 1:08 PM SEAFOOD HARVESTER Sexual Orientation Straight 08/18/2023 1: 08 PM SEAFOOD HARVESTER documented as of this encounter Progress Notes [...] right eye CDM Reports - EYEGEN Id: [id number] Status: Fnl documented in this encounter Plan of Treatment Not on file documented as of this encounter Visit Diagnoses Not on filedocumented in this encounter Additional Health Concerns Infection Onset Date Last Indicated Resolved Time COVID19 Pending 02/01/2021 02/02/2021 02/03/2021 2 :17 PM CDT documented as of this encounter Care Teams Hammerer Tab Relationship Specialty Start Date End Date Elsewhere, Pcp PCP - General Family Medicine 02/05/21 documented as of this encounter
--- OUTSIDE RECORDS SUMMARY | 2024-08-31 12:50 | XMS_ITS | Encounter Summary ---
Author Organization [facility] Address [address] [place] [address] Care Team Providers Care Livestock Trader Name Role Phone Elsewhere, Pcp Primary Care Provider Unavailabl e Encounter Details Date Type Department Care Team (Late st Contact Info) Description 04/27/2013 Historical Ophthalmology RST OPH Luis Miguel Issa M.D. [address] [place] [id number] Social History Tobacco Use Types Packs/Day Years Used Date Smoking Tobacco: Never Assessed Comments Unknown Sex and Gender Information Value Date Recorded Sex Assigned at Female 08/18/2023 1:08 PM FERMENTOLOGIST Legal Sex Female 5:46 PM FERMENTOLOGIST Gender Identity Female 08/18/2023 1:08 PM FERMENTOLOGIST Sexual Orientation Straight 08/18/2023 1: 08 PM FERMENTOLOGIST documented as of this encounter Progress Notes * Luis Miguel Issa M.D. - 04/27/2013 12:37 PM CDT Eye Subsequent Visit HISTORY OF PRESENT ILLNESS Patient here for IOL measurements. CDM Reports - EYESV Id: [id number] Status: Fnl documented in this encounter Plan of Treatment Not on file documented as of this encounter Visit Diagnoses Not on filedocumented in this encounter Additional Health Concerns Infection Onset Date Last Indicated Resolved Time COVID19 Pending 02/01/2021 02/02/2021 02/03/2021 2 :17 PM CDT documented as of this encounter Care Teams Livestock Trader Relationship Specialty Start Date End Date Elsewhere, Pcp PCP - General Family Medicine 02/05/21 documented as of this encounter
--- OUTSIDE RECORDS SUMMARY | 2024-08-31 12:50 | XMS_ITS | Encounter Summary ---
Author Organization [facility] Address [address] [place] [address] Care Team Providers Care Surgery Teacher Name Role Phone Elsewhere, Pcp Primary Care Provider Unavailabl e Encounter Details Date Type Department Care Team (Late st Contact Info) Description 02/22/2015 Historical Ophthalmology RST OPH Luis Miguel Issa M.D. [address] [place] [address] Social History Tobacco Use Types Packs/Day Years Used Date Smoking Tobacco: Never Assessed Comments Unknown Sex and Gender Information Value Date Recorded Sex Assigned at Female 08/18/2023 1:08 PM PROSTHETIC MAKEUP DESIGNER Legal Sex Female 5:46 PM PROSTHETIC MAKEUP DESIGNER Gender Identity Female 08/18/2023 1:08 PM PROSTHETIC MAKEUP DESIGNER Sexual Orientation Straight 08/18/2023 1: 08 PM PROSTHETIC MAKEUP DESIGNER documented as of this encounter Progress Notes [...] right eye CDM Reports - EYEGEN Id: [id number] Status: Fnl documented in this encounter Plan of Treatment Not on file documented as of this encounter Visit Diagnoses Not on filedocumented in this encounter Additional Health Concerns Infection Onset Date Last Indicated Resolved Time COVID19 Pending 02/01/2021 02/02/2021 02/03/2021 2 :17 PM CDT documented as of this encounter Care Teams Surgery Teacher Relationship Specialty Start Date End Date Elsewhere, Pcp PCP - General Family Medicine 02/05/21 documented as of this encounter
--- OUTSIDE RECORDS SUMMARY | 2024-08-31 12:50 | XMS_ITS ---
Author Organization [facility] Address [address] [place] [address] Care Team Providers Care Ross Carrier Driver Name Role Phone Unavailable Unavailable Unavailable Surgery Details Not on file Complications Check Surgery Details section. Procedure Estimated Blood Loss Check Surgery Details section. Procedure Findings Check Surgery Details section. Procedure Specimens Taken Check Surgery Details section.
--- OUTSIDE RECORDS SUMMARY | 2024-08-31 12:50 | XMS_ITS | Encounter Summary ---
Author Organization [facility] Address [address] [place] [address] Care Team Providers Care Press Reader Name Role Phone Elsewhere, Pcp Primary Care Provider Unavailabl e Encounter Details Date Type Department Care Team (Late st Contact Info) Description 04/25/2013 Historical Ophthalmology RST OPH Luis Miguel Issa M.D. [address] [place] [address] Social History Tobacco Use Types Packs/Day Years Used Date Smoking Tobacco: Never Assessed Comments Unknown Sex and Gender Information Value Date Recorded Sex Assigned at Female 08/18/2023 1:08 PM STORE CLERK CHECKER Legal Sex Female 5:46 PM STORE CLERK CHECKER Gender Identity Female 08/18/2023 1:08 PM STORE CLERK CHECKER Sexual Orientation Straight 08/18/2023 1: 08 PM STORE CLERK CHECKER documented as of this encounter Progress Notes * Luis Miguel Issa M.D. - 04/25/2013 12:32 PM CDT Eye General CHIEF COMPLAINT complications following cataract surgery HISTORY OF PRESENT ILLNESS Retained fragment following cataract surgery right eye. Vision not clear right eye since cataract surgery. History of amblyopia right eye. Patient denies ocular pain. Floaters and occasional flashinglights right eye since surgery. REGIONAL INTERMODAL TRUCK DRIVER: Blurred vision right eye since cataract surgery, [...] the procedure with the patient (or legal accounting representative and otherspresent during the discussion). The [...] left eye CDM Reports - EYEGEN Id: [id number] Status: Fnl documented in this encounter Plan of Treatment Not on file documented as of this encounter Visit Diagnoses Not on filedocumented in this encounter Additional Health Concerns Infection Onset Date Last Indicated Resolved Time COVID19 Pending 02/01/2021 02/02/2021 02/03/2021 2 :17 PM CDT documented as of this encounter Care Teams Press Reader Relationship Specialty Start Date End Date Elsewhere, Pcp PCP - General Family Medicine 02/05/21 documented as of this encounter
--- OUTSIDE RECORDS SUMMARY | 2024-08-31 12:50 | XMS_ITS | Referral Summary ---
Author Organization [facility] Address [address] [place] [address] Care Team Providers Care Cloud Systems Administrator Name Role Phone Elsewhere, Pcp Primary Care Provider Unavailabl e Source Comments Patient records contain information from all sites at [facility]. For routine questions regarding patient records, call [phone] during business hours, M-F 8:00 AM - 5:00 PM Central Time. Record requests for emergency care only can be directed to [phone] at any time.[facility] Allergies Active Allergy Reactions Criticality Noted Date Comments Amoxicillin Diarrhea Low 09/09/2019 Amoxicillin-Pot Clavulanate Diarrhea 08/22/20 19 Cefdinir GI intolerance 07/01/2023 Clavulanic Acid GI intolerance 07/01/2023 Lansoprazole Other (see comments) 08/12/2023 Nitrofurantoin GI intolerance Low 08/12/2023 Oxycodone GI intolerance Low 07/01/2023 Sulfacetamide Sodium GI intolerance 09/02/2022 Sulfamethoxazole GI intolerance 07/01/2023 Trimethoprim GI intolerance 07/01/2023 Medications hydroCHLOROthia zide (HYDRODIURIL) 25 mg tablet Take 25 mg by mouth daily. 1 Active losartan (COZAAR) 25 mg tablet Take 25 mg by mouth daily. 1 Active ALPRAZolam (XANAX) 0.25 mg tablet Take 0.25 mg by mouth 2 (two) times a day as needed. Active calcium carbonate-vit D3-min 600 mg calcium- 400 unit tablet Take 1 tablet by mouth daily. Active omeprazole (PriLOSEC OTC) [address] tablet Take 20 mg by mouth every morning before breakfast. Active benzonatate (TESSALON PERLES) 100 mg capsule Take 100 mg by mouth every 4 (four) hours as needed for cough. Active diphenhydrAMINE -acetaminophen (TYLENOL PM) 25-500 mg per tablet Take 1 tablet by mouth at bedtime as needed for sleep. Active clobetasoL (TEMOVATE) 0.05 % ointment Apply 1 Application topically 2 (two) times a day. Apply to labia. 30 g 3 3 Active acetaminophen (TYLENOL) 500 mg tablet 1 tablet. As needed Active Active Problems Problem Noted Date Diagnosed [...] Gang kevin 08/18/2023 Arthritis 01/17/2021 Irritable Bowel Syndrome, Unspecified 01/17/2021 Murmur Heart 01/17/2021 Overview (01/17/2021): gr. 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 Never true 11/21/20 23 Within the past 12 months, t [...] living? No 08/18/2023 Nutrition Answer Date Recorded On average, how many serving s of fruits and vegetables do you eat per day (serving size is equal to 1 cup or approximately the size of a tennis ball)? 0-2 08/18/2023 Dental Answer Date Recorded Dental: Regular Dentist Yes 08/18/20 Employment Answer Date Recorded Employment status Retired 08/18/2023 Housing Stability Answer Date Recorded What is your living situation today? I have a [facility] place to live 08/18/2023 Comments No Sex and Gender Information Value Date Recorded Sex Assigned at Female 08/18/2023 1:08 PM DIRECTOR OF CODING Legal Sex Female 5:46 PM DIRECTOR OF CODING Gender Identity Female 08/18/2023 1:08 PM DIRECTOR OF CODING Sexual Orientation Straight 08/18/2023 1: 08 PM DIRECTOR OF CODING Last Filed Vital Signs Vital Sign Reading Time Taken Comments Blood Pressure 161/80 02/05/2021 1:28 PM CDT Pulse 86 02/05/2021 1:28 PM CDT Temperature 37.4 C (99.3 F) 02/05/2021 12:22 PM CDT Respiratory Rate 17 02/05/2021 1:28 PM CDT Oxygen Saturation 96% 02/05/2021 1:28 PM CDT Inhaled Oxygen Concentration - - Weight 68.3 kg (150 lb 9.2 oz) 02/05/2021 12:22 PM CDT Height 168 cm (5' 6.14) 02/05/2021 12:22 PM CDT Body Mass Index 24.2 02/05/2021 12:22 PM CDT Plan of Treatment Not on file Medical Devices Implanted Type Area Signal Operator Linguist Device Identifier Shelf Expiration Date Model / Serial / Lot Lens Michael Ac 6.0 X 23.00 - [id number] Implanted:Qty: 1 on 05/04/2013 Ocular Lens Right: Other/Legacy - See Implant Description [employer] Description:Device Manufactu rer - [employer]. Body Location - Right. Device Status Text - [id number]. Lens Tcn [id number] Bicnvx +24.0d - [id number] - [id number] Implanted:Qty: 1 on 02/05/2021 by Luis Miguel Issa M.D. at [facility] Ocular Lens Left: Eye [employer] (Previously KIERSTEN) 11/30/2024 [id number] / [id number] / Insurance [facility] MEDICARE Care Teams Cloud Systems Administrator Relationship Specialty Start Date End Date Elsewhere, Pcp PCP - General Family Medicine 02/05/21
--- OUTSIDE RECORDS SUMMARY | 2024-08-31 12:50 | XMS_ITS | Encounter Summary ---
Author Organization [facility] Address [address] [place] [address] Care Team Providers Care Drum Operator Name Role Phone Elsewhere, Pcp Primary Care Provider Unavailabl e Encounter Details Date Type Department Care Team (Late st Contact Info) Description 05/05/2013 Historical Ophthalmology RST OPH Luis Miguel Issa M.D. [address] [place] [address] Social History Tobacco Use Types Packs/Day Years Used Date Smoking Tobacco: Never Assessed Comments Unknown Sex and Gender Information Value Date Recorded Sex Assigned at Female 08/18/2023 1:08 PM INDOOR LANDSCAPER/GARDENER Legal Sex Female 5:46 PM INDOOR LANDSCAPER/GARDENER Gender Identity Female 08/18/2023 1:08 PM INDOOR LANDSCAPER/GARDENER Sexual Orientation Straight 08/18/2023 1: 08 PM INDOOR LANDSCAPER/GARDENER documented as of this encounter Progress Notes [...] left eye CDM Reports - EYEGEN Id: [id number] Status: Fnl documented in this encounter Plan of Treatment Not on file documented as of this encounter Visit Diagnoses Not on filedocumented in this encounter Additional Health Concerns Infection Onset Date Last Indicated Resolved Time COVID19 Pending 02/01/2021 02/02/2021 02/03/2021 2 :17 PM CDT documented as of this encounter Care Teams Drum Operator Relationship Specialty Start Date End Date Elsewhere, Pcp PCP - General Family Medicine 02/05/21 documented as of this encounter
--- OUTSIDE RECORDS SUMMARY | 2024-08-31 12:50 | XMS_ITS | Clinical Summary ---
Author Organization [facility] Address [address] [place] [address] Care Team Providers Care Microsoft Infrastructure Consultant Name Role Phone Elsewhere, Pcp Primary Care Provider Unavailabl e Source Comments Patient records contain information from all sites at [facility]. For routine questions regarding patient records, call [phone] during business hours, M-F 8:00 AM - 5:00 PM Central Time. 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 I have a [facility] place to live 08/18/2023 Comments No Sex and Gender Information Value Date Recorded Sex Assigned at Female 08/18/2023 1:08 PM FILE SYSTEM INSTALLER Legal Sex Female 5:46 PM FILE SYSTEM INSTALLER Gender Identity Female 08/18/2023 1:08 PM FILE SYSTEM INSTALLER Sexual Orientation Straight 08/18/2023 1: 08 PM FILE SYSTEM INSTALLER Last Filed Vital Signs Vital Sign [...] 1940 Potassium Level 1939 Sodium Level 1939 RSV vaccine - (32-36 weeks) or 60+ years (1 - 1-dose 75+ series) 2014 DTaP,Tdap,and Td Vaccines (1 - Tdap) 08/31/2019 08/30/2019 Fasting Glucose for Diabetes Screening 03/30/2021 03/30/2020 Depression Screening (Annual PHQ-2) 09/28/2023 Fall Risk Screen (Annual) 09/28/2023 COVID-19 Vaccine ( season) 2024 07/10/2023, 06/20/2022, 06/20/2022, Additional history exists Influenza Vaccine (#1) 2024 , 07/16/2022, 07/17/2021, Additional history exists Pneumococcal vaccine (65+ years) Completed 04/26/2015, 08/14/2010 Zoster Vaccines Completed 08/24/2020, 06/05/2020 HPV Vaccines Aged Out No longer eligi ble based on patient's age to complete this topic IPV Vaccines Aged Out No longer eligi ble based on patient's age to complete this topic Medical Devices Implanted Type Area Director Traffic And Planning Device Identifier Shelf Expiration Date Model / Serial / Lot Lens Michael Ac 6.0 X 23.00 - [id number] Implanted:Qty: 1 on 05/04/2013 Ocular Lens Right: Other/Legacy - See Implant Description [employer] Description:Device Manufactu rer - [employer]. Body Location - Right. Device Status Text - [id number]. Lens Tcn [id number] Bicnvx +24.0d - [id number] - [id number] Implanted:Qty: 1 on 02/05/2021 by Luis Miguel Issa M.D. at [facility] Ocular Lens Left: Eye [employer] (Previously KIERSTEN) 11/30/2024 [id number] / [id number] / Insurance [facility] MEDIC[facility] Care Teams Microsoft Infrastructure Consultant Relationship Specialty Start Date End Date Elsewhere, Pcp PCP - General Family Medicine 02/05/21
--- OUTSIDE RECORDS SUMMARY | 2024-08-31 12:50 | XMS_ITS | Encounter Summary ---
Author Organization [facility] Address [address] [place] [address] Care Team Providers Care Drilling Machine Operator Name Role Phone Elsewhere, Pcp Primary Care Provider Unavailabl e Encounter Details Date Type Department Care Team (Late st Contact Info) Description 06/07/2013 Historical Ophthalmology RST OPH Luis Miguel Issa M.D. [address] [place] [address] Social History Tobacco Use Types Packs/Day Years Used Date Smoking Tobacco: Never Assessed Comments Unknown Sex and Gender Information Value Date Recorded Sex Assigned at Female 08/18/2023 1:08 PM BASKET SORTER Legal Sex Female 5:46 PM BASKET SORTER Gender Identity Female 08/18/2023 1:08 PM BASKET SORTER Sexual Orientation Straight 08/18/2023 1: 08 PM BASKET SORTER documented as of this encounter Progress Notes [...] left eye CDM Reports - EYEGEN Id: [id number] Status: Fnl documented in this encounter Plan of Treatment Not on file documented as of this encounter Visit Diagnoses Not on filedocumented in this encounter Additional Health Concerns Infection Onset Date Last Indicated Resolved Time COVID19 Pending 02/01/2021 02/02/2021 02/03/2021 2 :17 PM CDT documented as of this encounter Care Teams Drilling Machine Operator Relationship Specialty Start Date End Date Elsewhere, Pcp PCP - General Family Medicine 02/05/21 documented as of this encounter
--- NOTE | 2024-08-31 13:00 | CRLHL7_ITS ---
For Patients: As a result of the Century Cures Act, medical imaging exams and procedure reports are released immediately into your electronic medical record. You may view this report before your referring provider. If you have questions, please contact your health care provider. BILATERAL SCREENING MAMMOGRAM WITH COMPUTER-AIDED DETECTION AND TOMOSYNTHESIS TECHNIQUE: CC and MLO views were obtained. These mammographic images have been obtained using full-field digital technique. These mammographic images were interpreted with the benefit of computer-aided detection. Breast Tomosynthesis was used in this interpretation. Difficult patient to position, she kept readjusting herself. COMPARISON FILM: 05/18/15, 05/10/15, 05/08/15. FINDINGS: There are scattered areas of fibroglandular density. IMPRESSION: There is no radiographic evidence for malignancy. ASSESSMENT: BI-RADS Category 2: Benign RECOMMENDATION: Routine screening mammogram in 1 year. A lay language report of this examination will be provided to the patient. Eligio Ely M.D. Diagnostic Radiologist [email or web address] SP/Dictated by: Eligio Ely MD @ 09/05/2024 12:15:00 PM (Electronically Signed)
--- NOTE | 2024-08-31 13:30 | CRLHL7_ITS ---
For Patients: As a result of the Century Cures Act, medical imaging exams and procedure reports are released immediately into your electronic medical record. You may view this report before your referring provider. If you have questions, please contact your health care provider. DXA BONE MINERAL DENSITY STUDY Current height (in): 67.0. Weight (lb): 150.0. Menopause age: 44. Ethnicity: White. Reason for exam: Osteopenia. History of breast cancer. 1. Have you had a previous hip or vertebral fracture? No. 2. Have you had any fractures during your adult life which did not result from significant trauma (e.g., auto accident)? No. 3. Did either of your parents have a hip fracture? No. 4. Do you smoke? No. 5. Have you ever taken Glucocorticoids? No. 6. Do you have rheumatoid arthritis? Yes. 7. Do you have secondary osteoporosis? No. 8. Do you drink 3 or more alcoholic drinks per day? No. 9. Are you being treated for osteoporosis? No. 10. Have you ever taken any of the following medications: Actonel, Evista, Fosamax, Miacalcin, Reclast, Boniva, Forteo, HRT (i.e. estrogen/hormone therapy), Protelos, Prolia, Vitamin D, Calcium, other ??? please specify. ANSWER: Yes, vitamin D, calcium. 11. Do you have any of the following medical conditions: Anorexia or bulimia, asthma or emphysema, end stage renal disease, hyperparathyroidism, any seizure disorders, cancer, inflammatory bowel diseases, hysterectomy, other ??? please specify. ANSWER: Yes, cancer, inflammatory bowel disease, hysterectomy. 12. What was your maximum height (inches)? 67. 13. Do you perform weight bearing exercise regularly? No. 14. Do you regularly consume dairy products? Yes. 15. Do you drink caffeinated beverages? No. 16. At what age did your period start? 15. 17. Are you premenopausal? No. 18. How many full-term pregnancies have you had? 2. 19. Have you ever missed your period for more than 6 months in a row (not including or menopause)? No. TECHNIQUE: Bone mineral density study was performed using the [employer]. FINDINGS: The results of the study expressed as bone mineral density (BMD) are as follows: Lumbar spine L1 to L4: BMD: 0.901g/cm2. T-score: -1.3. Z-score: 1.5 Neck Left: BMD: 0.596 g/cm2. T-score: -2.3. Z-score: 0.2 Right: BMD: 0.552 g/cm2. T-score: -2.7. Z-score: -0.2 Total Left: BMD: 0.890 g/cm2. T-score: -0.4. Z-score: 1.9 Right: BMD: 0.826 g/cm2. T-score: -0.9. Z-score: 1.4 IMPRESSION: Osteoporosis. *Comparison exams done prior to 02/2020 were performed on different unit, Hydra Dx. COMPARISON: Compared with scan of 08/26/23, the bone mineral density has increased by 1.1 percent at the spine and increased by 2.9 percent at the hip. Abdelrahman Navas M.D. Diagnostic Radiologist [email or web address] [email or web address] Transcribed: 8:38 am DW/Dictated by: Abdelrahman Navas MD @ 09/02/2024 8:25:00 AM (Electronically Signed)
== END 2024-08-31 12:47 | disposition home or self-care (01) ==
LOC: MAMMO 12:47
PROVIDERS: PCP Internal Medicine; Visit Provider Nurse Practitioner Adult Health
DX: Z12.31 Encounter for screening mammogram for malignant neoplasm of breast (principal); C50.112 Malignant neoplasm of central portion of left female breast; M81.0 Age-related osteoporosis without current pathological fracture; M85.80 Other specified disorders of bone density and structure, unspecified site; Z17.0 Estrogen receptor positive status [ER+]
CPT/HCPCS: 77063; 77067; 77080

== ENCOUNTER 2024-09-19 10:40 | Outpatient (CLI) | payer MEDICARE, OTHER, SELFPAY | END 2024-09-19 10:41 | disposition home or self-care (01) | LOC: NFLDREF 09-20 01:22 | PROVIDERS: PCP Internal Medicine; Referring Provider Internal Medicine; Visit Provider Internal Medicine | DX: R73.03 Prediabetes (principal); K76.0 Fatty (change of) liver, not elsewhere classified; E78.5 Hyperlipidemia, unspecified; I10 Essential (primary) hypertension; M81.0 Age-related osteoporosis without current pathological fracture | CPT/HCPCS: 80053; 80061; 82306 ==

== ENCOUNTER 2025-08-18 12:46 | Outpatient (CLI) | payer MEDICARE, OTHER, SELFPAY ==
--- NOTE | 2025-08-18 13:00 | CRLHL7_ITS ---
For Patients: As a result of the Century Cures Act, medical imaging exams and procedure reports are released immediately into your electronic medical record. You may view this report before your referring provider. If you have questions, please contact your health care provider. INDICATION: Dizziness and giddiness. TECHNIQUE: Brain MRI without contrast. COMPARISON: None. FINDINGS: No evidence of acute ischemia. No evidence of acute or chronic intracranial blood products. Scattered FLAIR hyperintensities within the supratentorial white matter, typical for chronic microvascular ischemic change. [id number] generalized parenchymal volume loss. No mass effect or herniation. No hydrocephalus or extra-axial collections. The pituitary gland, parasellar structures and optic chiasm are normal. Posterior fossa is normal. All the major intracranial vascular structures demonstrate normal flow-related signal. The orbital contents are normal. No calvarial or skull base marrow replacing process. No obstructive sinus disease. No extracranial soft tissue findings. IMPRESSION: 1. No acute infarction or other acute intracranial pathology. 2. Mild chronic microvascular ischemic changes and mild to moderate generalized parenchymal volume loss. Dictated by Jason Kauffman MD @ 08/18/2025 2:52:08 PM (Electronically Signed)
== END 2025-08-18 12:47 | disposition home or self-care (01) ==
LOC: MRI 12:47
PROVIDERS: PCP Internal Medicine; Visit Provider Internal Medicine
DX: R42 Dizziness and giddiness (principal); I67.82 Cerebral ischemia; R51.9 Headache, unspecified
CPT/HCPCS: 70551

== ENCOUNTER 2025-09-19 09:07 | Outpatient (CLI) | payer MEDICARE, OTHER, SELFPAY | END 2025-09-19 09:08 | disposition home or self-care (01) | LOC: NFLDREF 09-23 20:07 | PROVIDERS: PCP Internal Medicine; Referring Provider Internal Medicine; Visit Provider Internal Medicine | DX: K76.0 Fatty (change of) liver, not elsewhere classified (principal); M81.0 Age-related osteoporosis without current pathological fracture; R73.03 Prediabetes | CPT/HCPCS: 80053; 82306 ==